=== PATIENT | female | born 1945 | race African-American/Black ===

== ENCOUNTER → 2016-10-14 | Outpatient (CLI) | payer MEDICARE, OTHER ==
[~2016-10-14] MED LIST: ALBU17IN2 INH; ALDA25TA2 PO; AMLO25TA PO; AMLO5TAB2 PO; ASPI1TAB PO; ASPI325T PO; ATIV1TAB7 PO; ATOR1TAB21 PO; BYST10TA2 PO; CARV12.5 PO; CO Q1CAP PO; COZA50TA PO; LOSA50TA20 PO; PREV15CA11 PO; PROP1TAB29 PO; SERT-141 PO; VITA100T20 PO; VITA1TAB23 PO; VITATAB11 PO; WELL100T PO
[2016-10-14 16:03] LABS: BLOOD UREA NITROGEN 12 MG/DL (7-18); CREATININE FOR GFR 0.82 MG/DL (0.55-1.02); GLOMERULAR FILTRATION RATE > 60.0 (>45)
== END ==
LOC: M LAB 15:09
PROVIDERS: ATTEND Internal Medicine Gastroenterology
DX: R10.31 Right lower quadrant pain (principal)

== ENCOUNTER → 2016-10-15 | Outpatient (CLI) | payer MEDICARE, OTHER ==
[~2016-10-15] MED LIST changes: +GASTROGRAFIN SOLUTION 30ML (Q9963) As Ordered ONE
--- NOTE | 2016-10-15 16:17 | REP ---
CT ABDOMEN AND PELVIS WITH ORAL CONTRAST ONLY, 10/15/2016: INDICATION: History of Non-Hodgkin lymphoma. Right lower quadrant pain. COMPARISON: CT abdomen and pelvis 01/21/2016. TECHNIQUE: Oral contrast only. After drinking two cups of oral contrast each containing 10 mL Gastrografin and 290 mL water, 3 mm spiral axial sections performed through abdomen and pelvis. FINDINGS: Small amount of dependent atelectasis and/or scarring present in lung bases bilaterally. The liver, spleen, pancreas within normal limits. There has been a prior cholecystectomy. Adrenal glands are normal. Kidneys are without hydronephrosis or obstructing ureteral calculi bilaterally. Stomach is moderately distended with oral contrast. Small bowel is without obstruction. The terminal ileum is normal. The appendix is not specifically seen, however, there are no findings to suggest appendiceal inflammation. Abdominal aorta is of normal course and caliber. There are no pathologically enlarged retroperitoneal nodes. The bladder is contracted. The uterus is absent. Soft tissue fullness is seen within the anal region posterior to the colon., and should be correlated clinically, but is not significantly changed in appearance. There is moderate sigmoid diverticulosis. Mild to moderate diverticulosis within descending colon. There is no free air or ascites. IMPRESSION: 1. No pathologically enlarged retroperitoneal lymph nodes. 2. Moderate diverticulosis in sigmoid colon, to a lesser extent descending colon. 3. Soft tissue fullness/thickening posterior to the rectum, unchanged. Clinical followup is recommended. MTDD
== END ==
LOC: M RAD 12:54
PROVIDERS: ATTEND Internal Medicine Gastroenterology
DX: K57.30 Diverticulosis of large intestine without perforation or abscess without bleeding (principal); Z85.72 Personal history of non-Hodgkin lymphomas
CPT/HCPCS: 74176; Q9963

== ENCOUNTER → 2016-12-23 | Outpatient (CLI) | payer MEDICARE, OTHER ==
[~2016-12-23] MED LIST changes: +ATIV1TAB10 PO; +FAMO20TA PO; -GASTROGRAFIN SOLUTION 30ML (Q9963) As Ordered ONE; -SERT-141 PO; +SERT50TA PO; +SPIR25TA2 PO; +SUCR1SS PO; +WELL100T2 PO
--- NOTE | 2016-12-23 16:39 | REP ---
Clinical: Upper GI bleed . Comparison: 01/17/2016 . Technique: PA and lateral. Findings: The mediastinum and cardiac silhouette are normal. The lung paz are clear and without acute consolidation, effusion, or pneumothorax. The skeletal structures are intact and normal. Impression: 1. No acute cardiopulmonary process. Signed by Jose Germain MD 12/23/2016 01:11 P
== END ==
LOC: M RAD 12:48
PROVIDERS: ATTEND Family Medicine
DX: K21.9 Gastro-esophageal reflux disease without esophagitis (principal)

== ENCOUNTER 2016-12-25 10:18 | Emergency (ER) | payer MEDICARE, OTHER ==
[~2016-12-25] VITALS: Ht 152.4 cm; Wt 73.5 kg
[~2016-12-25 10:18] MED LIST changes: -ATIV1TAB10 PO; -FAMO20TA PO; -SPIR25TA2 PO; -SUCR1SS PO; -WELL100T2 PO
[2016-12-25] MEDS ORDERED: WELL100T2 PO (10:40)
[2016-12-25] MEDS ORDERED: SPIR25TA2 PO (10:40)
[2016-12-25] MEDS ORDERED: CARV12.5 PO (10:40)
[2016-12-25] MEDS ORDERED: ATOR1TAB21 PO (10:40)
[2016-12-25] MEDS ORDERED: ATIV1TAB10 PO (10:40)
[2016-12-25] MEDS ORDERED: SUCRALFATE 1 GM TAB PO ONE (11:15)
[2016-12-25 11:31] LABS: BASO % 0.6 % (0.0-1.0); EOS # 0.6 K/mm3 (0.0-0.50); EOS % 8.1 % (0.0-3.0); LARGE UNSTAINED CELL # 0.2 K/mm3 (0.0-0.4); LYMPH # 2.1 K/mm3 (1.5-4.5); LYMPH % 30.9 % (24.0-44.0); MEAN CORPUSCULAR HGB CONC 31.5 g/dl (32.0-36.5); MEAN CORPUSCULAR VOLUME 92.2 fl (80.0-96.0); MONO # 0.4 K/mm3 (0.0-0.8); MONO % 5.2 % (0.0-5.0); NEUTROPHILS # 3.5 K/mm3 (1.8-7.7); NEUTROPHILS % 52.1 % (36.0-66.0); PLATELET COUNT, AUTOMATED 257 k/mm3 (150-450); RED CELL DISTRIBUTION WIDTH 12.8 % (11.5-14.5); WHITE BLOOD COUNT 6.7 K/mm3 (4.0-10.0)
[2016-12-25 11:36] LABS: ALBUMIN 3.5 GM/DL (3.2-5.2); ALBUMIN/GLOBULIN RATIO 1.09 (1.00-1.93); ALKALINE PHOSPHATASE 124 U/L (45-117); ALT/SGPT 19 U/L (12-78); ANION GAP 7 MEQ/L (8-16); AST/SGOT 17 U/L (15-37); BILIRUBIN,DIRECT < 0.1 MG/DL (0.0-0.2); BILIRUBIN,TOTAL 0.4 MG/DL (0.2-1.0); BLOOD UREA NITROGEN 13 MG/DL (7-18); CALCIUM LEVEL 8.8 MG/DL (8.8-10.2); CARBON DIOXIDE LEVEL 26 MEQ/L (21-32); CHLORIDE LEVEL 107 MEQ/L (98-107); GLOMERULAR FILTRATION RATE > 60.0 (>45); GLUCOSE, FASTING 92 MG/DL (80-110); POTASSIUM SERUM 4.2 MEQ/L (3.5-5.1); SODIUM LEVEL 140 MEQ/L (136-145); TOTAL PROTEIN 6.7 GM/DL (6.4-8.2)
--- NOTE | 2016-12-25 12:17 | REP ---
PORTABLE CHEST X-RAY: CLINICAL: Chest pain. COMPARISON: 12/23/2016. FINDINGS: Mediastinum and cardiac silhouette normal. Lung paz clear. No acute consolidation, effusion, or pneumothorax. Skeletal structures intact. IMPRESSION: Normal portable chest x-ray. No acute cardiopulmonary process or focal consolidation. Signed by Jose Germain MD 12/30/2016 11:03 A
[2016-12-25] MEDS ORDERED: GI COCKTAIL 50ML BTL(HYOSCYAMINE/MAALOX/LIDOCAINE VISCOUS)(1:3:1) PO ONE (12:45)
[2016-12-25] MEDS ORDERED: ISOVUE-370 76% 100ML VIAL (Q9967) As Ordered ONE (16:24)
[2016-12-25] MEDS ORDERED: diphenhydrAMINE INJ 50MG/ML VIAL (J1200) IV STA (16:31)
[2016-12-25] MEDS ORDERED: methylPREDNISolone INJ 125 MG/2 ML VIAL (J2930) IV ONE (16:45)
[2016-12-25 16:54] VITALS: BP 170/77
--- NOTE | 2016-12-25 18:08 | REP ---
Clinical: Acute chest pain. Technique: Axial contrast enhanced images from the thoracic inlet to the upper abdomen using 100 ml Isovue 370 intravenous contrast material with coronal and sagittal re-formations. Findings: Satisfactory enhancement of the pulmonary vasculature is achieved and no filling defects are identified to suggest pulmonary embolus. Thoracic aorta is normal caliber without aneurysm or dissection. Heart and pericardium are normal. Lung paz demonstrate mild atelectasis involving the lingula, right lower lobe and to a lesser extent the left lower lobe. No consolidation. No effusion. No pneumothorax. Tracheobronchial tree is patent. No obvious adenopathy. Musculoskeletal structures are intact. Impression: No evidence for pulmonary embolus. Mild atelectasis involving the right lower lobe, lingula, and left lower lobe. Signed by Jose Germain MD 12/25/2016 05:58 P
[2016-12-25] MEDS ORDERED: SUCR1SS PO (18:18)
[2016-12-25] MEDS ORDERED: FAMO20TA PO (18:19)
[2016-12-25] MEDS ORDERED: ASPIRIN 81 MG CHEW TABLET PO ONE (18:30)
--- NOTE | 2016-12-26 16:27 | ECGEPIP ---
Stationary ECG Study [facility] - ED Test Date: 2016-12-25 Pat Name: GER TYLER Department: Room: - Gender: F Citrix Engineer: brien : 1945 Requested By: Brit Velasco Order Number: [id number] Reading MD: Brit Velasco Measurements Intervals Rebuck Rate: 66 P: 29 DC: 150 QRS: -30 QRSD: 102 T: 0 QT: 206 QTc: 217 Interpretive Statements SINUS RHYTHM WITH SINUS ARRHYTHMIA BORDERLINE LEFT AXIS DEVIATION VOLTAGE CRITERIA FOR LVH NONSPECIFIC T-WAVE ABNORMALITY SIMILAR 01/17/16 Electronically Signed On 12-26-2016 16:27:23 EDT by Brit Velasco
--- NOTE | 2016-12-26 16:33 | ECGEPIP ---
Stationary ECG Study [facility] - ED Test Date: 2016-12-25 Pat Name: GER TYLER Department: Room: - Gender: F Rv Repair Technician: luisana : 1945 Requested By: Brit Velasco Order Number: [id number] Reading MD: Brit Velasco Measurements Intervals Cecil Rate: 63 P: 50 OH: 132 QRS: -34 QRSD: 101 T: -6 QT: 394 QTc: 406 Interpretive Statements SINUS RHYTHM MARKED LEFT AXIS DEVIATION VOLTAGE CRITERIA FOR LVH NONSPECIFIC T-WAVE ABNORMALITY SIMILAR 12/25/16 10:29 Electronically Signed On 12-26-2016 16:33:04 EDT by Brit Velasco
== END 2016-12-25 18:41 | disposition home or self-care (01) ==
LOC: M ED 11:07
DX: R07.9 Chest pain, unspecified (principal); R06.02 Shortness of breath; I10 Essential (primary) hypertension; J45.909 Unspecified asthma, uncomplicated; C85.90 Non-Hodgkin lymphoma, unspecified, unspecified site; E78.5 Hyperlipidemia, unspecified; I25.10 Atherosclerotic heart disease of native coronary artery without angina pectoris; Z86.73 Personal history of transient ischemic attack (TIA), and cerebral infarction without residual deficits; Z82.49 Family history of ischemic heart disease and other diseases of the circulatory system; Z79.899 Other long term (current) drug therapy; Z88.0 Allergy status to penicillin; Z88.2 Allergy status to sulfonamides; Z88.8 Allergy status to other drugs, medicaments and biological substances
CPT/HCPCS: 36415; 71010; 71275; 80048; 80076; 82550; 82553; 83690; 83880; 84484; 85025; 85379; 93005; 93041; 94760; 96374; 96375; 99285; J1200; J2930; Q9967

== ENCOUNTER → 2016-12-25 | Outpatient (CLI) | payer MEDICARE, OTHER | LOC: M RAD 10:11 | PROVIDERS: ATTEND Family Medicine | DX: R13.10 Dysphagia, unspecified (principal) ==

== ENCOUNTER → 2017-02-06 | Outpatient (CLI) | payer MEDICARE, OTHER ==
[~2017-02-06] MED LIST changes: +ATIV1TAB10 PO; +FAMO20TA PO; +SPIR25TA2 PO; +SUCR1SS PO; +WELL100T2 PO
[2017-02-06 14:49] LABS: BASO % 0.2 % (0.0-1.0); EOS # 0.1 K/mm3 (0.0-0.50); LARGE UNSTAINED CELL # 0.2 K/mm3 (0.0-0.4); LARGE UNSTAINED CELL % 1.5 % (0.0-4.0); LYMPH # 3.2 K/mm3 (1.5-4.5); LYMPH % 22.2 % (24.0-44.0); MEAN CORPUSCULAR HEMOGLOBIN 30.5 pg (27.0-33.0); MEAN CORPUSCULAR HGB CONC 32.6 g/dl (32.0-36.5); MEAN CORPUSCULAR VOLUME 93.6 fl (80.0-96.0); MONO # 0.8 K/mm3 (0.0-0.8); MONO % 5.7 % (0.0-5.0); NEUTROPHILS # 9.4 K/mm3 (1.8-7.7); NEUTROPHILS % 69.4 % (36.0-66.0); PLATELET COUNT, AUTOMATED 266 k/mm3 (150-450); RED CELL DISTRIBUTION WIDTH 13.2 % (11.5-14.5); WHITE BLOOD COUNT 13.5 K/mm3 (4.0-10.0)
[2017-02-06 15:34] LABS: ERYTHROCYTE SEDIMENTATION RATE 43 mm/hr (0-30)
== END ==
LOC: M LAB 14:18
PROVIDERS: ATTEND Physician Assistant Medical
DX: R51 Headache (principal)

== ENCOUNTER → 2017-02-25 | Outpatient (CLI) | payer MEDICARE, OTHER ==
[~2017-02-25] MED LIST changes: +E-Z-GAS II EFFERVESCENT PACKET (SODIUM BICARB./CITRIC ACID/SIMETHICONE) As Ordered ONE; +E-Z-HD 98% w/w 340GM SUSP BTL As Ordered ONE; +E-Z-PAQUE 96% w/w SUSP 176GM BTL As Ordered ONE
--- NOTE | 2017-02-25 17:43 | REP ---
UPPER GI, AIR CONTRAST: The procedure was performed under the direct supervision of Dr. Garcia. The images were reviewed with Dr. Garcia. The event host film shows no organomegaly or pathological masses. The intestinal gas pattern is nonspecific. There are surgical clips noted in the right upper quadrant. There is a surgical clip noted in the pelvis. Liquid barium and gas-producing granules were given in the erect position as well as liquid barium in the prone oblique position in order to perform a double-contrast upper GI examination. The oral and pharyngeal stage of deglutition are unremarkable. Esophageal transport demonstrates tertiary waves. There is no esophagitis, stricture, mucosal ring, or hiatal hernia. Gastroesophageal reflux is not demonstrated on this examination. The stomach rodriguez are normally outlined. The rugal folds are smooth and regular. There is no gastritis, neoplasm, or ulcer disease. The duodenal rodriguez are normally outlined. The mucosal folds are smooth and regular. There is no duodenitis, pancreatitis, peptic ulcer disease, or neoplasm. The visualized portion of the proximal small bowel appears normal in course and caliber. IMPRESSION: There are tertiary waves demonstrated, otherwise unremarkable double contrast upper GI examination. 1 minute and 44 seconds of fluoroscopic time was utilized for this procedure. Reviewed by LISA Jeong 02/26/2017 08:27 AEdited and Signed by Kemar Garcia MD 02/26/2017 07:21 P
== END ==
LOC: M RAD 09:15
PROVIDERS: ATTEND Family Medicine
DX: R13.10 Dysphagia, unspecified (principal)

== ENCOUNTER → 2017-04-27 | Outpatient (CLI) | payer MEDICARE, OTHER ==
[~2017-04-27] MED LIST changes: +CO Q100C PO; -CO Q1CAP PO; -E-Z-GAS II EFFERVESCENT PACKET (SODIUM BICARB./CITRIC ACID/SIMETHICONE) As Ordered ONE; -E-Z-HD 98% w/w 340GM SUSP BTL As Ordered ONE; -E-Z-PAQUE 96% w/w SUSP 176GM BTL As Ordered ONE; -PREV15CA11 PO; +PREV15CA18 PO
== END ==
LOC: M LAB 10:59
PROVIDERS: ATTEND Physician Assistant Medical
DX: M54.5 Low back pain (principal); M25.569 Pain in unspecified knee; I47.2 Ventricular tachycardia

== ENCOUNTER → 2017-04-27 | Outpatient (CLI) | payer MEDICARE, OTHER | LOC: M LAB 11:02 | PROVIDERS: ATTEND Nurse Practitioner Family | DX: I47.2 Ventricular tachycardia (principal) ==

== ENCOUNTER → 2017-04-28 | Outpatient (CLI) | payer MEDICARE, OTHER ==
--- NOTE | 2017-05-21 00:38 | ECWPNPC ---
PATIENT NAME: GER TYLER : 1945 GENDER: FEMALE VISIT DATE: 04/28/2017 DISCHARGE DATE: 04/28/17 1355 VISIT LOCKED DATE TIME: PHYSICIAN: LAYLA REDDY RESOURCE: LAYLA REDDY REASON FOR APPOINTMENT 1. LOW BACK PAIN HISTORY OF PRESENT ILLNESS FALL RISK SCREENING: SCREENING :ONE FALL WITH INJURY IN THE PAST YEAR PAIN SCREENING: PATIENT HAS A COMPLAINT OF ACUTE OR CHRONIC PAIN :YES TODAY'S VISIT: NOTES: REFERRED BY Tyler JONES PA-C /[facility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id number] ISLAM LANGUAGE LANGUAGES SPOKEN:TURKISH EDUCATION LEVEL OF EDUCATION:PROFESSIONAL SCHOOLS/MASTERS/PHD LEARNING BARRIERS / SPECIAL NEEDS VISION IMPAIRED?YES :CORRECTIVE LENSES READINESS TO LEARN?YES LEARNING PREFERENCES?YES :BOOKLETS, HANDOUTS SPECIAL DEVICES?YES :CANE HOSPITALIZATION/MAJOR DIAGNOSTIC PROCEDURE SURGERY RELATED REVIEW OF SYSTEMS FOLLOW-UP ROS: PSYCHOLOGY: POSITIVE FOR, ANXIETY, DEPRESSION SECONDARY TO CANCER. SAW COUNSELOR AND IS DOING MUCH BETTER . REVIEWED BY: PROVIDER: LAYLA JOLLY . CONSTITUTIONAL: ANY CHANGE IN YOUR MEDICAL CONDITION? NO . CHILLS NO . FEVER NO . INFECTION: DO YOU HAVE NEW INFECTIONS? NO . DO YOU HAVE HISTORY OF MRSA? NO . MUSCULOSKELETAL: ANY NEW PATTERNS OF PAIN OR NUMBNESS? NO . SYTEMIC LUPUS NO . PATIENT COMPLAINING OF LEFT JAW/NECK UPPER SHOULDER PAIN ? TMJ . GASTROENTEROLOGY: ANY NEW CHANGE IN BOWEL CONTROL? NO . BARRETTS ESOPHAGUS NO . CIRRHOSIS NO . HEPATITIS NO . LIVER FAILURE NO . ACID REFLUX NO . UNEXPLAINED WEIGHT LOSS NO . GENITOURINARY: ANY NEW CHANGE IN BLADDER CONTROL? NO . IS THERE A CHANCE YOU COULD BE ? NO . HEMATOLOGY/LYMPH: GENERAL NON-HODGKINS LYMPHOMA SURVIVOR. . DO YOU TAKE ANY BLOOD THINNERS? (FOR EXAMPLE- COUMADIN, PLAVIX, AGGRENOX, PLATEL, PRADAXA, OR XARELTO) NO . WHEN WAS YOUR LAST DOSE? DATE: TIME: . LOW PLATELET COUNT NO . SICKLE CELL DISEASE NO . VON WILLIEBRANDS NO . FACTOR V LEIDEN NO . THALLASEMIA NO . ANEMIA NO . EASY BRUISING NO . NEUROLOGY: HAVE YOU FALLEN IN THE PAST 6 MONTHS? YES . ANY NEW EXTREMITY NUMBNESS OR WEAKNESS? NO . HEAD INJURY NO . DEMENTIA NO . CEREBRAL PALSY NO . MULTIPLE SCLEROSIS NO . DIZZINESS NO . HEADACHE NO . STROKES NO . VERTIGO NO . CARDIOLOGY: DO YOU HAVE A PACEMAKER OR DEFIBRILLATOR? NO . ANGINA NO . HEART ATTACK NO . HEART SURGERY NO . CONGESTIVE HEART FAILURE/FLUID OVERLOAD NO . CHEST PAIN FOLLOWS WITH DR HOUSE - HAD LOOP RECORDER IN PLACE. CURRENTLY HAS LONG LASTING HOLTER MONITOR HAD A CATH AND EPS STUDIES . HIGH BLOOD PRESSURE ON MEDICATION(S) . IRREGULAR HEART BEAT NO . RESPIRATORY: HAVE YOU BEEN SICK IN THE PAST WEEK? NO . FEVER NO . FLU LIKE SYMPTOMS? NO . CPAP NO . BYPAP NO . ASTHMA NO . EMPHYSEMA NO . CHRONIC LUNG DISEASES NO . SHORTNESS OF BREATH ON EXERTION NO . COUGH NO . SNORING NO . INTEGUMENTARY: DO YOU HAVE ANY RASHES OR OPEN SORES? YES . ALLERGIC/IMMUNO: ARE YOU ALLERGIC TO SHELLFISH OR IV DYE? YES . ANY NEW ALLERGIES? NO . PSYCHIATRIC: DO YOU HAVE THOUGHTS OF HURTING YOURSELF OR SOMEONE ELSE? NO . ARE YOU ABUSED, NEGLECTED, OR IN AN UNSAFE ENVIRONMENT? NO . ENDOCRINOLOGY: ARE YOU DIABETIC? NO . THYROID DISORDER NO . OTHER: DO YOU NEED ANY PRESCRIPTIONS? NO . IF YES, PLEASE LIST: ____ . ANY NEW PROBLEMS WITH YOUR MEDICATIONS? NO . WHEN DID YOU LAST EAT? ____ . WHEN DID YOU LAST DRINK? ____ . WHAT DID YOU LAST DRINK? ____ . NAME OF PERSON DRIVING YOU HOME? ____ . DO YOU HAVE ANY OTHER QUESTIONS OR CONCERNS NO . ENT: SINUS PROBLEMS CHRONIC . PSYCHOLOGY: BECKS DEPRESSION INVENTORY STATES THAT SHE HAS NO SUICIDAL THOUGHTS BUT HAS THOUGHT ABOUT DUE TO HER ILLNESS AND PAIN . VITAL SIGNS WT 168.6 LBS, HT 60 IN, BMI 32.92 INDEX, BP 138/67 MM HG, HR 64 /MIN, RR 16 /MIN, TEMP 99.0 F, OXYGEN SAT % 96%, NA INITIALS SC 12:27, REVIEWED BY: ANJELICA. EXAMINATION GENERAL EXAMINATION: PSYCHALERT , ORIENTED X 3 , APPROPRIATE MOOD AND AFFECT . HEENT:NORMOCEPHALIC, NO LYMPHADENOPATHY, NO THYROMEGLY. LUNGS:CLEAR TO AUSCULTATION BILATERALLY, NO WHEEZES, RALES OR RHONCHI. HEART:HEART RATE REGULAR, NO CAROTID BRUITS, NORMAL S1S2, NO MURMURS, CLICK OR RUBS. MUSCULOSKELETAL:MUSCLE STRENGTH TESTING 5/5 BILATERAL UPPER AND LOWER EXTREMITIES. SLOW TO RISE TO STANDING POSITION AND HAS DIFFICULTY BEARING WEIGHT ON LEFT LEG. CCAN FLEX TO 30 DEGREES, EXTEND TO 10 DEGREES AND HAS INCREASED PAIN WITH ROTATION TO THE LEFT. POINT TENDERNESS OVER LUMBAR SPINOUS PROCESSES AND LEFT SIJ. TENDERNESS OVER LEFT PIRIFORMIS. POSITIVE CHANA SIGN. SLR POSITIVE ON LEFT AT 15 DEGREES, NEG ON RIGHT. HAS DIFFICULTY RISING TO HEEL AND TOE. . NEUROLOGIC EXAM:DTR'S 2+ IN BILATERAL UPPER AND LOWER EXTREMITIES. NO SENSORY DEFICEIT IDENTIFIED IN LOWER EXTREMITIES. PLANTAR RESPONSE IS FLEXOR. NO CLONUS. ASSESSMENTS LUMBAR DISC DISPLACEMENT WITHOUT MYELOPATHY - M51.26 (PRIMARY) LUMBAR RADICULOPATHY - M54.16 SACROILIITIS - M46.1 TREATMENT LUMBAR DISC DISPLACEMENT WITHOUT MYELOPATHY NOTES: INTRALAMINAR LUMBAR EPIDURAL, SPECIAL ATTENTION L$-5/L5-S1,WHAT IS LUMBAR EPIDURAL INJECTION? MATERIAL WAS PRINTED, REVIEWED AND GIVEN TO PT, OPTION FOR EPIDURAL INJECTIONS WERE DISCUSSED WITH THE PATIENT. FDA CONCERNS AND WARNING WERE REVIEWED INCLUDING THE RISK OF BLEEDING, RISK OF INFECTION, RISK OF INCREASED PAIN OR NEURALGIA, AND RISK OF PARALYSIS. PATIENT'S QUESTIONS WERE ANSWERED AND HE/SHE WISHES TO MOVE FORWARD WITH EPIDURAL INJECTION., FALLS CARE PLAN: 1. RECOMMEND REMOVING ALL THROW RUGS. 2. RECOMMEND NIGHT LIGHTS 3. RECOMMEND WEARING RUBBER SOLED SHOES AND TO NOT GO BAREFOOT. 4.. ADVISED TO CHANGE POSITION SLOWLY FROM SUPINE TO STANDING TO AVOID DIZZINESS. 5. ADVISED TO USE ASSISTIVE DEVICE SUCH CANE OR WALKER . BP ISSUES - FOLLOWS CLOSELY WITH CARDIOLOGY AND HER PCP. PROCEDURE CODES FA211 ESTABILISHED PATIENT [facility] FACILITY CHARGE G3891 BP SCR PRFRM RCMDD DEFIND SCR INTVL G8730 PAIN ASSESS POS TOOL F/U PLAN DOC 3016F PT SCRND UNHLTHY [place] USE 1123F ACP DISCUSS/DSCN MKR DOCD 1036F TOBACCO NON-USER 0518F FALL PLAN OF CARE DOCD G8427 DOC MEDS VERIFIED W/PT OR RE G8420 BMI<30 AND >=22 CALC & DOCU 3288F FALL RISK ASSESSMENT DOCD DISPOSITION & COMMUNICATION FOLLOW UP AFTER INJECTION (REASON: INTRALAMINAR LUMBAR EPIDURAL, SPECIAL ATTENTION L$-5/L5-S1) ELECTRONICALLY SIGNED BY INES LOO ON 05/20/2017 AT 08:47 AM EDT DISCLAIMER : THIS IS A VISIT SUMMARY EXTRACTED FROM THE [employer] CHART. IT IS NOT A COPY OF THE [employer] PROGRESS NOTE. MTDD
== END ==
LOC: M PAIN 11:20
PROVIDERS: ATTEND Nurse Practitioner Family
DX: G89.29 Other chronic pain (principal); M51.26 Other intervertebral disc displacement, lumbar region; M54.16 Radiculopathy, lumbar region; M46.1 Sacroiliitis, not elsewhere classified; I10 Essential (primary) hypertension; L30.9 Dermatitis, unspecified; G43.909 Migraine, unspecified, not intractable, without status migrainosus; F41.9 Anxiety disorder, unspecified; F32.9 Major depressive disorder, single episode, unspecified; Z88.2 Allergy status to sulfonamides; Z88.0 Allergy status to penicillin; Z88.5 Allergy status to narcotic agent; Z88.1 Allergy status to other antibiotic agents; Z91.041 Radiographic dye allergy status; Z79.1 Long term (current) use of non-steroidal anti-inflammatories (NSAID); Z79.899 Other long term (current) drug therapy

== ENCOUNTER → 2017-06-02 | Outpatient (CLI) | payer MEDICARE, OTHER ==
[~2017-06-02] MED LIST changes: +ISOVUE-M 300 61% 15ML VIAL (Q9967) As Ordered ONE; +LIDOCAINE 1% SDV INJ 30 ML VIAL As Ordered ONE; +diazePAM 5 MG TAB As Ordered ONE; +diphenhydrAMINE 25 MG CAP As Ordered ONE; +methylPREDNISolone SUSP 40 MG/ML (DEPO-medrol) VIAL (J1030) As Ordered ONE; +oxyCODONE 5MG TAB As Ordered ONE
--- NOTE | 2017-06-02 13:13 | REP ---
Partial lumbar spine series: Three views . History: Injection procedure for pain. 14 seconds of fluoroscopy time is reported. Findings: A sequence of three fluoroscopically obtained last image hold procedural spot radiographs of the lumbar spine document needle position and contrast injection associated with injection procedure. Signed by Kj Wright MD 06/02/2017 01:04 P
--- NOTE | 2017-06-03 01:23 | ECWPNPC ---
PATIENT NAME: GER TYLER : 1945 GENDER: FEMALE VISIT DATE: 06/02/2017 DISCHARGE DATE: 06/02/17 1215 VISIT LOCKED DATE TIME: PHYSICIAN: VIVIAN CHAVES RESOURCE: VIVIAN CHAVES REASON FOR APPOINTMENT 1. INTRALAMINAR LE HISTORY OF PRESENT ILLNESS HISTORY OF PRESENT ILLNESS: PAIN THE PATIENT DESCRIBES THE PAIN... FALL RISK SCREENING: SCREENING :NO FALLS IN THE PAST YEAR CURRENT MEDICATIONS TAKING LOSARTAN POTASSIUM 50 MG TABLET 1 TABLET ORALLY ONCE A DAY, NOTES: 06/02 730 TAKING ACETAMINOPHEN 325 MG CAPSULE 1 CAP ORALLY EVERY 6 HRS, NOTES: 06/02 730 TAKING BUPROPION HCL 100 MG TABLET 1 TABLET ORALLY ONCE A DAY, NOTES: 06/02 730 TAKING POTASSIUM CHLORIDE ER 8 MEQ TABLET EXTENDED RELEASE 2 TABLETS WITH FOOD ORALLY DAILY, NOTES: 06/02 730 TAKING SPIRONOLACTONE 25 MG TABLET 1/2 TABLET ORALLY DAILY, NOTES: 06/02 730 TAKING ATORVASTATIN CALCIUM 20 MG TABLET 1 TABLET ORALLY ONCE A DAY, NOTES: 06/01 2100 TAKING CARVEDILOL 12.5 MG TABLET ORALLY , NOTES: 06/02 730 TAKING LORAZEPAM 0.5 MG TABLET 1 TABLET NEEDED ORALLY EVERY 6 HRS, NOTES: 06/01 1300 TAKING VITAMIN D 2000 UNIT TABLET 1 TABLET ORALLY ONCE A DAY, NOTES: 06/02 730 TAKING VITAMIN C 500 MG TABLET 1 TABLET ORALLY ONCE A DAY, NOTES: 06/02 730 TAKING MAGNESIUM 400 MG CAPSULE ORALLY DAILY, NOTES: 06/02 730 TAKING VITAMIN B 12 100 MCG LOZENGE ORALLY DAILY, NOTES: 06/02 730 MEDICATION LIST REVIEWED AND RECONCILED WITH THE PATIENT PAST MEDICAL HISTORY MIGRAINE CERVICALGIA LOW BACK PAIN LEFT LEG PAIN / SCIATICA ALLERGIES SULFA (FOR ALLERGY USE ONLY) PENICILLIN (FOR ALLERGIES USE ONLY): FACIAL SWELLING: ALLERGY MORPHINE: AGITATION: SIDE EFFECTS BACTRIM: ANGIOEDEMA: ALLERGY IV DYE: AGGITATION, PANIC ATTACK, HIVES: ALLERGY REVIEW OF SYSTEMS REVIEWED BY: PROVIDER: . CONSTITUTIONAL: ANY CHANGE IN YOUR MEDICAL CONDITION? NO . CHILLS NO . FEVER NO . INFECTION: DO YOU HAVE NEW INFECTIONS? NO . DO YOU HAVE HISTORY OF MRSA? NO . MUSCULOSKELETAL: ANY NEW PATTERNS OF PAIN OR NUMBNESS? YES, PAIN LEFT LEG. STARTED 2 1/2 MONTHS AGO . GASTROENTEROLOGY: ANY NEW CHANGE IN BOWEL CONTROL? NO . GENITOURINARY: ANY NEW CHANGE IN BLADDER CONTROL? NO . IS THERE A CHANCE YOU COULD BE ? NO . HEMATOLOGY/LYMPH: DO YOU TAKE ANY BLOOD THINNERS? (FOR EXAMPLE- COUMADIN, PLAVIX, AGGRENOX, PLATEL, PRADAXA, OR XARELTO) NO . WHEN WAS YOUR LAST DOSE? DATE: TIME: . NEUROLOGY: HAVE YOU FALLEN IN THE PAST 6 MONTHS? YES, LAST TIME 2 MONTHS AGO. SHE MISSED STEP AND WENT DOWN FALLING DOWN 4 STEPS, HAD BRUISES. DID NOT GET SEEN . ANY NEW EXTREMITY NUMBNESS OR WEAKNESS? NO . CARDIOLOGY: DO YOU HAVE A PACEMAKER OR DEFIBRILLATOR? NO . RESPIRATORY: HAVE YOU BEEN SICK IN THE PAST WEEK? NO . FEVER NO . FLU LIKE SYMPTOMS? NO . COUGH NO . INTEGUMENTARY: DO YOU HAVE ANY RASHES OR OPEN SORES? YES, RASH RIGHT ARM . ALLERGIC/IMMUNO: ARE YOU ALLERGIC TO SHELLFISH OR IV DYE? NO . ANY NEW ALLERGIES? NO . PSYCHIATRIC: DO YOU HAVE THOUGHTS OF HURTING YOURSELF OR SOMEONE ELSE? NO . ARE YOU ABUSED, NEGLECTED, OR IN AN UNSAFE ENVIRONMENT? NO . ENDOCRINOLOGY: ARE YOU DIABETIC? NO . OTHER: DO YOU NEED ANY PRESCRIPTIONS? NO . IF YES, PLEASE LIST: ____ . ANY NEW PROBLEMS WITH YOUR MEDICATIONS? NO . WHEN DID YOU LAST EAT? 06/01/17 1700 . WHEN DID YOU LAST DRINK? 06/02/17 0730 . WHAT DID YOU LAST DRINK? WATER . NAME OF PERSON DRIVING YOU HOME? SON, [place] . DO YOU HAVE ANY OTHER QUESTIONS OR CONCERNS VERY NERVOUS, HAS ANXIETY ISSUES . VITAL SIGNS WT 168 LBS, HT 60 IN, BMI 32.81 INDEX, BP 134/61 MM HG, HR 71 /MIN, RR 16 /MIN, TEMP 98.9 F, OXYGEN SAT % 95%, NA INITIALS SC 10:08, REVIEWED BY: CM. ASSESSMENTS INTERVERTEBRAL DISC DISORDER WITH RADICULOPATHY OF LUMBAR REGION - M51.16 (PRIMARY) PROCEDURES PRE PROCEDURE DIAGNOSIS LUMBAR DISC DISORDER WITH RADICULOPATHY POST PROCEDURE DIAGNOSIS LUMBAR DISC DISORDER WITH RADICULOPATHY PROCEDURE LUMBAR EPIDURAL STEROID INJECTION UNDER FLUOROSCOPIC GUIDANCE SURGEON DR. VIVIAN CHAVES FIELD SOFTWARE ENGINEER NONE ANESTHESIA LOCAL PRE PROCEDURE NOTE THE PATIENT HAS A HISTORY OF CHRONIC LOW BACK PAIN. I EVALUATE THE PATIENT AND REVIEWED THE CHART. I WENT OVER THE RISKS, ALTERNATIVES, AND BENEFITS ASSOCIATED WITH THIS PROCEDURE. THE PATIENT WOULD LIKE TO PROCEED AND GIVE CONSENT TO PERFORMED THE PROCEDURE. THE PATIENT DENIES UNEXPLAINABLE WEIGHT LOSS, FEVER, CHILLS, OR NEW CHANGES IN URINARY OR BOWEL CONTROL. DESCRIPTION OF PROCEDURE THE PATIENT WAS BROUGHT TO THE PROCEDURE ROOM AND PLACED IN THE PRONE POSITION. THE LUMBOSACRAL AREA WAS CLEANED WITH BETADINE SOLUTION AND DRAPED ASEPTICALLY. THE PROCEDURE WAS DONE UNDER STERILE CONDITIONS. I CHECKED LATERALITY AND THE LEVEL WHERE THE PROCEDURE WAS GOING TO BE PERFORMED WITH THE PATIENT AND THE SUPPORTING STAFF AT THE MOMENT OF THE TIME OUT IN THE PROCEDURE ROOM. UNDER FLUOROSCOPIC GUIDANCE, THE TARGET POINT WAS SELECTED AT THE INTERLAMINAR LEVEL OF L4-L5. LIDOCAINE WAS USED TO NUMB THE SKIN AND THE SUBCUTANEOUS TISSUE BELOW IT. EPIDURAL TUOHY NEEDLE, 17-GAUGE, WAS ADVANCED UNDER FLUOROSCOPIC GUIDANCE AND FOLLOWING PATIENT FEEDBACK UNTIL THE EPIDURAL SPACE WAS REACHED, 7 CM DEEP INTO THE SKIN BY THE LOSS OF RESISTANCE TECHNIQUE. ISOVUE M DYE 30%, 0.25 ML, WAS INJECTED SHOWING ADEQUATE SPREAD OF THE DYE. THEN, A SOLUTION OF 3 ML OF NORMAL SALINE WITH DEPO-MEDROL 60 MG WAS INJECTED SLOWLY FOLLOWING PATIENT FEEDBACK. THERE WAS NO EVIDENCE OF BLOOD, PARESTHESIA OR CEREBROSPINAL FLUID DURING THE PROCEDURE. THE PATIENT WAS SENT TO THE RECOVERY ROOM. THE PATIENT WAS MOVING THE EXTREMITIES AND DOING WELL. THERE WAS NO COMPLICATION DURING THE PROCEDURE. FLUOROSCOPY TIME WAS 14 SECONDS. POST PROCEDURE NOTE THE PATIENT WILL BE SEEN IN A FOLLOW UP IN THE NEXT FEW WEEKS. INSTRUCTIONS WERE GIVEN, QUESTIONS WERE ANSWERED, AND THE PATIENT EXPRESSED UNDERSTANDING AND AGREES WITH THE PLAN. I, BROOKLYNN MAC, DOCUMENTED THE ABOVE INFORMATION ACTING A SCRIBE FOR DR. CHAVES. I, DR. CHAVES, HAVE REVIEWED THE ABOVE DOCUMENT, SCRIBED BY BROOKLYNN MAC, AND I VERIFY THAT IT IS ACCURATE DIAGNOSTIC IMAGING [facility] FLUORO GUIDE SPINE INJECTION (PAIN)[id number] PROCEDURE CODES 58111 LUMBAR/SACRAL W/ IMAGING 6045F RADXPS IN END [id number] PXD DISPOSITION & COMMUNICATION FOLLOW UP 3 WEEKS ELECTRONICALLY SIGNED BY VIVIAN CHAVES MD ON 06/02/2017 AT 03:37 PM EDT DISCLAIMER : THIS IS A VISIT SUMMARY EXTRACTED FROM THE [employer] CHART. IT IS NOT A COPY OF THE [employer] PROGRESS NOTE. MTDD
== END ==
LOC: M PAIN 10:15
PROVIDERS: ATTEND Anesthesiology
DX: G89.29 Other chronic pain (principal); M51.16 Intervertebral disc disorders with radiculopathy, lumbar region; G43.909 Migraine, unspecified, not intractable, without status migrainosus; R21 Rash and other nonspecific skin eruption; Z88.2 Allergy status to sulfonamides; Z88.0 Allergy status to penicillin; Z88.5 Allergy status to narcotic agent; Z88.1 Allergy status to other antibiotic agents; Z91.041 Radiographic dye allergy status; Z79.1 Long term (current) use of non-steroidal anti-inflammatories (NSAID); Z79.899 Other long term (current) drug therapy
CPT/HCPCS: 62323; J1030; Q9967

== ENCOUNTER → 2017-06-11 | Outpatient (CLI) | payer MEDICARE, OTHER ==
[~2017-06-11] MED LIST changes: -ISOVUE-M 300 61% 15ML VIAL (Q9967) As Ordered ONE; -LIDOCAINE 1% SDV INJ 30 ML VIAL As Ordered ONE; -diazePAM 5 MG TAB As Ordered ONE; -diphenhydrAMINE 25 MG CAP As Ordered ONE; -methylPREDNISolone SUSP 40 MG/ML (DEPO-medrol) VIAL (J1030) As Ordered ONE; -oxyCODONE 5MG TAB As Ordered ONE
--- NOTE | 2017-06-11 09:31 | REP ---
Clinical: Pain. Technique: AP, lateral, bilateral oblique and sunrise views of the right knee. Comparison: 11/14/2010. Findings: Moderate tricompartmental osteoarthritic degenerative changes include cortical irregularity to the femoral condyles as well as medial joint space narrowing, medial femoral and tibial osteophytes, cortical irregularity with subtle spurring and joint space narrowing involving the patella and patellofemoral space respectively. No acute fracture dislocation. No definite effusion. Impression: Moderate tricompartmental osteoarthritic degenerative changes Signed by Jose Germain MD 06/11/2017 09:22 A
== END ==
LOC: M RAD 08:54
PROVIDERS: ATTEND Physician Assistant Medical
DX: M17.11 Unilateral primary osteoarthritis, right knee (principal)

== ENCOUNTER → 2017-08-24 | Outpatient (CLI) | payer MEDICARE, OTHER ==
[~2017-08-24] MED LIST changes: +COLA100C5 PO; +DICY20TA11; +FLEE5TAB PO; +MIRA3350 PO; +SUCR1TAB56
--- NOTE | 2017-09-12 00:33 | ECWPNPC ---
PATIENT NAME: GER TYLER : 1945 GENDER: FEMALE VISIT DATE: 08/24/2017 DISCHARGE DATE: 08/24/17 1601 VISIT LOCKED DATE TIME: PHYSICIAN: LAYLA REDDY RESOURCE: LAYLA REDDY REASON FOR APPOINTMENT 1. POST LE HISTORY OF PRESENT ILLNESS HISTORY OF PRESENT ILLNESS: PAIN THE PATIENT DESCRIBES THE PAIN... FALL RISK SCREENING: SCREENING :NO FALLS IN THE PAST YEAR TODAY'S VISIT: NOTES: S/P LESI COMPLETED 06/02/17. PAIN LEVEL PRIOR 05/07 AND POST 12/05 . STILL HAS SOME PAIN LOW BACK LEFT SIDE WITH RADIATION TO MID THIGH ESPECIALLY WITH WALKING. HAS BEEN EXPERIECING EPIGASTRIC PAIN FOR OVER A MONTH. FEELS LIKE FOOD GETS STUCK IN THE ESOPHAGUS. ABD PAIN RADIATES TO BACK. . CURRENT MEDICATIONS TAKING LOSARTAN POTASSIUM 50 MG TABLET 1 TABLET ORALLY ONCE A DAY TAKING ACETAMINOPHEN 325 MG CAPSULE 1 CAP ORALLY EVERY 6 HRS TAKING BUPROPION HCL 100 MG TABLET 1 TABLET ORALLY ONCE A DAY TAKING POTASSIUM CHLORIDE ER 8 MEQ TABLET EXTENDED RELEASE 2 TABLETS WITH FOOD ORALLY DAILY TAKING SPIRONOLACTONE 25 MG TABLET 1/2 TABLET ORALLY DAILY TAKING ATORVASTATIN CALCIUM 20 MG TABLET 1 TABLET ORALLY ONCE A DAY TAKING CARVEDILOL 12.5 MG TABLET ORALLY TAKING LORAZEPAM 0.5 MG TABLET 1 TABLET NEEDED ORALLY EVERY 6 HRS TAKING VITAMIN D 2000 UNIT TABLET 1 TABLET ORALLY ONCE A DAY TAKING VITAMIN C 500 MG TABLET 1 TABLET ORALLY ONCE A DAY TAKING MAGNESIUM 400 MG CAPSULE ORALLY DAILY TAKING VITAMIN B 12 100 MCG LOZENGE ORALLY DAILY MEDICATION LIST REVIEWED AND RECONCILED WITH THE PATIENT PAST MEDICAL HISTORY MIGRAINE CERVICALGIA LOW BACK PAIN LEFT LEG PAIN / SCIATICA ALLERGIES SULFA (FOR ALLERGY USE ONLY) PENICILLIN (FOR ALLERGIES USE ONLY): FACIAL SWELLING: ALLERGY MORPHINE: AGITATION: SIDE EFFECTS BACTRIM: ANGIOEDEMA: ALLERGY IV DYE: AGGITATION, PANIC ATTACK, HIVES: ALLERGY SURGICAL HISTORY TOTAL HYSTERECTOMY 1979 CHOLECYSTECTOMY 1983 RHINOPLASTY 1991 LEFT EAR SURGERY 1995 LEFT KNEE SURGERY 2006 LOOP RECORDER 2016 SOCIAL HISTORY GENERAL: TOBACCO USE ARE YOU A:NONSMOKER LUNG CANCER SCREENING SMOKING STATUS:NON SMOKER ALCOHOL SCREENING DID YOU HAVE A DRINK CONTAINING ALCOHOL IN THE PAST YEAR?NO POINTS0 INTERPRETATIONNEGATIVE ANABAPTISM [id number] GNOSTICISM LANGUAGE LANGUAGES SPOKEN:HAITIAN EDUCATION LEVEL OF EDUCATION:PROFESSIONAL SCHOOLS/MASTERS/PHD LEARNING BARRIERS / SPECIAL NEEDS VISION IMPAIRED?YES :CORRECTIVE LENSES READINESS TO LEARN?YES LEARNING PREFERENCES?YES :BOOKLETS, HANDOUTS SPECIAL DEVICES?YES :CANE HOSPITALIZATION/MAJOR DIAGNOSTIC PROCEDURE SURGERY RELATED REVIEW OF SYSTEMS REVIEWED BY: PROVIDER: . CONSTITUTIONAL: ANY CHANGE IN YOUR MEDICAL CONDITION? YES, HAVING PROBLEMS WITH INDIGESTION, SEVERE CONSTIPATION AND HAS LOST 12 POUNDS IN 1 MONTH. PREVIOUS IBS SYMPTOMS WERE PIMARILY DIARRHEA. . CHILLS NO . FEVER NO . INFECTION: DO YOU HAVE NEW INFECTIONS? NO . DO YOU HAVE HISTORY OF MRSA? NO . MUSCULOSKELETAL: ANY NEW PATTERNS OF PAIN OR NUMBNESS? YES, STARTS IN LOW BACK AND ACROSS TO LEFT HIP AND DOWN LEFT LEG . GASTROENTEROLOGY: ANY NEW CHANGE IN BOWEL CONTROL? NO . GENITOURINARY: ANY NEW CHANGE IN BLADDER CONTROL? NO . IS THERE A CHANCE YOU COULD BE ? NO . HEMATOLOGY/LYMPH: DO YOU TAKE ANY BLOOD THINNERS? (FOR EXAMPLE- COUMADIN, PLAVIX, AGGRENOX, PLATEL, PRADAXA, OR XARELTO) NO . WHEN WAS YOUR LAST DOSE? DATE: TIME: . NEUROLOGY: HAVE YOU FALLEN IN THE PAST 6 MONTHS? NO . ANY NEW EXTREMITY NUMBNESS OR WEAKNESS? NO . CARDIOLOGY: DO YOU HAVE A PACEMAKER OR DEFIBRILLATOR? NO . RESPIRATORY: HAVE YOU BEEN SICK IN THE PAST WEEK? NO . FEVER NO . FLU LIKE SYMPTOMS? NO . COUGH NO . INTEGUMENTARY: DO YOU HAVE ANY RASHES OR OPEN SORES? NO . ALLERGIC/IMMUNO: ARE YOU ALLERGIC TO SHELLFISH OR IV DYE? YES . ANY NEW ALLERGIES? NO . PSYCHIATRIC: DO YOU HAVE THOUGHTS OF HURTING YOURSELF OR SOMEONE ELSE? NO . ARE YOU ABUSED, NEGLECTED, OR IN AN UNSAFE ENVIRONMENT? NO . ENDOCRINOLOGY: ARE YOU DIABETIC? NO . OTHER: DO YOU NEED ANY PRESCRIPTIONS? NO . IF YES, PLEASE LIST: ____ . ANY NEW PROBLEMS WITH YOUR MEDICATIONS? NO . WHEN DID YOU LAST EAT? ____ . WHEN DID YOU LAST DRINK? ____ . WHAT DID YOU LAST DRINK? ____ . NAME OF PERSON DRIVING YOU HOME? ____ . DO YOU HAVE ANY OTHER QUESTIONS OR CONCERNS NO . VITAL SIGNS WT 157.2 LBS, HT 60 IN, BMI 30.70 INDEX, BP 130/63 MM HG, HR 63 /MIN, RR 16 /MIN, TEMP 98.1 F, OXYGEN SAT % 97%, NA INITIALS SC 15:01. EXAMINATION GENERAL EXAMINATION: PSYCHALERT , ORIENTED X 3 , APPROPRIATE MOOD AND AFFECT . LUNGS:CLEAR TO AUSCULTATION BILATERALLY, NO WHEEZES, RALES OR RHONCHI. HEART:HEART RATE REGULAR, NORMAL S1S2, NO MURMURS, CLICK OR RUBS. MUSCULOSKELETAL:MUSCLE STRENGTH TESTING 5/5 BILATERAL UPPER AND LOWER EXTREMITIES. SLOW TO RISE TO STANDING POSITION AND HAS DIFFICULTY BEARING WEIGHT ON LEFT LEG. POINT TENDERNESS OVER LUMBAR SPINOUS PROCESSES AND LEFT SIJ. TENDERNESS OVER LEFT PIRIFORMIS. POSITIVE CHANA SIGN. . NEUROLOGIC EXAM:DTR'S 2+ IN BILATERAL UPPER AND LOWER EXTREMITIES. NO SENSORY DEFICEIT IDENTIFIED IN LOWER EXTREMITIES. . ASSESSMENTS LUMBAR DISC DISPLACEMENT WITHOUT MYELOPATHY - M51.26 (PRIMARY) LUMBAR RADICULOPATHY - M54.16 SACROILIITIS - M46.1 TREATMENT LUMBAR DISC DISPLACEMENT WITHOUT MYELOPATHY NOTES: CALL DR MURPHY TO EVALUATE FOR CONSTIPATION AND ABDOMENAL PAINLOTS OF FLUIDS. LIMIT BREAD INTAKE. PROCEDURE CODES FA211 ESTABILISHED PATIENT [facility] CHARGE G8730 PAIN ASSESS POS TOOL F/U PLAN DOC G8427 DOC MEDS VERIFIED W/PT OR RE DISPOSITION & COMMUNICATION FOLLOW UP SEPTEMBER (REASON: BACK PAIN) ELECTRONICALLY SIGNED BY INES LOO ON 09/11/2017 AT 07:59 PM EST DISCLAIMER : THIS IS A VISIT SUMMARY EXTRACTED FROM THE [employer] CHART. IT IS NOT A COPY OF THE [employer] PROGRESS NOTE. JIGNESH
== END ==
LOC: M PAIN 14:45
PROVIDERS: ATTEND Nurse Practitioner Family
DX: G89.29 Other chronic pain (principal); M51.26 Other intervertebral disc displacement, lumbar region; M54.16 Radiculopathy, lumbar region; M46.1 Sacroiliitis, not elsewhere classified; K59.00 Constipation, unspecified; Z88.0 Allergy status to penicillin; Z88.2 Allergy status to sulfonamides; Z88.5 Allergy status to narcotic agent; Z91.041 Radiographic dye allergy status; Z88.1 Allergy status to other antibiotic agents; Z79.899 Other long term (current) drug therapy

== ENCOUNTER 2017-08-28 10:30 | Emergency (ER) | payer MEDICARE, OTHER ==
[~2017-08-28] VITALS: Ht 152.4 cm; Wt 75.9 kg
[~2017-08-28 10:30] MED LIST changes: -COLA100C5 PO; -DICY20TA11; -FLEE5TAB PO; -MIRA3350 PO; -SUCR1TAB56
[2017-08-28] MEDS ORDERED: DICY20TA11 (10:48)
[2017-08-28] MEDS ORDERED: SUCR1TAB56 (10:48)
[2017-08-28] MEDS ORDERED: FLEE5TAB PO (10:48)
[2017-08-28] MEDS ORDERED: NS 500 ML IV ONE (11:00)
[2017-08-28] MEDS ORDERED: ONDANSETRON 4MG/2ML VIAL (J2405) IV ONE (11:00)
--- NOTE | 2017-08-28 11:22 | REP ---
Clinical: Abdominal distension and constipation. Technique: Single supine view of the abdomen and pelvis. Findings: Mild fecal stasis cannot be excluded. No evidence for bowel obstruction or perforation. No organomegaly. No abnormal calcifications. Evidence of prior cholecystectomy. Skeletal structures demonstrate age-related degenerative changes. Impression: Mild fecal stasis. No evidence for bowel obstruction or perforation. Signed by Jose Germain MD 08/28/2017 11:13 A
[2017-08-28 11:27] LABS: BASO % 0.5 % (0.0-1.0); EOS # 0.1 10^3/uL (0.0-0.50); IMMATURE GRANULOCYTE % 0.2 % (0-0); LYMPH # 1.8 10^3/uL (1.5-4.5); LYMPH % 27.8 % (24.0-44.0); MEAN CORPUSCULAR HEMOGLOBIN 30.2 pg (27.0-33.0); MEAN CORPUSCULAR HGB CONC 32.7 g/dl (32.0-36.5); MEAN CORPUSCULAR VOLUME 92.3 fl (80.0-96.0); MONO # 0.6 10^3/uL (0.0-0.8); MONO % 9.6 % (0.0-5.0); NEUTROPHILS % 59.9 % (36.0-66.0); PLATELET COUNT, AUTOMATED 285 10^3/uL (150-450); RED CELL DISTRIBUTION WIDTH 13.7 % (11.5-14.5); WHITE BLOOD COUNT 6.6 10^3/uL (4.0-10.0)
[2017-08-28 11:49] LABS: ANION GAP 6 MEQ/L (8-16); BLOOD UREA NITROGEN 9 MG/DL (7-18); CALCIUM LEVEL 9.4 MG/DL (8.8-10.2); CARBON DIOXIDE LEVEL 30 MEQ/L (21-32); CHLORIDE LEVEL 106 MEQ/L (98-107); CREATININE FOR GFR 0.81 MG/DL (0.55-1.02); GLOMERULAR FILTRATION RATE > 60.0 (>45); GLUCOSE, FASTING 83 MG/DL (80-110); POTASSIUM SERUM 3.7 MEQ/L (3.5-5.1); SODIUM LEVEL 142 MEQ/L (136-145)
[2017-08-28] MEDS ORDERED: FLEET ENEMA PR STA (11:49)
[2017-08-28] MEDS ORDERED: COLA100C5 PO (13:30)
[2017-08-28] MEDS ORDERED: MIRA3350 PO (13:30)
[2017-08-28 13:38] VITALS: BP 165/69
== END 2017-08-28 13:55 | disposition home or self-care (01) ==
LOC: M ED 10:30
DX: K59.00 Constipation, unspecified (principal); Z86.73 Personal history of transient ischemic attack (TIA), and cerebral infarction without residual deficits; Z87.01 Personal history of pneumonia (recurrent); J45.909 Unspecified asthma, uncomplicated; F41.9 Anxiety disorder, unspecified; F32.9 Major depressive disorder, single episode, unspecified; Z79.899 Other long term (current) drug therapy; Z88.0 Allergy status to penicillin; Z88.2 Allergy status to sulfonamides
CPT/HCPCS: 74000; 80048; 85025; 96374; 99284; J2405

== ENCOUNTER → 2017-09-10 | Outpatient (CLI) | payer MEDICARE, OTHER | LOC: M PAIN 14:30 | DX: M51.16 Intervertebral disc disorders with radiculopathy, lumbar region (principal); G89.29 Other chronic pain; Z79.899 Other long term (current) drug therapy; Z88.2 Allergy status to sulfonamides; Z88.0 Allergy status to penicillin; Z88.5 Allergy status to narcotic agent; Z88.1 Allergy status to other antibiotic agents; Z91.041 Radiographic dye allergy status | CPT/HCPCS: G0463 ==

== ENCOUNTER → 2017-09-25 | Outpatient (CLI) | payer MEDICARE, OTHER | LOC: M RAD 12:42 | DX: Z12.31 Encounter for screening mammogram for malignant neoplasm of breast (principal); Z78.0 Asymptomatic menopausal state | CPT/HCPCS: G0202 ==

== ENCOUNTER → 2017-10-01 | Outpatient (CLI) | payer MEDICARE, OTHER | LOC: M RAD 11:43 | DX: J18.9 Pneumonia, unspecified organism (principal); J44.9 Chronic obstructive pulmonary disease, unspecified | CPT/HCPCS: 71046 ==

== ENCOUNTER → 2017-10-13 | Outpatient (CLI) | payer MEDICARE, OTHER | LOC: M PAIN 08:45 | DX: Z53.29 Procedure and treatment not carried out because of patient's decision for other reasons (principal) ==

== ENCOUNTER → 2017-10-15 | Outpatient (CLI) | payer MEDICARE, OTHER ==
[2017-10-15 12:32] LABS: HEMATOCRIT 40.9 % (36.0-47.0); HEMOGLOBIN 12.9 g/dl (12.0-16.0); MEAN CORPUSCULAR HEMOGLOBIN 29.5 pg (27.0-33.0); MEAN CORPUSCULAR HGB CONC 31.5 g/dl (32.0-36.5); MEAN CORPUSCULAR VOLUME 93.4 fl (80.0-96.0); PLATELET COUNT, AUTOMATED 273 10^3/uL (150-450); RED BLOOD COUNT 4.38 10^6/uL (4.00-5.40); RED CELL DISTRIBUTION WIDTH 13.7 % (11.5-14.5); WHITE BLOOD COUNT 7.1 10^3/uL (4.0-10.0)
[2017-10-15 12:56] LABS: ERYTHROCYTE SEDIMENTATION RATE 44 mm/hr (0-30)
[2017-10-15 13:05] LABS: FOLATE 12.8 NG/ML (>5.4); TOTAL T3 124.4 NG/DL (60.0-181.0); VITAMIN B12 LEVEL > 2000 PG/ML (247-911)
[2017-10-15 13:06] LABS: ALBUMIN 3.6 GM/DL (3.2-5.2); ALBUMIN/GLOBULIN RATIO 0.92 (1.00-1.93); ALKALINE PHOSPHATASE 118 U/L (45-117); ALT/SGPT 15 U/L (12-78); ANION GAP 6 MEQ/L (8-16); AST/SGOT 14 U/L (7-37); BILIRUBIN,TOTAL 0.5 MG/DL (0.2-1.0); BLOOD UREA NITROGEN 12 MG/DL (7-18); CALCIUM LEVEL 9.1 MG/DL (8.8-10.2); CARBON DIOXIDE LEVEL 31 MEQ/L (21-32); CHLORIDE LEVEL 105 MEQ/L (98-107); CHOLESTEROL LEVEL 235 MG/DL (<200); CHOLESTEROL RISK RATIO 2.901 (<5); CREATININE FOR GFR 0.68 MG/DL (0.55-1.02); GLOMERULAR FILTRATION RATE > 60.0 (>39); GLUCOSE, FASTING 82 MG/DL (83-110); HDL CHOLESTEROL 81 MG/DL (>40); IRON (FE) 85 UG/DL (50-170); LDL CHOLESTEROL 142.6 MG/DL (<100); NON-HDL-C 154 MG/DL; PERCENT SATURATION 30.2 % (13.2-45.0); POTASSIUM SERUM 3.9 MEQ/L (3.5-5.1); SODIUM LEVEL 142 MEQ/L (136-145); THYROXINE (T4) 11.8 UG/DL (4.5-12.0); TOTAL IRON BINDING CAPACITY 281 UG/DL (250-450); TOTAL PROTEIN 7.5 GM/DL (6.4-8.2); TRIGLYCERIDES LEVEL 57 MG/DL (<150)
[2017-10-15 13:12] LABS: ESTIMATED AVERAGE GLUCOSE 120 MG/DL (60-110); HEMOGLOBIN A1c 5.8 %
[2017-10-15 13:41] LABS: APPEARANCE, URINE HAZY (CLEAR); BACTERIA, URINE AUTO NEGATIVE (NEGATIVE); BILIRUBIN, URINE AUTO NEGATIVE (NEGATIVE); BLOOD, URINE BLOOD NEGATIVE (NEGATIVE); COLOR, URINE YELLOW (YELLOW); GLUCOSE, URINE (UA) AUTO NEGATIVE (NEGATIVE); KETONE, URINE AUTO NEGATIVE (NEGATIVE); LEUKOCYTE ESTERASE, URINE AUTO 1+ (NEGATIVE); MUCUS, URINE SMALL (NEGATIVE); NITRITE, URINE AUTO NEGATIVE (NEGATIVE); PROTEIN, URINE AUTO NEGATIVE (NEGATIVE); RBC, URINE AUTO 2 /HPF (0-3); SQUAMOUS EPITHELIAL CELL UR AU 6 /HPF (0-6); TRANSITIONAL EPITHELIAL AUTO 1 /HPF; UROBILINOGEN, URINE AUTO 0.2 mg/dL (0.0-2.0); WBC, URINE AUTO 4 /HPF (0-3)
== END ==
LOC: M LAB 11:34
DX: D64.9 Anemia, unspecified (principal); Z79.899 Other long term (current) drug therapy; E03.9 Hypothyroidism, unspecified
CPT/HCPCS: 82746

== ENCOUNTER → 2017-10-22 | Outpatient (CLI) | payer MEDICARE, OTHER | LOC: M PAIN 14:45 | DX: M51.26 Other intervertebral disc displacement, lumbar region (principal); M54.16 Radiculopathy, lumbar region; M46.1 Sacroiliitis, not elsewhere classified; Z79.899 Other long term (current) drug therapy; Z88.2 Allergy status to sulfonamides; Z88.0 Allergy status to penicillin; Z88.5 Allergy status to narcotic agent; Z88.1 Allergy status to other antibiotic agents; Z91.041 Radiographic dye allergy status | CPT/HCPCS: G0463 ==

== ENCOUNTER → 2017-11-23 | Outpatient (CLI) | payer MEDICARE, OTHER | LOC: M PAIN 14:00 | DX: G89.29 Other chronic pain (principal); M51.26 Other intervertebral disc displacement, lumbar region; M54.16 Radiculopathy, lumbar region; M46.1 Sacroiliitis, not elsewhere classified; G43.909 Migraine, unspecified, not intractable, without status migrainosus; M54.2 Cervicalgia; Z79.899 Other long term (current) drug therapy; Z88.2 Allergy status to sulfonamides; Z88.0 Allergy status to penicillin; Z88.5 Allergy status to narcotic agent; Z91.041 Radiographic dye allergy status; Z88.1 Allergy status to other antibiotic agents | CPT/HCPCS: G0463 ==

== ENCOUNTER → 2017-12-15 | Outpatient (CLI) | payer MEDICARE, OTHER ==
[~2017-12-15] MED LIST changes: -ALBU17IN2 INH; -ALDA25TA2 PO; -AMLO25TA PO; -AMLO5TAB2 PO; -ASPI1TAB PO; -ASPI325T PO; -ATIV1TAB10 PO; -ATIV1TAB7 PO; -ATOR1TAB21 PO; -BYST10TA2 PO; -CARV12.5 PO; -CO Q100C PO; -COZA50TA PO; -FAMO20TA PO; +ISOVUE-M 300 61% 15ML VIAL (Q9967) As Ordered; +LIDOCAINE 1% SDV INJ 30 ML VIAL As Ordered; -LOSA50TA20 PO; -PREV15CA18 PO; -PROP1TAB29 PO; -SERT50TA PO; -SPIR25TA2 PO; -SUCR1SS PO; -VITA100T20 PO; -VITA1TAB23 PO; -VITATAB11 PO; -WELL100T PO; -WELL100T2 PO; +diazePAM 5 MG TAB As Ordered; +diphenhydrAMINE 25 MG CAP As Ordered; +methylPREDNISolone SUSP 40 MG/ML (DEPO-medrol) VIAL (J1030) As Ordered; +oxyCODONE 5MG TAB As Ordered
== END ==
LOC: M PAIN 10:15
DX: G89.29 Other chronic pain (principal); M51.16 Intervertebral disc disorders with radiculopathy, lumbar region; Z79.82 Long term (current) use of aspirin; Z79.899 Other long term (current) drug therapy; Z88.2 Allergy status to sulfonamides; Z88.0 Allergy status to penicillin; Z88.1 Allergy status to other antibiotic agents; Z88.5 Allergy status to narcotic agent; Z91.041 Radiographic dye allergy status; Z85.72 Personal history of non-Hodgkin lymphomas
CPT/HCPCS: J1030

== ENCOUNTER → 2017-12-31 | Outpatient (CLI) | payer MEDICARE, OTHER | LOC: M PAIN 13:00 | DX: M51.26 Other intervertebral disc displacement, lumbar region (principal); M54.16 Radiculopathy, lumbar region; M46.1 Sacroiliitis, not elsewhere classified; G43.909 Migraine, unspecified, not intractable, without status migrainosus; Z79.82 Long term (current) use of aspirin; Z79.899 Other long term (current) drug therapy; Z88.0 Allergy status to penicillin; Z88.2 Allergy status to sulfonamides; Z88.1 Allergy status to other antibiotic agents; Z88.5 Allergy status to narcotic agent; Z91.041 Radiographic dye allergy status; Z85.72 Personal history of non-Hodgkin lymphomas | CPT/HCPCS: G0463 ==

== ENCOUNTER → 2018-01-20 | Outpatient (CLI) | payer MEDICARE, OTHER | LOC: M PAIN 10:00 | DX: G89.29 Other chronic pain (principal); M51.16 Intervertebral disc disorders with radiculopathy, lumbar region; M48.061 Spinal stenosis, lumbar region without neurogenic claudication; G43.909 Migraine, unspecified, not intractable, without status migrainosus; M54.2 Cervicalgia; Z79.82 Long term (current) use of aspirin; Z79.899 Other long term (current) drug therapy; Z88.0 Allergy status to penicillin; Z88.2 Allergy status to sulfonamides; Z88.5 Allergy status to narcotic agent; Z88.1 Allergy status to other antibiotic agents; Z91.041 Radiographic dye allergy status | CPT/HCPCS: J1030 ==

== ENCOUNTER → 2018-02-03 | Outpatient (CLI) | payer MEDICARE, OTHER | LOC: M PAIN 13:15 | DX: M51.16 Intervertebral disc disorders with radiculopathy, lumbar region (principal); M79.1 Myalgia; G43.909 Migraine, unspecified, not intractable, without status migrainosus; Z79.82 Long term (current) use of aspirin; Z79.899 Other long term (current) drug therapy; Z88.0 Allergy status to penicillin; Z88.1 Allergy status to other antibiotic agents; Z88.2 Allergy status to sulfonamides; Z88.5 Allergy status to narcotic agent; Z91.041 Radiographic dye allergy status; Z85.72 Personal history of non-Hodgkin lymphomas | CPT/HCPCS: G0463 ==

== ENCOUNTER → 2018-02-23 | Outpatient (CLI) | payer MEDICARE, OTHER ==
[~2018-02-23] MED LIST changes: +BUPIVACAINE HCL 0.25% 30 ML VIAL As Ordered; +MIDAZOLAM INJ 2 MG/2 ML VIAL (J2250) As Ordered; +TRIAMCINOLONE ACETONIDE SUSP 40 MG/ML VIAL (J3301) As Ordered; -diazePAM 5 MG TAB As Ordered; +fentaNYL 100 MCG/2 ML INJECTION (J3010) As Ordered; -methylPREDNISolone SUSP 40 MG/ML (DEPO-medrol) VIAL (J1030) As Ordered; -oxyCODONE 5MG TAB As Ordered
== END ==
LOC: M PAIN 10:15
DX: G89.29 Other chronic pain (principal); M79.1 Myalgia; G57.02 Lesion of sciatic nerve, left lower limb; G43.909 Migraine, unspecified, not intractable, without status migrainosus; Z79.82 Long term (current) use of aspirin; Z79.899 Other long term (current) drug therapy; Z88.0 Allergy status to penicillin; Z88.1 Allergy status to other antibiotic agents; Z88.2 Allergy status to sulfonamides; Z88.5 Allergy status to narcotic agent; Z91.041 Radiographic dye allergy status
CPT/HCPCS: J3301

== ENCOUNTER → 2018-03-05 | Outpatient (CLI) | payer MEDICARE, OTHER ==
[2018-03-05 18:22] LABS: ERYTHROCYTE SEDIMENTATION RATE 30 mm/hr (0-30)
== END ==
LOC: M LAB 15:57
DX: R51 Headache (principal)

== ENCOUNTER → 2018-03-05 | Outpatient (CLI) | payer MEDICARE, OTHER ==
[2018-03-05 17:08] LABS: BLOOD UREA NITROGEN 21 MG/DL (7-18)
[2018-03-05 17:08] LABS: CREATININE FOR GFR 0.84 MG/DL (0.55-1.30); GLOMERULAR FILTRATION RATE > 60.0 (>39)
== END ==
LOC: M LAB 16:01
DX: H05.242 Constant exophthalmos, left eye (principal); R51 Headache
CPT/HCPCS: 82565

== ENCOUNTER → 2018-03-10 | Outpatient (CLI) | payer MEDICARE, OTHER ==
[2018-03-10 09:20] LABS: MEAN CORPUSCULAR HEMOGLOBIN 30.4 pg (27.0-33.0); MEAN CORPUSCULAR HGB CONC 32.5 g/dl (32.0-36.5); MEAN CORPUSCULAR VOLUME 93.5 fl (80.0-96.0); PLATELET COUNT, AUTOMATED 282 10^3/uL (150-450); RED BLOOD COUNT 4.28 10^6/uL (4.00-5.40); RED CELL DISTRIBUTION WIDTH 13.7 % (11.5-14.5); WHITE BLOOD COUNT 8.7 10^3/uL (4.0-10.0)
[2018-03-10 09:40] LABS: INR 1.11; PROTHROMBIN TIME 14.5 SECONDS (12.4-14.5)
[2018-03-10 09:50] LABS: ESTIMATED AVERAGE GLUCOSE 117 MG/DL (60-110); HEMOGLOBIN A1c 5.7 %
[2018-03-10 10:07] LABS: TOTAL 25(OH) VITAMIN D 27.9 NG/ML (30.0-100.0)
[2018-03-10 10:08] LABS: ALBUMIN 3.2 GM/DL (3.2-5.2); ALBUMIN/GLOBULIN RATIO 0.82 (1.00-1.93); ALKALINE PHOSPHATASE 101 U/L (45-117); ALT/SGPT 15 U/L (12-78); ANION GAP 9 MEQ/L (8-16); AST/SGOT 11 U/L (7-37); BILIRUBIN,TOTAL 0.7 MG/DL (0.2-1.0); BLOOD UREA NITROGEN 12 MG/DL (7-18); CARBON DIOXIDE LEVEL 30 MEQ/L (21-32); CHLORIDE LEVEL 105 MEQ/L (98-107); CHOLESTEROL LEVEL 198 MG/DL (<200); CHOLESTEROL RISK RATIO 2.911 (<5); CREATININE FOR GFR 0.72 MG/DL (0.55-1.30); GLOMERULAR FILTRATION RATE > 60.0 (>39); GLUCOSE, FASTING 84 MG/DL (70-100); HDL CHOLESTEROL 68 MG/DL (>40); NON-HDL-C 130 MG/DL; POTASSIUM SERUM 3.9 MEQ/L (3.5-5.1); SODIUM LEVEL 144 MEQ/L (136-145); TOTAL PROTEIN 7.1 GM/DL (6.4-8.2); TRIGLYCERIDES LEVEL 55 MG/DL (<150)
== END ==
LOC: M LAB 08:54
DX: Z01.818 Encounter for other preprocedural examination (principal); I10 Essential (primary) hypertension; E03.9 Hypothyroidism, unspecified; Z79.01 Long term (current) use of anticoagulants
CPT/HCPCS: 71046

== ENCOUNTER → 2018-03-11 | Outpatient (CLI) | payer MEDICARE, OTHER ==
[~2018-03-11] MED LIST changes: -BUPIVACAINE HCL 0.25% 30 ML VIAL As Ordered; -ISOVUE-M 300 61% 15ML VIAL (Q9967) As Ordered; -LIDOCAINE 1% SDV INJ 30 ML VIAL As Ordered; -MIDAZOLAM INJ 2 MG/2 ML VIAL (J2250) As Ordered; +PROHANCE 279.3MG/ML 15ML VIAL (A9576) As Ordered; -TRIAMCINOLONE ACETONIDE SUSP 40 MG/ML VIAL (J3301) As Ordered; -diphenhydrAMINE 25 MG CAP As Ordered; -fentaNYL 100 MCG/2 ML INJECTION (J3010) As Ordered
== END ==
LOC: M RAD 17:18
DX: H05.26 Pulsating exophthalmos (principal)
CPT/HCPCS: A9576

== ENCOUNTER 2018-04-01 09:31 | Day surgery (SDC) | payer MEDICARE, OTHER ==
[2018-04-01] MEDS: OFLOXACIN 0.3 % (OCUFLOX) OPTH SOL 5ML As Ordered (06:54)
[2018-04-01] MEDS: BUPIVACAINE HCL 0.25% 10 ML VIAL As Ordered (06:54)
[~2018-04-01 09:31] MED LIST changes: +OFLOXACIN 0.3 % (OCUFLOX) OPTH SOL 5ML OD; +PHENYLEPHRINE 2.5% OPHTH SOL 2ML OD; +PILOCARPINE 1% OPHTH SOLN 15 ML OD; -PROHANCE 279.3MG/ML 15ML VIAL (A9576) As Ordered; +PROPARACAINE 0.5% OPHTH SOL 15ML OD; +TROPICAMIDE 1% OPHTH SOLN 2ML OD
[2018-04-01] MEDS ORDERED: LIDOCAINE 1% MDV 20ML VIAL SQ (10:00)
[2018-04-01] MEDS: PROPARACAINE 0.5% OPHTH SOL 15ML OD (10:40)
[2018-04-01] MEDS: OFLOXACIN 0.3 % (OCUFLOX) OPTH SOL 5ML OD (10:45)
[2018-04-01] MEDS: CARVedilol 6.25 MG TAB PO (10:55)
[2018-04-01] MEDS: MIDAZOLAM INJ 2 MG/2 ML VIAL (J2250) IV (10:58)
[2018-04-01] MEDS ORDERED: MIDAZOLAM INJ 2 MG/2 ML VIAL (J2250) As Ordered ×2 (11:06→12:09)
[2018-04-01] MEDS ORDERED: fentaNYL 100 MCG/2 ML INJECTION (J3010) As Ordered (11:24)
[2018-04-01] MEDS: POVIDONE-IODINE 5% OPHTH PREP SOL 30ML As Ordered (11:25)
[2018-04-01] MEDS ORDERED: KETAMINE HCL 200 MG/20 ML VIAL As Ordered (11:44)
[2018-04-01] MEDS: TRYPAN BLUE 0.06 % 2.25 ML OPHTH SYR (VISIONBLUE) As Ordered (12:20)
[2018-04-01] MEDS: HEALON DUET (HEALON 10MG/ML 0.55ML & HEALON ENDOCOAT 30MG/ML 0.85ML) As Ordered (12:30)
[2018-04-01] MEDS: ACETYLCHOLINE OPHTH SOLN 1% 2ML (MIOCHOL-E) As Ordered (12:30)
[2018-04-01] MEDS: TROPICAMIDE 1% OPHTH SOLN 2ML As Ordered (12:35)
[2018-04-01] MEDS: PHENYLEPHRINE 2.5% OPHTH SOL 2ML As Ordered (12:36)
[2018-04-01] MEDS: TOBRADEX OPHTH OINT 3.5 GM As Ordered (12:40)
[2018-04-01] MEDS ORDERED: PERCOCET 5MG/325MG TAB As Ordered ×2 (14:06→15:05)
[2018-04-01] MEDS: PERCOCET 5MG/325MG TAB PO ×2 (14:10→15:05)
[2018-04-01] MEDS ORDERED: KETOROLAC 30 MG/ML VIAL (J1885) As Ordered (15:38)
[2018-04-01] MEDS: KETOROLAC 30 MG/ML VIAL (J1885) IV (15:45)
== END 2018-04-01 16:24 | disposition home or self-care (01) ==
LOC: M SDC 09:31
DX: H18.20 Unspecified corneal edema (principal); H18.51 Endothelial corneal dystrophy; Z96.1 Presence of intraocular lens; I10 Essential (primary) hypertension; E78.00 Pure hypercholesterolemia, unspecified; R00.2 Palpitations; K57.32 Diverticulitis of large intestine without perforation or abscess without bleeding; M12.9 Arthropathy, unspecified; F41.9 Anxiety disorder, unspecified; R51 Headache; J45.909 Unspecified asthma, uncomplicated; J44.9 Chronic obstructive pulmonary disease, unspecified; R06.83 Snoring; G47.30 Sleep apnea, unspecified; Z88.0 Allergy status to penicillin; Z88.1 Allergy status to other antibiotic agents; Z88.2 Allergy status to sulfonamides; Z88.5 Allergy status to narcotic agent; Z88.8 Allergy status to other drugs, medicaments and biological substances; Z79.899 Other long term (current) drug therapy; Z79.82 Long term (current) use of aspirin; Z86.79 Personal history of other diseases of the circulatory system; Z92.21 Personal history of antineoplastic chemotherapy; Z86.73 Personal history of transient ischemic attack (TIA), and cerebral infarction without residual deficits
CPT/HCPCS: 65756

== ENCOUNTER → 2018-04-07 | Outpatient (CLI) | payer MEDICARE, OTHER | LOC: M PAIN 14:30 | DX: M79.1 Myalgia (principal); G57.02 Lesion of sciatic nerve, left lower limb; G43.909 Migraine, unspecified, not intractable, without status migrainosus; Z79.82 Long term (current) use of aspirin; Z79.899 Other long term (current) drug therapy; Z88.0 Allergy status to penicillin; Z88.1 Allergy status to other antibiotic agents; Z88.2 Allergy status to sulfonamides; Z88.5 Allergy status to narcotic agent; Z91.041 Radiographic dye allergy status; Z85.72 Personal history of non-Hodgkin lymphomas | CPT/HCPCS: G0463 ==

== ENCOUNTER → 2018-05-11 | Outpatient (CLI) | payer MEDICARE, OTHER ==
[2018-05-11 10:07] LABS: HEMATOCRIT 40.3 % (36.0-47.0); MEAN CORPUSCULAR HEMOGLOBIN 30.1 pg (27.0-33.0); MEAN CORPUSCULAR HGB CONC 32.3 g/dl (32.0-36.5); MEAN CORPUSCULAR VOLUME 93.3 fl (80.0-96.0); PLATELET COUNT, AUTOMATED 282 10^3/uL (150-450); RED BLOOD COUNT 4.32 10^6/uL (4.00-5.40); RED CELL DISTRIBUTION WIDTH 13.3 % (11.5-14.5); WHITE BLOOD COUNT 6.9 10^3/uL (4.0-10.0)
[2018-05-11 10:17] LABS: INR 1.15; PROTHROMBIN TIME 14.8 SECONDS (12.1-14.4)
[2018-05-11 10:46] LABS: ALBUMIN 3.5 GM/DL (3.2-5.2); ALBUMIN/GLOBULIN RATIO 0.92 (1.00-1.93); ALKALINE PHOSPHATASE 97 U/L (45-117); ALT/SGPT 18 U/L (12-78); ANION GAP 8 MEQ/L (8-16); AST/SGOT 17 U/L (7-37); BILIRUBIN,TOTAL 0.5 MG/DL (0.2-1.0); BLOOD UREA NITROGEN 9 MG/DL (7-18); CALCIUM LEVEL 9.3 MG/DL (8.8-10.2); CARBON DIOXIDE LEVEL 29 MEQ/L (21-32); CHLORIDE LEVEL 107 MEQ/L (98-107); CREATININE FOR GFR 0.74 MG/DL (0.55-1.30); GLOMERULAR FILTRATION RATE > 60.0 (>39); GLUCOSE, FASTING 85 MG/DL (70-100); SODIUM LEVEL 144 MEQ/L (136-145); TOTAL PROTEIN 7.3 GM/DL (6.4-8.2)
[2018-05-11 11:07] LABS: ESTIMATED AVERAGE GLUCOSE 120 MG/DL (60-110); HEMOGLOBIN A1c 5.8 %
== END ==
LOC: M LAB 09:05
DX: I10 Essential (primary) hypertension (principal); Z79.01 Long term (current) use of anticoagulants; J44.9 Chronic obstructive pulmonary disease, unspecified
CPT/HCPCS: 71046

== ENCOUNTER 2018-05-27 09:37 | Day surgery (SDC) | payer MEDICARE, OTHER ==
[2018-05-27] MEDS: LIDOCAINE 2% MDV 20 ML VIAL As Ordered ×2 (06:56→11:13)
[~2018-05-27 09:37] MED LIST changes: +ACETAMINOPHEN 325 MG TAB PO; -OFLOXACIN 0.3 % (OCUFLOX) OPTH SOL 5ML OD; -PHENYLEPHRINE 2.5% OPHTH SOL 2ML OD; -PILOCARPINE 1% OPHTH SOLN 15 ML OD; -PROPARACAINE 0.5% OPHTH SOL 15ML OD; -TROPICAMIDE 1% OPHTH SOLN 2ML OD
[2018-05-27] MEDS: PROPARACAINE 0.5% OPHTH SOL 15ML OD (10:37)
[2018-05-27] MEDS: PILOCARPINE 1% OPHTH SOLN 15 ML OD (10:38)
[2018-05-27] MEDS: OFLOXACIN 0.3 % (OCUFLOX) OPTH SOL 5ML OD (10:38)
[2018-05-27] MEDS ORDERED: PROPOFOL 200 MG/20 ML VIAL As Ordered ×4 (10:52→12:36)
[2018-05-27] MEDS ORDERED: LIDOCAINE 2% INJ 100 MG/5 ML SDV (FOR ANES.) As Ordered (10:52)
[2018-05-27] MEDS ORDERED: ONDANSETRON 4MG/2ML VIAL (J2405) As Ordered ×2 (10:52→12:11)
[2018-05-27] MEDS ORDERED: fentaNYL 100 MCG/2 ML INJECTION (J3010) As Ordered (10:53)
[2018-05-27] MEDS ORDERED: MIDAZOLAM INJ 2 MG/2 ML VIAL (J2250) As Ordered (10:53)
[2018-05-27] MEDS ORDERED: SCOPOLAMINE 1MG TRANSDERMAL PATCH As Ordered (11:12)
[2018-05-27] MEDS ORDERED: SCOPOLAMINE 1MG TRANSDERMAL PATCH TOP (11:30)
[2018-05-27] MEDS ORDERED: dexameTHASONE 4 MG/ML 1ML VIAL (J1100) As Ordered ×2 (11:59→12:06)
[2018-05-27] MEDS: BALANCED SALT IRRIGATION SOLUTION 500ML BAG (FOR OR EYE MACHINE) As Ordered (12:40)
[2018-05-27] MEDS: DUOVISC (0.50ML VISCOAT/0.55ML PROVISC) OPHTH KIT As Ordered (12:40)
[2018-05-27] MEDS: BUPIVACAINE 0.75% 10 ML VIAL As Ordered (12:40)
[2018-05-27] MEDS: POVIDONE-IODINE 5% OPHTH PREP SOL 30ML As Ordered (12:40)
[2018-05-27] MEDS: ACETYLCHOLINE OPHTH SOLN 1% 2ML (MIOCHOL-E) As Ordered (12:40)
[2018-05-27] MEDS: LIDOCAINE PRES-FREE 2% 10ML AMP As Ordered (12:40)
[2018-05-27] MEDS: MAXITROL OPHTH OINT 3.5 GM As Ordered (12:40)
[2018-05-27] MEDS ORDERED: KETOROLAC 60 MG/2 ML VIAL (J1885) As Ordered (13:28)
[2018-05-27] MEDS ORDERED: TRIMETHOBENZAMIDE 300 MG CAP PO (13:30)
[2018-05-27] MEDS ORDERED: HYDROMORPHONE HCL 0.5 MG/ 0.5 ML SYRINGE (J1170 PER 1) IV (13:30)
[2018-05-27] MEDS ORDERED: ONDANSETRON 4MG/2ML VIAL (J2405) IV (13:30)
[2018-05-27] MEDS: PERCOCET 5MG/325MG TAB PO (14:10)
== END 2018-05-27 15:56 | disposition home or self-care (01) ==
LOC: M SDC 09:37
DX: T86.841 Corneal transplant failure (principal); H18.51 Endothelial corneal dystrophy; I10 Essential (primary) hypertension; E78.00 Pure hypercholesterolemia, unspecified; J45.909 Unspecified asthma, uncomplicated; M12.9 Arthropathy, unspecified; K57.32 Diverticulitis of large intestine without perforation or abscess without bleeding; F41.9 Anxiety disorder, unspecified; R51 Headache; G47.33 Obstructive sleep apnea (adult) (pediatric); Z88.0 Allergy status to penicillin; Z88.1 Allergy status to other antibiotic agents; Z88.5 Allergy status to narcotic agent; Z88.8 Allergy status to other drugs, medicaments and biological substances; Z79.899 Other long term (current) drug therapy; Z79.82 Long term (current) use of aspirin; Z92.21 Personal history of antineoplastic chemotherapy; Z86.73 Personal history of transient ischemic attack (TIA), and cerebral infarction without residual deficits; Z78.0 Asymptomatic menopausal state; Z85.72 Personal history of non-Hodgkin lymphomas; Z96.1 Presence of intraocular lens; Z90.710 Acquired absence of both cervix and uterus
CPT/HCPCS: 65756

== ENCOUNTER → 2018-06-02 | Outpatient (CLI) | payer MEDICARE, OTHER ==
[~2018-06-02] MED LIST changes: -ACETAMINOPHEN 325 MG TAB PO; +CYCLOPENTOLATE 2% OPHTH SOLN 2ML BTL OS; +TETRACAINE 0.5% OPHTH SOLN 4ML OS
== END ==
LOC: M ED 20:46
DX: H18.232 Secondary corneal edema, left eye (principal); Q15.9 Congenital malformation of eye, unspecified; Z94.7 Corneal transplant status

== ENCOUNTER → 2018-07-19 | Outpatient (CLI) | payer MEDICARE, OTHER | LOC: M PAIN 11:00 | DX: M79.18 Myalgia, other site (principal); G57.02 Lesion of sciatic nerve, left lower limb; G43.909 Migraine, unspecified, not intractable, without status migrainosus; Z79.82 Long term (current) use of aspirin; Z79.899 Other long term (current) drug therapy; Z88.0 Allergy status to penicillin; Z88.1 Allergy status to other antibiotic agents; Z88.2 Allergy status to sulfonamides; Z88.5 Allergy status to narcotic agent; Z91.041 Radiographic dye allergy status | CPT/HCPCS: G0463 ==

== ENCOUNTER → 2018-09-24 | Outpatient (REF) | payer MEDICARE, OTHER ==
[~2018-09-24] MED LIST changes: +ALBU17IN2 INH; +ALDA25TA2 PO; +AMLO25TA PO; +AMLO5TAB6 PO; +ASPI1TAB PO; +ASPI325T PO; +ASPI325T25 PO; +ATIV1TAB10 PO; +ATIV1TAB7 PO; +ATOR1TAB21 PO; +BYST10TA2 PO; +CARV12.5 PO; +CO Q100C PO; +COLA100C5 PO; +COZA50TA PO; -CYCLOPENTOLATE 2% OPHTH SOLN 2ML BTL OS; +DICY20TA11; +FAMO20TA PO; +FLEE5TAB PO; +GABA-843 PO; +LOSA50TA88 PO; +MAGN400C2 PO; +MAGN500C PO; +MIRA3350 PO; +POTA8CAP4 PO; +POTA99TA PO; +PREV15CA18 PO; +PROP20TA72 PO; +SERT50TA PO; +SPIR-10 PO; +SUCR1SS PO; +SUCR1TAB56; -TETRACAINE 0.5% OPHTH SOLN 4ML OS; +VITA-5 PO; +VITA100067 PO; +VITA100T20 PO; +VITA1TAB23 PO; +VITA500046 PO; +VITATAB11 PO; +WELL100T PO; +WELL100T2 PO
[2018-09-25 14:08] LABS: ANTINUCLEAR ANTIBODIES DIRECT Negative (Negative)
== END ==
LOC: M LABNEURO 08:42
PROVIDERS: ATTEND Physician Assistant Medical
DX: R51 Headache (principal)

== ENCOUNTER 2018-10-18 10:51 | Emergency (ER) | payer MEDICARE, OTHER ==
[~2018-10-18] VITALS: Ht 152.4 cm; Wt 76.4 kg
--- NOTE | 2018-10-18 11:37 | REP ---
CT HEAD WITHOUT CONTRAST: HISTORY: Infarction. COMPARISON: 08/03/2015 Areas of decreased attentuation are present in the periventricular white matter. This represents small vessel ischemic disease. There is no intraparenchymal hemorrhage, mass or midline shift. The ventricular system and cortical sulci are dilated consistent with mild volume loss. There is no extracerebral collection. The visualized sinuses are clear. IMPRESSION: 1. Small vessel ischemic disease. 2. Mild volume loss. Electronically Signed by Ti Carlton MD 10/18/2018 11:46 A
[2018-10-18 11:47] LABS: BASO % 0.3 % (0.0-1.0); EOS % 0.1 % (0.0-3.0); HEMATOCRIT 38.2 % (36.0-47.0); HEMOGLOBIN 12.6 g/dl (12.0-15.5); LYMPH # 1.7 10^3/uL (1.5-4.5); MONO # 0.7 10^3/uL (0.0-0.8); MONO % 6.1 % (0.0-5.0); NEUTROPHILS # 8.4 10^3/uL (1.8-7.7); NEUTROPHILS % 77.1 % (36.0-66.0); PLATELET COUNT, AUTOMATED 289 10^3/uL (150-450); WHITE BLOOD COUNT 10.9 10^3/uL (4.0-10.0)
[2018-10-18] MEDS ORDERED: PROAAER10 (11:47)
[2018-10-18] MEDS ORDERED: LEVO500T3 (11:47)
[2018-10-18] MEDS ORDERED: PRED20TA (11:47)
[2018-10-18] MEDS ORDERED: CARB1TAB20 (11:47)
[2018-10-18] MEDS ORDERED: BACL10TA8 (11:47)
[2018-10-18 11:56] LABS: INR 1.16
[2018-10-18 11:57] LABS: PARTIAL THROMBOPLASTIN TIME 27.7 SECONDS (25.4-37.6)
[2018-10-18 12:18] LABS: ALT/SGPT 19 U/L (12-78); BILIRUBIN,DIRECT < 0.1 MG/DL (0.0-0.2); BILIRUBIN,TOTAL 0.2 MG/DL (0.2-1.0); BLOOD UREA NITROGEN 17 MG/DL (7-18); CALCIUM LEVEL 8.8 MG/DL (8.8-10.2); CARBON DIOXIDE LEVEL 28 MEQ/L (21-32); CHLORIDE LEVEL 105 MEQ/L (98-107); CPK CREATINE PHOSPHOKINASE 170 U/L (26-192); CREATININE FOR GFR 0.66 MG/DL (0.55-1.30); GLOMERULAR FILTRATION RATE > 60.0 (>39); GLUCOSE, FASTING 84 MG/DL (70-100); POTASSIUM SERUM 3.6 MEQ/L (3.5-5.1); SODIUM LEVEL 140 MEQ/L (136-145); TOTAL PROTEIN 7.2 GM/DL (6.4-8.2)
[2018-10-18 12:19] LABS: ALBUMIN 3.2 GM/DL (3.2-5.2); CARBAMAZEPINE (TEGRETOL) LEVEL 10.8 UG/ML (4.0-10.0); LIPASE 56 U/L (73-393); MAGNESIUM LEVEL 2.1 MG/DL (1.8-2.4); TROPONIN I 0.02 NG/ML (< 0.10)
--- NOTE | 2018-10-18 12:20 | REP ---
PORTABLE CHEST: AP portable view of the chest are performed and compared to prior study of 05/11/2018. There is again mild elevation of the right hemidiaphragm. No infiltrate is seen on either side. The heart does not appear to be significantly enlarged. The mediastinal silhouette is unchanged. IMPRESSION: No acute infiltrate. Electronically Signed by Kemar Garcia MD 10/18/2018 12:59 P
[2018-10-18 12:54] VITALS: BP 187/91
[2018-10-18] MEDS ORDERED: CARD180C4 PO (14:48)
[2018-10-18 15:18] VITALS: BP 167/61
--- NOTE | 2018-10-18 18:11 | ECGEPIP ---
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
== END 2018-10-18 15:20 | disposition home or self-care (01) ==
LOC: M ED 10:51
DX: I10 Essential (primary) hypertension (principal); K21.9 Gastro-esophageal reflux disease without esophagitis; Z79.899 Other long term (current) drug therapy; Z79.82 Long term (current) use of aspirin; Z79.01 Long term (current) use of anticoagulants; Z88.0 Allergy status to penicillin; Z88.2 Allergy status to sulfonamides; Z88.5 Allergy status to narcotic agent

== ENCOUNTER 2018-10-30 20:27 | Emergency (ER) | payer MEDICARE, OTHER ==
[~2018-10-30] VITALS: Ht 152.4 cm; Wt 76.8 kg
[~2018-10-30 20:27] MED LIST changes: +BACL10TA8; +CARB1TAB20; +CARD180C4 PO; +LEVO500T3; +PRED20TA; +PROAAER10
[2018-10-30] MEDS ORDERED: LORazepam 2 MG/ML VIAL (J2060) IV STA (20:52)
[2018-10-30 21:16] LABS: BASO # 0.1 10^3/uL (0.0-0.2); BASO % 0.5 % (0.0-1.0); EOS # 0.3 10^3/uL (0.0-0.50); EOS % 2.4 % (0.0-3.0); HEMATOCRIT 42.5 % (36.0-47.0); HEMOGLOBIN 14.1 g/dl (12.0-15.5); LYMPH # 1.7 10^3/uL (1.5-4.5); LYMPH % 16.7 % (24.0-44.0); MEAN CORPUSCULAR HEMOGLOBIN 30.5 pg (27.0-33.0); MEAN CORPUSCULAR HGB CONC 33.2 g/dl (32.0-36.5); MONO # 1.3 10^3/uL (0.0-0.8); NEUTROPHILS # 6.9 10^3/uL (1.8-7.7); NEUTROPHILS % 67.1 % (36.0-66.0); PLATELET COUNT, AUTOMATED 264 10^3/uL (150-450); RED BLOOD COUNT 4.62 10^6/uL (4.00-5.40); VENOUS BASE EXCESS 1.7 (-2.0-2.0); VENOUS HCO3 27.3 MEQ/L (23.0-27.0); VENOUS O2 SATURATION 84.5 % (60.0-80.0); VENOUS PARTIAL PRESSURE CO2 46.1 mmHg (38.0-50.0); VENOUS PARTIAL PRESSURE O2 48.8 mmHg (30.0-50.0); VENOUS STANDARD HCO3 25.7 MEQ/L; VENOUS TOTAL CO2 28.7 MEQ/L (24.0-28.0); WHITE BLOOD COUNT 10.3 10^3/uL (4.0-10.0)
[2018-10-30 21:53] LABS: ACETAMINOPHEN LEVEL < 2.0 UG/ML (10.0-30.0); ALBUMIN 3.5 GM/DL (3.2-5.2); ALT/SGPT 24 U/L (12-78); BILIRUBIN,DIRECT < 0.1 MG/DL (0.0-0.2); BILIRUBIN,TOTAL 0.3 MG/DL (0.2-1.0); BLOOD UREA NITROGEN 7 MG/DL (7-18); CALCIUM LEVEL 8.6 MG/DL (8.8-10.2); CARBON DIOXIDE LEVEL 28 MEQ/L (21-32); CHLORIDE LEVEL 104 MEQ/L (98-107); CK-MB VALUE MASS < 1.0 NG/ML (<3.6); CPK CREATINE PHOSPHOKINASE 37 U/L (26-192); CREATININE FOR GFR 0.67 MG/DL (0.55-1.30); ETHYL ALCOHOL (ETHANOL) < 0.003 % (0.000-0.010); GLOMERULAR FILTRATION RATE > 60.0 (>39); GLUCOSE, FASTING 103 MG/DL (70-100); SALICYLATE LEVEL 1.7 MG/DL (5.0-30.0); SODIUM LEVEL 139 MEQ/L (136-145); TROPONIN I < 0.02 NG/ML (< 0.10)
--- NOTE | 2018-10-30 22:26 | REPVR ---
EXAM: CT Head Without Contrast EXAM DATE/TIME: 10/30/2018 9:35 PM CLINICAL HISTORY: 73 years old, female; Signs and symptoms; Altered mental status/memory loss; Confusion or disorientation TECHNIQUE: Axial computed tomography images of the head/brain without contrast. All CT scans at this facility use at least one of these dose optimization techniques: automated exposure control; mA and/or kV adjustment per patient size (includes targeted exams where dose is matched to clinical indication); or iterative reconstruction. COMPARISON: CT Head without contrast 10/18/2018 11:14 AM FINDINGS: Brain: There is mild white matter lucency indicating chronic microvascular disease. There is no acute infarct. There is no hemorrhage or extra-axial collection. There is no mass. Ventricles: Normal. No ventriculomegaly. Bones/joints: Unremarkable. No acute fracture. Sinuses: Visualized sinuses are unremarkable. No acute sinusitis. Mastoid air cells: Visualized mastoid air cells are unremarkable. No mastoid effusion. Soft tissues: Unremarkable. IMPRESSION: There is chronic microvascular disease. There is no acute lesion or injury and there is no change from prior scan. Electronically signed by: Asael Fuentes On 10/30/2018 22:26:03 PM
[2018-10-31 00:55] LABS: AMPHETAMINES LEVEL URINE NEGATIVE (NEGATIVE); BARBITURATES URINE NEGATIVE (NEGATIVE); BENZODIAZEPINES URINE NEGATIVE (NEGATIVE); CANNABINOIDS URINE NEGATIVE (NEGATIVE); COCAINE METABOLITE URINE NEGATIVE (NEGATIVE); METHADONE URINE NEGATIVE (NEGATIVE); OPIATES URINE NEGATIVE (NEGATIVE); PHENCYCLIDINE URINE NEGATIVE (NEGATIVE)
[2018-10-31] MEDS ORDERED: LABE10TAB PO (01:28)
[2018-10-31] MEDS ORDERED: LABETALOL 100 MG TAB PO ONE (01:30)
[2018-10-31 01:31] VITALS: BP 184/83
--- NOTE | 2018-10-31 07:26 | ECGEPIP ---
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
--- NOTE | 2018-10-31 07:44 | REP ---
Clinical: altered mental status. Comparison: 10/18/2018. Technique: PA and lateral. Findings: The mediastinum and cardiac silhouette are normal. The lung paz are clear and without acute consolidation, effusion, or pneumothorax. The skeletal structures are intact and normal. Impression: 1. No acute cardiopulmonary process. Electronically Signed by Jose Germain MD 10/31/2018 07:37 A
== END 2018-10-31 01:40 | disposition home or self-care (01) ==
LOC: M ED 20:27
DX: G47.00 Insomnia, unspecified (principal); I10 Essential (primary) hypertension; Z79.899 Other long term (current) drug therapy; Z79.82 Long term (current) use of aspirin; Z88.0 Allergy status to penicillin; Z88.2 Allergy status to sulfonamides; Z88.5 Allergy status to narcotic agent
CPT/HCPCS: 36415; 70450; 71046; 80048; 80076; 80307; 81001; 82140; 82550; 82553; 82803; 83605; 84443; 84484; 85025; 93005; 93041; 96374; 99285; G0480; J2060

== ENCOUNTER → 2018-11-05 | Outpatient (CLI) | payer MEDICARE, OTHER ==
[~2018-11-05] MED LIST changes: +LABE10TAB PO
--- NOTE | 2018-11-15 00:02 | ECWPNPC ---
PATIENT NAME: GER TYLER : 1945 GENDER: FEMALE VISIT DATE: 11/05/2018 DISCHARGE DATE: 11/05/18 1031 VISIT LOCKED DATE TIME: PHYSICIAN: VIVIAN CHAVES MD RESOURCE: VIVIAN CHAVES MD REASON FOR APPOINTMENT 1. BACK PAIN-PATIENT AWARE SHE MAY HAVE A LITTLE WAIT TIME.DR NOT IN YET HISTORY OF PRESENT ILLNESS HISTORY OF PRESENT ILLNESS: PAIN THE PATIENT DESCRIBES THE PAIN... 73 YEAR OLD FEMALE PATIENT WITH A HISTORY OF CHRONIC LOW BACK AND LEG PAIN. THE PATIENT DESCRIBES THE PAIN ACHING, TENDER, STABBING, AND SHOOTING WITH A PAIN SCORE OF 3-10/10 DEPENDING ON PHYSICAL ACTIVITY. THE PATIENT SAYS SHE DEVELOPED PAIN OVER HER FACE FOLLOWING A CORNEA REPLACEMENT SURGERY. THE PATIENT SAYS THAT SHE ALSO HAS PAIN IN THE BACK OF HER HEAD THAT RADIATES UP. THE PATIENT SAYS THAT SHE IS CURRENTLY BEING FOLLOWED AT NEUROLOGY AND THEY ARE IN THE PROCESS OF CHANGING HER MEDICATIONS. THE PATIENT IS CURRENTLY USING CARBAMAZEPINE AND BACLOFEN TO AID IN PAIN RELIEF. PATIENT DENIES UNEXPLAINABLE WEIGHT LOSS, FEVER, CHILLS, NEW CHANGES ON HER URINARY OR BOWEL CONTROL. FALL RISK SCREENING: SCREENING :NO FALLS IN THE PAST YEAR CURRENT MEDICATIONS TAKING LOSARTAN POTASSIUM 50 MG TABLET 1 TABLET ORALLY ONCE A DAY TAKING ACETAMINOPHEN 325 MG CAPSULE 1 CAP ORALLY EVERY MORNING TAKING BUPROPION HCL 100 MG TABLET 1 TABLET ORALLY ONCE A DAY TAKING POTASSIUM CHLORIDE ER 8 MEQ TABLET EXTENDED RELEASE 1 CAPSULE WITH FOOD ORALLY DAILY TAKING SPIRONOLACTONE 25 MG TABLET 1/2 TABLET ORALLY DAILY TAKING CARVEDILOL 12.5 MG TABLET 1 TAB ORALLY DAILY TAKING LORAZEPAM 0.5 MG TABLET 1 TABLET NEEDED ORALLY EVERY 6 HRS TAKING VITAMIN D 2000 UNIT TABLET 1 TABLET ORALLY ONCE A DAY TAKING VITAMIN C 500 MG TABLET 1 TABLET ORALLY ONCE A DAY TAKING VITAMIN B 12 100 MCG LOZENGE ORALLY DAILY TAKING COLACE 100 MG CAPSULE 1 CAPSULE NEEDED ORALLY ONCE A DAY TAKING ASPIRIN 325 MG TABLET 1 TABLET ORALLY ONCE A DAY TAKING YUSUF 128 2 % SOLUTION 1 DROP INTO AFFECTED EYE OPHTHALMIC DAILY TAKING LOTEMAX 0.5 % SUSPENSION 1 DROP INTO AFFECTED EYE OPHTHALMIC BID TAKING CYCLOPENTOLATE HCL 1 DROP OPHTHALMIC PRN TAKING REFRESH 1 DROP INTO AFFECTED EYE NEEDED OPHTHALMIC DAILY TAKING SALINE 1 DROP OPTHAMALGIC DAILY TAKING BACLOFEN 10 MG TABLET 1 CAP ORALLY BID TAKING CARBAMAZEPINE 200 MG TABLET 1 CAP ORALLY BID TAKING LABETALOL HCL 100 MG TABLET 1 CAP ORALLY BID TAKING MAGNESIUM 400 MG CAPSULE ORALLY DAILY, NOTES: NOT LATELY NOT-TAKING GABAPENTIN 300 MG CAPSULE 1 CAPSULE ORALLY FOR PAIN BEFORE BEDTIME PRN NOT-TAKING ASPIR-81 81 MG TABLET DELAYED RELEASE 1 TABLET ORALLY PRN, NOTES: PRN FOR CHEST PAIN DISCONTINUED PRED FORTE 1 % SUSPENSION 1 DROP INTO AFFECTED EYE OPHTHALMIC THREE TIMES DAILY DISCONTINUED CYCLOPENTOLATE HCL 1 % SOLUTION OPHTHALMIC THREE TIMES DAILY MEDICATION LIST REVIEWED AND RECONCILED WITH THE PATIENT PAST MEDICAL HISTORY MIGRAINE CERVICALGIA LOW BACK PAIN LEFT LEG PAIN / SCIATICA HX OF LYMPHOMA TRIGEMINAL NEURALGIA ALLERGIES SULFA (FOR ALLERGY USE ONLY) PENICILLIN (FOR ALLERGIES USE ONLY): FACIAL SWELLING: ALLERGY MORPHINE: AGITATION: SIDE EFFECTS BACTRIM: ANGIOEDEMA: ALLERGY IV DYE: AGGITATION, PANIC ATTACK, HIVES: ALLERGY SURGICAL HISTORY TOTAL HYSTERECTOMY 1979 CHOLECYSTECTOMY 1983 RHINOPLASTY 1991 LEFT EAR SURGERY 1995 LEFT KNEE SURGERY 2005 LOOP RECORDER 2015 CORNEA REPLACEMENT (DONE IN FEBRUARY AND [facility] IN MARCH) FAMILY HISTORY FATHER: 52 YRS MOTHER: 69 YRS, DIAGNOSED WITH CANCER SOCIAL HISTORY GENERAL: TOBACCO USE ARE YOU A:NONSMOKER LUNG CANCER SCREENING SMOKING STATUS:NON SMOKER ALCOHOL SCREENING DID YOU HAVE A DRINK CONTAINING ALCOHOL IN THE PAST YEAR?NO POINTS0 INTERPRETATIONNEGATIVE RECREATIONAL DRUG USE DRUG USE?NO CAFFEINE CAFFEINE USE?YES HOW OFTEN AND HOW MUCH? DAILY USE ALEVISM [id number] GNOSTICISM LANGUAGE LANGUAGES SPOKEN:ARABIC EDUCATION LEVEL OF EDUCATION:PROFESSIONAL SCHOOLS/MASTERS/PHD LEARNING BARRIERS / SPECIAL NEEDS HEARING IMPAIRED?YES LEFT VISION IMPAIRED?YES COGNITIVELY IMPAIRED?NO :HEARING AIDES :CORRECTIVE LENSES READINESS TO LEARN?YES LEARNING PREFERENCES?YES :BOOKLETS, HANDOUTS LEARNING CAPABILITIES PRESENT?YES EMOTIONAL BARRIERS?NO SPECIAL DEVICES?YES :CANE DUMPER MOLD CLEANER NEEDED?NO DOMESTIC VIOLENCE DO YOU FEEL SAFE IN YOUR ENVIRONMENT?YES PAIN CLINIC PFS, CLERGY, PUBLIC HEALTH REFERRALS PFS REFERRAL NEEDED?NO CLERGY REFERRAL NEEDED?NO PUBLIC HEALTH REFERRAL NEEDED?NO HAS THE PATIENT BEEN EDUCATED REGARDING HIS/HER PLAN OF CARE?YES HAS THE PATIENT BEEN EDUCATED REGARDING PAIN, THE RISK FOR PAIN, THE IMPORTANCE OF EFFECTIVE PAIN MANAGEMENT, AND THE PAIN ASSESSMENT PROCESS?YES ADVANCE DIRECTIVE ADVANCE DIRECTIVE DISCUSSED WITH PATIENT:YES DECLINED HOSPITALIZATION/MAJOR DIAGNOSTIC PROCEDURE SURGERY RELATED REVIEW OF SYSTEMS REVIEWED BY: PROVIDER: VIVIAN CHAVES MD . CONSTITUTIONAL: ANY CHANGE IN YOUR MEDICAL CONDITION? YES, TRIGEMINAL NEURALGIA DX'D 5 MONTHS AGO . CHILLS NO . FEVER NO . INFECTION: DO YOU HAVE NEW INFECTIONS? NO . DO YOU HAVE HISTORY OF MRSA? NO . MUSCULOSKELETAL: ANY NEW PATTERNS OF PAIN OR NUMBNESS? NO . GASTROENTEROLOGY: ANY NEW CHANGE IN BOWEL CONTROL? YES, PT RECENTLY HAD PROBLEMS WITH HTN, WAS PLACED ON AMLODIPINE DILTIAZEM AND B/P DROPPED, PT UNABLE TO FUNCTION AND LOST CONTROL OF BOWEL AND BLADDER. PT TAKEN OFF MEDS AND PT FEELS BETTER . GENITOURINARY: ANY NEW CHANGE IN BLADDER CONTROL? NO . IS THERE A CHANCE YOU COULD BE ? NO . HEMATOLOGY/LYMPH: DO YOU TAKE ANY BLOOD THINNERS? (FOR EXAMPLE- COUMADIN, PLAVIX, AGGRENOX, PLATEL, PRADAXA, OR XARELTO) NO . WHEN WAS YOUR LAST DOSE? DATE: TIME: . NEUROLOGY: HAVE YOU FALLEN IN THE PAST 12 MONTHS? NO . ANY NEW EXTREMITY NUMBNESS OR WEAKNESS? YES, RIGHT ARM AND HAND WEAKNESS X 2 MONTHS . CARDIOLOGY: DO YOU HAVE A PACEMAKER OR DEFIBRILLATOR? NO . RESPIRATORY: HAVE YOU BEEN SICK IN THE PAST WEEK? NO . FEVER NO . FLU LIKE SYMPTOMS? NO . COUGH NO . INTEGUMENTARY: DO YOU HAVE ANY RASHES OR OPEN SORES? NO . ALLERGIC/IMMUNO: ARE YOU ALLERGIC TO IV DYE? YES . ANY NEW ALLERGIES? NO . PSYCHIATRIC: DO YOU HAVE THOUGHTS OF HURTING YOURSELF OR SOMEONE ELSE? NO . ARE YOU ABUSED, NEGLECTED, OR IN AN UNSAFE ENVIRONMENT? NO . ENDOCRINOLOGY: ARE YOU DIABETIC? NO . OTHER: DO YOU NEED ANY PRESCRIPTIONS? NO . IF YES, PLEASE LIST: ____ . ANY NEW PROBLEMS WITH YOUR MEDICATIONS? YES, AMLODIPINE AND DILTIAZEM, TAKEN OFF AND BETTER . WHEN DID YOU LAST EAT? ____ . WHEN DID YOU LAST DRINK? ____ . WHAT DID YOU LAST DRINK? ____ . NAME OF PERSON DRIVING YOU HOME? ____ . DO YOU HAVE ANY OTHER QUESTIONS OR CONCERNS NO . VITAL SIGNS WT 170.8 LBS, HT 60 IN, BMI 33.35 INDEX, BP 145/66 MM HG, HR 74 /MIN, RR 16 /MIN, TEMP 97.7 F, OXYGEN SAT % 94%, NA INITIALS SC 09:05, REVIEWED BY: EM. EXAMINATION GENERAL EXAMINATION: PATIENT IS ALERT O X 3 AND COOPERATIVE. TENDERNESS OVER THE MAXILLARY AREA. TENDERNESS OVER THE OCCIPITAL AREA. 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 TREATMENT BILATERAL OCCIPITAL NEURALGIA CLINICAL NOTES: WE DISCUSSED SEVERAL ISSUES WITH MRS. TYLER'S PAIN MANAGEMENT CASE. DUE TO THE MAXILLARY NEURALGIA AND OCCIPITAL NEURALGIA, I WOULD LIKE TO MOVE FORWARD WITH A MAXILLARY NERVE BLOCK V/S OCCIPITAL NERVE BLOCK. WE DISCUSSED THE BENEFITS, RISKS, AND ALTERNATIVES OF THE INJECTIONS AND THE PATIENT WOULD LIKE TO PROCEED. I DISCUSSED THE CASE WITH AYAN JONES PA-C AND SHE AGREES WITH THIS COURSE OF TREATMENT AND SAYS NERVE BLOCKS HAVE HELPED THE PATIENT IN THE PAST. I WILL ALSO REFER THE PATIENT TO [facility] FOR FURTHER EVALUATION. THE PATIENT WILL FOLLOW UP IN 1 MONTH. INSTRUCTIONS WERE GIVEN, QUESTIONS WERE ANSWERED, PATIENT REPORTS UNDERSTANDING AND AGREES WITH THE PLAN. I, ABRAHAM AUSTIN, DOCUMENTED THE ABOVE INFORMATION ACTING A SCRIBE FOR DR. CHAVES. I HAVE REVIEWED THE ABOVE DOCUMENT, WRITTEN BY ABRAHAM SHEAIBSridevi AND I VERIFY THAT IT IS ACCURATE. PROCEDURE CODES FA211 ESTABILISHED PATIENT [facility] CHARGE G8427 CURRENT MEDS W/DOSAGES DOCUMENTED G8730 PAIN ASSESS POS TOOL F/U PLAN DOC DISPOSITION & COMMUNICATION FOLLOW UP 4 WEEKS ELECTRONICALLY SIGNED BY VIVIAN CHAVES MD, MD ON 11/14/2018 AT 09:46 AM EST DISCLAIMER : THIS IS A VISIT SUMMARY EXTRACTED FROM THE [employer] CHART. IT IS NOT A COPY OF THE [employer] PROGRESS NOTE. MTDD
== END ==
LOC: M PAIN 08:45
PROVIDERS: ATTEND Anesthesiology
DX: M54.81 Occipital neuralgia (principal); G89.29 Other chronic pain; G51.8 Other disorders of facial nerve; G43.909 Migraine, unspecified, not intractable, without status migrainosus; Z88.0 Allergy status to penicillin; Z88.1 Allergy status to other antibiotic agents; Z88.2 Allergy status to sulfonamides; Z88.5 Allergy status to narcotic agent; Z91.041 Radiographic dye allergy status; Z79.82 Long term (current) use of aspirin; Z79.899 Other long term (current) drug therapy
CPT/HCPCS: 36415; 80048; G0463

== ENCOUNTER → 2018-11-05 | Outpatient (CLI) | payer MEDICARE, OTHER ==
[2018-11-05 12:29] LABS: BLOOD UREA NITROGEN 6 MG/DL (7-18); CALCIUM LEVEL 8.8 MG/DL (8.8-10.2); CARBON DIOXIDE LEVEL 29 MEQ/L (21-32); CHLORIDE LEVEL 104 MEQ/L (98-107); CREATININE FOR GFR 0.67 MG/DL (0.55-1.30); GLOMERULAR FILTRATION RATE > 60.0 (>39); GLUCOSE, FASTING 99 MG/DL (70-100); POTASSIUM SERUM 4.3 MEQ/L (3.5-5.1); SODIUM LEVEL 139 MEQ/L (136-145)
== END ==
LOC: M LAB 10:48
PROVIDERS: ATTEND Anesthesiology
DX: Z79.899 Other long term (current) drug therapy (principal)

== ENCOUNTER → 2018-11-09 | Outpatient (REF) | payer MEDICARE, OTHER | LOC: M LABNEURO 17:14 | PROVIDERS: ATTEND Physician Assistant Medical | DX: G50.0 Trigeminal neuralgia (principal) ==

== ENCOUNTER → 2018-11-10 | Outpatient (CLI) | payer MEDICARE, OTHER ==
[~2018-11-10] MED LIST changes: +BUPIVACAINE HCL 0.25% 10 ML VIAL As Ordered ONE; +BUPIVACAINE HCL 0.25% 30 ML VIAL As Ordered ONE; +TRIAMCINOLONE ACETONIDE SUSP 40 MG/ML VIAL (J3301) As Ordered ONE; +diazePAM 5 MG TAB As Ordered ONE; +oxyCODONE 5MG TAB As Ordered ONE
--- NOTE | 2018-11-29 00:11 | ECWPNPC ---
PATIENT NAME: GER TYLER : 1945 GENDER: FEMALE VISIT DATE: 11/10/2018 DISCHARGE DATE: 11/10/18 1355 VISIT LOCKED DATE TIME: PHYSICIAN: VIVIAN CHAVES MD RESOURCE: VIVIAN CHAVES MD REASON FOR APPOINTMENT 1. MAXILLARY NERVE BLOCK V/S OCCIPITAL HISTORY OF PRESENT ILLNESS HISTORY OF PRESENT ILLNESS: PAIN THE PATIENT DESCRIBES THE PAIN... FALL RISK SCREENING: SCREENING : NO FALLS IN THE PAST YEAR. CURRENT MEDICATIONS TAKING LOSARTAN POTASSIUM 50 MG TABLET 1 TABLET ORALLY ONCE A DAY, NOTES: 11-10-18 830 TAKING ACETAMINOPHEN 325 MG CAPSULE 1 CAP ORALLY EVERY MORNING, NOTES: NOT LATELY TAKING BUPROPION HCL 100 MG TABLET 1 TABLET ORALLY ONCE A DAY, NOTES: 11-10-18 08 TAKING POTASSIUM CHLORIDE ER 8 MEQ TABLET EXTENDED RELEASE 1 CAPSULE WITH FOOD ORALLY DAILY, NOTES: 11-10-18799 TAKING SPIRONOLACTONE 25 MG TABLET 1/2 TABLET ORALLY DAILY, NOTES: 11-10-1830 TAKING CARVEDILOL 12.5 MG TABLET 1 TAB ORALLY DAILY, NOTES: 11-10-18799 TAKING LORAZEPAM 0.5 MG TABLET 1 TABLET NEEDED ORALLY EVERY 6 HRS, NOTES: 11-10-18 1000 TAKING VITAMIN D 2000 UNIT TABLET 1 TABLET ORALLY ONCE A DAY, NOTES: 11-10-18799 TAKING VITAMIN C 500 MG TABLET 1 TABLET ORALLY ONCE A DAY, NOTES: 11-10-18799 TAKING VITAMIN B 12 100 MCG LOZENGE ORALLY DAILY, NOTES: 799 TAKING COLACE 100 MG CAPSULE 1 CAPSULE NEEDED ORALLY ONCE A DAY, NOTES: 11-10-18799 TAKING ASPIRIN 325 MG TABLET 1 TABLET ORALLY ONCE A DAY, NOTES: 11-09-18 2100 TAKING YUSUF 128 2 % SOLUTION 1 DROP INTO AFFECTED EYE OPHTHALMIC DAILY, NOTES: 11-10-18799 TAKING LOTEMAX 0.5 % SUSPENSION 1 DROP INTO AFFECTED EYE OPHTHALMIC BID, NOTES: 11-09-18899 TAKING CYCLOPENTOLATE HCL 1 DROP OPHTHALMIC PRN, NOTES: 11-07-18 2100 TAKING REFRESH 1 DROP INTO AFFECTED EYE NEEDED OPHTHALMIC DAILY, NOTES: 899 TAKING SALINE 1 DROP OPTHAMALGIC DAILY, NOTES: 11-10-18899 TAKING BACLOFEN 10 MG TABLET 1 CAP ORALLY BID, NOTES: 11-10-18899 TAKING CARBAMAZEPINE 200 MG TABLET 1 CAP ORALLY BID, NOTES: 09 TAKING LABETALOL HCL 100 MG TABLET 1 CAP ORALLY BID, NOTES: 11-10-18 07 TAKING MAGNESIUM 400 MG CAPSULE ORALLY DAILY, NOTES: NOT LATELY UNKNOWN GABAPENTIN 300 MG CAPSULE 1 CAPSULE ORALLY FOR PAIN BEFORE BEDTIME PRN UNKNOWN ASPIR-81 81 MG TABLET DELAYED RELEASE 1 TABLET ORALLY PRN, NOTES: PRN FOR CHEST PAIN MEDICATION LIST REVIEWED AND RECONCILED WITH THE PATIENT PAST MEDICAL HISTORY MIGRAINE CERVICALGIA LOW BACK PAIN LEFT LEG PAIN / SCIATICA HX OF LYMPHOMA TRIGEMINAL NEURALGIA BREAST FEEDING: YES ALLERGIES SULFA (FOR ALLERGY USE ONLY) PENICILLIN (FOR ALLERGIES USE ONLY): FACIAL SWELLING: ALLERGY MORPHINE: AGITATION: SIDE EFFECTS BACTRIM: ANGIOEDEMA: ALLERGY IV DYE: AGGITATION, PANIC ATTACK, HIVES: ALLERGY SURGICAL HISTORY TOTAL HYSTERECTOMY 1979 CHOLECYSTECTOMY 1983 RHINOPLASTY 1991 LEFT EAR SURGERY 1995 LEFT KNEE SURGERY 2005 LOOP RECORDER 2015 CORNEA REPLACEMENT (DONE IN FEBRUARY AND REDONE IN MARCH) FAMILY HISTORY FATHER: 52 YRS MOTHER: 69 YRS, DIAGNOSED WITH CANCER SOCIAL HISTORY GENERAL: TOBACCO USE ARE YOU A:NONSMOKER LUNG CANCER SCREENING SMOKING STATUS:NON SMOKER ALCOHOL SCREENING DID YOU HAVE A DRINK CONTAINING ALCOHOL IN THE PAST YEAR?NO POINTS0 INTERPRETATIONNEGATIVE RECREATIONAL DRUG USE DRUG USE?NO CAFFEINE CAFFEINE USE?YES HOW OFTEN AND HOW MUCH? 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 CONSTITUTIONAL: ANY CHANGE IN YOUR MEDICAL CONDITION? DECREASE PAIN AROUND THE EYE . CHILLS NO . FEVER NO . INFECTION: DO YOU HAVE NEW INFECTIONS? NO . DO YOU HAVE HISTORY OF MRSA? NO . MUSCULOSKELETAL: ANY NEW PATTERNS OF PAIN OR NUMBNESS? NO . GASTROENTEROLOGY: ANY NEW CHANGE IN BOWEL CONTROL? NO . GENITOURINARY: ANY NEW CHANGE IN BLADDER CONTROL? NO . IS THERE A CHANCE YOU COULD BE ? NO . HEMATOLOGY/LYMPH: DO YOU TAKE ANY BLOOD THINNERS? (FOR EXAMPLE- COUMADIN, PLAVIX, AGGRENOX, PLATEL, PRADAXA, OR XARELTO) NO . WHEN WAS YOUR LAST DOSE? DATE: TIME: . NEUROLOGY: HAVE YOU FALLEN IN THE PAST 12 MONTHS? NO . ANY NEW EXTREMITY NUMBNESS OR WEAKNESS? NO . CARDIOLOGY: DO YOU HAVE A PACEMAKER OR DEFIBRILLATOR? NO . RESPIRATORY: HAVE YOU BEEN SICK IN THE PAST WEEK? NO . FEVER NO . FLU LIKE SYMPTOMS? NO . COUGH NO . INTEGUMENTARY: DO YOU HAVE ANY RASHES OR OPEN SORES? NO . ALLERGIC/IMMUNO: ARE YOU ALLERGIC TO IV DYE? NO . ANY NEW ALLERGIES? NO . PSYCHIATRIC: DO YOU HAVE THOUGHTS OF HURTING YOURSELF OR SOMEONE ELSE? NO . ARE YOU ABUSED, NEGLECTED, OR IN AN UNSAFE ENVIRONMENT? NO . ENDOCRINOLOGY: ARE YOU DIABETIC? NO . OTHER: DO YOU NEED ANY PRESCRIPTIONS? NO . IF YES, PLEASE LIST: ____ . ANY NEW PROBLEMS WITH YOUR MEDICATIONS? NO . WHEN DID YOU LAST EAT? ____0900 NECTARINE . WHEN DID YOU LAST DRINK? ____1000 . WHAT DID YOU LAST DRINK? ____WATER . NAME OF PERSON DRIVING YOU HOME? ____BRANDON . DO YOU HAVE ANY OTHER QUESTIONS OR CONCERNS NO . VITAL SIGNS WT 171.6 LBS, HT 60 IN, BMI 33.51 INDEX, BP 130/60 MM HG, HR 70 /MIN, RR 16 /MIN, TEMP 97.8 F, OXYGEN SAT % 96%, SAFE IN ENV? (Y/N) YES, NA INITIALS AW 1134, REVIEWED BY: KG. 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 POST PROCEDURE DIAGNOSIS OCCIPITAL NEURALGIA. PROCEDURE BILATERAL GREATER OCCIPITAL NERVE BLOCK SURGEON DR. VIVIAN CHAVES MARITIME PILOT NONE ANESTHESIA LOCAL PRE PROCEDURE NOTE 73 YEAR-OLD PATIENT WITH HISTORY OF CHRONIC OCCIPITAL PAIN. THE PAIN IS LOCATED OVER THE OCCIPITAL AREA WITH RADIATION TOWARDS THE PARIETAL AREA OF THE CRANIUM. I EVALUATED THE PATIENT AND REVIEWED THE CHART. I WENT OVER THE RISKS, ALTERNATIVES, AND BENEFITS ASSOCIATED WITH THIS PROCEDURE. THE PATIENT WOULD LIKE TO PROCEED AND GAVE CONSENT TO PERFORM THE PROCEDURE. THE PATIENT DENIES UNEXPLAINABLE WEIGHT LOSS, FEVER, CHILLS, OR NEW CHANGES IN URINARY OR BOWEL CONTROL. DESCRIPTION OF PROCEDURE THE PATIENT WAS BROUGHT TO THE PROCEDURE ROOM AND PLACED IN THE SITTING POSITION. THE RIGHT AND LEFT OCCIPITAL AREA WAS CLEANED WITH ALCOHOL. THE PROCEDURE WAS DONE USING STERILE TECHNIQUES. I CHECKED LATERALITY AND THE LEVEL WHERE THE PROCEDURE WAS GOING TO BE PERFORMED WITH THE PATIENT AND THE SUPPORTING STAFF AT THE MOMENT OF THE TIME OUT IN THE PROCEDURE ROOM. USING A 25-GAUGE NEEDLE, THE RIGHT AND LEFT OCCIPITAL NERVE WERE INJECTED AT THE NUCHAL LINE, 1-INCH LATERAL OF MIDLINE. I USED A TOTAL OF 15 ML OF BUPIVACAINE 0.25% WITH KENALOG 20 MG AT EACH NERVE. THERE WAS NO EVIDENCE OF BLOOD, PARESTHESIA OR CEREBROSPINAL FLUID DURING THE PROCEDURE. THE PATIENT WAS SENT TO THE RECOVERY ROOM. THE PATIENT WAS MOVING THE EXTREMITIES AND DOING WELL. THERE WAS NO COMPLICATION DURING THE PROCEDURE. POST PROCEDURE NOTE THE PATIENT WILL BE SEEN IN A FOLLOW UP IN THE NEXT FEW WEEKS. INSTRUCTIONS WERE GIVEN, QUESTIONS WERE ANSWERED, AND THE PATIENT EXPRESSED UNDERSTANDING AND AGREED WITH THE PLAN. I, ABRAHAM AUSTIN, DOCUMENTED THE ABOVE INFORMATION ACTING A SCRIBE FOR DR. CHAVES. I HAVE REVIEWED THE ABOVE DOCUMENT, WRITTEN BY ABRAHAM AUSTIN SCRIBSridevi AND I VERIFY THAT IT IS ACCURATE. PROCEDURE CODES 25208 N BLOCK INJ OCCIPITAL, MODIFIERS: 50 DISPOSITION & COMMUNICATION FOLLOW UP 3 WEEKS ELECTRONICALLY SIGNED BY VIVIAN CHAVES MD, MD ON 11/28/2018 AT 12:52 PM EST DISCLAIMER : THIS IS A VISIT SUMMARY EXTRACTED FROM THE [employer] CHART. IT IS NOT A COPY OF THE [employer] PROGRESS NOTE. MTDD
== END ==
LOC: M PAIN 11:15
PROVIDERS: ATTEND Anesthesiology
DX: G89.29 Other chronic pain (principal); M54.81 Occipital neuralgia; G43.909 Migraine, unspecified, not intractable, without status migrainosus; Z79.82 Long term (current) use of aspirin; Z79.899 Other long term (current) drug therapy; Z88.0 Allergy status to penicillin; Z88.1 Allergy status to other antibiotic agents; Z88.2 Allergy status to sulfonamides; Z88.5 Allergy status to narcotic agent; Z91.041 Radiographic dye allergy status
CPT/HCPCS: 64405; J3301

== ENCOUNTER → 2018-12-21 | Outpatient (CLI) | payer MEDICARE, OTHER ==
[~2018-12-21] MED LIST changes: -BUPIVACAINE HCL 0.25% 10 ML VIAL As Ordered ONE; -BUPIVACAINE HCL 0.25% 30 ML VIAL As Ordered ONE; -TRIAMCINOLONE ACETONIDE SUSP 40 MG/ML VIAL (J3301) As Ordered ONE; -diazePAM 5 MG TAB As Ordered ONE; -oxyCODONE 5MG TAB As Ordered ONE
[2018-12-21 15:47] LABS: ALBUMIN 3.6 GM/DL (3.2-5.2); BLOOD UREA NITROGEN 7 MG/DL (7-18); CALCIUM LEVEL 9.4 MG/DL (8.8-10.2); CARBON DIOXIDE LEVEL 33 MEQ/L (21-32); CHLORIDE LEVEL 106 MEQ/L (98-107); CREATININE FOR GFR 0.71 MG/DL (0.55-1.30); GLOMERULAR FILTRATION RATE > 60.0 (>39); GLUCOSE, FASTING 128 MG/DL (70-100); PHOSPHORUS LEVEL 2.3 MG/DL (2.5-4.9); POTASSIUM SERUM 3.8 MEQ/L (3.5-5.1); SODIUM LEVEL 144 MEQ/L (136-145)
== END ==
LOC: M LAB 14:57
PROVIDERS: ATTEND Physician Assistant
DX: I11.9 Hypertensive heart disease without heart failure (principal)

== ENCOUNTER → 2019-01-05 | Outpatient (CLI) | payer MEDICARE, OTHER ==
[~2019-01-05] MED LIST changes: +ASPI-1 PO; +ASPI-255 PO; -ASPI1TAB PO; -ASPI325T PO; -ASPI325T25 PO; +ASPI81TA26 PO; +SERT-141 PO; -SERT50TA PO; -VITA100T20 PO; +VITA100T51 PO
--- NOTE | 2019-01-07 02:10 | ECWPNPC ---
PATIENT NAME: GER TYLER : 1945 GENDER: FEMALE VISIT DATE: 01/05/2019 DISCHARGE DATE: 01/05/19 1459 VISIT LOCKED DATE TIME: PHYSICIAN: ADAMARIS CASIANO RESOURCE: ADAMARIS CASIANO REASON FOR APPOINTMENT 1. SW POST PROC HISTORY OF PRESENT ILLNESS GENERAL: 73 YR OLD FEMALE HERE FOR F/U.SHE HAS A HX OF LOW BACK PAIN WITH RADICULOPATHY AND TRIGEMMIAL NERALGIA. TODAY, SHE HAS LOWER BACK PAIN WITH RADIATING PAIN DOWN LEFT LEG THAT STRATED 1 MONTH AGO.SHE SAYS SHE WAS EVALUATED BY RHEUAMOLOGIST FOR R.A AND HAS HAD BLOOD WORK AND BEING WORKED UP.SHE DENIES TAKING BLOOD THINNERS OR MEDICATION FOR RA. HISTORY OF PRESENT ILLNESS: PAIN THE PATIENT DESCRIBES THE PAIN... SEVERITY - PAIN SCORE OF9/10 FALL RISK SCREENING: SCREENING :NO FALLS REPORTED IN THE LAST YEAR CURRENT MEDICATIONS TAKING LOSARTAN POTASSIUM 50 MG TABLET 1 TABLET ORALLY ONCE A DAY TAKING ACETAMINOPHEN 325 MG CAPSULE 1 CAP ORALLY EVERY MORNING TAKING BUPROPION HCL 100 MG TABLET 1 TABLET ORALLY ONCE A DAY TAKING POTASSIUM CHLORIDE ER 8 MEQ TABLET EXTENDED RELEASE 1 CAPSULE WITH FOOD ORALLY DAILY TAKING SPIRONOLACTONE 25 MG TABLET 1/2 TABLET ORALLY DAILY TAKING CARVEDILOL 12.5 MG TABLET 1 TAB ORALLY DAILY TAKING LORAZEPAM 0.5 MG TABLET 1 TABLET NEEDED ORALLY EVERY 6 HRS TAKING VITAMIN D 2000 UNIT TABLET 1 TABLET ORALLY ONCE A DAY TAKING VITAMIN C 500 MG TABLET 1 TABLET ORALLY ONCE A DAY TAKING VITAMIN B 12 100 MCG LOZENGE ORALLY DAILY TAKING COLACE 100 MG CAPSULE 1 CAPSULE NEEDED ORALLY ONCE A DAY TAKING ASPIRIN 325 MG TABLET 1 TABLET ORALLY ONCE A DAY TAKING YUSUF 128 2 % SOLUTION 1 DROP INTO AFFECTED EYE OPHTHALMIC DAILY TAKING LOTEMAX 0.5 % SUSPENSION 1 DROP INTO AFFECTED EYE OPHTHALMIC BID TAKING CYCLOPENTOLATE HCL 1 DROP OPHTHALMIC PRN TAKING REFRESH 1 DROP INTO AFFECTED EYE NEEDED OPHTHALMIC DAILY TAKING SALINE 1 DROP OPTHAMALGIC DAILY TAKING BACLOFEN 10 MG TABLET 1 CAP ORALLY BID TAKING CARBAMAZEPINE 200 MG TABLET 1 CAP ORALLY BID TAKING LABETALOL HCL 100 MG TABLET 1 CAP ORALLY BID TAKING MAGNESIUM 400 MG CAPSULE ORALLY DAILY TAKING REXULTI 0.5 MG TABLET 1 TABLET ORALLY ONCE A DAY MEDICATION LIST REVIEWED AND RECONCILED WITH THE PATIENT PAST MEDICAL HISTORY MIGRAINE CERVICALGIA LOW BACK PAIN LEFT LEG PAIN / SCIATICA HX OF LYMPHOMA TRIGEMINAL NEURALGIA ANXIETY DEPRESSION ALLERGIES SULFA (FOR ALLERGY USE ONLY) PENICILLIN (FOR ALLERGIES USE ONLY): FACIAL SWELLING - ALLERGY MORPHINE: AGITATION - SIDE EFFECTS BACTRIM: ANGIOEDEMA - ALLERGY IV DYE: AGGITATION, PANIC ATTACK, HIVES - ALLERGY SURGICAL HISTORY TOTAL HYSTERECTOMY 1979 CHOLECYSTECTOMY 1983 RHINOPLASTY 1991 LEFT EAR SURGERY 1995 LEFT KNEE SURGERY 2005 LOOP RECORDER 2015 CORNEA REPLACEMENT (DONE IN FEBRUARY AND REDONE IN MARCH) FAMILY HISTORY FATHER: 52 YRS MOTHER: 69 YRS, BREAST CANCER, RHEUMATOID ARTHRITIS, DIAGNOSED WITH CANCER SON(S): ALIVE 45 YRS, DISCOID LUPUS 1 SON(S) . SOCIAL HISTORY GENERAL: TOBACCO USE ARE YOU A:NONSMOKER LATEX QUESTIONNAIRE LATEX ALLERGY : HAVE YOU EVER DEVELOPED ANY TYPE OF REACTION AFTER HANDLING LATEX PRODUCTS SUCH RUBBER GLOVES, CONDOMS, DIAPHRAGMS, BALLOONS, SOCKS, OR UNDERWEAR?NO LATEX ALLERGY : HAVE YOU EVER DEVELOPED ANY TYPE OF REACTION DURING OR AFTER DENTAL APPOINTMENT, VAGINAL/RECTAL EXAMINATION, SURGICAL PROCEDURE, OR ANY OTHER EXPOSURE?NO LATEX RISK : HAVE YOU EVER HAD ANY DIFFICULTY BREATHING OR HIVES AFTER EATING OR HANDLING ANY FRUITS, OR VEGETABLES; SUCH KIWI, BANANAS, STONE FRUITS, OR CHESTNUTSNO LATEX RISK : DO YOU HAVE A PREVIOUS PERSONAL HISTORY OF MORE THAN NINE SURGERIES, SPINA BIFIDA, OR REPEATED CATHERTIZATIONS? NO LATEX RISK : ARE YOU FREQUENTLY EXPOSED TO LATEX PRODUCTS IN YOUR OCCUPATION?NO DATE ASKED : 01/05/2019 LUNG CANCER SCREENING SMOKING STATUS:NON SMOKER ALCOHOL SCREENING DID YOU HAVE A DRINK CONTAINING ALCOHOL IN THE PAST YEAR?NO POINTS0 INTERPRETATIONNEGATIVE RECREATIONAL DRUG USE DRUG USE?NO CAFFEINE CAFFEINE USE?YES HOW OFTEN AND HOW MUCH? DAILY USE [employer] [id number] MANDAEN LANGUAGE LANGUAGES SPOKEN:ROMANIAN EDUCATION LEVEL OF EDUCATION:PROFESSIONAL SCHOOLS/MASTERS/PHD LEARNING BARRIERS / SPECIAL NEEDS HEARING IMPAIRED?YES LEFT :HEARING AIDES VISION IMPAIRED?YES :CORRECTIVE LENSES COGNITIVELY IMPAIRED?NO READINESS TO LEARN?YES LEARNING PREFERENCES?YES :BOOKLETS, HANDOUTS LEARNING CAPABILITIES PRESENT?YES EMOTIONAL BARRIERS?NO SPECIAL DEVICES?YES :CANE MUD MIXER NEEDED?NO DOMESTIC VIOLENCE DO YOU FEEL SAFE IN YOUR ENVIRONMENT?YES PAIN CLINIC PFS, CLERGY, PUBLIC HEALTH REFERRALS PFS REFERRAL NEEDED?NO CLERGY REFERRAL NEEDED?NO PUBLIC HEALTH REFERRAL NEEDED?NO WAS THE PROVIDER NOTIFIED OF ANY PERTINENT INFO?YES HAS THE PATIENT BEEN EDUCATED REGARDING HIS/HER PLAN OF CARE?YES HAS THE PATIENT BEEN EDUCATED REGARDING PAIN, THE RISK FOR PAIN, THE IMPORTANCE OF EFFECTIVE PAIN MANAGEMENT, AND THE PAIN ASSESSMENT PROCESS?YES ADVANCE DIRECTIVE ADVANCE DIRECTIVE DISCUSSED WITH PATIENT:YES DECLINED INFORMATION AND REFUSED ASSISTANCE WITH FILLING OUT PAPERWORK HOSPITALIZATION/MAJOR DIAGNOSTIC PROCEDURE SURGERY RELATED REVIEW OF SYSTEMS REVIEWED BY: PROVIDER: ALENA . CONSTITUTIONAL: ANY CHANGE IN YOUR MEDICAL CONDITION? NO . CHILLS NO . FEVER NO . INFECTION: DO YOU HAVE NEW INFECTIONS? NO . DO YOU HAVE HISTORY OF MRSA? NO . MUSCULOSKELETAL: ANY NEW PATTERNS OF PAIN OR NUMBNESS? YES, PT STATES THAT HER PAIN IS COMING BACK . GASTROENTEROLOGY: ANY NEW CHANGE IN BOWEL CONTROL? YES, PT STATE THAT SHE IS HAVING PROBLEM WITH CONSTIPATION . GENITOURINARY: ANY NEW CHANGE IN BLADDER CONTROL? NO . IS THERE A CHANCE YOU COULD BE ? NO . HEMATOLOGY/LYMPH: DO YOU TAKE ANY BLOOD THINNERS? (FOR EXAMPLE- COUMADIN, PLAVIX, AGGRENOX, PLATEL, PRADAXA, OR XARELTO) NO . WHEN WAS YOUR LAST DOSE? DATE: TIME: . NEUROLOGY: HAVE YOU FALLEN IN THE PAST 12 MONTHS? YES, NEAR FALL. CAUGHT SELF ON RAILING . ANY NEW EXTREMITY NUMBNESS OR WEAKNESS? NO . CARDIOLOGY: DO YOU HAVE A PACEMAKER OR DEFIBRILLATOR? NO . RESPIRATORY: HAVE YOU BEEN SICK IN THE PAST WEEK? NO . FEVER NO . FLU LIKE SYMPTOMS? NO . COUGH NO . INTEGUMENTARY: DO YOU HAVE ANY RASHES OR OPEN SORES? NO . ALLERGIC/IMMUNO: ARE YOU ALLERGIC TO IV DYE? YES, AT TIMES PT FEELS THOUGH SHE HAS HAD A REACTION . ANY NEW ALLERGIES? NO . PSYCHIATRIC: DO YOU HAVE THOUGHTS OF HURTING YOURSELF OR SOMEONE ELSE? NO . ARE YOU ABUSED, NEGLECTED, OR IN AN UNSAFE ENVIRONMENT? NO . ENDOCRINOLOGY: ARE YOU DIABETIC? NO . OTHER: DO YOU NEED ANY PRESCRIPTIONS? YES, PT STATES THAT SHE HAD A REACTION AND WENT TO ED IN PAST . IF YES, PLEASE LIST: ____ . ANY NEW PROBLEMS WITH YOUR MEDICATIONS? NO . WHEN DID YOU LAST EAT? ____ . WHEN DID YOU LAST DRINK? ____ . WHAT DID YOU LAST DRINK? ____ . NAME OF PERSON DRIVING YOU HOME? ____ . DO YOU HAVE ANY OTHER QUESTIONS OR CONCERNS NO . VITAL SIGNS WT 163 LBS, HT 60 IN, BMI 31.83 INDEX, BP 145/62 MM HG, HR 72 /MIN, RR 18 /MIN, TEMP 98.3 F, OXYGEN SAT % 92%, SAFE IN ENV? (Y/N) Y, NA INITIALS AW 1355, REVIEWED BY: VENTURA. EXAMINATION GENERAL EXAMINATION: GENERAL APPEARANCE:NO ACUTE DISTRESS, WELL NOURISHED AND HYDRATED. PSYCHAPPROPRIATE MOOD AND AFFECT . HEART:NO MURMURS, REGULAR RATE AND RHYTHM. BACK: FROM TENDER ALONG PARASPINAL LUMBAR MUSCLES SLR POSITIVE LEFT SIDE UNSTEADY GAIT. ASSESSMENTS FACIAL NEURALGIA - G51.8 (PRIMARY) BILATERAL OCCIPITAL NEURALGIA - M54.81 LEFT-SIDED LOW BACK PAIN WITH LEFT-SIDED SCIATICA, UNSPECIFIED CHRONICITY - M54.42 TREATMENT LEFT-SIDED LOW BACK PAIN WITH LEFT-SIDED SCIATICA, UNSPECIFIED CHRONICITY CLINICAL NOTES: LESI L4-L5, L5-S1, ISTOP REGISTRY REVIEWED AND DEMONSTRATES COMPLLIANCE. (REF #[id number] ) BRINGS IN MEDICATIONS WHICH IS APPROPRIATE FOR WHAT WAS DISPENSED. RECENT URINE TOXICOLOGY REVIEWED. NO UNAUTHORIZED MEDICATIONS. NO ILLICIT SUBSTANCES AND PRESCRIBED MEDICATIONS WERE PRESENT. PROCEDURE CODES FA211 ESTABILISHED PATIENT [facility] CHARGE DISPOSITION & COMMUNICATION FOLLOW UP POST PROCEDURE (REASON: LESI L4-5, L5-S1) ELECTRONICALLY SIGNED BY RIK FOWLER ON 01/06/2019 AT 04:20 PM EDT DISCLAIMER : THIS IS A VISIT SUMMARY EXTRACTED FROM THE [employer] CHART. IT IS NOT A COPY OF THE [employer] PROGRESS NOTE. JIGNESH
== END ==
LOC: M PAIN 13:30
PROVIDERS: ATTEND Nurse Practitioner Family
DX: G51.8 Other disorders of facial nerve (principal); M54.81 Occipital neuralgia; M54.42 Lumbago with sciatica, left side; G43.909 Migraine, unspecified, not intractable, without status migrainosus; M54.2 Cervicalgia; F41.9 Anxiety disorder, unspecified; G50.0 Trigeminal neuralgia; K59.00 Constipation, unspecified; F32.9 Major depressive disorder, single episode, unspecified; Z79.82 Long term (current) use of aspirin; Z79.899 Other long term (current) drug therapy; Z85.79 Personal history of other malignant neoplasms of lymphoid, hematopoietic and related tissues; Z88.0 Allergy status to penicillin; Z88.2 Allergy status to sulfonamides; Z88.5 Allergy status to narcotic agent; Z91.041 Radiographic dye allergy status; R76.8 Other specified abnormal immunological findings in serum; M79.641 Pain in right hand
CPT/HCPCS: G0463 ×2

== ENCOUNTER → 2019-01-10 | Outpatient (CLI) | payer MEDICARE, OTHER ==
--- NOTE | 2019-01-10 15:54 | REP ---
LEFT HIP: Two views. HISTORY: Pain. FINDINGS: AP and frog-leg views of the left hip show a surgical clip in the left pelvis. Femoral head is smooth and rounded. Hip joint space is preserved. There are soft tissue calcifications at tendon insertion sites along the iliac crest, greater trochanter, and ischium, which may reflect an enthesopathy. Periarticular soft tissues are otherwise unremarkable. The left hemipelvis appears intact. There is minimal acetabular spurring. Diffuse osteopenia is noted. IMPRESSION: Tendon insertion site spurring or calcification consistent with enthesopathy. Minimal acetabular spurring. Some diffuse osteopenia. Electronically Signed by Kj Wright MD 01/10/2019 04:51 P
--- NOTE | 2019-01-10 15:57 | REP ---
SI JOINT SERIES: Four views. HISTORY: Pain. FINDINGS: Four views of the sacroiliac joints and pelvis demonstrate no evidence of ankylosis or erosive change in either sacroiliac joint. There is some muscular tendinous insertion site calcification and spurring at the greater trochanters and at the iliac crests bilaterally consistent with enthesopathy. No acute bony abnormality. Electronically Signed by Kj Wright MD 01/10/2019 04:53 P
--- NOTE | 2019-01-10 16:01 | REP ---
Bilateral hand series: Eight views. History: Pain. Findings: There is mild diffuse osteopenia. Juxta-articular osteoporosis is also noted about the MCP and IP joints. This is symmetric. There is mild osteoarthritic spurring at the first carpometacarpal joint bilaterally. The PIP and DIP joints are symmetrically somewhat narrowed. No erosive changes are seen. There is no evidence of ulnar deviation. No significant soft tissue abnormality. Impression: Mild diffuse osteopenia and juxta-articular osteopenia with diffuse joint space narrowing may reflect inflammatory arthropathy. There are some mild osteoarthritic changes at the first carpometacarpal articulations bilaterally. Electronically Signed by Kj Wright MD 01/10/2019 04:54 P
--- NOTE | 2019-01-10 16:08 | REP ---
Partial lumbar spine series: Three views: History: Low back pain. Left-sided sciatica. Findings: Lumbar vertebral body heights are preserved. There is no evidence of spondylolysis. There is a degenerative grade 1, 4 mm, L4-5 spondylolisthesis. Degenerative disc narrowing is seen at this level. Facet joint osteoarthritis is noted bilaterally at L4-5 and L5-S1. Pedicles and posterior elements are intact. Vertebral alignment is otherwise normal. Discogenic spurring is seen at each level, most pronounced at L1-2. Psoas margins are symmetric. Visualized bowel gas pattern is normal. There are surgical clips in the right upper quadrant. Impression: Degenerative spondylosis changes. Grade 1 L4-5 4 mm spondylolisthesis on a degenerative basis. Electronically Signed by Kj Wright MD 01/10/2019 05:00 P
[2019-01-13 00:06] LABS: ANGIOTENSIN 1 CONVERTING ENZYM 20 U/L (14-82); CYCLIC CITRULLINATED PEPTIDE 4 units (0-19)
== END ==
LOC: M WUC 14:32
PROVIDERS: ATTEND Internal Medicine Rheumatology
DX: R76.8 Other specified abnormal immunological findings in serum (principal)

== ENCOUNTER → 2019-01-19 | Outpatient (CLI) | payer MEDICARE, OTHER ==
[~2019-01-19] MED LIST changes: +ISOVUE-M 300 61% 15ML VIAL (Q9967) As Ordered ONE; +LIDOCAINE 1% SDV INJ 30 ML VIAL As Ordered ONE; +diazePAM 5 MG TAB As Ordered ONE; +diphenhydrAMINE 25 MG CAP As Ordered ONE; +methylPREDNISolone SUSP 40 MG/ML (DEPO-medrol) VIAL (J1030) As Ordered ONE; +oxyCODONE 5MG TAB As Ordered ONE
--- NOTE | 2019-01-19 15:55 | REP ---
Partial lumbar spine series: Four views . History: Injection procedure for pain. 11 seconds of fluoroscopy time is reported. Findings: A sequence of four fluoroscopically obtained last image hold procedural spot radiographs of the lumbar spine document needle position and contrast injection associated with injection procedure. Electronically Signed by Kj Wright MD 01/19/2019 03:46 P
--- NOTE | 2019-02-07 00:23 | ECWPNPC ---
PATIENT NAME: GER TYLER : 1945 GENDER: FEMALE VISIT DATE: 01/19/2019 DISCHARGE DATE: 01/19/19 1554 VISIT LOCKED DATE TIME: PHYSICIAN: VIVIAN CHAVES MD RESOURCE: VIVIAN CHAVES MD REASON FOR APPOINTMENT 1. LESI HISTORY OF PRESENT ILLNESS HISTORY OF PRESENT ILLNESS: PAIN THE PATIENT DESCRIBES THE PAIN... FALL RISK SCREENING: SCREENING :NO FALLS REPORTED IN THE LAST YEAR CURRENT MEDICATIONS TAKING LOSARTAN POTASSIUM 50 MG TABLET 1 TABLET ORALLY ONCE A DAY, NOTES: 01/18/19 AM TAKING ACETAMINOPHEN 325 MG CAPSULE 1 CAP ORALLY EVERY MORNING, NOTES: WEEKS AGO TAKING BUPROPION HCL 100 MG TABLET 1 TABLET ORALLY ONCE A DAY, NOTES: 01/18/19 TAKING POTASSIUM CHLORIDE ER 8 MEQ TABLET EXTENDED RELEASE 1 CAPSULE WITH FOOD ORALLY DAILY, NOTES: 01/18/19 TAKING SPIRONOLACTONE 25 MG TABLET 1/2 TABLET ORALLY DAILY, NOTES: 01/18/19 TAKING CARVEDILOL 12.5 MG TABLET 1 TAB ORALLY DAILY, NOTES: 01/18/191999 TAKING LORAZEPAM 0.5 MG TABLET 1 TABLET NEEDED ORALLY EVERY 6 HRS, NOTES: 01/18/190 TAKING VITAMIN D 2000 UNIT TABLET 1 TABLET ORALLY ONCE A DAY, NOTES: 01/18/19 TAKING VITAMIN C 500 MG TABLET 1 TABLET ORALLY ONCE A DAY, NOTES: 01/18/19 TAKING VITAMIN B 12 100 MCG LOZENGE ORALLY DAILY, NOTES: 01/18/19 TAKING COLACE 100 MG CAPSULE 1 CAPSULE NEEDED ORALLY ONCE A DAY, NOTES: WEEKS AGO TAKING ASPIRIN 325 MG TABLET 1 TABLET ORALLY ONCE A DAY, NOTES: 01/18/19 TAKING YUSUF 128 2 % SOLUTION 1 DROP INTO AFFECTED EYE OPHTHALMIC DAILY, NOTES: 01/18/191999 TAKING LOTEMAX 0.5 % SUSPENSION 1 DROP INTO AFFECTED EYE OPHTHALMIC BID, NOTES: 01/18/191999 TAKING REFRESH 1 DROP INTO AFFECTED EYE NEEDED OPHTHALMIC DAILY, NOTES: 01/18/191999 TAKING BACLOFEN 10 MG TABLET 1 CAP ORALLY BID, NOTES: 01/18/191999 TAKING CARBAMAZEPINE 200 MG TABLET 1 CAP ORALLY BID, NOTES: 01/18/191999 TAKING LABETALOL HCL 100 MG TABLET 1 CAP ORALLY BID, NOTES: 01/18/19 TAKING MAGNESIUM 400 MG CAPSULE ORALLY DAILY, NOTES: 01/18/19 AM TAKING REXULTI 0.5 MG TABLET 1 TABLET ORALLY ONCE A DAY, NOTES: 01/18/19 AM TAKING PENETRAN - LOTION DIRECTED EXTERNALLY , NOTES: FEW DAYS AGO NOT-TAKING CYCLOPENTOLATE HCL 1 DROP OPHTHALMIC PRN NOT-TAKING SALINE 1 DROP OPTHAMALGIC DAILY MEDICATION LIST REVIEWED AND RECONCILED WITH THE PATIENT PAST MEDICAL HISTORY MIGRAINE CERVICALGIA LOW BACK PAIN LEFT LEG PAIN / SCIATICA HX OF LYMPHOMA TRIGEMINAL NEURALGIA ANXIETY DEPRESSION OSTEOARTHRITIS ALLERGIES SULFA (FOR ALLERGY USE ONLY) PENICILLIN (FOR ALLERGIES USE ONLY): FACIAL SWELLING - ALLERGY MORPHINE: AGITATION - SIDE EFFECTS BACTRIM: ANGIOEDEMA - ALLERGY IV DYE: AGGITATION, PANIC ATTACK, HIVES - ALLERGY SURGICAL HISTORY TOTAL HYSTERECTOMY 1979 CHOLECYSTECTOMY 1983 RHINOPLASTY 1991 LEFT EAR SURGERY 1995 LEFT KNEE SURGERY 2005 LOOP RECORDER 2015 CORNEA REPLACEMENT (DONE IN FEBRUARY AND REDONE IN MARCH) FAMILY HISTORY FATHER: 52 YRS MOTHER: 69 YRS, BREAST CANCER, RHEUMATOID ARTHRITIS, DIAGNOSED WITH CANCER SON(S): ALIVE 45 YRS, DISCOID LUPUS 1 SON(S) . 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 LANGUAGE LANGUAGES SPOKEN:TURKISH DOMESTIC VIOLENCE DO YOU FEEL SAFE IN YOUR ENVIRONMENT?YES RECREATIONAL DRUG USE DRUG USE?NO LEARNING BARRIERS / SPECIAL NEEDS HEARING IMPAIRED?YES LEFT :HEARING AIDES VISION IMPAIRED?YES :CORRECTIVE LENSES COGNITIVELY IMPAIRED?NO READINESS TO LEARN?YES LEARNING PREFERENCES?YES :BOOKLETS, HANDOUTS LEARNING CAPABILITIES PRESENT?YES EMOTIONAL BARRIERS?NO SPECIAL DEVICES?YES :CANE SCISSORS SHARPENER NEEDED?NO LUNG CANCER SCREENING SMOKING STATUS:NON SMOKER PAIN CLINIC PFS, CLERGY, PUBLIC HEALTH REFERRALS PFS REFERRAL NEEDED?NO CLERGY REFERRAL NEEDED?NO PUBLIC HEALTH REFERRAL NEEDED?NO WAS THE PROVIDER NOTIFIED OF ANY PERTINENT INFO?YES HAS THE PATIENT BEEN EDUCATED REGARDING HIS/HER PLAN OF CARE?YES HAS THE PATIENT BEEN EDUCATED REGARDING PAIN, THE RISK FOR PAIN, THE IMPORTANCE OF EFFECTIVE PAIN MANAGEMENT, AND THE PAIN ASSESSMENT PROCESS?YES LATEX QUESTIONNAIRE LATEX ALLERGY : HAVE YOU EVER DEVELOPED ANY TYPE OF REACTION AFTER HANDLING LATEX PRODUCTS SUCH RUBBER GLOVES, CONDOMS, DIAPHRAGMS, BALLOONS, SOCKS, OR UNDERWEAR?NO LATEX ALLERGY : HAVE YOU EVER DEVELOPED ANY TYPE OF REACTION DURING OR AFTER DENTAL APPOINTMENT, VAGINAL/RECTAL EXAMINATION, SURGICAL PROCEDURE, OR ANY OTHER EXPOSURE?NO LATEX RISK : HAVE YOU EVER HAD ANY DIFFICULTY BREATHING OR HIVES AFTER EATING OR HANDLING ANY FRUITS, OR VEGETABLES; SUCH KIWI, BANANAS, STONE FRUITS, OR CHESTNUTSNO LATEX RISK : DO YOU HAVE A PREVIOUS PERSONAL HISTORY OF MORE THAN NINE SURGERIES, SPINA BIFIDA, OR REPEATED CATHERTIZATIONS? NO LATEX RISK : ARE YOU FREQUENTLY EXPOSED TO LATEX PRODUCTS IN YOUR OCCUPATION?NO DATE ASKED : 01/13/2019 CAFFEINE CAFFEINE USE?YES HOW OFTEN AND HOW MUCH? DAILY USE ADVANCE DIRECTIVE ADVANCE DIRECTIVE DISCUSSED WITH PATIENT:YES HCP - [place] ([facility] SPIRITISM [id number] RELIGION ALCOHOL SCREENING DID YOU HAVE A DRINK CONTAINING ALCOHOL IN THE PAST YEAR?NO POINTS0 INTERPRETATIONNEGATIVE REVIEWED WITH PATIENT 01/19/19 1407 JS. HOSPITALIZATION/MAJOR DIAGNOSTIC PROCEDURE SURGERY RELATED REVIEW OF SYSTEMS REVIEWED BY: PROVIDER: . CONSTITUTIONAL: ANY CHANGE IN YOUR MEDICAL CONDITION? YES, OSTEOARTHRITIS . CHILLS NO . FEVER NO . INFECTION: DO YOU HAVE NEW INFECTIONS? NO . DO YOU HAVE HISTORY OF MRSA? NO . MUSCULOSKELETAL: ANY NEW PATTERNS OF PAIN OR NUMBNESS? YES, STATES INCREASED AT NIGHT . GASTROENTEROLOGY: ANY NEW CHANGE IN BOWEL CONTROL? YES, STATES INCREASING CONSTIPATION . GENITOURINARY: ANY NEW CHANGE IN BLADDER CONTROL? NO . IS THERE A CHANCE YOU COULD BE ? NO . HEMATOLOGY/LYMPH: DO YOU TAKE ANY BLOOD THINNERS? (FOR EXAMPLE- COUMADIN, PLAVIX, AGGRENOX, PLATEL, PRADAXA, OR XARELTO) NO . WHEN WAS YOUR LAST DOSE? DATE: TIME: . NEUROLOGY: HAVE YOU FALLEN IN THE PAST 12 MONTHS? NO . ANY NEW EXTREMITY NUMBNESS OR WEAKNESS? YES, STATES WEAKNESS TO BILATERAL HANDS . CARDIOLOGY: DO YOU HAVE A PACEMAKER OR DEFIBRILLATOR? NO . RESPIRATORY: HAVE YOU BEEN SICK IN THE PAST WEEK? NO . FEVER NO . FLU LIKE SYMPTOMS? NO . COUGH NO . INTEGUMENTARY: DO YOU HAVE ANY RASHES OR OPEN SORES? NO . ALLERGIC/IMMUNO: ARE YOU ALLERGIC TO IV DYE? NO . ANY NEW ALLERGIES? NO . PSYCHIATRIC: DO YOU HAVE THOUGHTS OF HURTING YOURSELF OR SOMEONE ELSE? NO . ARE YOU ABUSED, NEGLECTED, OR IN AN UNSAFE ENVIRONMENT? NO . ENDOCRINOLOGY: ARE YOU DIABETIC? NO . OTHER: DO YOU NEED ANY PRESCRIPTIONS? NO . IF YES, PLEASE LIST: ____ . ANY NEW PROBLEMS WITH YOUR MEDICATIONS? NO . WHEN DID YOU LAST EAT? ____01/18/19 1530 . WHEN DID YOU LAST DRINK? ____01/18/19 2100 . WHAT DID YOU LAST DRINK? ____WATER . NAME OF PERSON DRIVING YOU HOME? ____[place] ([place]) . DO YOU HAVE ANY OTHER QUESTIONS OR CONCERNS YES, STATES SHE IS NERVOUS, PRE-SEDATE ORDERED . VITAL SIGNS WT 166.2 LBS, HT 60 IN, BMI 32.46 INDEX, BP 157/70 MM HG, HR 67 /MIN, RR 18 /MIN, TEMP 98.0 F, OXYGEN SAT % 98%, SAFE IN ENV? (Y/N) YES, NA INITIALS AW 1244, REVIEWED BY: JS. ASSESSMENTS INTERVERTEBRAL DISC DISORDER WITH RADICULOPATHY OF LUMBAR REGION - M51.16 (PRIMARY) SPINAL STENOSIS OF LUMBAR REGION, UNSPECIFIED WHETHER NEUROGENIC CLAUDICATION PRESENT - M48.061 PROCEDURES PRE PROCEDURE DIAGNOSIS LUMBAR SPINAL STENOSIS , LUMBAR DISC DISORDER WITH RADICULOPATHY POST PROCEDURE DIAGNOSIS LUMBAR SPINAL STENOSIS , LUMBAR DISC DISORDER WITH RADICULOPATHY PROCEDURE LUMBAR EPIDURAL STEROID INJECTION UNDER FLUOROSCOPIC GUIDANCE SURGEON DR. VIVIAN CHAVES AQUATIC SCIENTIST NONE ANESTHESIA LOCAL PRE PROCEDURE NOTE THE PATIENT HAS A HISTORY OF CHRONIC LOW BACK PAIN. I EVALUATED THE PATIENT AND REVIEWED THE CHART. I WENT OVER THE RISKS, ALTERNATIVES, AND BENEFITS ASSOCIATED WITH THIS PROCEDURE. THE PATIENT WOULD LIKE TO PROCEED AND GIVE CONSENT TO PERFORMED THE PROCEDURE. THE PATIENT DENIES UNEXPLAINABLE WEIGHT LOSS, FEVER, CHILLS, OR NEW CHANGES IN URINARY OR BOWEL CONTROL. DESCRIPTION OF PROCEDURE THE PATIENT WAS BROUGHT TO THE PROCEDURE ROOM AND PLACED IN THE PRONE POSITION. THE LUMBOSACRAL AREA WAS CLEANED WITH BETADINE SOLUTION AND DRAPED ASEPTICALLY. THE PROCEDURE WAS DONE UNDER STERILE CONDITIONS. I CHECKED LATERALITY AND THE LEVEL WHERE THE PROCEDURE WAS GOING TO BE PERFORMED WITH THE PATIENT AND THE SUPPORTING STAFF AT THE MOMENT OF THE TIME OUT IN THE PROCEDURE ROOM. UNDER FLUOROSCOPIC GUIDANCE, THE TARGET POINT WAS SELECTED AT THE INTERLAMINAR LEVEL OF L4-L5. LIDOCAINE WAS USED TO NUMB THE SKIN AND THE SUBCUTANEOUS TISSUE BELOW IT. EPIDURAL TUOHY NEEDLE, 17-GAUGE, WAS ADVANCED UNDER FLUOROSCOPIC GUIDANCE AND FOLLOWING PATIENT FEEDBACK UNTIL THE EPIDURAL SPACE WAS REACHED, 7 CM DEEP INTO THE SKIN BY THE LOSS OF RESISTANCE TECHNIQUE. ISOVUE M DYE 30%, 0.25 ML, WAS INJECTED SHOWING ADEQUATE SPREAD OF THE DYE. THEN, A SOLUTION OF 3 ML OF NORMAL SALINE WITH DEPO-MEDROL 60 MG WAS INJECTED SLOWLY FOLLOWING PATIENT FEEDBACK. THERE WAS NO EVIDENCE OF BLOOD, PARESTHESIA OR CEREBROSPINAL FLUID DURING THE PROCEDURE. THE PATIENT WAS SENT TO THE RECOVERY ROOM. THE PATIENT WAS MOVING THE EXTREMITIES AND DOING WELL. THERE WAS NO COMPLICATION DURING THE PROCEDURE. FLUOROSCOPY TIME WAS 11 SECONDS. POST PROCEDURE NOTE THE PATIENT WILL BE SEEN IN A FOLLOW UP IN THE NEXT FEW WEEKS. INSTRUCTIONS WERE GIVEN, QUESTIONS WERE ANSWERED, AND THE PATIENT EXPRESSED UNDERSTANDING AND AGREES WITH THE PLAN. I, SADAF EDWARD, DOCUMENTED THE ABOVE INFORMATION ACTING A SCRIBE FOR DR. CHAVES. I HAVE REVIEWED THE ABOVE DOCUMENT, WRITTEN BY SADAF EDWARD SCRIBE AND I VERIFY THAT IT IS ACCURATE. DIAGNOSTIC IMAGING [facility] FLUORO GUIDE SPINE INJECTION (PAIN)[id number] PROCEDURE CODES 88901 LUMBAR/SACRAL W/ IMAGING 6045F RADXPS IN END [id number] PXD DISPOSITION & COMMUNICATION FOLLOW UP 2 WEEKS ELECTRONICALLY SIGNED BY VIVIAN CHAVES MD, MD ON 02/06/2019 AT 03:43 PM EDT DISCLAIMER : THIS IS A VISIT SUMMARY EXTRACTED FROM THE [employer] CHART. IT IS NOT A COPY OF THE [employer] PROGRESS NOTE. JIGNESH
== END ==
LOC: M PAIN 12:30
PROVIDERS: ATTEND Anesthesiology
DX: G89.29 Other chronic pain (principal); M51.16 Intervertebral disc disorders with radiculopathy, lumbar region; M48.061 Spinal stenosis, lumbar region without neurogenic claudication; G43.909 Migraine, unspecified, not intractable, without status migrainosus; F41.9 Anxiety disorder, unspecified; F32.9 Major depressive disorder, single episode, unspecified; M19.90 Unspecified osteoarthritis, unspecified site; Z79.82 Long term (current) use of aspirin; Z79.899 Other long term (current) drug therapy; Z88.0 Allergy status to penicillin; Z88.1 Allergy status to other antibiotic agents; Z88.2 Allergy status to sulfonamides; Z88.5 Allergy status to narcotic agent; Z91.041 Radiographic dye allergy status
CPT/HCPCS: 62323; J1030; Q9967

== ENCOUNTER → 2019-02-03 | Outpatient (CLI) | payer MEDICARE, OTHER ==
[~2019-02-03] MED LIST changes: -ISOVUE-M 300 61% 15ML VIAL (Q9967) As Ordered ONE; -LIDOCAINE 1% SDV INJ 30 ML VIAL As Ordered ONE; -diazePAM 5 MG TAB As Ordered ONE; -diphenhydrAMINE 25 MG CAP As Ordered ONE; -methylPREDNISolone SUSP 40 MG/ML (DEPO-medrol) VIAL (J1030) As Ordered ONE; -oxyCODONE 5MG TAB As Ordered ONE
--- NOTE | 2019-02-26 01:05 | ECWPNPC ---
PATIENT NAME: GER TYLER : 1945 GENDER: FEMALE VISIT DATE: 02/03/2019 DISCHARGE DATE: 02/03/19 1124 VISIT LOCKED DATE TIME: PHYSICIAN: LJ AMADOR RESOURCE: LJ AMADOR REASON FOR APPOINTMENT 1. POST PROCEDURE HISTORY OF PRESENT ILLNESS HISTORY OF PRESENT ILLNESS: HERE FOR POST PROCEDURE F/U.HAD LESI ON 01/19/19.HAD 5 DAYS OF RESOLUTION OF LEFT LEG PAIN AND DECREASE IN LOW BACK PAIN.PAIN RETURNED ABRUPTLY AND IS WORSE.PAIN IS WORSE IN LEFT LOW BACK. PAIN THE PATIENT DESCRIBES THE PAIN... FALL RISK SCREENING: SCREENING :NO FALLS REPORTED IN THE LAST YEAR CURRENT MEDICATIONS TAKING LOSARTAN POTASSIUM 50 MG TABLET 1 TABLET ORALLY ONCE A DAY TAKING ACETAMINOPHEN 325 MG CAPSULE 1 CAP ORALLY EVERY MORNING TAKING BUPROPION HCL 100 MG TABLET 1 TABLET ORALLY ONCE A DAY TAKING POTASSIUM CHLORIDE ER 8 MEQ TABLET EXTENDED RELEASE 1 CAPSULE WITH FOOD ORALLY DAILY TAKING SPIRONOLACTONE 25 MG TABLET 1/2 TABLET ORALLY DAILY TAKING CARVEDILOL 12.5 MG TABLET 1 TAB ORALLY DAILY TAKING LORAZEPAM 0.5 MG TABLET 1 TABLET NEEDED ORALLY EVERY 6 HRS TAKING VITAMIN D 2000 UNIT TABLET 1 TABLET ORALLY ONCE A DAY TAKING VITAMIN C 500 MG TABLET 1 TABLET ORALLY ONCE A DAY TAKING VITAMIN B 12 100 MCG LOZENGE ORALLY DAILY TAKING COLACE 100 MG CAPSULE 1 CAPSULE NEEDED ORALLY ONCE A DAY TAKING ASPIRIN 325 MG TABLET 1 TABLET ORALLY ONCE A DAY TAKING YUSUF 128 2 % SOLUTION 1 DROP INTO AFFECTED EYE OPHTHALMIC DAILY TAKING LOTEMAX 0.5 % SUSPENSION 1 DROP INTO AFFECTED EYE OPHTHALMIC BID TAKING REFRESH 1 DROP INTO AFFECTED EYE NEEDED OPHTHALMIC DAILY TAKING BACLOFEN 10 MG TABLET 1 CAP ORALLY BID TAKING CARBAMAZEPINE 200 MG TABLET 1 CAP ORALLY BID TAKING LABETALOL HCL 100 MG TABLET 1 CAP ORALLY BID TAKING MAGNESIUM 400 MG CAPSULE ORALLY DAILY TAKING REXULTI 0.5 MG TABLET 1 TABLET ORALLY ONCE A DAY TAKING PENETRAN - LOTION DIRECTED EXTERNALLY TAKING SUCRALFATE 1 GM TABLET 1 TABLET ON AN EMPTY STOMACH ORALLY TWICE A DAY NOT-TAKING CYCLOPENTOLATE HCL 1 DROP OPHTHALMIC PRN NOT-TAKING SALINE 1 DROP OPTHAMALGIC DAILY MEDICATION LIST REVIEWED AND RECONCILED WITH THE PATIENT PAST MEDICAL HISTORY MIGRAINE CERVICALGIA LOW BACK PAIN LEFT LEG PAIN / SCIATICA HX OF LYMPHOMA TRIGEMINAL NEURALGIA ANXIETY DEPRESSION OSTEOARTHRITIS ALLERGIES SULFA (FOR ALLERGY USE ONLY) PENICILLIN (FOR ALLERGIES USE ONLY): FACIAL SWELLING - ALLERGY MORPHINE: AGITATION - SIDE EFFECTS BACTRIM: ANGIOEDEMA - ALLERGY IV DYE: AGGITATION, PANIC ATTACK, HIVES - ALLERGY SURGICAL HISTORY TOTAL HYSTERECTOMY 1979 CHOLECYSTECTOMY 1983 RHINOPLASTY 1991 LEFT EAR SURGERY 1995 LEFT KNEE SURGERY 2005 LOOP RECORDER 2015 CORNEA REPLACEMENT (DONE IN FEBRUARY AND REDONE IN MARCH) FAMILY HISTORY FATHER: 52 YRS MOTHER: 69 YRS, BREAST CANCER, RHEUMATOID ARTHRITIS, DIAGNOSED WITH CANCER SON(S): ALIVE 45 YRS, DISCOID LUPUS 1 SON(S) . 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 LANGUAGE LANGUAGES SPOKEN:[place]THER[place]ISH DOMESTIC VIOLENCE DO YOU FEEL SAFE IN YOUR ENVIRONMENT?YES RECREATIONAL DRUG USE DRUG USE?NO LEARNING BARRIERS / SPECIAL NEEDS HEARING IMPAIRED?YES LEFT :HEARING AIDES VISION IMPAIRED?YES :CORRECTIVE LENSES COGNITIVELY IMPAIRED?NO READINESS TO LEARN?YES LEARNING PREFERENCES?YES :BOOKLETS, HANDOUTS LEARNING CAPABILITIES PRESENT?YES EMOTIONAL BARRIERS?NO SPECIAL DEVICES?YES :CANE CHILD WELFARE DIRECTOR NEEDED?NO LUNG CANCER SCREENING SMOKING STATUS:NON SMOKER PAIN CLINIC PFS, CLERGY, PUBLIC HEALTH REFERRALS PFS REFERRAL NEEDED?NO CLERGY REFERRAL NEEDED?NO PUBLIC HEALTH REFERRAL NEEDED?NO WAS THE PROVIDER NOTIFIED OF ANY PERTINENT INFO?YES HAS THE PATIENT BEEN EDUCATED REGARDING HIS/HER PLAN OF CARE?YES HAS THE PATIENT BEEN EDUCATED REGARDING PAIN, THE RISK FOR PAIN, THE IMPORTANCE OF EFFECTIVE PAIN MANAGEMENT, AND THE PAIN ASSESSMENT PROCESS?YES LATEX QUESTIONNAIRE LATEX ALLERGY : HAVE YOU EVER DEVELOPED ANY TYPE OF REACTION AFTER HANDLING LATEX PRODUCTS SUCH RUBBER GLOVES, CONDOMS, DIAPHRAGMS, BALLOONS, SOCKS, OR UNDERWEAR?NO LATEX ALLERGY : HAVE YOU EVER DEVELOPED ANY TYPE OF REACTION DURING OR AFTER DENTAL APPOINTMENT, VAGINAL/RECTAL EXAMINATION, SURGICAL PROCEDURE, OR ANY OTHER EXPOSURE?NO LATEX RISK : HAVE YOU EVER HAD ANY DIFFICULTY BREATHING OR HIVES AFTER EATING OR HANDLING ANY FRUITS, OR VEGETABLES; SUCH KIWI, BANANAS, STONE FRUITS, OR CHESTNUTSNO LATEX RISK : DO YOU HAVE A PREVIOUS PERSONAL HISTORY OF MORE THAN NINE SURGERIES, SPINA BIFIDA, OR REPEATED CATHERTIZATIONS? NO LATEX RISK : ARE YOU FREQUENTLY EXPOSED TO LATEX PRODUCTS IN YOUR OCCUPATION?NO DATE ASKED : 01/13/2019 CAFFEINE CAFFEINE USE?YES HOW OFTEN AND HOW MUCH? DAILY USE ADVANCE DIRECTIVE ADVANCE DIRECTIVE DISCUSSED WITH PATIENT:YES HCP - [place] ([facility]) EVANGELICAL [id number] ANABAPTIST ALCOHOL SCREENING DID YOU HAVE A DRINK CONTAINING ALCOHOL IN THE PAST YEAR?NO POINTS0 INTERPRETATIONNEGATIVE REVIEWED WITH PATIENT 01/19/19 1407 JS. HOSPITALIZATION/MAJOR DIAGNOSTIC PROCEDURE SURGERY RELATED REVIEW OF SYSTEMS REVIEWED BY: PROVIDER: LJ JOLLY . CONSTITUTIONAL: ANY CHANGE IN YOUR MEDICAL CONDITION? YES, GERD . CHILLS NO . FEVER NO . INFECTION: DO YOU HAVE NEW INFECTIONS? NO . DO YOU HAVE HISTORY OF MRSA? NO . MUSCULOSKELETAL: ANY NEW PATTERNS OF PAIN OR NUMBNESS? YES, INCREASED PAIN . GASTROENTEROLOGY: ANY NEW CHANGE IN BOWEL CONTROL? YES, CONSTIPATION, COLACE NOT V EFFECTIVE . GENITOURINARY: ANY NEW CHANGE IN BLADDER CONTROL? NO . IS THERE A CHANCE YOU COULD BE ? NO . HEMATOLOGY/LYMPH: DO YOU TAKE ANY BLOOD THINNERS? (FOR EXAMPLE- COUMADIN, PLAVIX, AGGRENOX, PLATEL, PRADAXA, OR XARELTO) NO . WHEN WAS YOUR LAST DOSE? DATE: TIME: . NEUROLOGY: HAVE YOU FALLEN IN THE PAST 12 MONTHS? NO . ANY NEW EXTREMITY NUMBNESS OR WEAKNESS? NO . CARDIOLOGY: DO YOU HAVE A PACEMAKER OR DEFIBRILLATOR? NO . RESPIRATORY: HAVE YOU BEEN SICK IN THE PAST WEEK? NO . FEVER NO . FLU LIKE SYMPTOMS? NO . COUGH NO . INTEGUMENTARY: DO YOU HAVE ANY RASHES OR OPEN SORES? NO . ALLERGIC/IMMUNO: ARE YOU ALLERGIC TO IV DYE? NO . ANY NEW ALLERGIES? NO . PSYCHIATRIC: DO YOU HAVE THOUGHTS OF HURTING YOURSELF OR SOMEONE ELSE? NO . ARE YOU ABUSED, NEGLECTED, OR IN AN UNSAFE ENVIRONMENT? NO . ENDOCRINOLOGY: ARE YOU DIABETIC? NO . OTHER: DO YOU NEED ANY PRESCRIPTIONS? NO . IF YES, PLEASE LIST: ____ . ANY NEW PROBLEMS WITH YOUR MEDICATIONS? NO . WHEN DID YOU LAST EAT? ____ . WHEN DID YOU LAST DRINK? ____ . WHAT DID YOU LAST DRINK? ____ . NAME OF PERSON DRIVING YOU HOME? ____ . DO YOU HAVE ANY OTHER QUESTIONS OR CONCERNS NO . VITAL SIGNS WT 165 LBS, HT 60 IN, BMI 32.22 INDEX, BP 135/66 MM HG, HR 65 /MIN, RR 16 /MIN, TEMP 98.2 F, OXYGEN SAT % 97, REVIEWED BY: EM. EXAMINATION GENERAL EXAMINATION: GENERAL APPEARANCE: ALERT,NO DISTRESS . PSYCH AFFECT NORMAL . LUNGS: LUNG SOUNDS ARE CLEAR . HEART: HEART RATE REGULAR . MUSCULOSKELETAL: MST 5/5 BILAT. LOWER EXTREMITIES . LUMBAR SACRAL SPINE TENDERNESS LEFT SIJ ,POSITIVE PATRICKS TEST LEFT LEG. DIAGNOSTIC TESTS REVIEWEDMRI L/S SPINE-2017. ASSESSMENTS SACROILIITIS - M46.1 (PRIMARY) TREATMENT SACROILIITIS NOTES: LEFT SIJ. PROCEDURE CODES FA211 ESTABILISHED PATIENT [facility] CHARGE DISPOSITION & COMMUNICATION FOLLOW UP POST (REASON: LEFT SIJ) ELECTRONICALLY SIGNED BY RIK SERRATO ON 02/23/2019 AT 03:56 PM EDT DISCLAIMER : THIS IS A VISIT SUMMARY EXTRACTED FROM THE [email or web address] CHART. IT IS NOT A COPY OF THE [email or web address] PROGRESS NOTE. JIGNESH
== END ==
LOC: M PAIN 10:15
PROVIDERS: ATTEND Nurse Practitioner Family
DX: M46.1 Sacroiliitis, not elsewhere classified (principal); G43.909 Migraine, unspecified, not intractable, without status migrainosus; Z86.59 Personal history of other mental and behavioral disorders; M19.90 Unspecified osteoarthritis, unspecified site; Z88.0 Allergy status to penicillin; Z88.1 Allergy status to other antibiotic agents; Z88.2 Allergy status to sulfonamides; Z88.5 Allergy status to narcotic agent; Z91.041 Radiographic dye allergy status; Z79.82 Long term (current) use of aspirin; Z79.899 Other long term (current) drug therapy

== ENCOUNTER → 2019-02-24 | Outpatient (CLI) | payer MEDICARE, OTHER ==
--- NOTE | 2019-03-01 09:46 | DEXA ---
AP SPINE L1 - L4 0.899 -2.4 -1.4 LT FEMUR TOTAL 0.768 -1.9 -1.3 LT NECK 0.733 -2.2 -1.4 RT FEMUR TOTAL 0.783 -1.8 -1.2 RT NECK 0.695 -2.5 -1.6 TOTAL BODY TOTAL OTHER COMMENTS: There is low bone density of the spine and hips. FOLLOW-UP: Recommendation for the next bone density exam: 2 years. JIGNESH
== END ==
LOC: M WHC 12:47
PROVIDERS: ATTEND Family Medicine
DX: M85.851 Other specified disorders of bone density and structure, right thigh (principal); M85.852 Other specified disorders of bone density and structure, left thigh; M85.88 Other specified disorders of bone density and structure, other site

== ENCOUNTER → 2019-03-10 | Outpatient (CLI) | payer MEDICARE, OTHER ==
[~2019-03-10] MED LIST changes: +BUPIVACAINE HCL 0.25% 30 ML VIAL As Ordered ONE; +ISOVUE-M 300 61% 15ML VIAL (Q9967) As Ordered ONE; +LIDOCAINE 1% SDV INJ 30 ML VIAL As Ordered ONE; +TRIAMCINOLONE ACETONIDE SUSP 40 MG/ML VIAL (J3301) As Ordered ONE; +diazePAM 5 MG TAB As Ordered ONE; +diphenhydrAMINE 25 MG CAP As Ordered ONE; +oxyCODONE 5MG TAB As Ordered ONE
--- NOTE | 2019-03-10 16:36 | REP ---
Left SI joint series: Five views. History: Left SI joint injection for pain. 12 seconds of fluoroscopy time is reported. Findings: A sequence of five last image hold fluoroscopically obtained spot radiographs of the left SI joint document various needle positions and contrast injections associated with left SI joint injection procedure. Electronically Signed by Kj Wright MD 03/11/2019 02:58 P
--- NOTE | 2019-03-19 23:16 | ECWPNPC ---
PATIENT NAME: GER TYLER : 1945 GENDER: FEMALE VISIT DATE: 03/10/2019 DISCHARGE DATE: 03/10/19 1331 VISIT LOCKED DATE TIME: PHYSICIAN: VIVIAN CHAVES MD RESOURCE: VIVIAN CHAVES MD REASON FOR APPOINTMENT 1. LEFT SIJ HISTORY OF PRESENT ILLNESS HISTORY OF PRESENT ILLNESS: PAIN THE PATIENT DESCRIBES THE PAIN... FALL RISK SCREENING: SCREENING :NO FALLS REPORTED IN THE LAST YEAR CURRENT MEDICATIONS TAKING ACETAMINOPHEN 325 MG CAPSULE 1 CAP ORALLY EVERY MORNING, NOTES: FEW DAYS AGO TAKING POTASSIUM CHLORIDE ER 8 MEQ TABLET EXTENDED RELEASE 1 CAPSULE WITH FOOD ORALLY DAILY, NOTES: 03/09/19 AM TAKING LOSARTAN POTASSIUM 50 MG TABLET 1 TABLET ORALLY ONCE A DAY, NOTES: 03/09/19 AM TAKING BUPROPION HCL 100 MG TABLET 1 TABLET ORALLY ONCE A DAY, NOTES: 03/09/19 AM TAKING CARVEDILOL 12.5 MG TABLET 1 TAB ORALLY DAILY, NOTES: 03/09/19 AM TAKING SPIRONOLACTONE 25 MG TABLET 1/2 TABLET ORALLY DAILY, NOTES: 03/09/19 AM TAKING LORAZEPAM 0.5 MG TABLET 1 TABLET NEEDED ORALLY EVERY 6 HRS, NOTES: NONE RECENT TAKING VITAMIN D 2000 UNIT TABLET 1 TABLET ORALLY ONCE A DAY, NOTES: 03/09/19 AM TAKING VITAMIN C 500 MG TABLET 1 TABLET ORALLY ONCE A DAY, NOTES: 03/09/19 AM TAKING VITAMIN B 12 100 MCG LOZENGE ORALLY DAILY, NOTES: 03/09/19 AM TAKING COLACE 100 MG CAPSULE 1 CAPSULE NEEDED ORALLY ONCE A DAY, NOTES: AM TAKING YUSUF 128 2 % SOLUTION 1 DROP INTO AFFECTED EYE OPHTHALMIC DAILY, NOTES: 03/10/19 AM TAKING BACLOFEN 10 MG TABLET 1 CAP ORALLY BID, NOTES: 03/09/19 PM TAKING ASPIRIN 325 MG TABLET 1 TABLET ORALLY ONCE A DAY, NOTES: 03/09/19 AM TAKING REFRESH 1 DROP INTO AFFECTED EYE NEEDED OPHTHALMIC DAILY, NOTES: 03/10/19 AM TAKING LOTEMAX 0.5 % SUSPENSION 1 DROP INTO AFFECTED EYE OPHTHALMIC BID, NOTES: 03/10/19 AM TAKING CARBAMAZEPINE 200 MG TABLET 1 CAP ORALLY BID, NOTES: 03/09/19 PM TAKING LABETALOL HCL 100 MG TABLET 1 CAP ORALLY BID, NOTES: 02/26 11/16 PM TAKING MAGNESIUM 400 MG CAPSULE ORALLY DAILY, NOTES: 03/09/19 AM TAKING REXULTI 0.5 MG TABLET 1 TABLET ORALLY ONCE A DAY, NOTES: 03/09/19 AM TAKING SUCRALFATE 1 GM TABLET 1 TABLET ON AN EMPTY STOMACH ORALLY TWICE A DAY, NOTES: 03/10/19 AM TAKING PENETRAN - LOTION DIRECTED EXTERNALLY , NOTES: 03/09/19 AM NOT-TAKING CYCLOPENTOLATE HCL 1 DROP OPHTHALMIC PRN NOT-TAKING SALINE 1 DROP OPTHAMALGIC DAILY MEDICATION LIST REVIEWED AND RECONCILED WITH THE PATIENT PAST MEDICAL HISTORY MIGRAINE CERVICALGIA LOW BACK PAIN LEFT LEG PAIN / SCIATICA HX OF LYMPHOMA TRIGEMINAL NEURALGIA ANXIETY DEPRESSION OSTEOARTHRITIS ALLERGIES SULFA (FOR ALLERGY USE ONLY) PENICILLIN (FOR ALLERGIES USE ONLY): FACIAL SWELLING - ALLERGY MORPHINE: AGITATION - SIDE EFFECTS BACTRIM: ANGIOEDEMA - ALLERGY IV DYE: AGGITATION, PANIC ATTACK, HIVES - ALLERGY SURGICAL HISTORY TOTAL HYSTERECTOMY 1979 CHOLECYSTECTOMY 1983 RHINOPLASTY 1991 LEFT EAR SURGERY 1995 LEFT KNEE SURGERY 2005 LOOP RECORDER 2015 CORNEA REPLACEMENT (DONE IN FEBRUARY AND REDONE IN MARCH) FAMILY HISTORY FATHER: 52 YRS MOTHER: 69 YRS, BREAST CANCER, RHEUMATOID ARTHRITIS, DIAGNOSED WITH CANCER SON(S): ALIVE 45 YRS, DISCOID LUPUS 1 SON(S) . 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 NEEDED?NO LUNG CANCER SCREENING SMOKING STATUS:NON SMOKER PAIN CLINIC PFS, CLERGY, PUBLIC HEALTH REFERRALS PFS REFERRAL NEEDED?NO CLERGY REFERRAL NEEDED?NO PUBLIC HEALTH REFERRAL NEEDED?NO WAS THE PROVIDER NOTIFIED OF ANY PERTINENT INFO?YES HAS THE PATIENT BEEN EDUCATED REGARDING HIS/HER PLAN OF CARE?YES HAS THE PATIENT BEEN EDUCATED REGARDING PAIN, THE RISK FOR PAIN, THE IMPORTANCE OF EFFECTIVE PAIN MANAGEMENT, AND THE PAIN ASSESSMENT PROCESS?YES LATEX QUESTIONNAIRE LATEX ALLERGY : HAVE YOU EVER DEVELOPED ANY TYPE OF REACTION AFTER HANDLING LATEX PRODUCTS SUCH RUBBER GLOVES, CONDOMS, DIAPHRAGMS, BALLOONS, SOCKS, OR UNDERWEAR?NO LATEX ALLERGY : HAVE YOU EVER DEVELOPED ANY TYPE OF REACTION DURING OR AFTER DENTAL APPOINTMENT, VAGINAL/RECTAL EXAMINATION, SURGICAL PROCEDURE, OR ANY OTHER EXPOSURE?NO LATEX RISK : HAVE YOU EVER HAD ANY DIFFICULTY BREATHING OR HIVES AFTER EATING OR HANDLING ANY FRUITS, OR VEGETABLES; SUCH KIWI, BANANAS, STONE FRUITS, OR CHESTNUTSNO LATEX RISK : DO YOU HAVE A PREVIOUS PERSONAL HISTORY OF MORE THAN NINE SURGERIES, SPINA BIFIDA, OR REPEATED CATHERTIZATIONS? NO LATEX RISK : ARE YOU FREQUENTLY EXPOSED TO LATEX PRODUCTS IN YOUR OCCUPATION?NO DATE ASKED : 01/13/2019 CAFFEINE CAFFEINE USE?YES HOW OFTEN AND HOW MUCH? DAILY USE ADVANCE DIRECTIVE ADVANCE DIRECTIVE DISCUSSED WITH PATIENT:YES HCP - [place] (SON) LATTER DAY [id number] HOLINESS ALCOHOL SCREENING DID YOU HAVE A DRINK CONTAINING ALCOHOL IN THE PAST YEAR?NO POINTS0 INTERPRETATIONNEGATIVE REVIEWED WITH PATIENT 01/19/19 1407 JS REVIEWED WITH PT 03/10/19 1158 BV. HOSPITALIZATION/MAJOR DIAGNOSTIC PROCEDURE SURGERY RELATED REVIEW OF SYSTEMS REVIEWED BY: PROVIDER: . CONSTITUTIONAL: ANY CHANGE IN YOUR MEDICAL CONDITION? NO . CHILLS NO . FEVER NO . INFECTION: DO YOU HAVE NEW INFECTIONS? NO . DO YOU HAVE HISTORY OF MRSA? NO . MUSCULOSKELETAL: ANY NEW PATTERNS OF PAIN OR NUMBNESS? YES, INCREASING INTENSITY OF PAIN . GASTROENTEROLOGY: ANY NEW CHANGE IN BOWEL CONTROL? NO . GENITOURINARY: ANY NEW CHANGE IN BLADDER CONTROL? NO . IS THERE A CHANCE YOU COULD BE ? NO . HEMATOLOGY/LYMPH: DO YOU TAKE ANY BLOOD THINNERS? (FOR EXAMPLE- COUMADIN, PLAVIX, AGGRENOX, PLATEL, PRADAXA, OR XARELTO) NO . WHEN WAS YOUR LAST DOSE? DATE: TIME: . NEUROLOGY: HAVE YOU FALLEN IN THE PAST 12 MONTHS? NO . ANY NEW EXTREMITY NUMBNESS OR WEAKNESS? INCREASING WEAKNESS IN RIGHT ARM . CARDIOLOGY: DO YOU HAVE A PACEMAKER OR DEFIBRILLATOR? NO . RESPIRATORY: HAVE YOU BEEN SICK IN THE PAST WEEK? NO . FEVER NO . FLU LIKE SYMPTOMS? NO . COUGH NO . INTEGUMENTARY: DO YOU HAVE ANY RASHES OR OPEN SORES? NO . ALLERGIC/IMMUNO: ARE YOU ALLERGIC TO IV DYE? YES, . ANY NEW ALLERGIES? NO . PSYCHIATRIC: DO YOU HAVE THOUGHTS OF HURTING YOURSELF OR SOMEONE ELSE? NO . ARE YOU ABUSED, NEGLECTED, OR IN AN UNSAFE ENVIRONMENT? NO . ENDOCRINOLOGY: ARE YOU DIABETIC? NO . OTHER: DO YOU NEED ANY PRESCRIPTIONS? NO . IF YES, PLEASE LIST: ____ . ANY NEW PROBLEMS WITH YOUR MEDICATIONS? NO . WHEN DID YOU LAST EAT? 03/09/19 1730 . WHEN DID YOU LAST DRINK? 03/09/19 2200 . WHAT DID YOU LAST DRINK? WATER . NAME OF PERSON DRIVING YOU HOME? [place] . DO YOU HAVE ANY OTHER QUESTIONS OR CONCERNS NO . VITAL SIGNS WT 166.2 LBS, HT 60 IN, BMI 32.46 INDEX, BP 133/62 MM HG, HR 67 /MIN, RR 16 /MIN, TEMP 98.6 F, OXYGEN SAT % 96%, NA INITIALS SC 11:12, REVIEWED BY: BV. ASSESSMENTS SACROILIITIS - M46.1 (PRIMARY) TREATMENT SACROILIITIS [facility] FLUORO GUIDANCE (PAIN)[id number] PROCEDURES PN SI PRE PROCEDURE DIAGNOSIS SACROILIITIS, SACROILIAC JOINT DYSFUNCTION POST PROCEDURE DIAGNOSIS SACROILIITIS, SACROILIAC JOINT DYSFUNCTION PROCEDURE LEFT SACROILIAC JOINT BLOCK SURGEON DR. VIVIAN CHAVES JEWEL BEARING FACER NONE ANESTHESIA LOCAL PRE PROCEDURE NOTE PATIENT WITH HISTORY OF CHRONIC LOW BACK PAIN. I EVALUATED THE PATIENT AND REVIEWED THE CHART. I WENT OVER THE RISKS, ALTERNATIVES, AND BENEFITS ASSOCIATED WITH THIS PROCEDURE. THE PATIENT WOULD LIKE TO PROCEED AND GAVE CONSENT TO PERFORM THE PROCEDURE. THE PATIENT DENIES UNEXPLAINABLE WEIGHT LOSS, FEVER, CHILLS, OR NEW CHANGES IN URINARY OR BOWEL CONTROL DESCRIPTION OF PROCEDURE THE PATIENT WAS BROUGHT TO THE PROCEDURE ROOM AND PLACED IN THE PRONE POSITION. THE LUMBOSACRAL AREA WAS CLEANED WITH CHLORAPREP SOLUTION AND DRAPED ASEPTICALLY. THE PROCEDURE WAS DONE UNDER STERILE CONDITIONS. I CHECKED LATERALITY AND THE LEVEL WHERE THE PROCEDURE WAS GOING TO BE PERFORMED WITH THE PATIENT AND THE SUPPORTING STAFF AT THE MOMENT OF THE TIME OUT IN THE PROCEDURE ROOM. UNDER FLUOROSCOPIC GUIDANCE, TARGET POINT WAS SELECTED AT THE LOWER BORDER OF THE LEFT SACROILIAC JOINT. TARGET POINT WAS SELECTED AFTER MEDIAL ROTATION AND TILT OF THE MAGNIFIER OF THE C-ARM. LIDOCAINE WAS USED TO NUMB THE SKIN AND SUBCUTANEOUS TISSUE BELOW IT. A SPINAL NEEDLE, 22-GAUGE, WAS ADVANCED UNDER FLUOROSCOPIC GUIDANCE AND FOLLOWING PATIENT FEEDBACK UNTIL THE TARGET AREA WAS TOUCHED. THE POSITION OF THE NEEDLE WAS VERIFIED WITH AP AND LATERAL VIEWS. AFTER PROPER POSITION OF THE NEEDLE WAS ACHIEVED, ISOVUE M DYE 30%, 0.25 ML, WAS INJECTED SHOWING SPREAD OF THE DYE. THEN, A SOLUTION OF 20 MG OF KENALOG WAS INJECTED IN LEFT JOINT WITH 3 ML OF BUPIVACAINE 0.125%. THERE WAS NO EVIDENCE OF BLOOD, PARESTHESIA OR CEREBROSPINAL FLUID DURING THE PROCEDURE. THE PATIENT WAS SENT TO THE RECOVERY ROOM. THE PATIENT WAS MOVING THE EXTREMITIES AND DOING WELL. THERE WAS NO COMPLICATION DURING THE PROCEDURE. FLUOROSCOPY TIME WAS 40 SECONDS POST PROCEDURE NOTE THE PATIENT WILL BE SEEN IN A FOLLOW UP IN THE NEXT FEW WEEKS. INSTRUCTIONS WERE GIVEN, QUESTIONS WERE ANSWERED, AND THE PATIENT EXPRESSED UNDERSTANDING AND AGREED WITH THE PLAN. I, ABRAHAM AUSTIN, DOCUMENTED THE ABOVE INFORMATION ACTING A SCRIBE FOR DR. CHAVES. I HAVE REVIEWED THE ABOVE DOCUMENT, WRITTEN BY ABRAHAM SHEAIBSridevi AND I VERIFY THAT IT IS ACCURATE. PROCEDURE CODES 6045F RADXPS IN END [id number] INJECT SACROILIAC JOINT, MODIFIERS: LT DISPOSITION & COMMUNICATION FOLLOW UP 3 WEEKS ELECTRONICALLY SIGNED BY VIVIAN CHAVES MD, MD ON 03/19/2019 AT 06:21 PM EDT DISCLAIMER : THIS IS A VISIT SUMMARY EXTRACTED FROM THE [employer] CHART. IT IS NOT A COPY OF THE [email or web address] PROGRESS NOTE. MTDD
== END ==
LOC: M PAIN 11:15
PROVIDERS: ATTEND Anesthesiology
DX: M46.1 Sacroiliitis, not elsewhere classified (principal); G43.909 Migraine, unspecified, not intractable, without status migrainosus; M54.2 Cervicalgia; M54.42 Lumbago with sciatica, left side; F41.9 Anxiety disorder, unspecified; F32.9 Major depressive disorder, single episode, unspecified; M19.90 Unspecified osteoarthritis, unspecified site; Z79.82 Long term (current) use of aspirin; Z79.899 Other long term (current) drug therapy; Z88.0 Allergy status to penicillin; Z88.2 Allergy status to sulfonamides; Z88.5 Allergy status to narcotic agent; Z91.041 Radiographic dye allergy status
CPT/HCPCS: G0260; J3301; Q9967

== ENCOUNTER → 2019-04-05 | Outpatient (CLI) | payer MEDICARE, OTHER ==
[~2019-04-05] MED LIST changes: -BUPIVACAINE HCL 0.25% 30 ML VIAL As Ordered ONE; -ISOVUE-M 300 61% 15ML VIAL (Q9967) As Ordered ONE; -LIDOCAINE 1% SDV INJ 30 ML VIAL As Ordered ONE; +POTA8CAP10 PO; -POTA8CAP4 PO; -TRIAMCINOLONE ACETONIDE SUSP 40 MG/ML VIAL (J3301) As Ordered ONE; -diazePAM 5 MG TAB As Ordered ONE; -diphenhydrAMINE 25 MG CAP As Ordered ONE; -oxyCODONE 5MG TAB As Ordered ONE
[2019-04-05 09:55] LABS: HEMATOCRIT 37.5 % (36.0-47.0); HEMOGLOBIN 12.8 g/dl (12.0-15.5); MEAN CORPUSCULAR HEMOGLOBIN 31.7 pg (27.0-33.0); MEAN CORPUSCULAR HGB CONC 34.1 g/dl (32.0-36.5); MEAN CORPUSCULAR VOLUME 92.8 fl (80.0-96.0); PLATELET COUNT, AUTOMATED 230 10^3/uL (150-450); RED BLOOD COUNT 4.04 10^6/uL (4.00-5.40); WHITE BLOOD COUNT 6.5 10^3/uL (4.0-10.0)
[2019-04-05 09:56] LABS: APPEARANCE, URINE CLEAR (CLEAR); BACTERIA, URINE AUTO NEGATIVE (NEGATIVE); BILIRUBIN, URINE AUTO NEGATIVE (NEGATIVE); BLOOD, URINE BLOOD NEGATIVE (NEGATIVE); COLOR, URINE YELLOW (YELLOW); GLUCOSE, URINE (UA) AUTO NEGATIVE (NEGATIVE); KETONE, URINE AUTO NEGATIVE (NEGATIVE); LEUKOCYTE ESTERASE, URINE AUTO TRACE (NEGATIVE); MUCUS, URINE SMALL (NEGATIVE); NITRITE, URINE AUTO NEGATIVE (NEGATIVE); PROTEIN, URINE AUTO NEGATIVE (NEGATIVE); RBC, URINE AUTO 2 /HPF (0-3); SPECIFIC GRAVITY URINE AUTO 1.011 (1.002-1.035); SQUAMOUS EPITHELIAL CELL UR AU 0 /HPF (0-6); WBC, URINE AUTO 1 /HPF (0-3)
[2019-04-05 10:05] LABS: INR 1.15; PROTHROMBIN TIME 14.4 SECONDS (11.8-14.0)
--- NOTE | 2019-04-05 10:15 | ECGEPIP ---
[facility] Test Date: 2019-04-05 Pat Name: GER TYLER Department: Room: - Gender: Female Director [facility] [employer]: LEONARD : 1945 Requested By: Bonita Arriola Order Number: [id number] Reading MD: Qian Hernandez Measurements Intervals [place] Rate: 57 P: 51 OR: 156 QRS: QRSD: 119 T: QT: 408 QTc: 400 Interpretive Statements SINUS BRADYCARDIA MODERATE INTRAVENTRICULAR CONDUCTION DELAY VOLTAGE CRITERIA FOR LVH NONSPECIFIC T-WAVE ABNORMALITY NEW C/W 10/30/18 RATE SLOWER LAD Electronically Signed on 04-05-2019 10:14:35 EDT by Qian Hernandez
[2019-04-05 10:20] LABS: HEMOGLOBIN A1c 5.7 %
[2019-04-05 10:29] LABS: ALBUMIN 3.2 GM/DL (3.2-5.2); ALT/SGPT 95 U/L (12-78); BILIRUBIN,TOTAL 0.5 MG/DL (0.2-1.0); BLOOD UREA NITROGEN 9 MG/DL (7-18); CALCIUM LEVEL 9.5 MG/DL (8.8-10.2); CARBON DIOXIDE LEVEL 35 MEQ/L (21-32); CHLORIDE LEVEL 100 MEQ/L (98-107); CHOLESTEROL LEVEL 211 MG/DL (<200); CHOLESTEROL RISK RATIO 2.268 (<5); CREATININE FOR GFR 0.67 MG/DL (0.55-1.30); GLOMERULAR FILTRATION RATE > 60.0 (>39); GLUCOSE, FASTING 84 MG/DL (70-100); HDL CHOLESTEROL 93 MG/DL (>40); LDL CHOLESTEROL 110 MG/DL (<100); NON-HDL-C 118 MG/DL; POTASSIUM SERUM 3.3 MEQ/L (3.5-5.1); SODIUM LEVEL 128 MEQ/L (136-145); TOTAL PROTEIN 7.2 GM/DL (6.4-8.2); TRIGLYCERIDES LEVEL 41 MG/DL (<150)
--- NOTE | 2019-04-05 17:30 | REP ---
Chest x-ray: Two views. History: Hypertension. Comparison chest x-ray: October 30, 2018. Findings: The lungs are symmetrically aerated and free of infiltrate. Pleural angles are sharp. Heart size normal. The thoracic aorta slightly tortuous. Right hemidiaphragm is somewhat elevated unchanged. There are clips in right upper quadrant consistent with previous cholecystectomy. Mild degenerative changes are seen in the thoracolumbar spine. Impression: No acute cardiopulmonary disease. Electronically Signed by Kj Wright MD 04/05/2019 05:22 P
== END ==
LOC: M LAB 09:09
PROVIDERS: ATTEND Family Medicine
DX: Z01.818 Encounter for other preprocedural examination (principal); I10 Essential (primary) hypertension; R53.83 Other fatigue; E03.9 Hypothyroidism, unspecified; Z79.899 Other long term (current) drug therapy; Z79.82 Long term (current) use of aspirin

== ENCOUNTER 2019-04-12 09:53 | Emergency (ER) | payer MEDICARE, OTHER ==
[~2019-04-12] VITALS: Ht 152.4 cm; Wt 75.9 kg
[2019-04-12] MEDS ORDERED: NS 500 ML IV ONE (10:45)
--- NOTE | 2019-04-12 11:05 | REP ---
CT brain without contrast: History: Altered mental status. Comparison CT study October 30, 2018. CT findings: Digital preliminary convenience store clerk radiograph is unremarkable. On bone window settings there is no bony calvarial lesion. No skull fracture is seen. Moderate vascular calcification is seen in the distal vertebral and distal carotid artery distribution bilaterally. No intraorbital abnormality is seen. The visualized paranasal sinuses are clear. There is diffuse cerebral atrophy. Mild in degree and unchanged. There is no evidence of infarct, hemorrhage, mass, extra-axial fluid collection , or midline shift. Impression: Diffuse atrophy and vascular calcification. No acute intracranial abnormality. Electronically Signed by Kj Wright MD 04/12/2019 10:57 A
[2019-04-12 11:15] LABS: BASO % 0.6 % (0.0-1.0); EOS % 0.8 % (0.0-3.0); HEMATOCRIT 37.1 % (36.0-47.0); HEMOGLOBIN 12.8 g/dl (12.0-15.5); LYMPH # 1.4 10^3/uL (1.5-4.5); LYMPH % 25.5 % (24.0-44.0); MEAN CORPUSCULAR HEMOGLOBIN 31.4 pg (27.0-33.0); MEAN CORPUSCULAR HGB CONC 34.5 g/dl (32.0-36.5); MEAN CORPUSCULAR VOLUME 91.2 fl (80.0-96.0); MONO # 0.9 10^3/uL (0.0-0.8); MONO % 16.9 % (0.0-5.0); NEUTROPHILS % 55.8 % (36.0-66.0); PLATELET COUNT, AUTOMATED 235 10^3/uL (150-450); RED BLOOD COUNT 4.07 10^6/uL (4.00-5.40); WHITE BLOOD COUNT 5.3 10^3/uL (4.0-10.0)
[2019-04-12] MEDS ORDERED: LORazepam 0.5 MG TAB PO STA (11:34)
[2019-04-12 11:59] LABS: OSMOLALITY SERUM 264 MOSM/KG (280-301)
[2019-04-12 12:01] LABS: AMPHETAMINES LEVEL URINE NEGATIVE (NEGATIVE); BARBITURATES URINE NEGATIVE (NEGATIVE); BENZODIAZEPINES URINE NEGATIVE (NEGATIVE); CANNABINOIDS URINE NEGATIVE (NEGATIVE); COCAINE METABOLITE URINE NEGATIVE (NEGATIVE); METHADONE URINE NEGATIVE (NEGATIVE); OPIATES URINE POSITIVE (NEGATIVE); PHENCYCLIDINE URINE NEGATIVE (NEGATIVE)
[2019-04-12 13:18] LABS: ALBUMIN 3.1 GM/DL (3.2-5.2); ALT/SGPT 96 U/L (12-78); BILIRUBIN,DIRECT 0.2 MG/DL (0.0-0.2); BILIRUBIN,TOTAL 0.3 MG/DL (0.2-1.0); BLOOD UREA NITROGEN 8 MG/DL (7-18); CALCIUM LEVEL 8.7 MG/DL (8.8-10.2); CARBON DIOXIDE LEVEL 35 MEQ/L (21-32); CHLORIDE LEVEL 86 MEQ/L (98-107); CK-MB VALUE MASS < 1.0 NG/ML (<3.6); CPK CREATINE PHOSPHOKINASE 63 U/L (26-192); GLOMERULAR FILTRATION RATE > 60.0 (>39); GLUCOSE, FASTING 98 MG/DL (70-100); MB/CK RELATIVE INDEX 1.59 (< OR =4); POTASSIUM SERUM 2.9 MEQ/L (3.5-5.1); SODIUM LEVEL 128 MEQ/L (136-145); TOTAL PROTEIN 6.9 GM/DL (6.4-8.2); TROPONIN I 0.02 NG/ML (< 0.10)
[2019-04-12] MEDS ORDERED: KCL 10MEQ/100ML SWI (KRUN) 10 MEQ in APPROPRIATE DILUENT 1 EA IV ONE (14:15)
[2019-04-12] MEDS ORDERED: POTASSIUM CHLORIDE 10 MEQ SR TABLET PO ONE (14:15)
[2019-04-12 15:15] LABS: MAGNESIUM LEVEL 1.9 MG/DL (1.8-2.4)
[2019-04-12 16:08] VITALS: BP 182/68
--- NOTE | 2019-04-13 08:56 | ECGEPIP ---
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
== END 2019-04-12 17:01 | disposition home or self-care (01) ==
LOC: M ED 09:53
DX: E87.6 Hypokalemia (principal); E87.1 Hypo-osmolality and hyponatremia; M46.1 Sacroiliitis, not elsewhere classified; G50.0 Trigeminal neuralgia; F41.9 Anxiety disorder, unspecified; F32.9 Major depressive disorder, single episode, unspecified; G89.29 Other chronic pain; M54.5 Low back pain; G43.909 Migraine, unspecified, not intractable, without status migrainosus; M54.2 Cervicalgia; Z85.79 Personal history of other malignant neoplasms of lymphoid, hematopoietic and related tissues; Z88.0 Allergy status to penicillin; Z88.2 Allergy status to sulfonamides; Z88.5 Allergy status to narcotic agent; Z79.899 Other long term (current) drug therapy; Z79.82 Long term (current) use of aspirin
CPT/HCPCS: 70450; 80048; 80076; 80307; 82140; 82550; 82553; 83605; 83735; 83930; 84443; 84484; 85025; 93005; 93041; 94760; 96365; 99285; G0463

== ENCOUNTER → 2019-04-12 | Outpatient (CLI) | payer MEDICARE, OTHER ==
--- NOTE | 2019-04-13 00:21 | ECWPNPC ---
PATIENT NAME: GER TYLER : 1945 GENDER: FEMALE VISIT DATE: 04/12/2019 DISCHARGE DATE: 04/12/19 0950 VISIT LOCKED DATE TIME: PHYSICIAN: JW PEREZ RESOURCE: JW PEREZ REASON FOR APPOINTMENT 1. POST PROCEDURE HISTORY OF PRESENT ILLNESS HISTORY OF PRESENT ILLNESS: PAIN THE PATIENT DESCRIBES THE PAIN... FALL RISK SCREENING: SCREENING :NO FALLS REPORTED IN THE LAST YEAR CURRENT MEDICATIONS UNKNOWN ACETAMINOPHEN 325 MG CAPSULE 1 CAP ORALLY EVERY MORNING, NOTES: FEW DAYS AGO UNKNOWN POTASSIUM CHLORIDE ER 8 MEQ TABLET EXTENDED RELEASE 1 CAPSULE WITH FOOD ORALLY DAILY, NOTES: 03/09/19 AM UNKNOWN LOSARTAN POTASSIUM 50 MG TABLET 1 TABLET ORALLY ONCE A DAY, NOTES: 03/09/19 AM UNKNOWN BUPROPION HCL 100 MG TABLET 1 TABLET ORALLY ONCE A DAY, NOTES: 03/09/19 AM UNKNOWN CARVEDILOL 12.5 MG TABLET 1 TAB ORALLY DAILY, NOTES: 03/09/19 AM UNKNOWN SPIRONOLACTONE 25 MG TABLET 1/2 TABLET ORALLY DAILY, NOTES: 03/09/19 AM UNKNOWN LORAZEPAM 0.5 MG TABLET 1 TABLET NEEDED ORALLY EVERY 6 HRS, NOTES: NONE RECENT UNKNOWN VITAMIN D 2000 UNIT TABLET 1 TABLET ORALLY ONCE A DAY, NOTES: 03/09/19 AM UNKNOWN VITAMIN C 500 MG TABLET 1 TABLET ORALLY ONCE A DAY, NOTES: 03/09/19 AM UNKNOWN VITAMIN B 12 100 MCG LOZENGE ORALLY DAILY, NOTES: 03/09/19 AM UNKNOWN COLACE 100 MG CAPSULE 1 CAPSULE NEEDED ORALLY ONCE A DAY, NOTES: AM UNKNOWN YUSUF 128 2 % SOLUTION 1 DROP INTO AFFECTED EYE OPHTHALMIC DAILY, NOTES: 03/10/19 AM UNKNOWN BACLOFEN 10 MG TABLET 1 CAP ORALLY BID, NOTES: 03/09/19 PM UNKNOWN ASPIRIN 325 MG TABLET 1 TABLET ORALLY ONCE A DAY, NOTES: 03/09/19 AM UNKNOWN REFRESH 1 DROP INTO AFFECTED EYE NEEDED OPHTHALMIC DAILY, NOTES: 03/10/19 AM UNKNOWN LOTEMAX 0.5 % SUSPENSION 1 DROP INTO AFFECTED EYE OPHTHALMIC BID, NOTES: 03/10/19 AM UNKNOWN CARBAMAZEPINE 200 MG TABLET 1 CAP ORALLY BID, NOTES: 03/09/19 PM UNKNOWN LABETALOL HCL 100 MG TABLET 1 CAP ORALLY BID, NOTES: 02/26 11/16 PM UNKNOWN MAGNESIUM 400 MG CAPSULE ORALLY DAILY, NOTES: 03/09/19 AM UNKNOWN REXULTI 0.5 MG TABLET 1 TABLET ORALLY ONCE A DAY, NOTES: 03/09/19 AM UNKNOWN SUCRALFATE 1 GM TABLET 1 TABLET ON AN EMPTY STOMACH ORALLY TWICE A DAY, NOTES: 03/10/19 AM UNKNOWN PENETRAN - LOTION DIRECTED EXTERNALLY , NOTES: 03/09/19 AM UNKNOWN CYCLOPENTOLATE HCL 1 DROP OPHTHALMIC PRN UNKNOWN SALINE 1 DROP OPTHAMALGIC DAILY PAST MEDICAL HISTORY MIGRAINE CERVICALGIA LOW BACK PAIN LEFT LEG PAIN / SCIATICA HX OF LYMPHOMA TRIGEMINAL NEURALGIA ANXIETY DEPRESSION OSTEOARTHRITIS ALLERGIES SULFA (FOR ALLERGY USE ONLY) PENICILLIN (FOR ALLERGIES USE ONLY): FACIAL SWELLING - ALLERGY MORPHINE: AGITATION - SIDE EFFECTS BACTRIM: ANGIOEDEMA - ALLERGY IV DYE: AGGITATION, PANIC ATTACK, HIVES - ALLERGY SURGICAL HISTORY TOTAL HYSTERECTOMY 1979 CHOLECYSTECTOMY 1983 RHINOPLASTY 1991 LEFT EAR SURGERY 1995 LEFT KNEE SURGERY 2005 LOOP RECORDER 2015 CORNEA REPLACEMENT (DONE IN FEBRUARY AND REDONE IN MARCH) FAMILY HISTORY FATHER: 52 YRS MOTHER: 69 YRS, BREAST CANCER, RHEUMATOID ARTHRITIS, DIAGNOSED WITH CANCER SON(S): ALIVE 45 YRS, DISCOID LUPUS 1 SON(S) . 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 NEEDED?NO LUNG CANCER SCREENING SMOKING STATUS:NON SMOKER PAIN CLINIC PFS, CLERGY, PUBLIC HEALTH REFERRALS PFS REFERRAL NEEDED?NO CLERGY REFERRAL NEEDED?NO PUBLIC HEALTH REFERRAL NEEDED?NO WAS THE PROVIDER NOTIFIED OF ANY PERTINENT INFO?YES HAS THE PATIENT BEEN EDUCATED REGARDING HIS/HER PLAN OF CARE?YES HAS THE PATIENT BEEN EDUCATED REGARDING PAIN, THE RISK FOR PAIN, THE IMPORTANCE OF EFFECTIVE PAIN MANAGEMENT, AND THE PAIN ASSESSMENT PROCESS?YES LATEX QUESTIONNAIRE LATEX ALLERGY : HAVE YOU EVER DEVELOPED ANY TYPE OF REACTION AFTER HANDLING LATEX PRODUCTS SUCH RUBBER GLOVES, CONDOMS, DIAPHRAGMS, BALLOONS, SOCKS, OR UNDERWEAR?NO LATEX ALLERGY : HAVE YOU EVER DEVELOPED ANY TYPE OF REACTION DURING OR AFTER DENTAL APPOINTMENT, VAGINAL/RECTAL EXAMINATION, SURGICAL PROCEDURE, OR ANY OTHER EXPOSURE?NO LATEX RISK : HAVE YOU EVER HAD ANY DIFFICULTY BREATHING OR HIVES AFTER EATING OR HANDLING ANY FRUITS, OR VEGETABLES; SUCH KIWI, BANANAS, STONE FRUITS, OR CHESTNUTSNO LATEX RISK : DO YOU HAVE A PREVIOUS PERSONAL HISTORY OF MORE THAN NINE SURGERIES, SPINA BIFIDA, OR REPEATED CATHERTIZATIONS? NO LATEX RISK : ARE YOU FREQUENTLY EXPOSED TO LATEX PRODUCTS IN YOUR OCCUPATION?NO DATE ASKED : 01/13/2019 CAFFEINE CAFFEINE USE?YES HOW OFTEN AND HOW MUCH? DAILY USE ADVANCE DIRECTIVE ADVANCE DIRECTIVE DISCUSSED WITH PATIENT:YES HCP - [place] ([place]) SABIANIST [id number] RESTORATIONIST ALCOHOL SCREENING DID YOU HAVE A DRINK CONTAINING ALCOHOL IN THE PAST YEAR?NO POINTS0 INTERPRETATIONNEGATIVE REVIEWED WITH PATIENT 01/19/19 1407 JS REVIEWED WITH PT 03/10/19 1158 BV. HOSPITALIZATION/MAJOR DIAGNOSTIC PROCEDURE SURGERY RELATED REVIEW OF SYSTEMS REVIEWED BY: PROVIDER: . CONSTITUTIONAL: ANY CHANGE IN YOUR MEDICAL CONDITION? PT ARRIVED AND C/O WEAKNESS, DIZZINESS AND ALMOST FELL. PT ASSISTED TO WHEELCHAIR. PT STATED SHE SAW HER PCP DR WALKER WHO TOLD HER SHE HAS LOW POTASSIUM. JW PEREZ MENTAL HEALTH NURSE PRACTITIONER SAW PT AND TOLD HER SHE NEEDS TO GO TO ER CONSIDERING HER S/S AND LOW POTASSIUM. SPOKE WITH JUSTIN HALE GAVE REPORT, PT BROUGHT TO ER VIA STRETCHER AND ON MONITOR, NSR NOTED AND VS WNL. PT BROUGHT TO 6 IN ER AND ASSISTED TO STRETCHER AND PLACED ON THEIR MONITOR, REPORT GIVEN TO BEDSIDE NURSE. EM . CHILLS NO . FEVER NO . INFECTION: DO YOU HAVE NEW INFECTIONS? NO . DO YOU HAVE HISTORY OF MRSA? NO . MUSCULOSKELETAL: ANY NEW PATTERNS OF PAIN OR NUMBNESS? NO . GASTROENTEROLOGY: ANY NEW CHANGE IN BOWEL CONTROL? NO . GENITOURINARY: ANY NEW CHANGE IN BLADDER CONTROL? NO . IS THERE A CHANCE YOU COULD BE ? NO . HEMATOLOGY/LYMPH: DO YOU TAKE ANY BLOOD THINNERS? (FOR EXAMPLE- COUMADIN, PLAVIX, AGGRENOX, PLATEL, PRADAXA, OR XARELTO) NO . WHEN WAS YOUR LAST DOSE? DATE: TIME: . NEUROLOGY: HAVE YOU FALLEN IN THE PAST 12 MONTHS? NO . ANY NEW EXTREMITY NUMBNESS OR WEAKNESS? NO . CARDIOLOGY: DO YOU HAVE A PACEMAKER OR DEFIBRILLATOR? NO . RESPIRATORY: HAVE YOU BEEN SICK IN THE PAST WEEK? NO . FEVER NO . FLU LIKE SYMPTOMS? NO . COUGH NO . INTEGUMENTARY: DO YOU HAVE ANY RASHES OR OPEN SORES? NO . ALLERGIC/IMMUNO: ARE YOU ALLERGIC TO IV DYE? NO . ANY NEW ALLERGIES? NO . PSYCHIATRIC: DO YOU HAVE THOUGHTS OF HURTING YOURSELF OR SOMEONE ELSE? NO . ARE YOU ABUSED, NEGLECTED, OR IN AN UNSAFE ENVIRONMENT? NO . ENDOCRINOLOGY: ARE YOU DIABETIC? NO . OTHER: DO YOU NEED ANY PRESCRIPTIONS? NO . IF YES, PLEASE LIST: ____ . ANY NEW PROBLEMS WITH YOUR MEDICATIONS? NO . WHEN DID YOU LAST EAT? ____ . WHEN DID YOU LAST DRINK? ____ . WHAT DID YOU LAST DRINK? ____ . NAME OF PERSON DRIVING YOU HOME? ____ . DO YOU HAVE ANY OTHER QUESTIONS OR CONCERNS NO . VITAL SIGNS WT 167 LBS, HT 60 IN, BMI 32.61 INDEX, BP 146/65 MM HG, HR 56 /MIN, RR 16 /MIN, TEMP 97.6 F, OXYGEN SAT % 97%, NA INITIALS AW 0936, REVIEWED BY: ANJELICA. PROCEDURE CODES FA211 ESTABILISHED PATIENT [facility] CHARGE DISPOSITION & COMMUNICATION ELECTRONICALLY SIGNED BY RIK MOREL ON 04/12/2019 AT 03:53 PM EDT DISCLAIMER : THIS IS A VISIT SUMMARY EXTRACTED FROM THE [employer] CHART. IT IS NOT A COPY OF THE [employer] PROGRESS NOTE. JIGNESH
== END ==
LOC: M PAIN 09:30
PROVIDERS: ATTEND Family Medicine
DX: M46.1 Sacroiliitis, not elsewhere classified (principal)

== ENCOUNTER → 2019-04-15 | Outpatient (CLI) | payer MEDICARE, OTHER | LOC: M LAB 10:37 | PROVIDERS: ATTEND Family Medicine | DX: I10 Essential (primary) hypertension (principal); E87.6 Hypokalemia ==

== ENCOUNTER → 2019-05-17 | Outpatient (CLI) | payer MEDICARE, OTHER ==
[~2019-05-17] MED LIST changes: +DULO1CAP4; +GABA-843; +REME15TA2; +REST0.05; +ROLLMIS8 XX
--- NOTE | 2019-06-02 00:36 | ECWPNPC ---
PATIENT NAME: GER TYLER : 1945 GENDER: FEMALE VISIT DATE: 05/17/2019 DISCHARGE DATE: 05/17/197 VISIT LOCKED DATE TIME: PHYSICIAN: LJ AMADOR RESOURCE: LJ AMADOR REASON FOR APPOINTMENT 1. POST PROC HISTORY OF PRESENT ILLNESS HISTORY OF PRESENT ILLNESS: HERE FOR F/U OF CHRONIC LOW BACK PAIN AND ABDOMINAL PAIN.SHE IS IN EXCRUCIATING PAIN DURING VISIT.ACCOMPANIED IN EXAM ROOM WITH HER SON.SHE IS LAYING ON ABDOMEN ON STRETCHER UPON ARRIVAL TO ROOM.SHE IS ALERT AND ORIENTED. PAIN THE PATIENT DESCRIBES THE PAIN... FALL RISK SCREENING: SCREENING :NO FALLS REPORTED IN THE LAST YEAR CURRENT MEDICATIONS TAKING ACETAMINOPHEN 325 MG CAPSULE 1 CAP ORALLY EVERY MORNING NEEDED, NOTES: FEW DAYS AGO TAKING POTASSIUM CHLORIDE ER 8 MEQ TABLET EXTENDED RELEASE 1 CAPSULE WITH FOOD ORALLY DAILY, NOTES: 03/09/19 AM TAKING LOSARTAN POTASSIUM 50 MG TABLET 1 TABLET ORALLY ONCE A DAY, NOTES: 03/09/19 AM TAKING BUPROPION HCL 100 MG TABLET 1 TABLET ORALLY ONCE A DAY, NOTES: 03/09/19 AM TAKING CARVEDILOL 12.5 MG TABLET 1 TAB ORALLY DAILY, NOTES: 03/09/19 AM TAKING SPIRONOLACTONE 25 MG TABLET 1/2 TABLET ORALLY DAILY, NOTES: 03/09/19 AM TAKING LORAZEPAM 0.5 MG TABLET 1 TABLET NEEDED ORALLY EVERY 6 HRS, NOTES: NONE RECENT TAKING VITAMIN D 2000 UNIT TABLET 1 TABLET ORALLY ONCE A DAY, NOTES: 03/09/19 AM TAKING VITAMIN C 500 MG TABLET 1 TABLET ORALLY ONCE A DAY, NOTES: 03/09/19 AM TAKING VITAMIN B 12 100 MCG LOZENGE ORALLY DAILY, NOTES: 03/09/19 AM TAKING COLACE 100 MG CAPSULE 1 CAPSULE NEEDED ORALLY ONCE A DAY, NOTES: AM TAKING BACLOFEN 10 MG TABLET 1 CAP ORALLY BID, NOTES: 03/09/19 PM TAKING ASPIRIN 325 MG TABLET 1 TABLET ORALLY ONCE A DAY, NOTES: 03/09/19 AM TAKING REFRESH 1 DROP INTO AFFECTED EYE NEEDED OPHTHALMIC DAILY, NOTES: 03/10/19 AM TAKING CARBAMAZEPINE 200 MG TABLET 1 CAP ORALLY BID, NOTES: 03/09/19 PM TAKING LABETALOL HCL 100 MG TABLET 1 CAP ORALLY BID, NOTES: 02/26 11/16 PM TAKING MAGNESIUM 400 MG CAPSULE ORALLY DAILY, NOTES: 03/09/19 AM TAKING REXULTI 0.5 MG TABLET 1 TABLET ORALLY ONCE A DAY, NOTES: 03/09/19 AM TAKING SUCRALFATE 1 GM TABLET 1 TABLET ON AN EMPTY STOMACH ORALLY TWICE A DAY, NOTES: 03/10/19 AM TAKING PENETRAN - LOTION DIRECTED EXTERNALLY , NOTES: 03/09/19 AM TAKING CYCLOPENTOLATE HCL 1 DROP OPHTHALMIC PRN TAKING SALINE 1 DROP OPTHAMALGIC DAILY NOT-TAKING YUSUF 128 2 % SOLUTION 1 DROP INTO AFFECTED EYE OPHTHALMIC DAILY, NOTES: 03/10/19 AM NOT-TAKING LOTEMAX 0.5 % SUSPENSION 1 DROP INTO AFFECTED EYE OPHTHALMIC BID, NOTES: 03/10/19 AM MEDICATION LIST REVIEWED AND RECONCILED WITH THE PATIENT PAST MEDICAL HISTORY MIGRAINE CERVICALGIA LOW BACK PAIN LEFT LEG PAIN / SCIATICA HX OF LYMPHOMA TRIGEMINAL NEURALGIA ANXIETY DEPRESSION OSTEOARTHRITIS RIGHT CORNEAL DISEASE ALLERGIES SULFA (FOR ALLERGY USE ONLY) PENICILLIN (FOR ALLERGIES USE ONLY): FACIAL SWELLING - ALLERGY MORPHINE: AGITATION - SIDE EFFECTS BACTRIM: ANGIOEDEMA - ALLERGY IV DYE: AGGITATION, PANIC ATTACK, HIVES - ALLERGY SURGICAL HISTORY TOTAL HYSTERECTOMY 1979 CHOLECYSTECTOMY 1983 RHINOPLASTY 1991 LEFT EAR SURGERY 1995 LEFT KNEE SURGERY 2005 LOOP RECORDER 2015 CORNEA REPLACEMENT (DONE IN FEBRUARY AND REDONE IN MARCH) RIGHT CORNEAL REPLACEMENT FAMILY HISTORY FATHER: 52 YRS MOTHER: 69 YRS, BREAST CANCER, RHEUMATOID ARTHRITIS, DIAGNOSED WITH CANCER SON(S): ALIVE 45 YRS, DISCOID LUPUS 1 SON(S) . 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 LANGUAGE LANGUAGES SPOKEN:SLOVENIAN DOMESTIC VIOLENCE DO YOU FEEL SAFE IN YOUR ENVIRONMENT?YES RECREATIONAL DRUG USE DRUG USE?NO LEARNING BARRIERS / SPECIAL NEEDS HEARING IMPAIRED?YES LEFT :HEARING AIDES VISION IMPAIRED?YES :CORRECTIVE LENSES COGNITIVELY IMPAIRED?NO READINESS TO LEARN?YES LEARNING PREFERENCES?YES :BOOKLETS, HANDOUTS LEARNING CAPABILITIES PRESENT?YES EMOTIONAL BARRIERS?NO SPECIAL DEVICES?YES :CANE SPECIALIST WOUND CARE NEEDED?NO LUNG CANCER SCREENING SMOKING STATUS:NON SMOKER PAIN CLINIC PFS, CLERGY, PUBLIC HEALTH REFERRALS PFS REFERRAL NEEDED?NO CLERGY REFERRAL NEEDED?NO PUBLIC HEALTH REFERRAL NEEDED?NO WAS THE PROVIDER NOTIFIED OF ANY PERTINENT INFO?YES HAS THE PATIENT BEEN EDUCATED REGARDING HIS/HER PLAN OF CARE?YES HAS THE PATIENT BEEN EDUCATED REGARDING PAIN, THE RISK FOR PAIN, THE IMPORTANCE OF EFFECTIVE PAIN MANAGEMENT, AND THE PAIN ASSESSMENT PROCESS?YES LATEX QUESTIONNAIRE LATEX ALLERGY : HAVE YOU EVER DEVELOPED ANY TYPE OF REACTION AFTER HANDLING LATEX PRODUCTS SUCH RUBBER GLOVES, CONDOMS, DIAPHRAGMS, BALLOONS, SOCKS, OR UNDERWEAR?NO LATEX ALLERGY : HAVE YOU EVER DEVELOPED ANY TYPE OF REACTION DURING OR AFTER DENTAL APPOINTMENT, VAGINAL/RECTAL EXAMINATION, SURGICAL PROCEDURE, OR ANY OTHER EXPOSURE?NO LATEX RISK : HAVE YOU EVER HAD ANY DIFFICULTY BREATHING OR HIVES AFTER EATING OR HANDLING ANY FRUITS, OR VEGETABLES; SUCH KIWI, BANANAS, STONE FRUITS, OR CHESTNUTSNO LATEX RISK : DO YOU HAVE A PREVIOUS PERSONAL HISTORY OF MORE THAN NINE SURGERIES, SPINA BIFIDA, OR REPEATED CATHERIZATIONS? NO LATEX RISK : ARE YOU FREQUENTLY EXPOSED TO LATEX PRODUCTS IN YOUR OCCUPATION?NO DATE ASKED : 01/13/2019 CAFFEINE CAFFEINE USE?YES HOW OFTEN AND HOW MUCH? DAILY USE ADVANCE DIRECTIVE ADVANCE DIRECTIVE DISCUSSED WITH PATIENT:YES HCP - [place] ([place]) FAITH [id number] ZOROASTRIANISM ALCOHOL SCREENING DID YOU HAVE A DRINK CONTAINING ALCOHOL IN THE PAST YEAR?NO POINTS0 INTERPRETATIONNEGATIVE REVIEWED WITH PATIENT 01/19/19 1407 JS REVIEWED WITH PT 03/10/19 1158 BV. HOSPITALIZATION/MAJOR DIAGNOSTIC PROCEDURE SURGERY RELATED REVIEW OF SYSTEMS REVIEWED BY: PROVIDER: LJ JOLLY . CONSTITUTIONAL: ANY CHANGE IN YOUR MEDICAL CONDITION? YES - RIGHT CORNEAL TRANSPLANT 04-27-19 . CHILLS NO . FEVER NO . INFECTION: DO YOU HAVE NEW INFECTIONS? NO . DO YOU HAVE HISTORY OF MRSA? NO . MUSCULOSKELETAL: ANY NEW PATTERNS OF PAIN OR NUMBNESS? YES - WORSE . GASTROENTEROLOGY: ANY NEW CHANGE IN BOWEL CONTROL? YES - CONSTIPATION, USING COLACE . GENITOURINARY: ANY NEW CHANGE IN BLADDER CONTROL? YES - FREQUENCY FOR 2-3 DAYS . IS THERE A CHANCE YOU COULD BE ? NO . HEMATOLOGY/LYMPH: DO YOU TAKE ANY BLOOD THINNERS? (FOR EXAMPLE- COUMADIN, PLAVIX, AGGRENOX, PLATEL, PRADAXA, OR XARELTO) NO . WHEN WAS YOUR LAST DOSE? DATE: TIME: . NEUROLOGY: HAVE YOU FALLEN IN THE PAST 12 MONTHS? NO . ANY NEW EXTREMITY NUMBNESS OR WEAKNESS? YES - NUMBNESS BOTH LEGS FOR ABOUT 3 WEEKS . CARDIOLOGY: DO YOU HAVE A PACEMAKER OR DEFIBRILLATOR? NO . RESPIRATORY: HAVE YOU BEEN SICK IN THE PAST WEEK? NO . FEVER NO . FLU LIKE SYMPTOMS? NO . COUGH NO . INTEGUMENTARY: DO YOU HAVE ANY RASHES OR OPEN SORES? NO . ALLERGIC/IMMUNO: ARE YOU ALLERGIC TO IV DYE? NO . ANY NEW ALLERGIES? NO . PSYCHIATRIC: DO YOU HAVE THOUGHTS OF HURTING YOURSELF OR SOMEONE ELSE? NO; ANXIETY AND DEPRESSION WORSE . ARE YOU ABUSED, NEGLECTED, OR IN AN UNSAFE ENVIRONMENT? NO . ENDOCRINOLOGY: ARE YOU DIABETIC? NO . OTHER: DO YOU NEED ANY PRESCRIPTIONS? NO . IF YES, PLEASE LIST: ____ . ANY NEW PROBLEMS WITH YOUR MEDICATIONS? NO . WHEN DID YOU LAST EAT? ____ . WHEN DID YOU LAST DRINK? ____ . WHAT DID YOU LAST DRINK? ____ . NAME OF PERSON DRIVING YOU HOME? ____ . DO YOU HAVE ANY OTHER QUESTIONS OR CONCERNS NO . VITAL SIGNS WT 166 LBS, HT 60 IN, BMI 32.42 INDEX, BP 139/65 MM HG, HR 67 /MIN, RR 16 /MIN, TEMP 97.2 F, OXYGEN SAT % 99%, NA INITIALS AW 1447. EXAMINATION GENERAL EXAMINATION: GENERAL ALERT,NO DISTRESS . PSYCH AFFECT NORMAL . LUNGS: LUNG SOUNDS ARE CLEAR . HEART: HEART RATE REGULAR . MUSCULOSKELETAL: MST 5/5 BILAT. LOWER EXTREMITIES . LUMBAR SACRAL SPINE TENDERNESS LEFT SIJ ,POSITIVE PATRICKS TEST LEFT LEG. DIAGNOSTIC TESTS REVIEWEDMRI L/S SPINE-2017. ASSESSMENTS LUMBAR DISC DISPLACEMENT WITHOUT MYELOPATHY - M51.26 (PRIMARY) TREATMENT LUMBAR DISC DISPLACEMENT WITHOUT MYELOPATHY START GABAPENTIN CAPSULE, 100 MG, 1 CAPSULE, ORALLY, Q8H TID, 30 DAY(S), 90, REFILLS 2 NOTES: L4/5 LESI. PREVENTIVE MEDICINE PAIN CLINIC TEACHING: PROCEDURE TEACHING LUMBAR EPIDURAL STERIOD INJECTION INFORMATION PRINTED AND REVIEWED WITH PATIENT AND SON 05/17/19 1543 NLJ. PROCEDURE CODES FA211 ESTABILISHED PATIENT [facility] FACILITY CHARGE DISPOSITION & COMMUNICATION FOLLOW UP POST (REASON: L4/5 LESI) ELECTRONICALLY SIGNED BY RIK SERRATO ON 06/01/2019 AT 04:23 PM EDT DISCLAIMER : THIS IS A VISIT SUMMARY EXTRACTED FROM THE [employer] CHART. IT IS NOT A COPY OF THE [employer] PROGRESS NOTE. JIGNESH
== END ==
LOC: M PAIN 14:30
PROVIDERS: ATTEND Nurse Practitioner Family
DX: M51.26 Other intervertebral disc displacement, lumbar region (principal); G89.29 Other chronic pain; G43.909 Migraine, unspecified, not intractable, without status migrainosus; Z86.59 Personal history of other mental and behavioral disorders; M19.90 Unspecified osteoarthritis, unspecified site; Z88.0 Allergy status to penicillin; Z88.1 Allergy status to other antibiotic agents; Z88.2 Allergy status to sulfonamides; Z88.5 Allergy status to narcotic agent; Z91.041 Radiographic dye allergy status; Z79.82 Long term (current) use of aspirin; Z79.899 Other long term (current) drug therapy

== ENCOUNTER 2019-06-01 12:17 | Emergency (ER) | payer MEDICARE, OTHER ==
[~2019-06-01 12:17] MED LIST changes: -BACL10TA8; +BACL10TA8 PO; -CARB1TAB20; +CARB1TAB20 PO; -DULO1CAP4; -GABA-843; -REME15TA2; -REST0.05; -ROLLMIS8 XX
[2019-06-01] MEDS ORDERED: KETOROLAC 30 MG/ML VIAL (J1885) IV ONE (12:30)
[2019-06-01] MEDS ORDERED: GABA-843 PO (12:32)
[2019-06-01] MEDS ORDERED: REME15TA2 PO (12:32)
[2019-06-01] MEDS ORDERED: DULO1CAP4 PO (12:32)
[2019-06-01] MEDS ORDERED: REST0.05 OU (12:34)
[2019-06-01 13:24] LABS: BASO % 0.5 % (0.0-1.0); EOS # 0.2 10^3/uL (0.0-0.5); EOS % 3.2 % (0.0-3.0); HEMATOCRIT 38.1 % (36.0-47.0); HEMOGLOBIN 12.9 g/dl (12.0-15.5); LYMPH # 1.4 10^3/uL (1.5-5.0); LYMPH % 25.2 % (24.0-44.0); MEAN CORPUSCULAR HEMOGLOBIN 31.3 pg (27.0-33.0); MEAN CORPUSCULAR HGB CONC 33.9 g/dl (32.0-36.5); MEAN CORPUSCULAR VOLUME 92.5 fl (80.0-96.0); MONO # 0.9 10^3/uL (0.0-0.8); NEUTROPHILS % 54.7 % (36.0-66.0); PLATELET COUNT, AUTOMATED 227 10^3/uL (150-450); RED BLOOD COUNT 4.12 10^6/uL (4.00-5.40); WHITE BLOOD COUNT 5.6 10^3/uL (4.0-10.0)
--- NOTE | 2019-06-01 13:29 | REP ---
Clinical: Syncope/near syncope . Comparison: 04/05/2019. Findings: The mediastinum and cardiac silhouette are stable and within normal limits for portable technique. The lung paz are clear without acute consolidation, effusion, or pneumothorax. Skeletal structures are intact. Impression: No acute cardiopulmonary process appreciated. Electronically Signed by Jose Germain MD 06/01/2019 01:21 P
[2019-06-01 13:56] LABS: BLOOD UREA NITROGEN 9 MG/DL (7-18); CARBON DIOXIDE LEVEL 34 MEQ/L (21-32); CHLORIDE LEVEL 93 MEQ/L (98-107); CK-MB VALUE MASS < 1.0 NG/ML (<3.6); CPK CREATINE PHOSPHOKINASE 38 U/L (26-192); CREATININE FOR GFR 0.63 MG/DL (0.55-1.30); GLOMERULAR FILTRATION RATE > 60.0 (>39); GLUCOSE, FASTING 87 MG/DL (70-100); MB/CK RELATIVE INDEX 2.63 (< OR =4); POTASSIUM SERUM 3.3 MEQ/L (3.5-5.1); SODIUM LEVEL 135 MEQ/L (136-145); TROPONIN I 0.02 NG/ML (< 0.10)
[2019-06-01 14:00] VITALS: BP 144/62
[2019-06-01] MEDS ORDERED: ROLLMIS8 XX ×2 (14:21→14:36)
--- NOTE | 2019-06-01 20:24 | ECGEPIP ---
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
[2019-06-06] MEDS ORDERED: ROLLMIS8 XX (15:27)
[2019-09-07] MEDS ORDERED: PREDOPD OD (08:54)
[2019-09-07] MEDS ORDERED: GABA600T4 PO (08:54)
[2019-09-07] MEDS ORDERED: VITA100066 PO (08:54)
[2019-09-07] MEDS ORDERED: SUCR1TA PO (08:54)
[2019-09-07] MEDS ORDERED: REFR0.5D8 OU (08:54)
[2019-09-07] MEDS ORDERED: PANT40TA3 PO (08:54)
[2019-09-07] MEDS ORDERED: CHLO125TA PO (08:54)
[2019-09-07] MEDS ORDERED: B-12100010 PO (08:54)
[2019-09-07] MEDS ORDERED: TYLETAB14 PO (08:55)
== END 2019-06-01 14:43 | disposition home or self-care (01) ==
LOC: M ED 12:17
DX: R53.1 Weakness (principal); G89.29 Other chronic pain; M79.604 Pain in right leg; I10 Essential (primary) hypertension; Z79.899 Other long term (current) drug therapy; Z79.82 Long term (current) use of aspirin; Z88.0 Allergy status to penicillin; Z88.1 Allergy status to other antibiotic agents; Z88.2 Allergy status to sulfonamides; Z88.5 Allergy status to narcotic agent
CPT/HCPCS: 36415; 71045; 80048; 82550; 82553; 84443; 84484; 85025; 93005; 93041; 94760; 96374; 99285; J1885

== ENCOUNTER → 2019-07-04 | Outpatient (CLI) | payer MEDICARE, OTHER ==
[~2019-07-04] MED LIST changes: +BACL10TA8; -BACL10TA8 PO; +CARB1TAB20; -CARB1TAB20 PO; +DULO1CAP4; +GABA-843; +REME15TA2; +REST0.05; +ROLLMIS8 XX
--- NOTE | 2019-07-04 12:41 | REP ---
MRI LUMBAR SPINE WITHOUT CONTRAST: HISTORY: Spondylosis. Comparison lumbar spine radiographs are from January 10, 2019. No other comparison imaging. TECHNIQUE: Sagittal and axial T1- and T2-weighted scans are acquired in the usual fashion with and without fat saturation. Sequences include spin echo, turbo spin-echo, and STIR imaging sequences. MRI FINDINGS: There is mild straightening. Lumbar vertebral body heights are preserved. There is a fairly large Schmorl's node at the superior endplate of the T12 vertebral body. There are small Schmorl's nodes visible at the L3 and L1. There are some reactive marrow changes associated with degenerative disc disease at L1-2, L2-3, L4-5, and L5-S1. The conus medullaris is normal in position and appearance at T12-L1. No extra vertebral abnormality is observed. Axial and sagittal images at the L5-S1 level demonstrate osteoarthritic facet disease with facet joint fluid. There is a small extra spinal arthritis associated cyst adjacent to the left L5-S1 facet. This does not affect the spinal canal. There is a left foraminal disc protrusion at L5-S1 producing left neural foraminal encroachment. At L4-5, there is no evidence of spondylolysis. There is however a 2 mm degenerative spondylolisthesis at L4-5 due to degenerative disc and facet changes. Diffuse disc bulging is seen. There are facet joint effusions. There is mild central canal stenosis. Midline AP dimension of the thecal sac is 9 mm at L4-5. There is diffuse foraminal segment disc bulging producing bilateral neural foraminal narrowing at L4-5. At L3-4, there is mild ligamentum flavum and facet hypertrophy. There is mild diffuse disc bulging. The right neural foramen appears slightly narrowed due to disc bulging. L2-3, there is diffuse disc bulging. No canal stenosis or neural foraminal encroachment. At L1-2, and T12-L1, there is no finding. IMPRESSION: Degenerative spondylosis changes. Fairly advanced osteoarthritic facet disease bilaterally at L5-S1 and L4-5. Electronically Signed by Kj Wright MD 07/04/2019 03:05 P
== END ==
LOC: M RAD 07:40
PROVIDERS: ATTEND Orthopaedic Surgery
DX: M47.816 Spondylosis without myelopathy or radiculopathy, lumbar region (principal)

== ENCOUNTER → 2019-07-07 | Outpatient (CLI) | payer MEDICARE, OTHER ==
[~2019-07-07] MED LIST changes: +ISOVUE-M 300 61% 15ML VIAL (Q9967) As Ordered ONE; +LIDOCAINE 1% SDV INJ 30 ML VIAL As Ordered ONE; +diazePAM 5 MG TAB As Ordered ONE; +diphenhydrAMINE 25 MG CAP As Ordered ONE; +methylPREDNISolone SUSP 40 MG/ML (DEPO-medrol) VIAL (J1030) As Ordered ONE; +oxyCODONE 5MG TAB As Ordered ONE
--- NOTE | 2019-07-07 12:18 | REP ---
Partial lumbar spine series: Three views . History: Injection procedure for pain. 18 seconds of fluoroscopy time is reported. Findings: A sequence of three fluoroscopically obtained last image hold procedural spot radiographs of the lumbar spine document needle position and contrast injection associated with injection procedure. Electronically Signed by Kj Wright MD 07/07/2019 12:10 P
--- NOTE | 2019-07-21 01:19 | ECWPNPC ---
PATIENT NAME: GER TYLER : 1945 GENDER: FEMALE VISIT DATE: 07/07/2019 DISCHARGE DATE: 07/07/19 1216 VISIT LOCKED DATE TIME: PHYSICIAN: VIVIAN CHAVES MD RESOURCE: VIVIAN CHAVES MD REASON FOR APPOINTMENT 1. L4/5 LESI HISTORY OF PRESENT ILLNESS HISTORY OF PRESENT ILLNESS: PAIN THE PATIENT DESCRIBES THE PAIN... FALL RISK SCREENING: SCREENING :NO FALLS REPORTED IN THE LAST YEAR CURRENT MEDICATIONS TAKING ACETAMINOPHEN 325 MG CAPSULE 1 CAP ORALLY EVERY MORNING NEEDED, NOTES: FEW DAYS AGO TAKING POTASSIUM CHLORIDE ER 8 MEQ TABLET EXTENDED RELEASE 1 CAPSULE WITH FOOD ORALLY DAILY, NOTES: 07/05/19 TAKING LOSARTAN POTASSIUM 50 MG TABLET 1 TABLET ORALLY ONCE A DAY, NOTES: 07/05/19 TAKING CARVEDILOL 12.5 MG TABLET 1 TAB ORALLY DAILY, NOTES: 07/06/19 TAKING SPIRONOLACTONE 25 MG TABLET 1/2 TABLET ORALLY DAILY, NOTES: 07/06/19 TAKING LORAZEPAM 0.5 MG TABLET 1 TABLET NEEDED ORALLY EVERY 6 HRS, NOTES: 1 WEEK AGO TAKING VITAMIN D 2000 UNIT TABLET 1 TABLET ORALLY ONCE A DAY, NOTES: 07/06/19 TAKING VITAMIN C 500 MG TABLET 1 TABLET ORALLY ONCE A DAY, NOTES: 07/06/19 TAKING VITAMIN B 12 100 MCG LOZENGE ORALLY DAILY, NOTES: 07/06/19 TAKING COLACE 100 MG CAPSULE 1 CAPSULE NEEDED ORALLY ONCE A DAY, NOTES: 1 WEEK AGO TAKING BACLOFEN 10 MG TABLET 1 CAP ORALLY BID, NOTES: 07/06/19 TAKING ASPIRIN 325 MG TABLET 1 TABLET ORALLY ONCE A DAY, NOTES: 07/06/190800 TAKING REFRESH 1 DROP INTO AFFECTED EYE NEEDED OPHTHALMIC DAILY, NOTES: 07/06/190 TAKING CARBAMAZEPINE 200 MG TABLET 1 CAP ORALLY BID, NOTES: 07/06/19 TAKING LABETALOL HCL 100 MG TABLET 1 CAP ORALLY BID, NOTES: 07/06/19 TAKING MAGNESIUM 400 MG CAPSULE ORALLY DAILY, NOTES: 07/06/19 TAKING SUCRALFATE 1 GM TABLET 1 TABLET ON AN EMPTY STOMACH ORALLY TWICE A DAY, NOTES: 07/06/19 TAKING GABAPENTIN 600 MG TABLET 1 CAPSULE ORALLY Q8H TID TAKING TYLENOL WITH CODEINE #3 300-30 MG TABLET 1 TABLET NEEDED ORALLY EVERY 6 HRS, NOTES: 1.5 WEEKS AGO DISCONTINUED BUPROPION HCL 100 MG TABLET 1 TABLET ORALLY ONCE A DAY DISCONTINUED REXULTI 0.5 MG TABLET 1 TABLET ORALLY ONCE A DAY, NOTES: 03/09/19 AM DISCONTINUED PENETRAN - LOTION DIRECTED EXTERNALLY , NOTES: 03/09/19 AM DISCONTINUED CYCLOPENTOLATE HCL 1 DROP OPHTHALMIC PRN DISCONTINUED SALINE 1 DROP OPTHAMALGIC DAILY DISCONTINUED YUSUF 128 2 % SOLUTION 1 DROP INTO AFFECTED EYE OPHTHALMIC DAILY, NOTES: 03/10/19 AM DISCONTINUED LOTEMAX 0.5 % SUSPENSION 1 DROP INTO AFFECTED EYE OPHTHALMIC BID, NOTES: 03/10/19 AM MEDICATION LIST REVIEWED AND RECONCILED WITH THE PATIENT PAST MEDICAL HISTORY MIGRAINE CERVICALGIA LOW BACK PAIN LEFT LEG PAIN / SCIATICA HX OF LYMPHOMA TRIGEMINAL NEURALGIA ANXIETY DEPRESSION OSTEOARTHRITIS RIGHT CORNEAL DISEASE SHINGLES URINARY INCONTINENCE ALLERGIES SULFA (FOR ALLERGY USE ONLY) PENICILLIN (FOR ALLERGIES USE ONLY): FACIAL SWELLING - ALLERGY MORPHINE: AGITATION - SIDE EFFECTS BACTRIM: ANGIOEDEMA - ALLERGY IV DYE: AGGITATION, PANIC ATTACK, HIVES - ALLERGY SURGICAL HISTORY TOTAL HYSTERECTOMY 1979 CHOLECYSTECTOMY 1983 RHINOPLASTY 1991 LEFT EAR SURGERY 1995 LEFT KNEE SURGERY 2005 LOOP RECORDER 2015 CORNEA REPLACEMENT (DONE IN FEBRUARY AND REDONE IN MARCH) RIGHT CORNEAL REPLACEMENT FAMILY HISTORY FATHER: 52 YRS MOTHER: 69 YRS, BREAST CANCER, RHEUMATOID ARTHRITIS, DIAGNOSED WITH OTHER MALIGNANT NEOPLASM OF UNSPECIFIED SITE SON(S): ALIVE 45 YRS, DISCOID LUPUS 1 SON(S) - HEALTHY. SOCIAL HISTORY GENERAL: TOBACCO USE ARE YOU A:NONSMOKER OTHERS AT HOME: CHILD. 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 LANGUAGE LANGUAGES SPOKEN:TURKISH DOMESTIC VIOLENCE DO YOU FEEL SAFE IN YOUR ENVIRONMENT?YES RECREATIONAL DRUG USE DRUG USE?NO EXERCISE: NONE. LEARNING BARRIERS / SPECIAL NEEDS HEARING IMPAIRED?YES LEFT VISION IMPAIRED?YES COGNITIVELY IMPAIRED?NO :HEARING AIDES :CORRECTIVE LENSES READINESS TO LEARN?YES LEARNING PREFERENCES?YES :BOOKLETS, HANDOUTS LEARNING CAPABILITIES PRESENT?YES EMOTIONAL BARRIERS?NO SPECIAL DEVICES?YES :CANE SATELLITE MANAGER NEEDED?NO LUNG CANCER SCREENING SMOKING STATUS:NON SMOKER PAIN CLINIC PFS, CLERGY, PUBLIC HEALTH REFERRALS PFS REFERRAL NEEDED?NO CLERGY REFERRAL NEEDED?NO PUBLIC HEALTH REFERRAL NEEDED?NO WAS THE PROVIDER NOTIFIED OF ANY PERTINENT INFO?YES HAS THE PATIENT BEEN EDUCATED REGARDING HIS/HER PLAN OF CARE?YES HAS THE PATIENT BEEN EDUCATED REGARDING PAIN, THE RISK FOR PAIN, THE IMPORTANCE OF EFFECTIVE PAIN MANAGEMENT, AND THE PAIN ASSESSMENT PROCESS?YES LATEX QUESTIONNAIRE LATEX ALLERGY : HAVE YOU EVER DEVELOPED ANY TYPE OF REACTION AFTER HANDLING LATEX PRODUCTS SUCH RUBBER GLOVES, CONDOMS, DIAPHRAGMS, BALLOONS, SOCKS, OR UNDERWEAR?NO LATEX ALLERGY : HAVE YOU EVER DEVELOPED ANY TYPE OF REACTION DURING OR AFTER DENTAL APPOINTMENT, VAGINAL/RECTAL EXAMINATION, SURGICAL PROCEDURE, OR ANY OTHER EXPOSURE?NO LATEX RISK : HAVE YOU EVER HAD ANY DIFFICULTY BREATHING OR HIVES AFTER EATING OR HANDLING ANY FRUITS, OR VEGETABLES; SUCH KIWI, BANANAS, STONE FRUITS, OR CHESTNUTSNO LATEX RISK : DO YOU HAVE A PREVIOUS PERSONAL HISTORY OF MORE THAN NINE SURGERIES, SPINA BIFIDA, OR REPEATED CATHERIZATIONS? NO LATEX RISK : ARE YOU FREQUENTLY EXPOSED TO LATEX PRODUCTS IN YOUR OCCUPATION?NO DATE ASKED : 07/07/2019 CAFFEINE CAFFEINE USE?YES HOW OFTEN AND HOW MUCH? DAILY USE ADVANCE DIRECTIVE ADVANCE DIRECTIVE DISCUSSED WITH PATIENT:YES [place]CP - [place] ([place] HOAHAOISM [id number] TENRIISM MARITAL STATUS: .. ALCOHOL SCREENING DID YOU HAVE A DRINK CONTAINING ALCOHOL IN THE PAST YEAR?NO POINTS0 INTERPRETATIONNEGATIVE OCCUPATION: RETIRED. REVIEWED WITH PATIENT 01/19/19 1407 JS REVIEWED WITH PT 03/10/19 1158 BV. HOSPITALIZATION/MAJOR DIAGNOSTIC PROCEDURE SURGERY RELATED REVIEW OF SYSTEMS REVIEWED BY: PROVIDER: . CONSTITUTIONAL: ANY CHANGE IN YOUR MEDICAL CONDITION? NO . CHILLS NO . FEVER NO . INFECTION: DO YOU HAVE NEW INFECTIONS? NO . DO YOU HAVE HISTORY OF MRSA? NO . MUSCULOSKELETAL: ANY NEW PATTERNS OF PAIN OR NUMBNESS? YES . GASTROENTEROLOGY: ANY NEW CHANGE IN BOWEL CONTROL? NO . GENITOURINARY: ANY NEW CHANGE IN BLADDER CONTROL? YES . IS THERE A CHANCE YOU COULD BE ? NO . HEMATOLOGY/LYMPH: DO YOU TAKE ANY BLOOD THINNERS? (FOR EXAMPLE- COUMADIN, PLAVIX, AGGRENOX, PLATEL, PRADAXA, OR XARELTO) NO . WHEN WAS YOUR LAST DOSE? DATE: TIME: . NEUROLOGY: HAVE YOU FALLEN IN THE PAST 12 MONTHS? YES . ANY NEW EXTREMITY NUMBNESS OR WEAKNESS? YES . CARDIOLOGY: DO YOU HAVE A PACEMAKER OR DEFIBRILLATOR? NO . RESPIRATORY: HAVE YOU BEEN SICK IN THE PAST WEEK? NO . FEVER NO . FLU LIKE SYMPTOMS? NO . COUGH NO . INTEGUMENTARY: DO YOU HAVE ANY RASHES OR OPEN SORES? NO . ALLERGIC/IMMUNO: ARE YOU ALLERGIC TO IV DYE? NO . ANY NEW ALLERGIES? NO . PSYCHIATRIC: DO YOU HAVE THOUGHTS OF HURTING YOURSELF OR SOMEONE ELSE? NO . ARE YOU ABUSED, NEGLECTED, OR IN AN UNSAFE ENVIRONMENT? NO . ENDOCRINOLOGY: ARE YOU DIABETIC? NO . OTHER: DO YOU NEED ANY PRESCRIPTIONS? NO . IF YES, PLEASE LIST: ____ . ANY NEW PROBLEMS WITH YOUR MEDICATIONS? NO . WHEN DID YOU LAST EAT? ____07/06/19 . WHEN DID YOU LAST DRINK? ____ . WHAT DID YOU LAST DRINK? ____ . NAME OF PERSON DRIVING YOU HOME? ____NJ NORRIS . DO YOU HAVE ANY OTHER QUESTIONS OR CONCERNS NO . VITAL SIGNS WT 178 LBS, HT 60 IN, BMI 34.76 INDEX, BP 141/65 MM HG, HR 65 /MIN, RR 16 /MIN, TEMP 98.5 F, OXYGEN SAT % 97%, SAFE IN ENV? (Y/N) YES, NA INITIALS MI 09:51, REVIEWED BY: VD. ASSESSMENTS INTERVERTEBRAL DISC DISORDERS WITH RADICULOPATHY, LUMBAR REGION - M51.16 (PRIMARY) PROCEDURES PRE PROCEDURE DIAGNOSIS LUMBAR SPINAL STENOSIS, LUMBAR DISC DISORDER WITH RADICULOPATHY POST PROCEDURE DIAGNOSIS LUMBAR SPINAL STENOSIS, LUMBAR DISC DISORDER WITH RADICULOPATHY PROCEDURE LUMBAR EPIDURAL STEROID INJECTION UNDER FLUOROSCOPIC GUIDANCE SURGEON DR. VIVIAN CHAVES CERTIFIED MEDICAL TECHNICIAN NONE ANESTHESIA LOCAL PRE PROCEDURE NOTE THE PATIENT HAS A HISTORY OF CHRONIC LOW BACK PAIN. I EVALUATED THE PATIENT AND REVIEWED THE CHART. I WENT OVER THE RISKS, ALTERNATIVES, AND BENEFITS ASSOCIATED WITH THIS PROCEDURE. THE PATIENT WOULD LIKE TO PROCEED AND GIVES CONSENT TO PERFORM THE PROCEDURE. THE PATIENT DENIES UNEXPLAINABLE WEIGHT LOSS, FEVER, CHILLS, OR NEW CHANGES IN URINARY OR BOWEL CONTROL. DESCRIPTION OF PROCEDURE THE PATIENT WAS BROUGHT TO THE PROCEDURE ROOM AND PLACED IN THE PRONE POSITION. THE LUMBOSACRAL AREA WAS CLEANED WITH BETADINE SOLUTION AND DRAPED ASEPTICALLY. THE PROCEDURE WAS DONE UNDER STERILE CONDITIONS. I CHECKED LATERALITY AND THE LEVEL WHERE THE PROCEDURE WAS GOING TO BE PERFORMED WITH THE PATIENT AND THE SUPPORTING STAFF AT THE MOMENT OF THE TIME OUT IN THE PROCEDURE ROOM. UNDER FLUOROSCOPIC GUIDANCE, THE TARGET POINT WAS SELECTED AT THE INTERLAMINAR LEVEL OF L4-L5. LIDOCAINE WAS USED TO NUMB THE SKIN AND THE SUBCUTANEOUS TISSUE BELOW IT. EPIDURAL TUOHY NEEDLE, 17-GAUGE, WAS ADVANCED UNDER FLUOROSCOPIC GUIDANCE AND FOLLOWING PATIENT FEEDBACK UNTIL THE EPIDURAL SPACE WAS REACHED, 7 CM DEEP INTO THE SKIN BY THE LOSS OF RESISTANCE TECHNIQUE. ISOVUE M DYE 30%, 0.25 ML, WAS INJECTED SHOWING ADEQUATE SPREAD OF THE DYE. THEN, A SOLUTION OF 3 ML OF NORMAL SALINE WITH DEPO-MEDROL 60 MG WAS INJECTED SLOWLY FOLLOWING PATIENT FEEDBACK. THERE WAS NO EVIDENCE OF BLOOD, PARESTHESIA OR CEREBROSPINAL FLUID DURING THE PROCEDURE. THE PATIENT WAS SENT TO THE RECOVERY ROOM. THE PATIENT WAS MOVING THE EXTREMITIES AND DOING WELL. THERE WAS NO COMPLICATION DURING THE PROCEDURE. FLUOROSCOPY TIME WAS 18 SECONDS. POST PROCEDURE NOTE THE PATIENT WILL BE SEEN IN A FOLLOW UP IN THE NEXT FEW WEEKS. INSTRUCTIONS WERE GIVEN, QUESTIONS WERE ANSWERED, AND THE PATIENT EXPRESSED UNDERSTANDING AND AGREES WITH THE PLAN. I, SADAF EDWARD, DOCUMENTED THE ABOVE INFORMATION ACTING A SCRIBE FOR DR. CHAVES. I HAVE REVIEWED THE ABOVE DOCUMENT, WRITTEN BY SADAF ZIMMER AND I VERIFY THAT IT IS ACCURATE. DIAGNOSTIC IMAGING [facility] FLUORO GUIDE SPINE INJECTION (PAIN)[id number] PROCEDURE CODES 61287 LUMBAR/SACRAL W/ IMAGING 6045F RADXPS IN END [id number] PXD DISPOSITION & COMMUNICATION FOLLOW UP 2 WEEKS ELECTRONICALLY SIGNED BY VIVIAN CHAVES MD, MD ON 07/20/2019 AT 10:22 AM EDT DISCLAIMER : THIS IS A VISIT SUMMARY EXTRACTED FROM THE [employer] CHART. IT IS NOT A COPY OF THE [employer] PROGRESS NOTE. MTDD
== END ==
LOC: M PAIN 09:30
PROVIDERS: ATTEND Anesthesiology
DX: M51.16 Intervertebral disc disorders with radiculopathy, lumbar region (principal); G43.909 Migraine, unspecified, not intractable, without status migrainosus; M54.2 Cervicalgia; G50.0 Trigeminal neuralgia; F41.9 Anxiety disorder, unspecified; F32.9 Major depressive disorder, single episode, unspecified; M19.90 Unspecified osteoarthritis, unspecified site; R32 Unspecified urinary incontinence; Z90.49 Acquired absence of other specified parts of digestive tract; Z79.82 Long term (current) use of aspirin; Z79.899 Other long term (current) drug therapy; Z88.0 Allergy status to penicillin; Z88.2 Allergy status to sulfonamides; Z88.5 Allergy status to narcotic agent; Z91.041 Radiographic dye allergy status
CPT/HCPCS: 62323; J1030; Q9967

== ENCOUNTER → 2019-07-26 | Outpatient (CLI) | payer MEDICARE, OTHER ==
[~2019-07-26] MED LIST changes: -ISOVUE-M 300 61% 15ML VIAL (Q9967) As Ordered ONE; -LIDOCAINE 1% SDV INJ 30 ML VIAL As Ordered ONE; -diazePAM 5 MG TAB As Ordered ONE; -diphenhydrAMINE 25 MG CAP As Ordered ONE; -methylPREDNISolone SUSP 40 MG/ML (DEPO-medrol) VIAL (J1030) As Ordered ONE; -oxyCODONE 5MG TAB As Ordered ONE
--- NOTE | 2019-08-09 04:37 | ECWPNPC ---
PATIENT NAME: GER TYLER : 1945 GENDER: FEMALE VISIT DATE: 07/26/2019 DISCHARGE DATE: 07/26/19 1224 VISIT LOCKED DATE TIME: PHYSICIAN: LJ AMADOR RESOURCE: LJ AMADOR REASON FOR APPOINTMENT 1. POST LESI HISTORY OF PRESENT ILLNESS HISTORY OF PRESENT ILLNESS: HERE FOR POST PROCEDURE F/U.HAD LESI ON 07/07/19.DOING BETTER POST PROCEDURE.RATING PAIN VAS 6/10.PAIN IS INTERMITTENT AND MOSTLY AT NIGHT. PAIN THE PATIENT DESCRIBES THE PAIN... FALL RISK SCREENING: SCREENING :NO FALLS REPORTED IN THE LAST YEAR CURRENT MEDICATIONS TAKING ACETAMINOPHEN 325 MG CAPSULE 1 CAP ORALLY EVERY MORNING NEEDED, NOTES: FEW DAYS AGO TAKING POTASSIUM CHLORIDE ER 8 MEQ TABLET EXTENDED RELEASE 1 CAPSULE WITH FOOD ORALLY DAILY, NOTES: 07/05/19 TAKING LOSARTAN POTASSIUM 50 MG TABLET 1 TABLET ORALLY ONCE A DAY, NOTES: 07/05/19 TAKING CARVEDILOL 12.5 MG TABLET 1 TAB ORALLY TWICE A DAY, NOTES: 07/06/19@0800 TAKING SPIRONOLACTONE 25 MG TABLET 1/2 TABLET ORALLY DAILY, NOTES: 07/06/19@00 TAKING LORAZEPAM 0.5 MG TABLET 1 TABLET NEEDED ORALLY EVERY 6 HRS, NOTES: 1 WEEK AGO TAKING VITAMIN D 2000 UNIT TABLET 1 TABLET ORALLY ONCE A DAY, NOTES: 07/06/19@1399 TAKING VITAMIN C 500 MG TABLET 1 TABLET ORALLY ONCE A DAY, NOTES: 07/06/19 TAKING VITAMIN B 12 100 MCG LOZENGE ORALLY DAILY, NOTES: 07/06/19 TAKING COLACE 100 MG CAPSULE 1 CAPSULE NEEDED ORALLY ONCE A DAY, NOTES: 1 WEEK AGO TAKING BACLOFEN 10 MG TABLET 1 CAP ORALLY BID, NOTES: 07/06/19 TAKING ASPIRIN 325 MG TABLET 1 TABLET ORALLY ONCE A DAY, NOTES: 07/06/19@0800 TAKING REFRESH 1 DROP INTO AFFECTED EYE NEEDED OPHTHALMIC DAILY, NOTES: 07/06/19@2200 TAKING CARBAMAZEPINE 200 MG TABLET 1 CAP ORALLY BID, NOTES: 07/06/19 TAKING MAGNESIUM 400 MG CAPSULE ORALLY DAILY, NOTES: 07/06/19@1399 TAKING SUCRALFATE 1 GM TABLET 1 TABLET ON AN EMPTY STOMACH ORALLY TWICE A DAY, NOTES: 07/06/19 TAKING GABAPENTIN 600 MG TABLET 1 CAPSULE ORALLY Q8H TID TAKING TYLENOL WITH CODEINE #3 300-30 MG TABLET 1 TABLET NEEDED ORALLY EVERY 6 HRS, NOTES: 1.5 WEEKS AGO NOT-TAKING LABETALOL HCL 100 MG TABLET 1 CAP ORALLY BID, NOTES: 07/06/19@1999 MEDICATION LIST REVIEWED AND RECONCILED WITH THE PATIENT PAST MEDICAL HISTORY MIGRAINE CERVICALGIA LOW BACK PAIN LEFT LEG PAIN / SCIATICA HX OF LYMPHOMA TRIGEMINAL NEURALGIA ANXIETY DEPRESSION OSTEOARTHRITIS RIGHT CORNEAL DISEASE SHINGLES URINARY INCONTINENCE ALLERGIES SULFA (FOR ALLERGY USE ONLY) PENICILLIN (FOR ALLERGIES USE ONLY): FACIAL SWELLING - ALLERGY MORPHINE: AGITATION - SIDE EFFECTS BACTRIM: ANGIOEDEMA - ALLERGY IV DYE: AGGITATION, PANIC ATTACK, HIVES - ALLERGY SURGICAL HISTORY TOTAL HYSTERECTOMY 1979 CHOLECYSTECTOMY 1983 RHINOPLASTY 1991 LEFT EAR SURGERY 1995 LEFT KNEE SURGERY 2005 LOOP RECORDER 2015 CORNEA REPLACEMENT (DONE IN FEBRUARY AND REDONE IN MARCH) RIGHT CORNEAL REPLACEMENT FAMILY HISTORY FATHER: 52 YRS MOTHER: 69 YRS, BREAST CANCER, RHEUMATOID ARTHRITIS, DIAGNOSED WITH OTHER MALIGNANT NEOPLASM OF UNSPECIFIED SITE SON(S): ALIVE 45 YRS, DISCOID LUPUS 1 SON(S) - HEALTHY. SOCIAL HISTORY GENERAL: TOBACCO USE ARE YOU A:NONSMOKER OTHERS AT HOME: CHILD. 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 LANGUAGE LANGUAGES SPOKEN:SLOVAK DOMESTIC VIOLENCE DO YOU FEEL SAFE IN YOUR ENVIRONMENT?YES RECREATIONAL DRUG USE DRUG USE?NO EXERCISE: NONE. LEARNING BARRIERS / SPECIAL NEEDS HEARING IMPAIRED?YES LEFT VISION IMPAIRED?YES COGNITIVELY IMPAIRED?NO :HEARING AIDES :CORRECTIVE LENSES READINESS TO LEARN?YES LEARNING PREFERENCES?YES :BOOKLETS, HANDOUTS LEARNING CAPABILITIES PRESENT?YES EMOTIONAL BARRIERS?NO SPECIAL DEVICES?YES :CANE SPEECH LANGUAGE ASSISTANT NEEDED?NO LUNG CANCER SCREENING SMOKING STATUS:NON SMOKER PAIN CLINIC PFS, CLERGY, PUBLIC HEALTH REFERRALS PFS REFERRAL NEEDED?NO CLERGY REFERRAL NEEDED?NO PUBLIC HEALTH REFERRAL NEEDED?NO WAS THE PROVIDER NOTIFIED OF ANY PERTINENT INFO?YES HAS THE PATIENT BEEN EDUCATED REGARDING HIS/HER PLAN OF CARE?YES HAS THE PATIENT BEEN EDUCATED REGARDING PAIN, THE RISK FOR PAIN, THE IMPORTANCE OF EFFECTIVE PAIN MANAGEMENT, AND THE PAIN ASSESSMENT PROCESS?YES LATEX QUESTIONNAIRE LATEX ALLERGY : HAVE YOU EVER DEVELOPED ANY TYPE OF REACTION AFTER HANDLING LATEX PRODUCTS SUCH RUBBER GLOVES, CONDOMS, DIAPHRAGMS, BALLOONS, SOCKS, OR UNDERWEAR?NO LATEX ALLERGY : HAVE YOU EVER DEVELOPED ANY TYPE OF REACTION DURING OR AFTER DENTAL APPOINTMENT, VAGINAL/RECTAL EXAMINATION, SURGICAL PROCEDURE, OR ANY OTHER EXPOSURE?NO LATEX RISK : HAVE YOU EVER HAD ANY DIFFICULTY BREATHING OR HIVES AFTER EATING OR HANDLING ANY FRUITS, OR VEGETABLES; SUCH KIWI, BANANAS, STONE FRUITS, OR CHESTNUTSNO LATEX RISK : DO YOU HAVE A PREVIOUS PERSONAL HISTORY OF MORE THAN NINE SURGERIES, SPINA BIFIDA, OR REPEATED CATHERIZATIONS? NO LATEX RISK : ARE YOU FREQUENTLY EXPOSED TO LATEX PRODUCTS IN YOUR OCCUPATION?NO DATE ASKED : 07/26/2019 CAFFEINE CAFFEINE USE?NO ADVANCE DIRECTIVE ADVANCE DIRECTIVE DISCUSSED WITH PATIENT:YES HCP - [place] (SON) BAHAI [id number] FAITH MARITAL STATUS: .. ALCOHOL SCREENING DID YOU HAVE A DRINK CONTAINING ALCOHOL IN THE PAST YEAR?NO POINTS0 INTERPRETATIONNEGATIVE OCCUPATION: RETIRED. REVIEWED WITH PATIENT 01/19/19 1407 JS REVIEWED WITH PT 03/10/19 1158 BV. HOSPITALIZATION/MAJOR DIAGNOSTIC PROCEDURE SURGERY RELATED REVIEW OF SYSTEMS REVIEWED BY: PROVIDER: LJ JOLLY . CONSTITUTIONAL: ANY CHANGE IN YOUR MEDICAL CONDITION? NO . CHILLS NO . FEVER NO . INFECTION: DO YOU HAVE NEW INFECTIONS? NO . DO YOU HAVE HISTORY OF MRSA? NO . MUSCULOSKELETAL: ANY NEW PATTERNS OF PAIN OR NUMBNESS? NO . GASTROENTEROLOGY: ANY NEW CHANGE IN BOWEL CONTROL? YES . GENITOURINARY: ANY NEW CHANGE IN BLADDER CONTROL? YES . IS THERE A CHANCE YOU COULD BE ? NO . HEMATOLOGY/LYMPH: DO YOU TAKE ANY BLOOD THINNERS? (FOR EXAMPLE- COUMADIN, PLAVIX, AGGRENOX, PLATEL, PRADAXA, OR XARELTO) NO . WHEN WAS YOUR LAST DOSE? DATE: TIME: . NEUROLOGY: HAVE YOU FALLEN IN THE PAST 12 MONTHS? YES . ANY NEW EXTREMITY NUMBNESS OR WEAKNESS? NO . CARDIOLOGY: DO YOU HAVE A PACEMAKER OR DEFIBRILLATOR? NO . RESPIRATORY: HAVE YOU BEEN SICK IN THE PAST WEEK? NO . FEVER NO . FLU LIKE SYMPTOMS? NO . COUGH NO . INTEGUMENTARY: DO YOU HAVE ANY RASHES OR OPEN SORES? YES - RASH DUE TO SHINGLES . ALLERGIC/IMMUNO: ARE YOU ALLERGIC TO IV DYE? NO . ANY NEW ALLERGIES? NO . PSYCHIATRIC: DO YOU HAVE THOUGHTS OF HURTING YOURSELF OR SOMEONE ELSE? NO . ARE YOU ABUSED, NEGLECTED, OR IN AN UNSAFE ENVIRONMENT? NO . ENDOCRINOLOGY: ARE YOU DIABETIC? NO . OTHER: DO YOU NEED ANY PRESCRIPTIONS? NO . IF YES, PLEASE LIST: ____ . ANY NEW PROBLEMS WITH YOUR MEDICATIONS? NO . WHEN DID YOU LAST EAT? ____ . WHEN DID YOU LAST DRINK? ____ . WHAT DID YOU LAST DRINK? ____ . NAME OF PERSON DRIVING YOU HOME? ____ . DO YOU HAVE ANY OTHER QUESTIONS OR CONCERNS NO . VITAL SIGNS WT 178 LBS, HT 60 IN, BMI 34.76 INDEX, BP 128/61 MM HG, HR 69 /MIN, RR 16 /MIN, TEMP 97.0 F, OXYGEN SAT % 98%, NA INITIALS AW 1118, REVIEWED BY: LS. EXAMINATION GENERAL EXAMINATION: GENERAL AWAKE,ALERT ,PLEASANT .ACCOMPANIED IN EXAM ROOM WITH SON. PSYCH AFFECT NORMAL . LUNGS: LUNG MILLER ARE CLEAR TO AUSCULTATION BILATERALLY. GOOD MOVEMENT OF AIR . HEART: S1, S2 IN A REGULAR RATE AND RHYTHM. NO SIGNIFICANT MURMURS, RUBS OR GALLOPS NOTED . ASSESSMENTS INTERVERTEBRAL DISC DISORDERS WITH RADICULOPATHY, LUMBAR REGION - M51.16 (PRIMARY) TREATMENT INTERVERTEBRAL DISC DISORDERS WITH RADICULOPATHY, LUMBAR REGION REFILL TYLENOL WITH CODEINE #3 TABLET, 300-30 MG, 1 TABLET NEEDED, ORALLY, EVERY 6 HRS PRN MDD4, 30 DAYS, 30, REFILLS 0, NOTES: 1.5 WEEKS AGO NOTES: MAY USE TYLENOL W CODEINE NEEDED FOR SEVERE KNEE PAIN, ISTOP REGISTRY REVIEWED AND DEMONSTRATES COMPLLIANCE. , [facility] NARCOTIC AGREEMENT WAS REVIEWED AND SIGNED TODAY BY THE PATIENT. SEE ATTACHED DOCUMENT FOR FULL DETAILS; SPECIFIC ISSUES WERE REVIEWED: 1) KEEP PAIN MEDS IN THEIR ORIGINAL BOTTLES AND ANY WEEKLY PLANNERS ARE TO BE BROUGHT TO THE PAIN CENTER AT EVERY VISIT. 2) THE PATIENT IS NOT TO INCREASE DOSING OR TIMING OF THEIR PAIN MEDICATION WITHOUT SPECIFIC DIRECTION OF THEIR PAIN CENTERPROVIDER (NOT ER OR OTHER PROVIDERS). 3) ALL PAIN MEDS ARE TO BE KEPT SECURED, IN A LOCKED BOX. 4) NO PAIN MEDS ARE TO BE SHARED WITH ANY OTHER PERSON FOR ANY REASON. 5) NO PAIN MEDS MAY BE TAKEN FROM ANY FRIENDS OR RELATIVES FOR ANY REASON 6) NO MEDS OR SUBSTANCES WHICH ARE NOT LEGAL ARE TO BE USED- NO MARIJUANA, NO COCAINE, AMPHETAMINES, HEROIN, OR OTHERS ARE EVER TO BE USED. 7)URINE TESTING IS DONE TO ACCOUNT FOR MEDS AND SUBSTANCES BEING TAKEN AND WILL BE DONE RANDOMLY. PREVENTIVE MEDICINE PAIN CLINIC TEACHING: MEDICATIONS NEW MEDICATION TYLENOL #3 DISCUSSED WITH PT. PT STATES HAS TAKEN PREVIOUSLY AND IS FAMILIAR WITH ITS USE AND SIDE EFFECTS.. PROCEDURE CODES FA211 ESTABILISHED PATIENT [facility] FACILITY CHARGE DISPOSITION & COMMUNICATION FOLLOW UP October LJ ELECTRONICALLY SIGNED BY RIK SERRATO ON 08/08/2019 AT 03:21 PM EST DISCLAIMER : THIS IS A VISIT SUMMARY EXTRACTED FROM THE [employer] CHART. IT IS NOT A COPY OF THE [employer] PROGRESS NOTE. KEYD
== END ==
LOC: M PAIN 11:00
PROVIDERS: ATTEND Nurse Practitioner Family
DX: M51.16 Intervertebral disc disorders with radiculopathy, lumbar region (principal); G43.909 Migraine, unspecified, not intractable, without status migrainosus; Z86.59 Personal history of other mental and behavioral disorders; Z88.0 Allergy status to penicillin; Z88.1 Allergy status to other antibiotic agents; Z88.2 Allergy status to sulfonamides; Z88.5 Allergy status to narcotic agent; Z91.041 Radiographic dye allergy status; Z79.82 Long term (current) use of aspirin; Z79.899 Other long term (current) drug therapy

== ENCOUNTER → 2019-09-06 | Outpatient (CLI) | payer MEDICARE, OTHER ==
[~2019-09-06] MED LIST changes: +B-12100010 PO; -BACL10TA8; +BACL10TA8 PO; -CARB1TAB20; +CARB1TAB20 PO; +CHLO125TA PO; -DULO1CAP4; +DULO1CAP4 PO; -GABA-843; +GABA600T4 PO; +PANT40TA3 PO; +PREDOPD OD; +REFR0.5D8 OU; -REME15TA2; +REME15TA2 PO; -REST0.05; +REST0.05 OU; +SUCR1TA PO; +TYLETAB14 PO; +VITA100066 PO
[2019-09-06 10:48] LABS: HEMATOCRIT 39.7 % (36.0-47.0); HEMOGLOBIN 13.1 g/dl (12.0-15.5); MEAN CORPUSCULAR HEMOGLOBIN 31.4 pg (27.0-33.0); MEAN CORPUSCULAR VOLUME 95.2 fl (80.0-96.0); PLATELET COUNT, AUTOMATED 292 10^3/uL (150-450); RED BLOOD COUNT 4.17 10^6/uL (4.00-5.40); WHITE BLOOD COUNT 7.5 10^3/uL (4.0-10.0)
[2019-09-06 11:00] LABS: INR 1.2; PROTHROMBIN TIME 14.9 SECONDS (11.8-14.0)
[2019-09-06 11:29] LABS: ALBUMIN 3.2 GM/DL (3.2-5.2); ALT/SGPT 23 U/L (12-78); BILIRUBIN,TOTAL 0.4 MG/DL (0.2-1.0); BLOOD UREA NITROGEN 14 MG/DL (7-18); CALCIUM LEVEL 9.2 MG/DL (8.8-10.2); CARBON DIOXIDE LEVEL 35 MEQ/L (21-32); CHLORIDE LEVEL 103 MEQ/L (98-107); CHOLESTEROL LEVEL 217 MG/DL (<200); CHOLESTEROL RISK RATIO 2.712 (<5); CREATININE FOR GFR 0.65 MG/DL (0.55-1.30); GLOMERULAR FILTRATION RATE > 60.0 (>39); GLUCOSE, FASTING 96 MG/DL (70-100); HDL CHOLESTEROL 80 MG/DL (>40); LDL CHOLESTEROL 126 MG/DL (<100); NON-HDL-C 137 MG/DL; POTASSIUM SERUM 3.5 MEQ/L (3.5-5.1); SODIUM LEVEL 141 MEQ/L (136-145); TRIGLYCERIDES LEVEL 57 MG/DL (<150)
--- NOTE | 2019-09-06 15:25 | REP ---
Two-view chest: 09/06/2019. Indication: Preoperative assessment. Comparison: 04/05/2019. Findings: There is no focal airspace consolidation, pleural effusion or pneumothorax. The cardiac silhouette is not enlarged. Elevation of the right hemidiaphragm is present. The patient is status post cholecystectomy. Impression: No acute cardiopulmonary process. Electronically Signed by German James DO 09/06/2019 10:14 A
--- NOTE | 2019-09-06 16:51 | ECGEPIP ---
[facility] Test Date: 2019-09-06 Pat Name: GER TYLER Department: Room: - Gender: Female Temperature Regulator Pyrometer: LEONARD : 1945 Requested By: Bonita Arriola Order Number: [id number] Reading MD: Naresh Santos Measurements Intervals [place] Rate: 70 P: [place]: 0 QRS: -31 QRSD: 121 T: 60 QT: 401 QTc: 434 Interpretive Statements Normal sinus rhythm MARKED LEFT AXIS DEVIATION MODERATE INTRAVENTRICULAR CONDUCTION DELAY VOLTAGE CRITERIA FOR [facility] ST DEVIATION AND MODERATE T-WAVE ABNORMALITY, CONSIDER LATERAL ISCHEMIA Baseline Noise Electronically Signed on 09-06-2019 16:51:39 EST by Naresh Santos
== END ==
LOC: M LAB 09:15
PROVIDERS: ATTEND Family Medicine
DX: Z01.818 Encounter for other preprocedural examination (principal); I10 Essential (primary) hypertension; Z79.82 Long term (current) use of aspirin; R51 Headache

== ENCOUNTER → 2019-09-06 | Outpatient (CLI) | payer MEDICARE, OTHER | LOC: M LAB 09:12 | PROVIDERS: ATTEND Physician Assistant Medical | DX: R51 Headache (principal) ==

== ENCOUNTER → 2019-09-16 | Outpatient (REF) | payer MEDICARE, OTHER | LOC: M LABDRAW1 15:21 | DX: M17.11 Unilateral primary osteoarthritis, right knee (principal) ==

== ENCOUNTER → 2019-09-22 | Outpatient (CLI) | payer MEDICARE, OTHER ==
[~2019-09-22] MED LIST changes: +PERC5TAB12 PO; +XARE10TA PO
== END ==
LOC: M PT 14:36
PROVIDERS: ATTEND Orthopaedic Surgery
DX: M17.11 Unilateral primary osteoarthritis, right knee (principal)

== ENCOUNTER 2019-09-23 05:59 | Inpatient (IN) | payer MEDICARE, OTHER ==
--- NOTE | 2019-09-17 06:47 | HPE ---
DATE OF ADMISSION: 09/23/2019 ATTENDING PHYSICIAN: Dr. Beltran CHIEF COMPLAINT: Right knee pain and stiffness. HISTORY OF PRESENT ILLNESS: This is a pleasant, 73-year-old female patient with progressively worsening right knee pain and stiffness. She has failed to improve with conservative management to include injections, rest, activity modifications and oral medications. She has pain with weight bearing activities, walking, climbing stairs and kneeling. It affects her activities of daily living. She has elected for surgery for her continued symptoms. She has consented for a right total knee arthroplasty by Dr. Beltran. X-rays of her right knee are notable for [id number] in the medial compartment and advanced tricompartmental degenerative changes of the knee. ALLERGIES: - PENICILLIN - increased anxiety while taking MORPHINE CURRENT MEDICATIONS - presurgical - aspirin 325 mg once daily - chlorthalidone 25 mg once daily - Proventil 108 mcg when needed - potassium chloride 2 mEq/mL one by mouth four times daily - losartan potassium 100 mg one by mouth every day - amlodipine 2.5 mg one by mouth every day - propranolol 10 mg one by mouth three times a day - vitamin D3 25 mcg a day - vitamin C 500 mg one by mouth every day - magnesium 250 mg one by mouth every day - vitamin B12 500 mcg one by mouth every day - potassium 99 mg one by mouth every day - mirtazapine 15 mg one by mouth every day - duloxetine 20 mg one by mouth every day - gabapentin 100 mg three times a day - carbamazepine 200 mg one daily - baclofen 10 mg three times a day - pantoprazole sodium 40 mg one by mouth daily - sucralfate 1 gram as needed - Spironolactone 25 mg one half tablet by mouth every day - carvedilol one tablet by mouth twice daily PAST MEDICAL HISTORY: 1. Anxiety and depression. 2. Herniated disk. 3. Trigeminal neuralgia. 4. History of stroke three years ago. PAST SURGICAL HISTORY: 1. Hysterectomy in 1975. 2. Gallbladder removal in 1973. 3. Right eye lens replacements times three in 2019. SOCIAL HISTORY: Does not smoke or use alcohol. REVIEW OF SYSTEMS: Denies fever, chills, chest pain, shortness of breath, or cough. Denies difficulty breathing. Denies abdominal pain. Denies nausea or vomiting. Has persistent pain with her right knee with weight bearing activities. Denies upper respiratory infection (URI) or urinary tract infection (UTI) symptoms. PHYSICAL EXAMINATION: Height 60 inches. Weight 173 pounds. Temperature 99.7. Blood pressure 132/91. Pulse 82. Respiratory rate 13. Today, reveals a well nourished, well developed, alert female patient who walks with a slight limping gait and now requires a wheelchair for assistance and ambulation. Exam of the right knee shows the skin to be intact. There is no erythema, edema or ecchymosis. There is tenderness over the anterior medial aspect of the knee. Range of motion is 0 to 105 degrees on exam. Stable to varus and valgus stress. Well perfused left lower extremity. Neck is supple without adenopathy or jugular venous distention (JVD). Lungs are clear to auscultation without rales or wheeze. Heart: Regular rate and rhythm. Abdomen: Bowel sounds are present. ELECTROCARDIOGRAM (EKG): Noticed for sinus rhythm. CHEST X-RAY: No acute cardiopulmonary process noted. LABORATORY DATA: White count 7.5, red count 4.17, hemoglobin 13.1, hematocrit 39.7, glucose 96, BUN 14, creatinine 0.65, sodium 121, potassium 3.5, prothrombin time 14.9, INR 1.2, erythrocyte sedimentation rate is pending. PREOPERATIVE MEDICAL OPTIMIZATION: Dr. Blanca, but is not present for review today. IMPRESSION: Symptomatic osteoarthritis of the right knee. PLAN: Consented for right total knee arthroplasty by Dr. Beltran. JIGNESH
[~2019-09-23] VITALS: Ht 152.4 cm; Wt 81.6 kg
[2019-09-23] VITALS (9 sets, daily range): BP systolic 109–131; BP diastolic 45–66; O2SAT 97
[~2019-09-23 05:59] MED LIST changes: -PERC5TAB12 PO; -XARE10TA PO
[2019-09-23] MEDS ORDERED: LR 1,000 ML IV ONE (06:00)
[2019-09-23] MEDS ORDERED: ACETAMINOPHEN 500 MG TAB PO ONE (06:00)
[2019-09-23] MEDS ORDERED: LIDOCAINE 1% MDV 20ML VIAL SQ PRN (06:00)
[2019-09-23] MEDS ORDERED: fentaNYL 100 MCG/2 ML INJECTION (J3010) IV SCH (06:00)
[2019-09-23] MEDS ORDERED: ceFAZolin SOD 2 GM in IV 1 EA IV SCH (06:00)
[2019-09-23] MEDS ORDERED: MIDAZOLAM INJ 2 MG/2 ML VIAL (J2250) As Ordered ONE (07:02)
[2019-09-23] MEDS ORDERED: fentaNYL 100 MCG/2 ML INJECTION (J3010) As Ordered ONE ×2 (07:02→07:17)
[2019-09-23] MEDS ORDERED: TRANEXAMIC ACID 100 MG/ML 10ML VIAL As Ordered ONE (07:10)
[2019-09-23] MEDS ORDERED: BUPIVACAINE HCL 0.25% 10 ML VIAL As Ordered ONE (07:10)
[2019-09-23] MEDS ORDERED: EPINEPHrine INJ 1 MG/ML 1ML VIAL As Ordered ONE (07:11)
[2019-09-23] MEDS ORDERED: CLINDAMYCIN INJ 900MG/6ML VIAL As Ordered ONE (07:11)
[2019-09-23] MEDS ORDERED: BUPIVACAINE LIPOSOME/PF 1.3% 20ML VIAL (13.3MG/ML)(EXPAREL)(C9290 PER1MG) As Ordered ONE (07:11)
[2019-09-23] MEDS ORDERED: dexameTHASONE 4 MG/ML 1ML VIAL (J1100) As Ordered ONE (07:17)
[2019-09-23] MEDS ORDERED: PROPOFOL 500 MG/50 ML VIAL As Ordered ONE (07:17)
[2019-09-23] MEDS ORDERED: ONDANSETRON 4MG/2ML VIAL (J2405) As Ordered ONE (07:17)
[2019-09-23] MEDS ORDERED: LIDOCAINE 2% INJ 100 MG/5 ML SDV (FOR ANES.) As Ordered ONE (07:17)
[2019-09-23] MEDS: MIDAZOLAM INJ 2 MG/2 ML VIAL (J2250) IV SCH ×2 (07:26→07:30)
[2019-09-23] MEDS ORDERED: ePHEDrine SULFATE 25 MG/5 ML(5MG/ML) SYRINGE As Ordered ONE (08:09)
[2019-09-23] MEDS ORDERED: METOCLOPRAMIDE INJ 10MG/2ML VIAL (J2765) As Ordered ONE (09:05)
[2019-09-23] MEDS ORDERED: PHENYLephrine HCL 500 MCG/5 ML (100MCG/ML) SYRINGE (J2370) As Ordered ONE (09:05)
[2019-09-23] MEDS ORDERED: MORPHINE 4 MG/ML 1ML VIAL/SYRINGE (J2270) IV PRN (09:45)
[2019-09-23] MEDS ORDERED: METOCLOPRAMIDE INJ 10MG/2ML VIAL (J2765) IV PRN ×2 (09:45→11:00)
[2019-09-23] MEDS ORDERED: fentaNYL 100 MCG/2 ML INJECTION (J3010) IV PRN ×2 (09:45→11:00)
[2019-09-23] MEDS ORDERED: ACETAMINOPHEN TAB 650MG DOSE (2X325MG) PO PRN (09:45)
[2019-09-23] MEDS ORDERED: PERCOCET 5MG/325MG TAB PO PRN ×4 (09:45→20:45)
[2019-09-23] MEDS ORDERED: LR 1,000 ML IV SCH ×2 (09:45→11:00)
[2019-09-23] MEDS ORDERED: ONDANSETRON 4MG/2ML VIAL (J2405) IV PRN ×3 (09:45→12:30)
[2019-09-23] MEDS ORDERED: MEPERIDINE INJ 25 MG/ML VIAL (J2175) IV PRN ×2 (09:45→11:00)
[2019-09-23] MEDS ORDERED: FLEET ENEMA PR PRN (09:45)
[2019-09-23] MEDS ORDERED: MORPHINE 2 MG/ML 1ML VIAL (J2270) IV PRN (09:45)
--- NOTE | 2019-09-23 10:11 | REP ---
Clinical: Status post knee replacement. Technique AP and cross-table lateral views. Findings: The patient is status post right knee replacement with normal positioning and appearance to the femoral and tibial components. Overlying postsurgical changes appreciated. Impression: Status post right knee replacement. Electronically Signed by Jose Germain MD 09/23/2019 10:02 A
[2019-09-23] MEDS ORDERED: HYDROMORPHONE HCL 0.5 MG/ 0.5 ML SYRINGE (J1170 PER 1) IV PRN ×2 (11:00)
[2019-09-23] MEDS: LR 1,000 ML IV SCH ×2 (11:22→21:10)
--- NOTE | 2019-09-23 14:52 | CR.PDOC ---
General Date of Consultation: Sep 23, 2019 Referring Provider: AN RAMESH Consultation REASON FOR CONSULTATION/CHIEF COMPLAINT: Postoperative medical management. HISTORY OF PRESENT ILLNESS: This is a 73-year-old female with degenerative joint disease. She has had significant pain and disability to her right knee especially. She has tried multiple modalities for relief inclusive of therapies and medication. She has become increasingly distressed over her decreased mobility and decreased ability to perform her activities of daily living. She h as opted to undergo right total knee arthroplasty to try to improve her quality of life.. ALLERGIES: Please see below. HOME MEDICATIONS: Please see below. 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 GENERAL APPEARANCE: Awake, alert, conversant. HEENT: Neck is supple with no adenopathy or thyromegaly, she does not have any scleral injection, oral mucosa is moist. RESPIRATORY: Clear to auscultation with good air movement. CARDIOVASCULAR: Regular rate and rhythm, no murmur. ABDOMEN: Soft, mild lower abdominal tenderness but no guarding or rebound, bowel tones are present. EXTREMITIES: No edema, right lower extremity is wrapped in a compression dress ing. Distally, pedal pulses palpable. NEUROLOGICAL: No current focal neuromotor or sensory deficit. PSYCHIATRIC: Cognition, judgment and insight are intact. LABORATORY DATA: Please see below. ASSESSMENT/PLAN: 1. Degenerative joint disease. The patient is now status post right total knee arthroplasty. She does not have significant pain currently, but is concerned for pain when she is up out of bed. She has been hesitant to use opioids; her primary pain control has been with Neurontin. We will restore this for her once her medication list is complete in the computer. Mobility will be per orthopedic service. We are anticipating that she will be able to transition to home, although she has asked about rehabilitation. This will depend on how well she progresses. DVT prophylaxis is with Xarelto. We have made available some additional bowel care medication regimen. 2. Trigeminal neuralgia. We will continue her medication regimen for this as well. 3. Resolved right eye blindness. The patient had had disruption to her choroid tissue. She has undergone surgical repair. It will be important to maintain her eyedrops. Vital Signs/I&O Vital Signs Date Time Temp Pulse Resp B/P (MAP) Pulse Ox O2 Delivery O2 Flow Rate FiO2 09/23/19 11:37 97.8 60 12 129/64 (85) 98 Nasal Cannula 2.0 Allergies Coded Allergies: Sulfa (Sulfonamide Antibiotics) (Verified Allergy, Severe, THROAT CLOSED, 09/07/19) Penicillins (Verified Allergy, Intermediate, SWELLING, 09/07/19) morphine (Verified Adverse Reaction, Intermediate, PANIC ATTACK, 09/22/19) Home Medications Scheduled Ascorbic Acid (Vitamin C) 250 Mg Tab, 500 MG PO DAILY, (Reported) Aspirin (Aspirin EC) 325 Mg Tabec, 325 MG PO DAILY, (Reported) Baclofen (Baclofen) 10 Mg Tab, 10 MG PO BID, (Reported) Carboxymethylcellulose Sodium (Refresh Tears) 15 Ml Drops, 0.5 % OU BID, (Reported) Carvedilol (Carvedilol) 12.5 Mg Tab, 12.5 MG PO BID, (Reported) Chlorthalidone (Chlorthalidone) 25 Mg Tablet, 12.5 MG PO DAILY, (Reported) Cholecalciferol (Vitamin D3) (Vitamin D3) 1,000 Unit Tablet, 1,000 UNIT PO DAILY, (Reported) Cyanocobalamin (Vitamin B-12) (Vitamin B-12) 1,000 Mcg Capsule, 1,000 MCG PO DAILY, (Reported) Cyclosporine (Restasis) 0.05% Droperette, 1 DROP OU BID, (Reported) Duloxetine Hcl (Duloxetine HCl) 20 Mg Capsule.dr, 20 MG PO BID, (Reported) Gabapentin (Gabapentin) 300 Mg Capsule, 300 MG PO TID, (Reported) Magnesium Oxide (Magnesium) 400 Mg Cap, 400 MG PO DAILY, (Reported) Mirtazapine (Remeron) 15 Mg Tab.rapdis, 15 MG PO QHS, (Reported) Pantoprazole Sodium (Pantoprazole Sodium) 40 Mg Tablet.dr, 40 MG PO DAILY, (Reported) Potassium Chloride (Potassium Chloride) 8 Meq Cap, 1 TAB PO DAILY, (Reported) Prednisolone Acetate (Prednisolone Acetate 1% Opth Susp) 5 Ml Drops.susp, 1 DROP OD BID, (Reported) Spironolactone (Spironolactone) 25 Mg Tab, 12.5 MG PO DAILY, (Reported) Sucralfate (Sucralfate) 1 Gm Tablet, 1 GM PO BID, (Reported) Scheduled PRN Acetaminophen with Codeine (Tylenol with Codeine #3 Tablet) 1 Each Tablet, 1 TAB PO QIDP PRN for PAIN, (Reported) Lorazepam (Ativan) 0.5 Mg Tab, 0.5 MG PO QID PRN for ANXIETY/AGITATION, (Reported) ROSE CROCKER MD Sep 23, 2019 14:52
[2019-09-23] MEDS ORDERED: ROPIvacaine 0.5% 30 ML INJECTION (J2795 PER 1MG) ONE (14:54)
[2019-09-23] MEDS ORDERED: dexameTHASONE 10 MG/1 ML VIAL PRES.FREE (J1100) ONE (14:54)
[2019-09-23] MEDS ORDERED: EPINEPHrine INJ 1 MG/ML 1ML VIAL ONE (14:54)
[2019-09-23] MEDS: ceFAZolin SOD 2 GM in IV 1 EA IV SCH ×2 (16:00→21:08)
[2019-09-23] MEDS: DULoxetine 20 MG CAP (CYMBALTA) PO SCH (21:07)
[2019-09-23] MEDS: SENOKOT S TAB PO SCH (21:08)
[2019-09-23] MEDS: BACLOFEN 10 MG TAB PO SCH (21:08)
[2019-09-23] MEDS: MIRTAZAPINE 15 MG TAB PO SCH (21:08)
[2019-09-23] MEDS: CARVedilol 12.5 MG TAB PO SCH (21:09)
[2019-09-23] MEDS: LORazepam 0.5 MG TAB PO PRN (21:22)
[2019-09-23] MEDS: PERCOCET 5MG/325MG TAB PO PRN (22:45)
[2019-09-24 02:00] VITALS: BP 125/62
[2019-09-24] MEDS: ceFAZolin SOD 2 GM in IV 1 EA IV SCH (04:22)
[2019-09-24] MEDS: PERCOCET 5MG/325MG TAB PO PRN ×5 (04:23→23:15)
[2019-09-24 06:00] VITALS: BP 124/65
[2019-09-24] MEDS ORDERED: PERC5TAB12 PO (06:07)
[2019-09-24] MEDS ORDERED: XARE10TA PO (06:07)
[2019-09-24 06:46] LABS: HEMATOCRIT 37.2 % (36.0-47.0); HEMOGLOBIN 11.8 g/dl (12.0-15.5); MEAN CORPUSCULAR HEMOGLOBIN 30.1 pg (27.0-33.0); MEAN CORPUSCULAR HGB CONC 31.7 g/dl (32.0-36.5); MEAN CORPUSCULAR VOLUME 94.9 fl (80.0-96.0); PLATELET COUNT, AUTOMATED 223 10^3/uL (150-450); RED BLOOD COUNT 3.92 10^6/uL (4.00-5.40)
[2019-09-24 06:58] LABS: INR 1.27; PROTHROMBIN TIME 15.6 SECONDS (11.8-14.0)
[2019-09-24 07:07] LABS: BLOOD UREA NITROGEN 16 MG/DL (7-18); CALCIUM LEVEL 8.9 MG/DL (8.8-10.2); CARBON DIOXIDE LEVEL 28 MEQ/L (21-32); CHLORIDE LEVEL 101 MEQ/L (98-107); CREATININE FOR GFR 0.83 MG/DL (0.55-1.30); GLOMERULAR FILTRATION RATE > 60.0 (>39); GLUCOSE, FASTING 109 MG/DL (70-100); POTASSIUM SERUM 3.2 MEQ/L (3.5-5.1); SODIUM LEVEL 138 MEQ/L (136-145)
[2019-09-24] MEDS ORDERED: POTASSIUM CHLORIDE 10 MEQ SR TABLET PO ONE (09:00)
[2019-09-24] MEDS ORDERED: ASCORBIC ACID 250 MG TAB PO SCH (09:00)
[2019-09-24] MEDS: MIRALAX *UNIT DOSE* 17GM PACKET PO SCH (09:11)
[2019-09-24] MEDS: MOM 30ML SUSPENSION UDC PO SCH (09:11)
[2019-09-24] MEDS: POTASSIUM CHLORIDE 10 MEQ SR TABLET PO SCH (09:11)
[2019-09-24] MEDS: SPIRONOLACTONE 12.5MG PER 1/2 TABLET PO SCH (09:11)
[2019-09-24] MEDS: GABAPENTIN 300 MG CAP PO SCH ×3 (09:12→20:09)
[2019-09-24] MEDS: CARVedilol 12.5 MG TAB PO SCH ×2 (09:12→20:09)
[2019-09-24] MEDS: SENOKOT S TAB PO SCH ×2 (09:12→20:09)
[2019-09-24] MEDS: BACLOFEN 10 MG TAB PO SCH ×2 (09:12→20:09)
[2019-09-24] MEDS: MAGNESIUM OXIDE 400 MG TAB (MAG-OX) PO SCH (09:13)
[2019-09-24] MEDS: DULoxetine 20 MG CAP (CYMBALTA) PO SCH ×2 (09:13→20:09)
[2019-09-24] MEDS: LORazepam 0.5 MG TAB PO PRN (11:29)
[2019-09-24] MEDS: MORPHINE 4 MG/ML 1ML VIAL/SYRINGE (J2270) IV ONE ×2 (12:29→13:19)
[2019-09-24 13:27] VITALS: BP 150/66
--- NOTE | 2019-09-24 14:00 | RO ---
DATE OF PROCEDURE: 09/23/2019 PREPROCEDURE DIAGNOSIS: Right knee degenerative arthritis. POSTPROCEDURE DIAGNOSIS: Right knee degenerative arthritis. PROCEDURE: Right total knee arthroplasty using a size 4 cruciate-retaining Attune femoral component with a size 3 tibial tray and a 6 mm rotating platform polyethylene insert, and a 32 mm polyethylene button. The prosthesis was made Frankie and Frankie/DeP[employer]. It was an Attune knee. SURGEON: Dr. Gee Beltran HARDENING MACHINE OPERATOR: Mr. Leonides George ANESTHESIA: Spinal with right femoral nerve block. COMPLICATIONS: None. ESTIMATED BLOOD LOSS: 20 mL. SPECIMENS: Joint surface. DESCRIPTION OF PROCEDURE: Antibiotics were given intravenously preoperatively and then a successful right femoral nerve block and then a spinal anesthetic was induced. Tourniquet placed on right upper thigh and not inflated. Right lower extremity was carefully prepped and draped in the usual sterile fashion, leg was elevated, and after appropriate time-out, tourniquet was inflated. Then, a longitudinal incision was made for a medial parapatellar approach to the knee. Bovie cautery was used to coagulate crossing vessels. Proximal subperiosteal dissection around the tibia medially and laterally was performed. The patella was everted, the knee flexed, drill placed down the center of the femoral canal. Intramedullary liliana with a distal femoral cutting jig set at 5 degree valgus cut for a right knee at 9 mm resection level was pinned into position. Then, the distal femoral cut performed, AP sizing jig measured for a size 4 femoral component. 3 degrees of external rotation dialed in, pins placed, 4-in-1 block applied. Anterior, posterior chamfer cuts performed. Then, the jig for the notchplasty was applied to the femur and the notchplasty performed. We exposed the proximal tibia, used the extramedullary alignment jig to estimate being parallel to the mechanical axis of the tibia, referencing off the medial tibial condyle at 4 mm resection level. Block was pinned into position. Secondary check with the extramedullary liliana confirmed that we appeared to be parallel to the mechanical axis of the tibia. Proximal tibial osteotomy thus performed. Lamina senior report developer placed medially and then we performed a completion lateral meniscectomy and debridement of the posterolateral osteophytes, then placed the lamina senior report developer laterally and then performed a completion medial meniscectomy and debridement of the posteromedial osteophytes. Spacer block 6 mm fit nicely with good symmetry to varus/valgus stress testing both in flexion and in extension. We exposed the proximal tibia, sized for a #3 tibial tray, which was then pinned into position, followed by the reamer and broach, the trial polyethylene placed, the trial femoral component was placed. Brought the knee into extension, everted the patella, performed a patellar osteotomy, sized for a 32 button, lug holes drilled, trial placed and patellofemoral tracking was anatomic. We drilled the lug holes for the femur, then removed all the trial components and then placed Exparel in the subperiosteal tissues around the distal femur and the proximal tibia. Then, Mr. Leonides George mixed the cement on the back table as I prepared the bony surfaces for cementing with a copious amount of pulsatile lavage irrigant solution. Mr. George was also critical to the success of this difficult procedure by helping to manipulate the knee, helped to provide appropriate soft tissue retraction, helped to mix the cement, helped to close the wound, prepare the patient amongst many other tasks to allow me to perform the operation smoothly, efficiently, and safely. Once the bony surfaces were thoroughly dry, we cemented the tibial tray, removed excess cement, placed the polyethylene, cemented the femoral component and removed the excess cement. Then, brought the knee into extension, everted the patella, and then cemented the patellar component, removed excess cement and then held the knee in extension with a patellar clamp in place until the cement hardened. As we were awaiting this, we copiously irrigated out the knee joint once again and then instilled tranexamic acid. Then, closed the apex of the arthrotomy with two #1 PDS sutures, the medial parapatellar area was closed with a #1 PDS suture, then a double-armed running #1 Stratafix used to close the capsule. The tourniquet was then released. We copiously irrigated between layers. We closed the deep subdermal tissues with interrupted #2-0 PDS sutures, skin was closed with darlene, followed by a Optifoam and a dry sterile bulky dressing. Then, she was transferred to the recovery room in stable condition. There were no intraoperative complications.
[2019-09-24] MEDS: RIVAROXABAN 10 MG TAB (XARELTO) PO SCH (17:18)
--- NOTE | 2019-09-24 19:46 | IPNPDOC ---
Text Note Date of Service The patient was seen on 09/24/19. NOTE SUBJECTIVE: Ms. Buchanan is POD#1 from R. TKA. She is having difficulty with post-operative pain and cannot tolerate standing or ambulation. OBJECTIVE: Physical exam: HENT: neck is supple, no adenopathy or thyromegaly CV: RRR, no murmur CHEST: CTA ABD: soft, nontender, nondistended, moderate central obesity EXT: R. knee site intact, no distal edema ASSESSMENT/PLAN: Degenerative joint disease. The patient is now status post right total knee arthroplasty. She is having diff iculty with post-op pain. She has been hesitant to use opioids. We are hoping that she will be able to transition to home once her pain is controlled. She has asked about rehabilitation. This will depend on how well she progresses. DVT prophylaxis is with Xarelto. We have made available some additional bowel care medication regimen. VS,Fishbone, I+O VS, Fishbone, I+O Laboratory Tests 09/24/19 05:36 Vital Signs Date Time Temp Pulse Resp B/P (MAP) Pulse Ox O2 Delivery O2 Flow Rate FiO2 09/24/19 19:00 17 Room Air 09/24/19 13:27 98.4 66 150/66 (94) 99 2.0 I&O- Last 24 Hours up to 6 AM 09/24/19 08:00 Intake Total 2935 ml Output Total 170 ml Balance 2765 ml ROSE CROCKER MD Sep 24, 2019 19:46
[2019-09-24] MEDS: MIRTAZAPINE 15 MG TAB PO SCH (20:09)
[2019-09-24 21:00] VITALS: O2SAT 92
[2019-09-24 22:00] VITALS: BP 149/65
[2019-09-25] MEDS: PERCOCET 5MG/325MG TAB PO PRN ×3 (05:11→20:03)
[2019-09-25 06:00] VITALS: BP 150/82
[2019-09-25 06:40] LABS: HEMATOCRIT 36.5 % (36.0-47.0); HEMOGLOBIN 11.8 g/dl (12.0-15.5); MEAN CORPUSCULAR HEMOGLOBIN 30.8 pg (27.0-33.0); MEAN CORPUSCULAR HGB CONC 32.3 g/dl (32.0-36.5); MEAN CORPUSCULAR VOLUME 95.3 fl (80.0-96.0); PLATELET COUNT, AUTOMATED 225 10^3/uL (150-450); RED BLOOD COUNT 3.83 10^6/uL (4.00-5.40); WHITE BLOOD COUNT 13.5 10^3/uL (4.0-10.0)
[2019-09-25 07:02] LABS: BLOOD UREA NITROGEN 21 MG/DL (7-18); CALCIUM LEVEL 9.4 MG/DL (8.8-10.2); CARBON DIOXIDE LEVEL 34 MEQ/L (21-32); CHLORIDE LEVEL 101 MEQ/L (98-107); CREATININE FOR GFR 0.89 MG/DL (0.55-1.30); GLOMERULAR FILTRATION RATE > 60.0 (>39); GLUCOSE, FASTING 119 MG/DL (70-100); POTASSIUM SERUM 3.6 MEQ/L (3.5-5.1); SODIUM LEVEL 139 MEQ/L (136-145)
--- NOTE | 2019-09-25 08:15 | IPN ---
DATE: 09/25/2019 CHIEF COMPLAINT: Postoperative day #2 from a right total knee arthroplasty. HISTORY OF THE PRESENT ILLNESS: This is a 74-year-old female, history of right knee osteoarthritis. She had a total knee arthroplasty performed by Dr. Beltran. She is doing well. She is slow to mobilize. Other than that, no concerns or complaints from her or the nursing staff. She is an only child and only has one son, so she states that she is quite afraid to go home. PHYSICAL EXAMINATION: Well-appearing 74-year-old female. Vital signs: Stable. Dressings dry. Thigh compartment soft. Calf compartments are soft. She is able to wiggle her toes, dorsiflex, and plantarflex her feet. Normal sensation throughout the feet. Feet are warm and well perfused. Good pedal pulses. Laboratory examination reveals a hemoglobin of 11.8, stable. ASSESSMENT/PLAN: This is a 74-year-old female. We will mobilize, weightbearing as tolerated. Cindy, our nurse practitioner, will aid in her discharge planning. She may end up going to a snf facility or a rehab facility based on how things go with the licensed master social worker. We will help plan this on Thursday, tomorrow. She is on Xarelto 10 mg by mouth once daily for venous thromboembolism (VTE) prophylaxis.
[2019-09-25] MEDS ORDERED: FLUBLOK(EGG FREE)(QUAD)INFLUENZA VACC 0.5ML SYRINGE (90682)18YRS&OLDER IM ONE (09:00)
[2019-09-25] MEDS ORDERED: PREVNAR 13 VACCINE SYRINGE (CPT CODE:90670) IM ONE (09:00)
[2019-09-25] MEDS: MAGNESIUM OXIDE 400 MG TAB (MAG-OX) PO SCH (09:44)
[2019-09-25] MEDS: POTASSIUM CHLORIDE 10 MEQ SR TABLET PO SCH (09:44)
[2019-09-25] MEDS: SPIRONOLACTONE 12.5MG PER 1/2 TABLET PO SCH (09:44)
[2019-09-25] MEDS: DULoxetine 20 MG CAP (CYMBALTA) PO SCH ×2 (09:44→21:53)
[2019-09-25] MEDS: MIRALAX *UNIT DOSE* 17GM PACKET PO SCH (09:44)
[2019-09-25] MEDS: MOM 30ML SUSPENSION UDC PO SCH (09:44)
[2019-09-25] MEDS: CARVedilol 12.5 MG TAB PO SCH ×2 (09:45→21:53)
[2019-09-25] MEDS: BACLOFEN 10 MG TAB PO SCH ×2 (09:45→21:50)
[2019-09-25] MEDS: ASCORBIC ACID 500 MG TAB PO SCH (09:45)
[2019-09-25] MEDS: SENOKOT S TAB PO SCH ×2 (09:45→21:50)
[2019-09-25] MEDS: GABAPENTIN 300 MG CAP PO SCH ×3 (09:45→21:50)
[2019-09-25 14:00] VITALS: BP 154/74
[2019-09-25] MEDS: RIVAROXABAN 10 MG TAB (XARELTO) PO SCH (17:07)
[2019-09-25] MEDS: MIRTAZAPINE 15 MG TAB PO SCH (21:50)
[2019-09-25 22:00] VITALS: BP 130/57
[2019-09-26] MEDS: PERCOCET 5MG/325MG TAB PO PRN ×3 (05:42→13:47)
[2019-09-26 06:00] VITALS: BP 143/67
--- NOTE | 2019-09-26 07:24 | IPN ---
DATE OF SERVICE: 09/25/2019 She is postoperative day two for a right total knee replacement. She feels that the pain is slightly better. She does desire to perhaps have rehabilitation. She is being encouraged to stand and ambulate. She did take her pain medicine. White count today is 13.5, improved from 17. Hemoglobin 11.8, hematocrit 36.5 and platelets 225. Electrolytes normal. CO2 up slightly at 34. BUN 21 and creatinine 0.89. Fasting glucose 119. OBJECTIVE: Blood pressure 130/57. Pulse 63. Respirations 20. Temperature 99.1. Oxygen saturation 97% on room air. The patient is alert and oriented. Pupils equal and react to light. Pharynx, tongue and gums pink and moist. Tongue is midline. Neck supple. Without lymphadenopathy. No thyromegaly. No goiter. Chest clear to auscultation. Without wheeze or retraction. Heart is regular. Abdomen benign. Bowel sounds positive. /Rectal: Not done. Extremities: No cyanosis, clubbing or edema. Dressing is dry on the right. Negative Crystal sign. IMPRESSION AND PLAN: 1. Orthopedics plan to mobilize with weight bearing as tolerated. Continue Xarelto for deep vein thrombosis (DVT) prophylaxis.
--- NOTE | 2019-09-26 08:16 | IPN ---
DATE: 09/26/2019 Umu is seen on [address]. She has no medical issues. Currently doing her discharge. Plans are for her to go to ARU. She has a medical history significant for trigeminal neuralgia, history of depression and anxiety, history of stroke, history of lymphoma. No chest pain, shortness of breath, fever, or chills. PHYSICAL EXAMINATION: Vital signs are stable. LUNGS: Clear. ABDOMEN: Soft and nontender. LABS: No labs drawn for today. IMPRESSION: Medically stable. PLAN: ARU. Call if there are any medical issues requiring evaluation prior to her transfer. We will plan to see her while rounding for the hospitalists unless a medical issue develops.
[2019-09-26] MEDS: MOM 30ML SUSPENSION UDC PO SCH (10:01)
[2019-09-26] MEDS: SPIRONOLACTONE 12.5MG PER 1/2 TABLET PO SCH (10:01)
[2019-09-26] MEDS: MIRALAX *UNIT DOSE* 17GM PACKET PO SCH (10:01)
[2019-09-26] MEDS: GABAPENTIN 300 MG CAP PO SCH (10:02)
[2019-09-26] MEDS: POTASSIUM CHLORIDE 10 MEQ SR TABLET PO SCH (10:02)
[2019-09-26] MEDS: ASCORBIC ACID 500 MG TAB PO SCH (10:02)
[2019-09-26] MEDS: MAGNESIUM OXIDE 400 MG TAB (MAG-OX) PO SCH (10:02)
[2019-09-26] MEDS: SENOKOT S TAB PO SCH (10:02)
[2019-09-26] MEDS: BACLOFEN 10 MG TAB PO SCH (10:02)
[2019-09-26 10:04] VITALS: BP 131/58
[2019-09-26] MEDS: CARVedilol 12.5 MG TAB PO SCH (10:04)
[2019-09-26] MEDS: DULoxetine 20 MG CAP (CYMBALTA) PO SCH (10:05)
== END 2019-09-26 13:50 | DRG 470 ==
LOC: M OR 05:59 → M MS5PR 10:36
PROVIDERS: ADMIT Orthopaedic Surgery; ATTEND Orthopaedic Surgery
PROC: 0SRC0J9 Replacement of Right Knee Joint with Synthetic Substitute, Cemented, Open Approach (ICD-10-PCS; principal; 2019-09-23 07:30)
DX: M17.11 Unilateral primary osteoarthritis, right knee (principal); Z88.0 Allergy status to penicillin; Z88.5 Allergy status to narcotic agent; Z79.82 Long term (current) use of aspirin; Z79.899 Other long term (current) drug therapy; F41.9 Anxiety disorder, unspecified; F32.9 Major depressive disorder, single episode, unspecified; Z86.73 Personal history of transient ischemic attack (TIA), and cerebral infarction without residual deficits; G50.0 Trigeminal neuralgia; E66.9 Obesity, unspecified

== ENCOUNTER → 2019-10-03 | Outpatient (REF) ==
[~2019-10-03] MED LIST changes: +PERC5TAB12 PO; +XARE10TA PO
[2019-10-03 11:09] LABS: HEMATOCRIT 34.6 % (36.0-47.0); HEMOGLOBIN 11.4 g/dl (12.0-15.5); MEAN CORPUSCULAR HEMOGLOBIN 31.1 pg (27.0-33.0); MEAN CORPUSCULAR HGB CONC 32.9 g/dl (32.0-36.5); MEAN CORPUSCULAR VOLUME 94.3 fl (80.0-96.0); PLATELET COUNT, AUTOMATED 266 10^3/uL (150-450); RED BLOOD COUNT 3.67 10^6/uL (4.00-5.40); WHITE BLOOD COUNT 8.8 10^3/uL (4.0-10.0)
[2019-10-03 11:45] LABS: BLOOD UREA NITROGEN 8 MG/DL (7-18); CALCIUM LEVEL 9.2 MG/DL (8.8-10.2); CARBON DIOXIDE LEVEL 28 MEQ/L (21-32); CHLORIDE LEVEL 103 MEQ/L (98-107); CREATININE FOR GFR 0.73 MG/DL (0.55-1.30); GLOMERULAR FILTRATION RATE > 60.0 (>39); GLUCOSE, FASTING 100 MG/DL (70-100); POTASSIUM SERUM 3.6 MEQ/L (3.5-5.1); SODIUM LEVEL 139 MEQ/L (136-145)
== END ==
LOC: SKLAB2 10:00
PROVIDERS: ATTEND Internal Medicine
DX: I10 Essential (primary) hypertension (principal)

== ENCOUNTER → 2019-11-20 | Outpatient (CLI) | payer MEDICARE, OTHER ==
--- NOTE | 2019-11-20 11:34 | REP ---
PA and lateral chest: Comparisons are 10/30/2018 and 09/06/2019. The. The lung paz are clear. The cardiac size is normal. The rj, mediastinum, and skeletal structures are unremarkable. There is chronic elevation of the right hemidiaphragm, unchanged. There are surgical clips in the abdominal right upper quadrant, unchanged. Impression: Negative PA and lateral chest. There are no interval changes. Electronically Signed by Kemar Cohn MD 11/20/2019 11:25 A
== END ==
LOC: M LRY 10:49
PROVIDERS: ATTEND Nurse Practitioner Family
DX: R09.89 Other specified symptoms and signs involving the circulatory and respiratory systems (principal)
CPT/HCPCS: 71046; 87804; 87880; 93005; G0463

== ENCOUNTER → 2019-11-20 | Outpatient (REF) | payer MEDICARE, OTHER | LOC: M SFHCLERA 13:37 | PROVIDERS: ATTEND Nurse Practitioner Family | DX: R53.81 Other malaise (principal) ==

== ENCOUNTER → 2020-01-11 | Outpatient (CLI) | payer MEDICARE, OTHER ==
--- NOTE | 2020-01-12 00:49 | ECWPNPC ---
PATIENT NAME: GER TYLER : 1945 GENDER: FEMALE VISIT DATE: 01/11/2020 DISCHARGE DATE: 01/11/20 1104 VISIT LOCKED DATE TIME: PHYSICIAN: LJ AMADOR RESOURCE: LJ AMADOR REASON FOR APPOINTMENT 1. BACK/LEG-PATIENT WANTED AN OFFICE VISIT HISTORY OF PRESENT ILLNESS HISTORY OF PRESENT ILLNESS: HERE ON AN URGENT BASIS TODAY. SHE IS A 74-YEAR-OLD FEMALE THAT WE FOLLOW FOR CHRONIC LOW BACK PAIN WITH LEFT LEG RADICULAR SYMPTOMS. HAD RIGHT KNEE REPLACEMENT IN SEPTEMBER 2019. HAS BEEN EXPERIENCING SEVERE RIGHT LOW BACK PAIN SINCE SURGERY. PAIN RADIATES INTO RIGHT THIGH. SHE HAD 4 WEEKS OF INPATIENT REHABILITATION POST KNEE REPLACEMENT LAST MONTH. RATING PAIN LEVEL 8/10 VAS. PAIN IS AGGRAVATED BY WALKING. HAS TO USE A WALKER. SHE FEELS HER RIGHT KNEE SINCE SURGERY HAS BEEN FINE IT'S JUST BEEN NEW ONSET OF RIGHT LOW BACK PAIN THATS BEEN DEBILITATING. PAIN THE PATIENT DESCRIBES THE PAIN... FALL RISK SCREENING: SCREENING :NO FALLS REPORTED IN THE LAST YEAR CURRENT MEDICATIONS TAKING ACETAMINOPHEN 325 MG CAPSULE 1 CAP ORALLY EVERY MORNING NEEDED TAKING POTASSIUM CHLORIDE ER 8 MEQ TABLET EXTENDED RELEASE 1 CAPSULE WITH FOOD ORALLY DAILY TAKING LOSARTAN POTASSIUM 50 MG TABLET 1 TABLET ORALLY ONCE A DAY TAKING CARVEDILOL 12.5 MG TABLET 1 TAB ORALLY TWICE A DAY TAKING SPIRONOLACTONE 25 MG TABLET 1/2 TABLET ORALLY DAILY TAKING LORAZEPAM 0.5 MG TABLET 1 TABLET NEEDED ORALLY EVERY 6 HRS TAKING VITAMIN D 2000 UNIT TABLET 1 TABLET ORALLY ONCE A DAY TAKING VITAMIN C 500 MG TABLET 1 TABLET ORALLY ONCE A DAY TAKING VITAMIN B 12 100 MCG LOZENGE ORALLY DAILY TAKING COLACE 100 MG CAPSULE 1 CAPSULE NEEDED ORALLY ONCE A DAY TAKING BACLOFEN 10 MG TABLET 1 CAP ORALLY BID TAKING ASPIRIN 325 MG TABLET 1 TABLET ORALLY ONCE A DAY TAKING REFRESH 1 DROP INTO AFFECTED EYE NEEDED OPHTHALMIC DAILY TAKING CARBAMAZEPINE 200 MG TABLET 1 CAP ORALLY BID TAKING MAGNESIUM 400 MG CAPSULE ORALLY DAILY TAKING SUCRALFATE 1 GM TABLET 1 TABLET ON AN EMPTY STOMACH ORALLY TWICE A DAY TAKING GABAPENTIN 600 MG TABLET 1 CAPSULE ORALLY Q8H TID TAKING TYLENOL WITH CODEINE #3 300-30 MG TABLET 1 TABLET NEEDED ORALLY EVERY 6 HRS PRN MDD4 TAKING DELSYM 30 MG/5ML SUSPENSION EXTENDED RELEASE 10 ML NEEDED ORALLY EVERY 12 HRS TAKING CETIRIZINE HCL 10 MG TABLET 1 TABLET NEEDED ORALLY ONCE A DAY TAKING FLONASE 50 MCG/ACT SUSPENSION 1 SPRAY IN EACH NOSTRIL NASALLY TWICE A DAY NOT-TAKING LABETALOL HCL 100 MG TABLET 1 CAP ORALLY BID MEDICATION LIST REVIEWED AND RECONCILED WITH THE PATIENT PAST MEDICAL HISTORY MIGRAINE CERVICALGIA LOW BACK PAIN LEFT LEG PAIN / SCIATICA HX OF LYMPHOMA TRIGEMINAL NEURALGIA ANXIETY DEPRESSION OSTEOARTHRITIS RIGHT CORNEAL DISEASE SHINGLES URINARY INCONTINENCE ALLERGIES SULFA (FOR ALLERGY USE ONLY) PENICILLIN (FOR ALLERGIES USE ONLY): FACIAL SWELLING - ALLERGY MORPHINE: AGITATION - SIDE EFFECTS BACTRIM: ANGIOEDEMA - ALLERGY IV DYE: AGGITATION, PANIC ATTACK, HIVES - ALLERGY SURGICAL HISTORY TOTAL HYSTERECTOMY 1979 CHOLECYSTECTOMY 1983 RHINOPLASTY 1991 LEFT EAR SURGERY 1995 LEFT KNEE SURGERY 2005 LOOP RECORDER 2015 CORNEA REPLACEMENT (DONE IN FEBRUARY AND REDONE IN MARCH) RIGHT CORNEAL REPLACEMENT RIGHT KNEE REPLACEMENT 09/23/2019 FAMILY HISTORY FATHER: 52 YRS MOTHER: 69 YRS, BREAST CANCER, RHEUMATOID ARTHRITIS, DIAGNOSED WITH OTHER MALIGNANT NEOPLASM OF UNSPECIFIED SITE SON(S): ALIVE 45 YRS, DISCOID LUPUS 1 SON(S) - HEALTHY. SOCIAL HISTORY GENERAL: TOBACCO USE ARE YOU A:NONSMOKER OTHERS AT HOME: CHILD. 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 LANGUAGE LANGUAGES SPOKEN:MEXICAN DOMESTIC VIOLENCE DO YOU FEEL SAFE IN YOUR ENVIRONMENT?YES NEW PATIENT PAIN DIARY TODAY'S VISITNOTES 01/11/2020 PATIENT DESCRIBES PAIN :IT COMES AND GOES, THROBBING, SHOOTING PAIN WORSE WHEN WALKING - MAKING IT VERY DIFFICULT TO WALK. FROM 0-10, WHAT LEVEL IS YOUR PAIN TODAY?8 RECREATIONAL DRUG USE DRUG USE?NO EXERCISE: NONE. LEARNING BARRIERS / SPECIAL NEEDS HEARING IMPAIRED?YES LEFT VISION IMPAIRED?YES COGNITIVELY IMPAIRED?NO :HEARING AIDES :CORRECTIVE LENSES READINESS TO LEARN?YES LEARNING PREFERENCES?YES :BOOKLETS, HANDOUTS LEARNING CAPABILITIES PRESENT?YES EMOTIONAL BARRIERS?NO SPECIAL DEVICES?YES :CANE WORKERS COMPENSATION DEFENSE ATTORNEY NEEDED?NO LUNG CANCER SCREENING SMOKING STATUS:NON SMOKER PAIN CLINIC PFS, CLERGY, PUBLIC HEALTH REFERRALS PFS REFERRAL NEEDED?NO CLERGY REFERRAL NEEDED?NO PUBLIC HEALTH REFERRAL NEEDED?NO WAS THE PROVIDER NOTIFIED OF ANY PERTINENT INFO?YES HAS THE PATIENT BEEN EDUCATED REGARDING HIS/HER PLAN OF CARE?YES HAS THE PATIENT BEEN EDUCATED REGARDING PAIN, THE RISK FOR PAIN, THE IMPORTANCE OF EFFECTIVE PAIN MANAGEMENT, AND THE PAIN ASSESSMENT PROCESS?YES LATEX QUESTIONNAIRE LATEX ALLERGY : HAVE YOU EVER DEVELOPED ANY TYPE OF REACTION AFTER HANDLING LATEX PRODUCTS SUCH RUBBER GLOVES, CONDOMS, DIAPHRAGMS, BALLOONS, SOCKS, OR UNDERWEAR?NO LATEX ALLERGY : HAVE YOU EVER DEVELOPED ANY TYPE OF REACTION DURING OR AFTER DENTAL APPOINTMENT, VAGINAL/RECTAL EXAMINATION, SURGICAL PROCEDURE, OR ANY OTHER EXPOSURE?NO LATEX RISK : HAVE YOU EVER HAD ANY DIFFICULTY BREATHING OR HIVES AFTER EATING OR HANDLING ANY FRUITS, OR VEGETABLES; SUCH KIWI, BANANAS, STONE FRUITS, OR CHESTNUTSNO LATEX RISK : DO YOU HAVE A PREVIOUS PERSONAL HISTORY OF MORE THAN NINE SURGERIES, SPINA BIFIDA, OR REPEATED CATHERIZATIONS? NO LATEX RISK : ARE YOU FREQUENTLY EXPOSED TO LATEX PRODUCTS IN YOUR OCCUPATION?NO DATE ASKED : 01/11/2020 CAFFEINE CAFFEINE USE?NO ADVANCE DIRECTIVE ADVANCE DIRECTIVE DISCUSSED WITH PATIENT:YES HCP - [place] (SON) GNOSTICIST [id number] HOLINESS MARITAL STATUS: .. ALCOHOL SCREENING DID YOU HAVE A DRINK CONTAINING ALCOHOL IN THE PAST YEAR?NO POINTS0 INTERPRETATIONNEGATIVE OCCUPATION: RETIRED. HOSPITALIZATION/MAJOR DIAGNOSTIC PROCEDURE SURGERY RELATED REVIEW OF SYSTEMS REVIEWED BY: PROVIDER: LJ JOLLY . CONSTITUTIONAL: ANY CHANGE IN YOUR MEDICAL CONDITION? YES, HAD RIGHT KNEE REPLACEMENT AT THE END OF AUGUST . CHILLS NO . FEVER NO . INFECTION: DO YOU HAVE NEW INFECTIONS? NO . DO YOU HAVE HISTORY OF MRSA? NO . MUSCULOSKELETAL: ANY NEW PATTERNS OF PAIN OR NUMBNESS? NO . GASTROENTEROLOGY: ANY NEW CHANGE IN BOWEL CONTROL? NO . GENITOURINARY: ANY NEW CHANGE IN BLADDER CONTROL? NO . IS THERE A CHANCE YOU COULD BE ? NO . HEMATOLOGY/LYMPH: DO YOU TAKE ANY BLOOD THINNERS? (FOR EXAMPLE- COUMADIN, PLAVIX, AGGRENOX, PLATEL, PRADAXA, OR XARELTO) NO . WHEN WAS YOUR LAST DOSE? DATE: TIME: . NEUROLOGY: HAVE YOU FALLEN IN THE PAST 12 MONTHS? NO . ANY NEW EXTREMITY NUMBNESS OR WEAKNESS? NO . CARDIOLOGY: DO YOU HAVE A PACEMAKER OR DEFIBRILLATOR? NO . RESPIRATORY: HAVE YOU BEEN SICK IN THE PAST WEEK? NO . FEVER NO . FLU LIKE SYMPTOMS? NO . COUGH NO . INTEGUMENTARY: DO YOU HAVE ANY RASHES OR OPEN SORES? YES, RASH/DRY SKIN TO ABDOMEN . ALLERGIC/IMMUNO: ARE YOU ALLERGIC TO IV DYE? YES . ANY NEW ALLERGIES? NO . PSYCHIATRIC: DO YOU HAVE THOUGHTS OF HURTING YOURSELF OR SOMEONE ELSE? NO . ARE YOU ABUSED, NEGLECTED, OR IN AN UNSAFE ENVIRONMENT? NO . ENDOCRINOLOGY: ARE YOU DIABETIC? NO . OTHER: DO YOU NEED ANY PRESCRIPTIONS? NO . IF YES, PLEASE LIST: ____ . ANY NEW PROBLEMS WITH YOUR MEDICATIONS? NO . WHEN DID YOU LAST EAT? ____ . WHEN DID YOU LAST DRINK? ____ . WHAT DID YOU LAST DRINK? ____ . NAME OF PERSON DRIVING YOU HOME? ____ . DO YOU HAVE ANY OTHER QUESTIONS OR CONCERNS YES, WOULD LIKE TO DISCUSS A PROCEDURE FOR HER LOW BACK . VITAL SIGNS WT 180.0 LBS, HT 60 IN, BMI 35.15 INDEX, BP 119/59 MM HG, HR 82 /MIN, RR 18 /MIN, TEMP 98.0 F, OXYGEN SAT % 92%, SAFE IN ENV? (Y/N) YES, NA INITIALS AW 1001, REVIEWED BY: PILLO. EXAMINATION GENERAL EXAMINATION: GENERAL ALERT,NO DISTRESS . PSYCH AFFECT NORMAL . LUNGS: LUNG SOUNDS ARE CLEAR . HEART: HEART RATE REGULAR . MUSCULOSKELETAL: MST 5/5 BILAT. LOWER EXTREMITIES . LUMBAR: MARKED TENDERNESS NOTED OVER RIGHT SIJ . ASSESSMENTS SACROILIITIS - M46.1 (PRIMARY) TREATMENT SACROILIITIS START PERCOCET TABLET, 5-325 MG, 1 TABLET NEEDED, ORALLY, Q8H PRN FOR SEVERE PAIN MDD3, 30 DAYS, 30, REFILLS 0 NOTES: MEDICATION INFORMATION SHEETS PRINTED AND REVIEWED WITH PATIENT. 01/11/2020 LASIST REGISTRY REVIEWED AND DEMONSTRATES COMPLLIANCE. RISKS OF NARCOTIC/OPIOD MEDICATIONS INCLUDES BUT IS NOT LIMITED TO RISK OF DEPENDANCE/DEVELOPMENT OF ADDICTION, MOOD DISTURBANCE AND DEPRESSION, OSTEOPOROSIS, HORMONAL AND LABIDAL CHANGES, RESPIRATORY DEPRESSION AND . PATIENT IS ADVISED NOT TO DRIVE OR DRINK ALCOHOL WHILE ON THESE MEDICATIONS, . PROCEDURE CODES FA211 ESTABILISHED PATIENT [facility] CHARGE DISPOSITION & COMMUNICATION FOLLOW UP PHONE VISIT [address] Bourgeois--? URGENT VISIT RIGHT SIJ ELECTRONICALLY SIGNED BY RIK SERRATO ON 01/11/2020 AT 02:41 PM EDT DISCLAIMER : THIS IS A VISIT SUMMARY EXTRACTED FROM THE [employer] CHART. IT IS NOT A COPY OF THE [employer] PROGRESS NOTE. JIGNESH
== END ==
LOC: M PAIN 09:45
PROVIDERS: ATTEND Nurse Practitioner Family
DX: M46.1 Sacroiliitis, not elsewhere classified (principal); Z79.82 Long term (current) use of aspirin; Z79.899 Other long term (current) drug therapy; Z88.0 Allergy status to penicillin; Z88.1 Allergy status to other antibiotic agents; Z88.2 Allergy status to sulfonamides; Z88.5 Allergy status to narcotic agent; Z91.041 Radiographic dye allergy status

== ENCOUNTER → 2020-01-25 | Outpatient (CLI) | payer MEDICARE, OTHER ==
[~2020-01-25] MED LIST changes: +BUPIVACAINE HCL 0.25% 10ML VIAL As Ordered ONE; +BUPIVACAINE HCL 0.25% 30ML VIAL As Ordered ONE
--- NOTE | 2020-01-31 02:11 | ECWPNPC ---
PATIENT NAME: GER TYLER : 1945 GENDER: FEMALE VISIT DATE: 01/25/2020 DISCHARGE DATE: 01/25/20 1442 VISIT LOCKED DATE TIME: PHYSICIAN: VIVIAN CHAVES MD RESOURCE: VIVIAN CHAVES MD REASON FOR APPOINTMENT 1. [address] Christelle MCADAMS RIGHT SIJ- PAT COMPLETED HISTORY OF PRESENT ILLNESS ZZGENERALS: 74 YEAR OLD FEMALE PATIENT WITH A HISTORY OF CHRONIC LOW BACK AND RIGHT HIP PAIN. THE PATIENT DESCRIBES HER PAIN IT COMES AND GOES, THROBBING, SHOOTING WITH A PAIN SCORE OF 7-9/10 DEPENDING ON PHYSICAL ACTIVITY. THE PATIENT STATES HER LOW BACK AND RIGHT HIP PAIN STARTED AFTER HAVING A RIGHT KNEE OPERATION ON 09/23/2019. THE PATIENT SAYS HER PAIN HAS BEEN INCREASING SINCE HER KNEE SURGERY AND IS MAKING IT VERY DIFFICULT FOR HER TO WALK DUE TO THE SHOOTING PAIN SHE EXPERIENCES. THE PATIENT IS VERY UNCOMFORTABLE FROM HER PAIN. THE PATIENT DENIES UNEXPLAINED WEIGHT LOSS, FEVER, CHILLS, NEW CHANGES IN HER URINARY OR BOWEL CONTROL. HISTORY OF PRESENT ILLNESS: PAIN THE PATIENT DESCRIBES THE PAIN... FALL RISK SCREENING: SCREENING :NO FALLS REPORTED IN THE LAST YEAR CURRENT MEDICATIONS TAKING ACETAMINOPHEN 325 MG CAPSULE 1 CAP ORALLY EVERY MORNING NEEDED, NOTES: UNSURE TAKING POTASSIUM CHLORIDE ER 8 MEQ TABLET EXTENDED RELEASE 1 CAPSULE WITH FOOD ORALLY DAILY, NOTES: 01/25/20 1000 TAKING LOSARTAN POTASSIUM 50 MG TABLET 1 TABLET ORALLY ONCE A DAY, NOTES: 01/25/20 1000 TAKING CARVEDILOL 12.5 MG TABLET 1 TAB ORALLY TWICE A DAY, NOTES: 01/25/20 1000 TAKING SPIRONOLACTONE 25 MG TABLET 1/2 TABLET ORALLY DAILY, NOTES: 01/25/20 1000 TAKING LORAZEPAM 1 MG TABLET 1 TABLET NEEDED ORALLY EVERY 6 HRS, NOTES: 01/25/20 1030 TAKING VITAMIN D 2000 UNIT TABLET 1 TABLET ORALLY ONCE A DAY, NOTES: 01/25/20 1000 TAKING VITAMIN C 500 MG TABLET 1 TABLET ORALLY ONCE A DAY, NOTES: 01/25/20 1000 TAKING VITAMIN B 12 100 MCG LOZENGE ORALLY DAILY, NOTES: 01/25/20 1000 TAKING COLACE 100 MG CAPSULE 1 CAPSULE NEEDED ORALLY ONCE A DAY, NOTES: 01/25/20 1000 TAKING BACLOFEN 10 MG TABLET 1 CAP ORALLY BID, NOTES: 01/25/20 1000 TAKING ASPIRIN 325 MG TABLET 1 TABLET ORALLY ONCE A DAY, NOTES: 01/25/20 1000 TAKING REFRESH 1 DROP INTO AFFECTED EYE NEEDED OPHTHALMIC DAILY, NOTES: 01/25/20 1000 TAKING CARBAMAZEPINE 200 MG TABLET 1 CAP ORALLY BID, NOTES: 01/25/20 1000 TAKING MAGNESIUM 400 MG CAPSULE ORALLY DAILY, NOTES: 01/25/20 1000 TAKING GABAPENTIN 300 MG CAPSULE 1 CAPSULE ORALLY Q8H TID, NOTES: 01/25/20 1000 TAKING TYLENOL WITH CODEINE #3 300-30 MG TABLET 1 TABLET NEEDED ORALLY EVERY 6 HRS PRN MDD4, NOTES: 01/25/20 1000 NOT-TAKING SUCRALFATE 1 GM TABLET 1 TABLET ON AN EMPTY STOMACH ORALLY TWICE A DAY NOT-TAKING DELSYM 30 MG/5ML SUSPENSION EXTENDED RELEASE 10 ML NEEDED ORALLY EVERY 12 HRS NOT-TAKING CETIRIZINE HCL 10 MG TABLET 1 TABLET NEEDED ORALLY ONCE A DAY NOT-TAKING FLONASE 50 MCG/ACT SUSPENSION 1 SPRAY IN EACH NOSTRIL NASALLY TWICE A DAY NOT-TAKING PERCOCET 5-325 MG TABLET 1 TABLET NEEDED ORALLY Q8H PRN FOR SEVERE PAIN MDD3 NOT-TAKING LABETALOL HCL 100 MG TABLET 1 CAP ORALLY BID MEDICATION LIST REVIEWED AND RECONCILED WITH THE PATIENT PAST MEDICAL HISTORY MIGRAINE CERVICALGIA LOW BACK PAIN LEFT LEG PAIN / SCIATICA HX OF LYMPHOMA TRIGEMINAL NEURALGIA ANXIETY DEPRESSION OSTEOARTHRITIS RIGHT CORNEAL DISEASE SHINGLES URINARY INCONTINENCE ANGINA HISTORY REPORTED BY PT HYPERTENSION HISTORY REPORTED BY PT ALLERGIES SULFA (FOR ALLERGY USE ONLY) PENICILLIN (FOR ALLERGIES USE ONLY): FACIAL SWELLING - ALLERGY MORPHINE: AGITATION - SIDE EFFECTS BACTRIM: ANGIOEDEMA - ALLERGY IV DYE: AGGITATION, PANIC ATTACK, HIVES - ALLERGY SURGICAL HISTORY TOTAL HYSTERECTOMY 1979 CHOLECYSTECTOMY 1983 RHINOPLASTY 1991 LEFT EAR SURGERY 1995 LEFT KNEE SURGERY 2006 LOOP RECORDER 2016 CORNEA REPLACEMENT (DONE IN FEBRUARY AND REDONE IN MARCH) RIGHT CORNEAL REPLACEMENT RIGHT KNEE REPLACEMENT 09/23/2019 FAMILY HISTORY FATHER: 52 YRS MOTHER: 69 YRS, BREAST CANCER, RHEUMATOID ARTHRITIS, DIAGNOSED WITH OTHER MALIGNANT NEOPLASM OF UNSPECIFIED SITE SON(S): ALIVE 45 YRS, DISCOID LUPUS 1 SON(S) - HEALTHY. SOCIAL HISTORY GENERAL: TOBACCO USE ARE YOU A:NONSMOKER LATEX QUESTIONNAIRE LATEX ALLERGY : HAVE YOU EVER DEVELOPED ANY TYPE OF REACTION AFTER HANDLING LATEX PRODUCTS SUCH RUBBER GLOVES, CONDOMS, DIAPHRAGMS, BALLOONS, SOCKS, OR UNDERWEAR?NO LATEX ALLERGY : HAVE YOU EVER DEVELOPED ANY TYPE OF REACTION DURING OR AFTER DENTAL APPOINTMENT, VAGINAL/RECTAL EXAMINATION, SURGICAL PROCEDURE, OR ANY OTHER EXPOSURE?NO LATEX RISK : HAVE YOU EVER HAD ANY DIFFICULTY BREATHING OR HIVES AFTER EATING OR HANDLING ANY FRUITS, OR VEGETABLES; SUCH KIWI, BANANAS, STONE FRUITS, OR CHESTNUTSNO LATEX RISK : DO YOU HAVE A PREVIOUS PERSONAL HISTORY OF MORE THAN NINE SURGERIES, SPINA BIFIDA, OR REPEATED CATHERIZATIONS? NO LATEX RISK : ARE YOU FREQUENTLY EXPOSED TO LATEX PRODUCTS IN YOUR OCCUPATION?NO DATE ASKED : 01/24/2020 LUNG CANCER SCREENING SMOKING STATUS:NON SMOKER ALCOHOL SCREENING DID YOU HAVE A DRINK CONTAINING ALCOHOL IN THE PAST YEAR?NO POINTS0 INTERPRETATIONNEGATIVE RECREATIONAL DRUG USE DRUG USE?NO CAFFEINE CAFFEINE USE?NO YAZDANISM [id number] AMISH LANGUAGE LANGUAGES SPOKEN:CZECH EDUCATION LEVEL OF EDUCATION:PROFESSIONAL SCHOOLS/MASTERS/PHD LEARNING BARRIERS / SPECIAL NEEDS HEARING IMPAIRED?YES LEFT VISION IMPAIRED?YES COGNITIVELY IMPAIRED?NO :HEARING AIDES :CORRECTIVE LENSES READINESS TO LEARN?YES LEARNING PREFERENCES?YES :BOOKLETS, HANDOUTS LEARNING CAPABILITIES PRESENT?YES EMOTIONAL BARRIERS?NO SPECIAL DEVICES?YES :CANE OPERATIONS AND INTELLIGENCE ASSISTANT NEEDED?NO DOMESTIC VIOLENCE DO YOU FEEL SAFE IN YOUR ENVIRONMENT?YES OCCUPATION: RETIRED. DIET: REGULAR. EXERCISE: NONE. MARITAL STATUS: .. OTHERS AT HOME: CHILD. NEW PATIENT PAIN DIARY TODAY'S VISITNOTES 01/25/2020 PATIENT DESCRIBES PAIN :IT COMES AND GOES, THROBBING, SHOOTING PAIN WORSE WHEN WALKING - MAKING IT VERY DIFFICULT TO WALK. FROM 0-10, WHAT LEVEL IS YOUR PAIN TODAY?4 PRECIPITATING FACTORS WALKING ALLEVIATING FACTORS MEDICATION PAIN CLINIC PFS, CLERGY, PUBLIC HEALTH REFERRALS PFS REFERRAL NEEDED?NO CLERGY REFERRAL NEEDED?NO PUBLIC HEALTH REFERRAL NEEDED?NO WAS THE PROVIDER NOTIFIED OF ANY PERTINENT INFO?YES HAS THE PATIENT BEEN EDUCATED REGARDING HIS/HER PLAN OF CARE?YES HAS THE PATIENT BEEN EDUCATED REGARDING PAIN, THE RISK FOR PAIN, THE IMPORTANCE OF EFFECTIVE PAIN MANAGEMENT, AND THE PAIN ASSESSMENT PROCESS?YES ADVANCE DIRECTIVE ADVANCE DIRECTIVE DISCUSSED WITH PATIENT:YES HCP - [place] ([facility]) HOSPITALIZATION/MAJOR DIAGNOSTIC PROCEDURE SURGERY RELATED REVIEW OF SYSTEMS REVIEWED BY: PROVIDER: VIVIAN CHAVES MD . CONSTITUTIONAL: ANY CHANGE IN YOUR MEDICAL CONDITION? NO . CHILLS NO . FEVER NO . INFECTION: DO YOU HAVE NEW INFECTIONS? NO . DO YOU HAVE HISTORY OF MRSA? NO . MUSCULOSKELETAL: ANY NEW PATTERNS OF PAIN OR NUMBNESS? NO . GASTROENTEROLOGY: ANY NEW CHANGE IN BOWEL CONTROL? NO . GENITOURINARY: ANY NEW CHANGE IN BLADDER CONTROL? YES - URGENCY AT TIMES . IS THERE A CHANCE YOU COULD BE ? NO . HEMATOLOGY/LYMPH: DO YOU TAKE ANY BLOOD THINNERS? (FOR EXAMPLE- COUMADIN, PLAVIX, AGGRENOX, PLATEL, PRADAXA, OR XARELTO) NO . WHEN WAS YOUR LAST DOSE? DATE: TIME: . NEUROLOGY: HAVE YOU FALLEN IN THE PAST 12 MONTHS? YES . ANY NEW EXTREMITY NUMBNESS OR WEAKNESS? NO . CARDIOLOGY: DO YOU HAVE A PACEMAKER OR DEFIBRILLATOR? NO . RESPIRATORY: HAVE YOU BEEN SICK IN THE PAST WEEK? NO . FEVER NO . FLU LIKE SYMPTOMS? NO . COUGH NO . INTEGUMENTARY: DO YOU HAVE ANY RASHES OR OPEN SORES? NO, DOES HAVE ITCHING AT TIMES . ALLERGIC/IMMUNO: ARE YOU ALLERGIC TO IV DYE? NO . ANY NEW ALLERGIES? NO . PSYCHIATRIC: DO YOU HAVE THOUGHTS OF HURTING YOURSELF OR SOMEONE ELSE? NO . ARE YOU ABUSED, NEGLECTED, OR IN AN UNSAFE ENVIRONMENT? NO . ENDOCRINOLOGY: ARE YOU DIABETIC? NO . OTHER: DO YOU NEED ANY PRESCRIPTIONS? NO . IF YES, PLEASE LIST: ____ . ANY NEW PROBLEMS WITH YOUR MEDICATIONS? NO . WHEN DID YOU LAST EAT? 01/24/20 1700 . WHEN DID YOU LAST DRINK? 01/25/20 1030 . WHAT DID YOU LAST DRINK? WATER . NAME OF PERSON DRIVING YOU HOME? [place] - SON . DO YOU HAVE ANY OTHER QUESTIONS OR CONCERNS NO . VITAL SIGNS WT 183.7 LBS, HT 60 IN, BMI 35.87 INDEX, BP 118/55 MM HG, HR 67 /MIN, RR 16 /MIN, TEMP 97.7 F, OXYGEN SAT % 97%, NA INITIALS SC 12:28, REVIEWED BY: LS. EXAMINATION GENERAL EXAMINATION: PATIENT IS ALERT O X 3 AND COOPERATIVE. TENDERNESS OVER THE RIGHT LOW BACK AREA. PRESENCE OF BANDS OF TISSUE AND TRIGGER POINTS WITH RESTRICTION OF MOVEMENT OF THE RIGHT LOW BACK AREA. ANTALGIC GAIT. PATIENT IS LIMPING FROM THE RIGHT LEG. MRI OF THE LUMBAR SPINE DONE ON 07/04/2019 SHOWS FACET ARTHROPATHY CHANGES. ASSESSMENTS LUMBAGO WITH SCIATICA, UNSPECIFIED SIDE - M54.40 (PRIMARY) OTHER CHRONIC PAIN - G89.29 MYALGIA, OTHER SITE - M79.18 TREATMENT LUMBAGO WITH SCIATICA, UNSPECIFIED SIDE CLINICAL NOTES: WE DISCUSSED SEVERAL ISSUES WITH MS. TYLER'S PAIN MANAGEMENT CASE. DUE TO THE TRIGGER POINTS, BANDS OF TISSUE, AND RESTRICTION OF MOVEMENT, I WOULD LIKE TO MOVE FORWARD WITH A LUMBAR TRIGGER POINT INJECTION AT THIS TIME. WE DISCUSSED THE BENEFITS, RISKS, AND ALTERNATIVES OF THE INJECTION AND THE PATIENT WOULD LIKE TO PROCEED. I AM LOOKING FOR LONG LASTING PAIN RELIEF FROM THIS INJECTION FOR THE PATIENT. I DISCUSSED WITH THE PATIENT ABOUT NOT USING KENALOG DUE TO THE RISK OF IMMUNOSUPPRESSION FROM STEROIDS, AND THE PATIENT AGREES WITH THE PLAN. THE PATIENT WILL FOLLOW UP IN SEVERAL WEEKS AFTER HER INJECTION TO SEE HOW IT IS HELPING WITH HER PAIN. DEPENDING ON THE RESULTS OF THIS INJECTION, I MAY CONSIDER REQUESTING A MRI OF THE RIGHT HIP TO GAIN A BETTER UNDERSTANDING OF THE PATIENT'S PAIN. INSTRUCTIONS WERE GIVEN, QUESTIONS WERE ANSWERED, PATIENT REPORTS UNDERSTANDING AND AGREES WITH THE PLAN. I, SADAF EDWARD, DOCUMENTED THE ABOVE INFORMATION ACTING A SCRIBE FOR DR. CHAVES. I HAVE REVIEWED THE ABOVE DOCUMENT, WRITTEN BY SADAF EDWARD SCRIBE AND I VERIFY THAT IT IS ACCURATE. . OTHERS NOTES: PRE PROCEDURE PHONE CALL COMPLETED. PATIENT VERBALIZES UNDERSTANDING OF COVID-19 PRECAUTIONS REVIEWED. 01/24/2020 1650 NLJ . PROCEDURES PN TRIGGER POINT INJECTION NO STEROIDS DATE OF PROCEDURE : PRE PROCEDURE DIAGNOSIS 1. MYALGIA 2. PAIN AT RIGHT LOW BACK AREA. POST PROCEDURE DIAGNOSIS 1. MYALGIA 2. PAIN AT RIGHT LOW BACK AREA. PROCEDURE TRIGGER POINT INJECTION AT RIGHT LOW BACK AREA. SURGEON DR. VIVIAN CHAVES GEAR TOOTH LAPPING MACHINE OPERATOR NONE ANESTHESIA LOCAL PRE PROCEDURE NOTE 74 YEAR-OLD PATIENT WITH HISTORY OF CHRONIC PAIN AT RIGHT LOW BACK AREA. I EVALUATED THE PATIENT AND REVIEWED THE CHART. THERE IS EVIDENCE OF BANDS OF TISSUE WITH RESTRICTION OF MOVEMENT AND PRESENCE OF TRIGGER POINT AT THE AFFECTED AREA. I WENT OVER THE RISKS, ALTERNATIVES, AND BENEFITS ASSOCIATED WITH THIS PROCEDURE. THE PATIENT WOULD LIKE TO PROCEED AND GAVE CONSENT TO PERFORM THE PROCEDURE. THE PATIENT DENIES UNEXPLAINABLE WEIGHT LOSS, FEVER, CHILLS, OR NEW CHANGES IN URINARY OR BOWEL CONTROL. DESCRIPTION OF PROCEDURE THE PATIENT WAS BROUGHT TO THE PROCEDURE ROOM AND PLACED IN THE SITTING POSITION. THE AREA WAS CLEANED WITH ALCOHOL. THE PROCEDURE WAS DONE USING ASEPTIC STERILE TECHNIQUES. I CHECKED LATERALITY AND THE LEVEL WHERE THE PROCEDURE WAS GOING TO BE PERFORMED WITH THE PATIENT AND THE SUPPORTING STAFF AT THE MOMENT OF THE TIME OUT IN THE PROCEDURE ROOM. USING A 25-GAUGE NEEDLE, TRIGGER POINTS WERE INJECTED WITH A TOTAL OF 40 ML OF BUPIVACAINE 0.25%. AGREED WITH THE PATIENT THE PROCEDURE WAS DONE WITHOUT STEROIDS. THERE WAS NO EVIDENCE OF BLOOD, PARESTHESIA OR CEREBROSPINAL FLUID DURING THE PROCEDURE. THE PATIENT WAS SENT TO THE RECOVERY ROOM. THE PATIENT WAS MOVING THE EXTREMITIES AND DOING WELL. THERE WAS NO COMPLICATION DURING THE PROCEDURE. POST PROCEDURE NOTE THE PATIENT WILL BE SEEN IN A FOLLOW UP IN THE NEXT FEW WEEKS. I AM LOOKING FOR LONG LASTING PAIN RELIEF FOR THE PATIENT WITH THIS INJECTION. INSTRUCTIONS WERE GIVEN, QUESTIONS WERE ANSWERED, AND THE PATIENT EXPRESSED UNDERSTANDING AND AGREED WITH THE PLAN. I, SADAF EDWARD, DOCUMENTED THE ABOVE INFORMATION ACTING A SCRIBE FOR DR. CHAVES. I HAVE REVIEWED THE ABOVE DOCUMENT, WRITTEN BY SADAF ZIMMER AND I VERIFY THAT IT IS ACCURATE. PROCEDURE CODES 45024 INJ TRIGGER POINT 09/29 [facility] [place] FOLLOW UP 3 WEEKS ELECTRONICALLY SIGNED BY VIVIAN CHAVES MD, MD ON 01/30/2020 AT 01:01 PM EDT DISCLAIMER : THIS IS A VISIT SUMMARY EXTRACTED FROM THE [employer] CHART. IT IS NOT A COPY OF THE [employer] PROGRESS NOTE. JIGNESH
== END ==
LOC: M PAIN 12:15
PROVIDERS: ATTEND Anesthesiology
DX: M54.40 Lumbago with sciatica, unspecified side (principal); G89.29 Other chronic pain; M79.18 Myalgia, other site; G43.909 Migraine, unspecified, not intractable, without status migrainosus; Z86.59 Personal history of other mental and behavioral disorders; Z96.651 Presence of right artificial knee joint; Z88.0 Allergy status to penicillin; Z88.1 Allergy status to other antibiotic agents; Z88.2 Allergy status to sulfonamides; Z88.5 Allergy status to narcotic agent; Z91.041 Radiographic dye allergy status; Z79.82 Long term (current) use of aspirin; Z79.899 Other long term (current) drug therapy

== ENCOUNTER → 2020-02-08 | Outpatient (CLI) | payer MEDICARE, OTHER ==
[~2020-02-08] MED LIST changes: -BUPIVACAINE HCL 0.25% 10ML VIAL As Ordered ONE; -BUPIVACAINE HCL 0.25% 30ML VIAL As Ordered ONE
--- NOTE | 2020-02-10 01:02 | ECWPNPC ---
PATIENT NAME: GER TYLER : 1945 GENDER: FEMALE VISIT DATE: 02/08/2020 DISCHARGE DATE: 02/08/20 1037 VISIT LOCKED DATE TIME: PHYSICIAN: LJ AMADOR RESOURCE: LJ AMADOR REASON FOR APPOINTMENT 1. POST PROC PAT COMPLETED HISTORY OF PRESENT ILLNESS HISTORY OF PRESENT ILLNESS: PATIENT IS AGREEABLE TO TELEPHONE VISIT TODAY. SHE WAS UNABLE TO CONNECT TO [employer]. HAD TRIGGER POINT INJECTIONS WITHOUT STEROIDS TO HER LOWER BACK ON 01/25/2020. SHE STATES THEY WERE HELPFUL BUT SHE CONTINUES TO HAVE SEVERE RIGHT LOW BACK PAIN AFTER WALKING. STATES THAT HELPED HER GROIN PAIN IN AND LEG PAIN. RATING PAIN LEVEL A 7/10 VAS WITH ACTIVITY. REVIEWED MRI AND DISCUSSED TREATMENT OPTIONS. PAIN THE PATIENT DESCRIBES THE PAIN... FALL RISK SCREENING: SCREENING :NO FALLS REPORTED IN THE LAST YEAR PAST MEDICAL HISTORY MIGRAINE CERVICALGIA LOW BACK PAIN LEFT LEG PAIN / SCIATICA HX OF LYMPHOMA TRIGEMINAL NEURALGIA ANXIETY DEPRESSION OSTEOARTHRITIS RIGHT CORNEAL DISEASE SHINGLES URINARY INCONTINENCE ANGINA HISTORY REPORTED BY PT HYPERTENSION HISTORY REPORTED BY PT ALLERGIES SULFA (FOR ALLERGY USE ONLY) PENICILLIN (FOR ALLERGIES USE ONLY): FACIAL SWELLING - ALLERGY MORPHINE: AGITATION - SIDE EFFECTS BACTRIM: ANGIOEDEMA - ALLERGY IV DYE: AGGITATION, PANIC ATTACK, HIVES - ALLERGY SURGICAL HISTORY TOTAL HYSTERECTOMY 1979 CHOLECYSTECTOMY 1983 RHINOPLASTY 1991 LEFT EAR SURGERY 1995 LEFT KNEE SURGERY 2005 LOOP RECORDER 2015 CORNEA REPLACEMENT (DONE IN FEBRUARY AND REDONE IN [place]ARCH) RIGHT CORNEAL REPLACEMENT RIGHT KNEE REPLACEMENT 09/23/2019 FAMILY HISTORY FATHER: 52 YRS MOTHER: 69 YRS, BREAST CANCER, RHEUMATOID ARTHRITIS, DIAGNOSED WITH OTHER MALIGNANT NEOPLASM OF UNSPECIFIED SITE SON(S): ALIVE 45 YRS, DISCOID LUPUS 1 SON(S) - HEALTHY. SOCIAL HISTORY GENERAL: TOBACCO USE ARE YOU A:NONSMOKER LATEX QUESTIONNAIRE LATEX ALLERGY : HAVE YOU EVER DEVELOPED ANY TYPE OF REACTION AFTER HANDLING LATEX PRODUCTS SUCH RUBBER GLOVES, CONDOMS, DIAPHRAGMS, BALLOONS, SOCKS, OR UNDERWEAR?NO LATEX ALLERGY : HAVE YOU EVER DEVELOPED ANY TYPE OF REACTION DURING OR AFTER DENTAL APPOINTMENT, VAGINAL/RECTAL EXAMINATION, SURGICAL PROCEDURE, OR ANY OTHER EXPOSURE?NO DATE ASKED : 01/24/2020 LATEX RISK : HAVE YOU EVER HAD ANY DIFFICULTY BREATHING OR HIVES AFTER EATING OR HANDLING ANY FRUITS, OR VEGETABLES; SUCH KIWI, BANANAS, STONE FRUITS, OR CHESTNUTSNO LATEX RISK : DO YOU HAVE A PREVIOUS PERSONAL HISTORY OF MORE THAN NINE SURGERIES, SPINA BIFIDA, OR REPEATED CATHERIZATIONS? NO LATEX RISK : ARE YOU FREQUENTLY EXPOSED TO LATEX PRODUCTS IN YOUR OCCUPATION?NO LUNG CANCER SCREENING SMOKING STATUS:NON SMOKER ALCOHOL SCREENING DID YOU HAVE A DRINK CONTAINING ALCOHOL IN THE PAST YEAR?NO POINTS0 INTERPRETATIONNEGATIVE RECREATIONAL DRUG USE DRUG USE?NO CAFFEINE CAFFEINE USE?NO JEW [id number] JUDAISM LANGUAGE LANGUAGES SPOKEN:SAMMARINESE EDUCATION LEVEL OF EDUCATION:PROFESSIONAL SCHOOLS/MASTERS/PHD LEARNING BARRIERS / SPECIAL NEEDS HEARING IMPAIRED?YES LEFT VISION IMPAIRED?YES COGNITIVELY IMPAIRED?NO :HEARING AIDES :CORRECTIVE LENSES READINESS TO LEARN?YES LEARNING PREFERENCES?YES :BOOKLETS, HANDOUTS LEARNING CAPABILITIES PRESENT?YES EMOTIONAL BARRIERS?NO SPECIAL DEVICES?YES :CANE ANESTHESIOLOGIST NEEDED?NO DOMESTIC VIOLENCE DO YOU FEEL SAFE IN YOUR ENVIRONMENT?YES OCCUPATION: RETIRED. DIET: REGULAR. EXERCISE: NONE. MARITAL STATUS: .. OTHERS AT HOME: CHILD. NEW PATIENT PAIN DIARY TODAY'S VISIT 02/07/2020 PATIENT DESCRIBES PAIN :ACHING, IT COMES AND GOES, THROBBING FROM 0-10, WHAT LEVEL IS YOUR PAIN TODAY?2 PRECIPITATING FACTORS ACTIVITY, WORSE AT NIGHT ALLEVIATING FACTORS CHANGING POSITION HELPS A LITTLE PAIN CLINIC PFS, CLERGY, PUBLIC HEALTH REFERRALS PFS REFERRAL NEEDED?NO CLERGY REFERRAL NEEDED?NO PUBLIC HEALTH REFERRAL NEEDED?NO WAS THE PROVIDER NOTIFIED OF ANY PERTINENT INFO?YES HAS THE PATIENT BEEN EDUCATED REGARDING HIS/HER PLAN OF CARE?YES HAS THE PATIENT BEEN EDUCATED REGARDING PAIN, THE RISK FOR PAIN, THE IMPORTANCE OF EFFECTIVE PAIN MANAGEMENT, AND THE PAIN ASSESSMENT PROCESS?YES ADVANCE DIRECTIVE ADVANCE DIRECTIVE DISCUSSED WITH PATIENT:YES HCP - [place] [facility] H[facility]ITALIZATION/MAJOR DIAGNOSTIC PROCEDURE SURGERY RELATED REVIEW OF SYSTEMS REVIEWED BY: PROVIDER: LJ JOLLY . CONSTITUTIONAL: ANY CHANGE IN YOUR MEDICAL CONDITION? NO . CHILLS NO . FEVER NO . INFECTION: DO YOU HAVE NEW INFECTIONS? NO . DO YOU HAVE HISTORY OF MRSA? NO . MUSCULOSKELETAL: ANY NEW PATTERNS OF PAIN OR NUMBNESS? NO . GASTROENTEROLOGY: ANY NEW CHANGE IN BOWEL CONTROL? NO . GENITOURINARY: ANY NEW CHANGE IN BLADDER CONTROL? NO . IS THERE A CHANCE YOU COULD BE ? NO . HEMATOLOGY/LYMPH: DO YOU TAKE ANY BLOOD THINNERS? (FOR EXAMPLE- COUMADIN, PLAVIX, AGGRENOX, PLATEL, PRADAXA, OR XARELTO) NO . WHEN WAS YOUR LAST DOSE? DATE: TIME: . NEUROLOGY: HAVE YOU FALLEN IN THE PAST 12 MONTHS? YES PT REPORTS ABOUT TWO WEEKS AGO SHE FELL OUT OF BED ONTO HER KNEE, GOT BRUISED. NO ED VISIT, NO XRAYS, PT DENIES INJURY. . ANY NEW EXTREMITY NUMBNESS OR WEAKNESS? NO . CARDIOLOGY: DO YOU HAVE A PACEMAKER OR DEFIBRILLATOR? NO . RESPIRATORY: HAVE YOU BEEN SICK IN THE PAST WEEK? NO . FEVER NO . FLU LIKE SYMPTOMS? NO . COUGH YES POST NASAL DRIP, CAUSES HER TO COUGH, WENT TO PRIMARY AND GOT FLONASE AND COUGH SUPPRESSANT ORDERED . INTEGUMENTARY: DO YOU HAVE ANY RASHES OR OPEN SORES? YES PT REPORTS SHE HAD SHINGLES IN OCTOBER, AND NOW HAS A RASH AT THE SAME PLACE SHE HAD SHINGLES. SHE WONDERS IF IT IS RELATED TO HER SHINGLES, TO TALK TO PRIMARY TO ASK FOR A REFERRAL TO A WASHER OFF ABOUT IT. . ALLERGIC/IMMUNO: ARE YOU ALLERGIC TO IV DYE? YES . ANY NEW ALLERGIES? NO . PSYCHIATRIC: DO YOU HAVE THOUGHTS OF HURTING YOURSELF OR SOMEONE ELSE? NO . ARE YOU ABUSED, NEGLECTED, OR IN AN UNSAFE ENVIRONMENT? NO . ENDOCRINOLOGY: ARE YOU DIABETIC? NO . OTHER: DO YOU NEED ANY PRESCRIPTIONS? NO . IF YES, PLEASE LIST: ____ . ANY NEW PROBLEMS WITH YOUR MEDICATIONS? NO . WHEN DID YOU LAST EAT? ____ . WHEN DID YOU LAST DRINK? ____ . WHAT DID YOU LAST DRINK? ____ . NAME OF PERSON DRIVING YOU HOME? ____ . DO YOU HAVE ANY OTHER QUESTIONS OR CONCERNS NO . ASSESSMENTS LUMBAGO WITH SCIATICA, UNSPECIFIED SIDE - M54.40 (PRIMARY) SACROILIITIS - M46.1 MYALGIA, OTHER SITE - M79.18 TREATMENT LUMBAGO WITH SCIATICA, UNSPECIFIED SIDE NOTES: PATIENT WILL RETURN TO CLINIC IN 4-6 WEEKS TO DISCUSS TREATMENT OPTIONS BASED ON PHYSICAL EXAM. TOTAL TIME SPENT DURING TELEPHONE VISIT WAS APPROXIMATELY 11 MINUTES. DISPOSITION & COMMUNICATION FOLLOW UP 4-6WKS DISCUSS TREATMENT (REASON: LBP/RIGHTLEGPAIN) ELECTRONICALLY SIGNED BY RIK SERRATO ON 02/09/2020 AT 12:44 PM EDT DISCLAIMER : THIS IS A VISIT SUMMARY EXTRACTED FROM THE [employer] CHART. IT IS NOT A COPY OF THE [employer] PROGRESS NOTE. JIGNESH
== END ==
LOC: M PAIN 11:00
PROVIDERS: ATTEND Nurse Practitioner Family
DX: M54.40 Lumbago with sciatica, unspecified side (principal); M46.1 Sacroiliitis, not elsewhere classified; M79.18 Myalgia, other site; G43.909 Migraine, unspecified, not intractable, without status migrainosus; Z86.59 Personal history of other mental and behavioral disorders; Z96.651 Presence of right artificial knee joint; Z88.0 Allergy status to penicillin; Z88.1 Allergy status to other antibiotic agents; Z88.2 Allergy status to sulfonamides; Z88.5 Allergy status to narcotic agent; Z91.041 Radiographic dye allergy status

== ENCOUNTER → 2020-03-07 | Outpatient (CLI) | payer MEDICARE, OTHER ==
--- NOTE | 2020-03-13 03:30 | ECWPNPC ---
PATIENT NAME: GER TYLER : 1945 GENDER: FEMALE VISIT DATE: 03/07/2020 DISCHARGE DATE: 03/07/20 1212 VISIT LOCKED DATE TIME: PHYSICIAN: LJ AMADOR RESOURCE: LJ AMADOR REASON FOR APPOINTMENT 1. LBP/RIGHTLEGPAIN PAT DONE HISTORY OF PRESENT ILLNESS GENERAL: HERE FOR FOLLOW-UP OF CHRONIC LOW BACK PAIN. REPORTING SEVERE INCREASE IN RIGHT LOW BACK PAIN OVER THE PAST MONTH. RATING PAIN LEVEL AN 8/10 VAS. REVIEWED MRI OF THE LS SPINE AND DISCUSSED TREATMENT PLAN. -. FALL RISK SCREENING: SCREENING :TWO OR MORE FALLS WITHOUT INJURY IN THE PAST YEAR NO SIGNIFICANT INJURY, BRUISING PAIN SCREENING: PATIENT HAS A COMPLAINT OF ACUTE OR CHRONIC PAIN :YES 03/07/20 LOCATION OF PAIN:LOW BACK, LEG(S) INTENSITY OF PAIN (SCALE OF 1 TO 10):8 WHAT DOES YOUR PAIN FEEL LIKE:ACHING, BURNING, INTERMITTENT, SHARP, STABBING, TENDER, SHOOTING DURATION:ONLY WITH SPECIFIC ACTIVITIES PAIN IS INCREASED BY:ACTIVITIES WALKING PAIN IS DECREASED BY:SITTING SITTING, LAYING DOWN NURSING NOTE: -. PAIN CENTER INTAKE QUESTIONS: DO YOU HAVE A HISTORY OF MRSA? :NO DO YOU TAKE A BLOOD THINNERS? :NO DO YOU HAVE ANY BLEEDING DISORDERS? :NO ANY NEW NUMBNESS OR WEAKNESS IN YOUR LEGS OR ARMS? :YES PT STATES THAT SHE HAS NUMBNESS IN RIGHT LEG ANY PACEMAKER,DEFIBRILLATOR, OR DORSAL COLUMN STIMULATOR? :NO DO YOU HAVE ANY RASHES OR OPEN SORES? :YES PT STATES THAT SHE HAS A HX OF SHINGLES, 3 MONTHS AGO ARE YOU ALLERGIC TO IV DYE? :YES PT STATES THAT SHE HAS SENSITIVITY TO IV DYE ARE YOU DIABETIC? :NO ANY NEW PROBLEMS WITH YOUR MEDICATIONS? :NO HAVE YOU RECEIVED A VACCINE IN THE PAST 30 DAYS? :NO DO YOU PLAN TO RECEIVE A VACCINE IN THE NEXT 21 DAYS? :NO DO YOU NEED ANY PRESCRIPTION? :YES PT STATES THAT SHE NEEDS REFILL OF PAIN MEDS, TYLENOL WITH CODEINE #3 DO YOU TAKE ANY IMMUNOSUPPRESSIVE MEDICATIONS? :NO IS THERE A CHANCE YOU COULD BE ? :NO ARE YOU BREAST FEEDING? :NO CURRENT MEDICATIONS TAKING POTASSIUM CHLORIDE ER 8 MEQ TABLET EXTENDED RELEASE 1 CAPSULE WITH FOOD ORALLY DAILY TAKING LOSARTAN POTASSIUM 50 MG TABLET 1 TABLET ORALLY ONCE A DAY TAKING CARVEDILOL 12.5 MG TABLET 1 TAB ORALLY TWICE A DAY TAKING SPIRONOLACTONE 25 MG TABLET 1/2 TABLET ORALLY DAILY TAKING LORAZEPAM 1 MG TABLET 1 TABLET NEEDED ORALLY EVERY 6 HRS TAKING VITAMIN D 2000 UNIT TABLET 1 TABLET ORALLY ONCE A DAY TAKING VITAMIN C 500 MG TABLET 1 TABLET ORALLY ONCE A DAY TAKING VITAMIN B 12 100 MCG LOZENGE ORALLY DAILY TAKING COLACE 100 MG CAPSULE 1 CAPSULE NEEDED ORALLY ONCE A DAY TAKING BACLOFEN 10 MG TABLET 1 CAP ORALLY BID TAKING ASPIRIN 325 MG TABLET 1 TABLET ORALLY ONCE A DAY TAKING REFRESH 1 DROP INTO AFFECTED EYE NEEDED OPHTHALMIC DAILY TAKING CARBAMAZEPINE 200 MG TABLET 1 CAP ORALLY BID TAKING MAGNESIUM 400 MG CAPSULE ORALLY DAILY TAKING GABAPENTIN 300 MG CAPSULE 1 CAPSULE ORALLY Q8H TID TAKING DULOXETINE HCL 20 MG CAPSULE DELAYED RELEASE PARTICLES 1 CAPSULE ORALLY TWICE A DAY TAKING PREDNISOLONE ACETATE 1 % SUSPENSION 1 DROP INTO AFFECTED EYE OPHTHALMIC TWICE A DAY TAKING SUCRALFATE 1 GM TABLET 1 TABLET ON AN EMPTY STOMACH ORALLY TWICE A DAY TAKING DOXYCYCLINE HYCLATE 100 MG CAPSULE 1 CAPSULE ORALLY TWICE A DAY TAKING CETIRIZINE HCL 10 MG TABLET 1 TABLET ORALLY QHS TAKING PROAIR HFA 108 (90 BASE) MCG/ACT AEROSOL SOLUTION 2 PUFFS NEEDED INHALATION EVERY 4-6 HRS NEEDED NOT-TAKING TYLENOL WITH CODEINE #3 300-30 MG TABLET 1 TABLET NEEDED ORALLY EVERY 6 HRS PRN MDD4 NOT-TAKING ACETAMINOPHEN 325 MG CAPSULE 1 CAP ORALLY EVERY MORNING NEEDED, NOTES: UNSURE MEDICATION LIST REVIEWED AND RECONCILED WITH THE PATIENT PAST MEDICAL HISTORY MIGRAINE CERVICALGIA LOW BACK PAIN LEFT LEG PAIN / SCIATICA HX OF LYMPHOMA TRIGEMINAL NEURALGIA ANXIETY DEPRESSION OSTEOARTHRITIS RIGHT CORNEAL DISEASE SHINGLES URINARY INCONTINENCE ANGINA HISTORY REPORTED BY PT HYPERTENSION HISTORY REPORTED BY PT ASTHMA, UNSPECIFIED ASTHMA SEVERITY, UNSPECIFIED WHETHER COMPLICATED, UNSPECIFIED WHETHER PERSISTENT ALLERGIES SULFA (FOR ALLERGY USE ONLY): ANGIOEDEMA - ALLERGY PENICILLIN (FOR ALLERGIES USE ONLY): FACIAL SWELLING - ALLERGY MORPHINE SULFATE: AGITATION - ALLERGY IV DYE: HIVES - ALLERGY SURGICAL HISTORY TOTAL HYSTERECTOMY 1979 CHOLECYSTECTOMY 1983 RHINOPLASTY 1991 LEFT EAR SURGERY 1995 LEFT KNEE SURGERY 2005 LOOP RECORDER 2015 CORNEA REPLACEMENT (DONE IN FEBRUARY AND REDONE IN MARCH) RIGHT CORNEAL REPLACEMENT RIGHT KNEE REPLACEMENT 09/23/2019 FAMILY HISTORY FATHER: 52 YRS MOTHER: 69 YRS, BREAST CANCER, RHEUMATOID ARTHRITIS, DIAGNOSED WITH OTHER MALIGNANT NEOPLASM OF UNSPECIFIED SITE SON(S): ALIVE 45 YRS, DISCOID LUPUS 1 SON(S) - HEALTHY. SOCIAL HISTORY GENERAL: TOBACCO USE ARE YOU A:NONSMOKER LATEX QUESTIONNAIRE LATEX ALLERGY : HAVE YOU EVER DEVELOPED ANY TYPE OF REACTION AFTER HANDLING LATEX PRODUCTS SUCH RUBBER GLOVES, CONDOMS, DIAPHRAGMS, BALLOONS, SOCKS, OR UNDERWEAR?NO LATEX ALLERGY : HAVE YOU EVER DEVELOPED ANY TYPE OF REACTION DURING OR AFTER DENTAL APPOINTMENT, VAGINAL/RECTAL EXAMINATION, SURGICAL PROCEDURE, OR ANY OTHER EXPOSURE?NO LATEX RISK : HAVE YOU EVER HAD ANY DIFFICULTY BREATHING OR HIVES AFTER EATING OR HANDLING ANY FRUITS, OR VEGETABLES; SUCH KIWI, BANANAS, STONE FRUITS, OR CHESTNUTSNO LATEX RISK : DO YOU HAVE A PREVIOUS PERSONAL HISTORY OF MORE THAN NINE SURGERIES, SPINA BIFIDA, OR REPEATED CATHERIZATIONS? NO LATEX RISK : ARE YOU FREQUENTLY EXPOSED TO LATEX PRODUCTS IN YOUR OCCUPATION?NO DATE ASKED : 03/06/2020 LUNG CANCER SCREENING SMOKING STATUS:NON SMOKER ALCOHOL SCREENING DID YOU HAVE A DRINK CONTAINING ALCOHOL IN THE PAST YEAR?NO POINTS0 INTERPRETATIONNEGATIVE RECREATIONAL DRUG USE DRUG USE?NO CAFFEINE CAFFEINE USE?NO MANDAEN [id number] [place] LANGUAGE LANGUAGES SPOKEN:WELSH EDUCATION LEVEL OF EDUCATION:PROFESSIONAL SCHOOLS/MASTERS/PHD LEARNING BARRIERS / SPECIAL NEEDS HEARING IMPAIRED?YES LEFT VISION IMPAIRED?YES COGNITIVELY IMPAIRED?NO :HEARING AIDES :CORRECTIVE LENSES READINESS TO LEARN?YES LEARNING PREFERENCES?YES :BOOKLETS, HANDOUTS LEARNING CAPABILITIES PRESENT?YES EMOTIONAL BARRIERS?NO SPECIAL DEVICES?YES :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 DIET: REGULAR. EXERCISE: NONE. MARITAL STATUS: .. OTHERS AT HOME: CHILD. NEW PATIENT PAIN DIARY PATIENT DESCRIBES PAIN :ACHING, IT COMES AND GOES, THROBBING FROM 0-10, WHAT LEVEL IS YOUR PAIN TODAY?2 PRECIPITATING FACTORS ACTIVITY, WORSE AT NIGHT ALLEVIATING FACTORS CHANGING POSITION HELPS A LITTLE PAIN CLINIC PFS, CLERGY, PUBLIC HEALTH REFERRALS PFS REFERRAL NEEDED?NO CLERGY REFERRAL NEEDED?NO PUBLIC HEALTH REFERRAL NEEDED?NO WAS THE PROVIDER NOTIFIED OF ANY PERTINENT INFO?YES HAS THE PATIENT BEEN EDUCATED REGARDING HIS/HER PLAN OF CARE?YES HAS THE PATIENT BEEN EDUCATED REGARDING PAIN, THE RISK FOR PAIN, THE IMPORTANCE OF EFFECTIVE PAIN MANAGEMENT, AND THE PAIN ASSESSMENT PROCESS?YES ADVANCE DIRECTIVE ADVANCE DIRECTIVE DISCUSSED WITH PATIENT:YES HCP - [place] ([facility] H[facility]IZATION/MAJOR DIAGNOSTIC PROCEDURE SURGERY RELATED REVIEW OF SYSTEMS CONSTITUTIONAL: ANY RECENT FEVER OR ILLNESS NO . CHILLS NO . GASTROENTEROLOGY: BOWEL INCONTINENCE NO . ANY NEW CHANGE IN BOWEL CONTROL? NO . ABDOMINAL PAIN NO . CONSTIPATION NO . GENITOURINARY: ANY NEW CHANGE IN BLADDER CONTROL? NO . IS THERE A CHANCE YOU COULD BE ? NO . URINARY INCONTINENCE NO . CARDIOLOGY: CHEST PRESSURE NO . CHEST PAIN NO . RESPIRATORY: COUGH NO . SHORTNESS OF BREATH NO . VITAL SIGNS WT 180.4 LBS, HT 60 IN, BMI 35.23 INDEX, BP 117/55 MM HG, HR 68 /MIN, RR 18 /MIN, TEMP 96.1 F, OXYGEN SAT % 96%, SAFE IN ENV? (Y/N) Y, NA INITIALS AW 1123, REVIEWED BY: EM. EXAMINATION GENERAL EXAMINATION: GENERAL ALERT,NO DISTRESS . PSYCH AFFECT NORMAL . LUNGS: LUNG SOUNDS ARE CLEAR . HEART: HEART RATE REGULAR . MUSCULOSKELETAL: MST 5/5 BILAT. LOWER EXTREMITIES . LUMBAR: TENDERNESS RIGHT SIJ. POSITIVE RIGO TEST OVER RIGHT LEG.. DIAGNOSTIC TESTS REVIEWEDMRI L/S SPINE 07/04/2019. ASSESSMENTS SACROILIITIS - M46.1 (PRIMARY) TREATMENT SACROILIITIS START PERCOCET TABLET, 5-325 MG, 1 TABLET NEEDED, ORALLY, Q8H MDD 3 #30 TABLETS FOR 30 DAYS, 30 DAYS, 30, REFILLS 0 NOTES: RIGHT SACROILIAC JOINT STEROID INJECTION , ISTOP REGISTRY REVIEWED AND DEMONSTRATES COMPLLIANCE. ORAL SWAB TOXICOLOGY TODAY , RISKS OF NARCOTIC/OPIOD MEDICATIONS INCLUDES BUT IS NOT LIMITED TO RISK OF DEPENDANCE/DEVELOPMENT OF ADDICTION, MOOD DISTURBANCE AND DEPRESSION, OSTEOPOROSIS, HORMONAL AND LABIDAL CHANGES, RESPIRATORY DEPRESSION AND . PATIENT IS ADVISED NOT TO DRIVE OR DRINK ALCOHOL WHILE ON THESE MEDICATIONS. PROCEDURE CODES FA211 ESTABILISHED PATIENT [facility] CHARGE DISPOSITION & COMMUNICATION FOLLOW UP POST (REASON: RIGHT SACROILIAC JOINT STEROID INJECTION) ELECTRONICALLY SIGNED BY RIK SERRATO ON 03/12/2020 AT 11:39 AM EDT DISCLAIMER : THIS IS A VISIT SUMMARY EXTRACTED FROM THE [email or web address] CHART. IT IS NOT A COPY OF THE [email or web address] PROGRESS NOTE. JIGNESH
== END ==
LOC: M PAIN 11:00
PROVIDERS: ATTEND Nurse Practitioner Family
DX: M46.1 Sacroiliitis, not elsewhere classified (principal)

== ENCOUNTER → 2020-03-24 | Outpatient (CLI) | payer MEDICARE, OTHER | LOC: M LABSMTC 11:55 | PROVIDERS: ATTEND Anesthesiology | DX: Z01.818 Encounter for other preprocedural examination (principal); Z11.59 Encounter for screening for other viral diseases | CPT/HCPCS: C9803; U0003 ==

== ENCOUNTER → 2020-03-27 | Outpatient (CLI) | payer MEDICARE, OTHER ==
[~2020-03-27] MED LIST changes: +BUPIVACAINE HCL 0.25% 30ML VIAL As Ordered ONE; +ISOVUE-M 300 61% 15ML VIAL As Ordered ONE; +LIDOCAINE 1% SDV 30ML VIAL As Ordered ONE; +TRIAMCINOLONE ACETONIDE SUSP 40 MG/ML VIAL (J3301) As Ordered ONE; +diazePAM 5 MG TAB As Ordered ONE; +diphenhydrAMINE 25MG CAP As Ordered ONE; +oxyCODONE 5MG TAB As Ordered ONE
--- NOTE | 2020-03-27 10:28 | REP ---
Right SI joint: Two views. History: Injection procedure for pain. 17 seconds of fluoroscopy time is reported. Findings: A sequence of two last image hold fluoroscopically obtained spot radiographs of the right SI joint document needle position and contrast injection associated with injection procedure. Electronically Signed by Kj Wright MD 03/27/2020 10:19 A
--- NOTE | 2020-03-28 01:53 | ECWPNPC ---
PATIENT NAME: GER TYLER : 1945 GENDER: FEMALE VISIT DATE: 03/27/2020 DISCHARGE DATE: 03/27/20 1029 VISIT LOCKED DATE TIME: PHYSICIAN: VIVIAN CHAVES MD RESOURCE: VIVIAN CHAVES MD REASON FOR APPOINTMENT 1. RIGHT SACROILIAC JOINT STEROID INJECTION HISTORY OF PRESENT ILLNESS GENERAL: -. FALL RISK SCREENING: SCREENING :TWO OR MORE FALLS WITHOUT INJURY IN THE PAST YEAR PT USING CANE AND WALKER FOR AMBULATION ASSISTANCE PAIN SCREENING: PATIENT HAS A COMPLAINT OF ACUTE OR CHRONIC PAIN :YES LOCATION OF PAIN:LOW BACK, RIGHT HIP INTENSITY OF PAIN (SCALE OF 1 TO 10):7 WHAT DOES YOUR PAIN FEEL LIKE:ACHING, INTERMITTENT, SHARP, STABBING, SHOOTING NURSING NOTE: -. PAIN CENTER INTAKE QUESTIONS: DO YOU HAVE A HISTORY OF MRSA? :NO DO YOU TAKE A BLOOD THINNERS? :NO DO YOU HAVE ANY BLEEDING DISORDERS? :NO ANY NEW NUMBNESS OR WEAKNESS IN YOUR LEGS OR ARMS? :NO ANY PACEMAKER,DEFIBRILLATOR, OR DORSAL COLUMN STIMULATOR? :NO DO YOU HAVE ANY RASHES OR OPEN SORES? :YES PT STATES THAT SHE HAS RESIDUAL RASH, INTERMITTENT, PT STATES THAT SHE HAD SHINGLES APPROXIMATELY 1 YEAR AGO, NO ONGOING ISSUES WITH SHINGLES AT THIS TIME ARE YOU ALLERGIC TO IV DYE? :YES PT STATES THAT SHE HAS HX OF RASH REACTION TO DYE, MANY YEARS AGO, HAS USED IV DYE FOR PROCEDURES AT PAIN CENTER AND TAKING BENEDRYL TO COUNTERACT ANY INFLAMMATORY RESPONSE ARE YOU DIABETIC? :NO ANY NEW PROBLEMS WITH YOUR MEDICATIONS? :NO HAVE YOU RECEIVED A VACCINE IN THE PAST 30 DAYS? :NO DO YOU PLAN TO RECEIVE A VACCINE IN THE NEXT 21 DAYS? :NO DO YOU TAKE ANY IMMUNOSUPPRESSIVE MEDICATIONS? :NO ANY HISTORY OF SEIZURES? :NO ANY HISTORY OF CARDIAC ISSUES OR EVENTS? :YES PT STATES THAT SHE HAD A STOKE 5 YEARS AGO DO YOU HAVE SLEEP APNEA? :NO ANY RECENT HEAD INJURY? :NO DO YOU HAVE ANY NEW INFECTIONS? :NO IS THERE A CHANCE YOU COULD BE ? :NO ARE YOU BREAST FEEDING? :NO WHEN DID YOU LAST EAT? : -03/26 7P WHEN DID YOU LAST DRINK? : -03/26 9P WHAT DID YOU LAST DRINK? : -WATER NAME OF PERSON DRIVING YOU HOME? : -[facility] DEEP DO YOU HAVE ANY OTHER QUESTIONS OR CONCERNS? : - CURRENT MEDICATIONS TAKING PERCOCET 5-325 MG TABLET 1 TABLET NEEDED ORALLY Q8H MDD 3 #30 TABLETS FOR 30 DAYS, NOTES: 03/26 9P TAKING POTASSIUM CHLORIDE ER 8 MEQ TABLET EXTENDED RELEASE 1 CAPSULE WITH FOOD ORALLY DAILY, NOTES: 03/26 8A TAKING LOSARTAN POTASSIUM 50 MG TABLET 1 TABLET ORALLY ONCE A DAY, NOTES: 03/26 7A TAKING CARVEDILOL 12.5 MG TABLET 1 TAB ORALLY TWICE A DAY, NOTES: 03/26 9P TAKING SPIRONOLACTONE 25 MG TABLET 1/2 TABLET ORALLY DAILY, NOTES: 03/26 TAKING LORAZEPAM 1 MG TABLET 1 TABLET NEEDED ORALLY EVERY 6 HRS, NOTES: 03/27 TAKING VITAMIN D 2000 UNIT TABLET 1 TABLET ORALLY ONCE A DAY, NOTES: 03/26 TAKING VITAMIN C 500 MG TABLET 1 TABLET ORALLY ONCE A DAY, NOTES: 03/26 TAKING VITAMIN B 12 100 MCG LOZENGE ORALLY DAILY, NOTES: 03/26 TAKING COLACE 100 MG CAPSULE 1 CAPSULE NEEDED ORALLY ONCE A DAY, NOTES: 1 WEEK TAKING BACLOFEN 10 MG TABLET 1 CAP ORALLY BID, NOTES: 03/26 9P TAKING ASPIRIN 325 MG TABLET 1 TABLET ORALLY ONCE A DAY, NOTES: 03/26 TAKING REFRESH 1 DROP INTO AFFECTED EYE NEEDED OPHTHALMIC DAILY, NOTES: 03/26 7P TAKING CARBAMAZEPINE 200 MG TABLET 1 CAP ORALLY BID, NOTES: 03/26P TAKING MAGNESIUM 400 MG CAPSULE ORALLY DAILY, NOTES: 03/26 TAKING GABAPENTIN 300 MG CAPSULE 1 CAPSULE ORALLY Q8H TID, NOTES: 03/26 TAKING DULOXETINE HCL 20 MG CAPSULE DELAYED RELEASE PARTICLES 1 CAPSULE ORALLY TWICE A DAY, NOTES: 03/26 TAKING PREDNISOLONE ACETATE 1 % SUSPENSION 1 DROP INTO AFFECTED EYE OPHTHALMIC TWICE A DAY, NOTES: 03/26 TAKING SUCRALFATE 1 GM TABLET 1 TABLET ON AN EMPTY STOMACH ORALLY TWICE A DAY, NOTES: 03/26 TAKING CETIRIZINE HCL 10 MG TABLET 1 TABLET ORALLY QHS, NOTES: 03/26 TAKING PROAIR HFA 108 (90 BASE) MCG/ACT AEROSOL SOLUTION 2 PUFFS NEEDED INHALATION EVERY 4-6 HRS NEEDED, NOTES: 03/26 NOT-TAKING DOXYCYCLINE HYCLATE 100 MG CAPSULE 1 CAPSULE ORALLY TWICE A DAY NOT-TAKING TYLENOL WITH CODEINE #3 300-30 MG TABLET 1 TABLET NEEDED ORALLY EVERY 6 HRS PRN MDD4 NOT-TAKING ACETAMINOPHEN 325 MG CAPSULE 1 CAP ORALLY EVERY MORNING NEEDED, NOTES: UNSURE MEDICATION LIST REVIEWED AND RECONCILED WITH THE PATIENT PAST MEDICAL HISTORY MIGRAINE CERVICALGIA LOW BACK PAIN LEFT LEG PAIN / SCIATICA HX OF LYMPHOMA TRIGEMINAL NEURALGIA ANXIETY DEPRESSION OSTEOARTHRITIS RIGHT CORNEAL DISEASE SHINGLES URINARY INCONTINENCE ANGINA HISTORY REPORTED BY PT HYPERTENSION HISTORY REPORTED BY PT ASTHMA, UNSPECIFIED ASTHMA SEVERITY, UNSPECIFIED WHETHER COMPLICATED, UNSPECIFIED WHETHER PERSISTENT ALLERGIES SULFA (FOR ALLERGY USE ONLY): ANGIOEDEMA - ALLERGY PENICILLIN (FOR ALLERGIES USE ONLY): FACIAL SWELLING - ALLERGY MORPHINE SULFATE: AGITATION - ALLERGY IV DYE: HIVES - ALLERGY SURGICAL HISTORY TOTAL HYSTERECTOMY 1979 CHOLECYSTECTOMY 1983 RHINOPLASTY 1991 LEFT EAR SURGERY 1995 LEFT KNEE SURGERY 2005 LOOP RECORDER 2015 CORNEA REPLACEMENT (DONE IN FEBRUARY AND REDONE IN [place]ARCH) RIGHT CORNEAL REPLACEMENT RIGHT KNEE REPLACEMENT 09/23/2019 FAMILY HISTORY FATHER: 52 YRS MOTHER: 69 YRS, BREAST CANCER, RHEUMATOID ARTHRITIS, DIAGNOSED WITH OTHER MALIGNANT NEOPLASM OF UNSPECIFIED SITE SON(S): ALIVE 45 YRS, DISCOID LUPUS 1 SON(S) - HEALTHY. SOCIAL HISTORY GENERAL: TOBACCO USE ARE YOU A:NONSMOKER LATEX QUESTIONNAIRE LATEX ALLERGY : HAVE YOU EVER DEVELOPED ANY TYPE OF REACTION AFTER HANDLING LATEX PRODUCTS SUCH RUBBER GLOVES, CONDOMS, DIAPHRAGMS, BALLOONS, SOCKS, OR UNDERWEAR?NO LATEX ALLERGY : HAVE YOU EVER DEVELOPED ANY TYPE OF REACTION DURING OR AFTER DENTAL APPOINTMENT, VAGINAL/RECTAL EXAMINATION, SURGICAL PROCEDURE, OR ANY OTHER EXPOSURE?NO LATEX RISK : HAVE YOU EVER HAD ANY DIFFICULTY BREATHING OR HIVES AFTER EATING OR HANDLING ANY FRUITS, OR VEGETABLES; SUCH KIWI, BANANAS, STONE FRUITS, OR CHESTNUTSNO LATEX RISK : DO YOU HAVE A PREVIOUS PERSONAL HISTORY OF MORE THAN NINE SURGERIES, SPINA BIFIDA, OR REPEATED CATHERIZATIONS? NO LATEX RISK : ARE YOU FREQUENTLY EXPOSED TO LATEX PRODUCTS IN YOUR OCCUPATION?NO DATE ASKED : 03/27/2020 LUNG CANCER SCREENING SMOKING STATUS:NON SMOKER ALCOHOL SCREENING DID YOU HAVE A DRINK CONTAINING ALCOHOL IN THE PAST YEAR?NO POINTS0 INTERPRETATIONNEGATIVE RECREATIONAL DRUG USE DRUG USE?NO CAFFEINE CAFFEINE USE?NO SCIENTOLOGY [id number] ANGLICAN LANGUAGE LANGUAGES SPOKEN:ROMANSH EDUCATION LEVEL OF EDUCATION:PROFESSIONAL SCHOOLS/MASTERS/PHD LEARNING BARRIERS / SPECIAL NEEDS HEARING IMPAIRED?YES LEFT VISION IMPAIRED?YES COGNITIVELY IMPAIRED?NO :HEARING AIDES :CORRECTIVE LENSES READINESS TO LEARN?YES LEARNING PREFERENCES?YES :BOOKLETS, HANDOUTS LEARNING CAPABILITIES PRESENT?YES EMOTIONAL BARRIERS?NO 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 DIET: REGULAR. EXERCISE: NONE. MARITAL STATUS: .. OTHERS AT HOME: CHILD. PAIN CLINIC PFS, CLERGY, PUBLIC HEALTH REFERRALS PFS REFERRAL NEEDED?NO CLERGY REFERRAL NEEDED?NO PUBLIC HEALTH REFERRAL NEEDED?NO WAS THE PROVIDER NOTIFIED OF ANY PERTINENT INFO?YES HAS THE PATIENT BEEN EDUCATED REGARDING HIS/HER PLAN OF CARE?YES HAS THE PATIENT BEEN EDUCATED REGARDING PAIN, THE RISK FOR PAIN, THE IMPORTANCE OF EFFECTIVE PAIN MANAGEMENT, AND THE PAIN ASSESSMENT PROCESS?YES ADVANCE DIRECTIVE ADVANCE DIRECTIVE DISCUSSED WITH PATIENT:YES [place]CP - [place] [facility] [facility]/MAJOR DIAGNOSTIC PROCEDURE SURGERY RELATED VITAL SIGNS WT 179.4 LBS, HT 60 IN, BMI 35.03 INDEX, BP 114/55 MM HG, HR 70 /MIN, RR 16 /MIN, TEMP 97.3 F, OXYGEN SAT % 96%, SAFE IN ENV? (Y/N) Y, NA INITIALS W[place] 09:19, REVIEWED BY: VENTURA. EXAMINATION GENERAL EXAMINATION: THE PATIENT IS ALERT, ORIENTED TIMES THREE AND COOPERATIVE. HEART SHOWS REGULAR RHYTHM, NO MURMURS AND NO GALLOPS. LUNGS ARE CLEAR TO AUSCULTATION. 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 TREATMENT SACROILIITIS [facility] GUIDANCE (PAIN)[id number] MEDICATION: BENADRYL TAB 25MG ORALLY (DIPHENHYDRAMINE)ABRAHAM OVIEDO 03/27/2020 9:36:52 AM > VERIFIED MAVERICK ZEE RN 03/27/2020 9:51:32 AM > LOT# [id number], EXP 09/2022, ADMINISTERED MEDICATION: VALIUM TAB 5MG ORALLY (DIAZEPAM)ABRAHAM OVIEDO 03/27/2020 9:37:07 AM > VERIFIED MAVERICK ZEE RN 03/27/2020 9:52:43 AM > LOT # [id number], EXP 11/18, ADMINISTERED MEDICATION: OXYCODONE HCL TAB 5MG ORALLY ABRAHAM OVIEDO 03/27/2020 9:37:22 AM > VERIFIED MAVERICK ZEE RN 03/27/2020 9:53:32 AM > LOT# [id number], EXP 10/2021, ADMINISTERED PROCEDURES PAIN NURSING RECORD PRE-PROCEDURE IV SITE N/A PROCEDURE IN ROOM 0945 PT AMBULATED TO PROCEDURE ROOM WITH 1 ASSIST, GAIT SLIGHTLY UNSTEADY, PT POSITIONING SELF ON PROCEDURE TABLE WITH 1 ASSIST, PT TOLERATED POSITIONING AND AMBULATION WELL.DS, PHYSICIAN IN ROOM 1005, START 1008, FINISH 1010, PHYSICIAN OUT OF ROOM 1014, OUT OF ROOM 1020, STEROID KENALOG 40 MG, O2 RA , ECG NORMAL SINUS , PATIENT SHIELDED YES , SAFETY STRAP YES , PREP BETADINE , IV INFUSED N/A , DRESSING TEGADERM LOC: MAVERICK ZEE RN 03/27/2020 10:04:19 AM > , 1. ALERT, ORIENTED RESP: MAVERICK ZEE RN 03/27/2020 10:04:23 AM > , 1. REGULAR, NO DYSPNEA COLOR: MAVERICK ZEE RN 03/27/2020 10:04:27 AM > , 1. PINK SKIN: MAVERICK ZEE RN 03/27/2020 10:04:32 AM > , 1. WARM, DRY POSITION: MAVERICK ZEE RN 03/27/2020 10:04:37 AM > , 1. PRONE VITALS: MAVERICK ZEE RN 03/27/2020 10:04:43 AM > 122/71, 75, 18, 95% , MAVERICK ZEE RN 03/27/2020 10:26:11 AM > 154/67, 69, 18, 95% (DISCHARGE) DISCHARGE: POST PAIN 02/04, DRESSING SITE DRY AND INTACT , IV N/A , GAIT STEADY , TEACHING COMPLETED, PATIENT ACKNOWLEDGES UNDERSTANDING YES , PATIENT DISCHARGED AT 1026 PT AMBULATED TO WHEELCHAIR WITH MIN 1 ASSIST, GAIT SLIGHTLY UNSTEADY, PT ACCOMPANIED BY 1 RN TO PERSONAL VEHICLE VIA WHEELCHAIR, PT AMBULATED FROM WHEELCHAIR TO PERSONAL VEHICLE WITH 1 ASSIST, UPDATED SON -NJ WITH POST PROCEDURE INSTRUCTIONS AND PLAN OF CARE INSTRUCTIONS, PT AND FAMILY ACKNOWLEDGED UNDERSTANDING, DS PN SI PRE PROCEDURE DIAGNOSIS SACROILIITIS, SACROILIAC JOINT DYSFUNCTION POST PROCEDURE DIAGNOSIS SACROILIITIS, SACROILIAC JOINT DYSFUNCTION PROCEDURE RIGHT SACROILIAC JOINT BLOCK SURGEON DR. VIVIAN CHAVES CLINICAL DOCUMENTATION SPECIALIST NONE ANESTHESIA LOCAL PRE PROCEDURE NOTE THE PATIENT WITH HISTORY OF CHRONIC LOW BACK PAIN. I EVALUATED THE PATIENT AND REVIEWED THE CHART. I WENT OVER THE RISKS, ALTERNATIVES, AND BENEFITS ASSOCIATED WITH THIS PROCEDURE. I DISCUSSED THAT THE USE OF STEROIDS MAY CONTRIBUTE TO IMMUNOSUPPRESSION OF THE PATIENT'S BODY AGAINST INFECTIONS SUCH COVID-19. THE PATIENT IS AWARE OF THE POTENTIAL COMPLICATIONS ASSOCIATED WITH THIS VIRUS, INCLUDING, BUT NOT LIMITED TO, . I DISCUSSED THE USE OF DEXAMETHASONE INSTEAD OF KENALOG; HOWEVER, THE PATIENT WOULD LIKE TO MOVE FORWARD WITH KENALOG. THE PATIENT WOULD LIKE TO PROCEED AND GAVE CONSENT TO PERFORM THE PROCEDURE. THE PATIENT DENIES UNEXPLAINABLE WEIGHT LOSS, FEVER, CHILLS, OR NEW CHANGES IN URINARY OR BOWEL CONTROL. THE PATIENT IS COVID-19 NEGATIVE DESCRIPTION OF PROCEDURE THE PATIENT WAS BROUGHT TO THE PROCEDURE ROOM AND PLACED IN THE PRONE POSITION. THE LUMBOSACRAL AREA WAS CLEANED WITH CHLORAPREP SOLUTION AND DRAPED ASEPTICALLY. THE PROCEDURE WAS DONE UNDER STERILE CONDITIONS. I CHECKED LATERALITY AND THE LEVEL WHERE THE PROCEDURE WAS GOING TO BE PERFORMED WITH THE PATIENT AND THE SUPPORTING STAFF AT THE MOMENT OF THE TIME OUT IN THE PROCEDURE ROOM. UNDER FLUOROSCOPIC GUIDANCE, TARGET POINT WAS SELECTED AT THE LOWER BORDER OF THE RIGHT SACROILIAC JOINT. TARGET POINT WAS SELECTED AFTER MEDIAL ROTATION AND TILT OF THE MAGNIFIER OF THE C-ARM. LIDOCAINE WAS USED TO NUMB THE SKIN AND SUBCUTANEOUS TISSUE BELOW IT. A SPINAL NEEDLE, 22-GAUGE, WAS ADVANCED UNDER FLUOROSCOPIC GUIDANCE AND FOLLOWING PATIENT FEEDBACK UNTIL THE TARGET AREA WAS TOUCHED. THE POSITION OF THE NEEDLE WAS VERIFIED WITH AP AND LATERAL VIEWS. AFTER PROPER POSITION OF THE NEEDLE WAS ACHIEVED, ISOVUE M DYE 30%, 0.25 ML, WAS INJECTED SHOWING SPREAD OF THE DYE. THEN, A SOLUTION OF 40 MG OF KENALOG WAS INJECTED IN RIGHT JOINT WITH 3 ML OF BUPIVACAINE 0.125%. THERE WAS NO EVIDENCE OF BLOOD, PARESTHESIA OR CEREBROSPINAL FLUID DURING THE PROCEDURE. THE PATIENT WAS SENT TO THE RECOVERY ROOM. THE PATIENT WAS MOVING THE EXTREMITIES AND DOING WELL. THERE WAS NO COMPLICATION DURING THE PROCEDURE. EBL LESS THAN 5 ML FLUOROSCOPY TIME WAS 17 SECONDS POST PROCEDURE NOTE DEPENDING ON THE RESULTS OF THIS INJECTION, WE SHOULD CONSIDER DOING AN EPIDURAL STEROID INJECTION ON THE PATIENT. 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 THE PROCEDURE DONE WAS DISCUSSED WITH THE PATIENT. THE PATIENT WILL BE SEEN IN A FOLLOW UP IN THE NEXT FEW WEEKS. I AM LOOKING FOR LONG LASTING PAIN RELIEF FOR THE PATIENT WITH THIS INTERVENTION. INSTRUCTIONS WERE GIVEN, QUESTIONS WERE ANSWERED, AND THE PATIENT EXPRESSED UNDERSTANDING AND AGREES WITH THE PLAN. THE PATIENT IS AWARE TO STAY HOME FOR THE NEXT WEEK, IF POSSIBLE, DUE TO COVID-19. I, BOBBI GARY, DOCUMENTED THE ABOVE INFORMATION ACTING A SCRIBE FOR DR. CHAVES. I HAVE REVIEWED THE ABOVE DOCUMENT, WRITTEN BY BOBBI GRAY, MUCKING MACHINE OPERATOR, AND I VERIFY THAT IT IS ACCURATE PROCEDURE CODES 21623 INJECT SACROILIAC JOINT, MODIFIERS: RT DISPOSITION & COMMUNICATION FOLLOW UP F/UP WITH COMMUNITY [facility] PROGRAM COORDINATOR (REASON: POST RT SIJ) ELECTRONICALLY SIGNED BY VIVIAN CHAVES MD, MD ON 03/27/2020 AT 12:36 PM EDT DISCLAIMER : THIS IS A VISIT SUMMARY EXTRACTED FROM THE [employer] CHART. IT IS NOT A COPY OF THE [employer] PROGRESS NOTE. JIGNESH
== END ==
LOC: M PAIN 09:00
PROVIDERS: ATTEND Anesthesiology
DX: M46.1 Sacroiliitis, not elsewhere classified (principal); M53.3 Sacrococcygeal disorders, not elsewhere classified
CPT/HCPCS: G0260; J3301; Q9967

== ENCOUNTER → 2020-04-12 | Outpatient (CLI) | payer MEDICARE, OTHER ==
[~2020-04-12] MED LIST changes: +AMLO1TAB24 PO; -AMLO5TAB6 PO; -BUPIVACAINE HCL 0.25% 30ML VIAL As Ordered ONE; -ISOVUE-M 300 61% 15ML VIAL As Ordered ONE; -LIDOCAINE 1% SDV 30ML VIAL As Ordered ONE; +PANT40TA29 PO; -PANT40TA3 PO; -TRIAMCINOLONE ACETONIDE SUSP 40 MG/ML VIAL (J3301) As Ordered ONE; -VITA1TAB23 PO; +VITA250T26 PO; -diazePAM 5 MG TAB As Ordered ONE; -diphenhydrAMINE 25MG CAP As Ordered ONE; -oxyCODONE 5MG TAB As Ordered ONE
--- NOTE | 2020-04-17 02:52 | ECWPNPC ---
PATIENT NAME: GER TYLER : 1945 GENDER: FEMALE VISIT DATE: 04/12/2020 DISCHARGE DATE: 04/12/20 1445 VISIT LOCKED DATE TIME: PHYSICIAN: LJ AMADOR RESOURCE: LJ AMADOR REASON FOR APPOINTMENT 1. POST RIGHT SIJ- SON CLEARED HISTORY OF PRESENT ILLNESS GENERAL: [facility]RET IS HERE FOR POST PROCEDURE FOLLOW-UP. HAD RIGHT SIJ ON 02/21/2020. REPORTING 1 DAY OF IMPROVEMENT AND THEN PAIN RETURNED TO BASELINE. HER PAIN HAS BEEN'S SEVERE LATELY. PAIN RADIATES INTO RIGHT THIGH. REVIEWED MRI L/S SPINE DONE ON 03/14/2020. SHOWING DEGENERATIVE SPONDYLOSIS CHANGES, WHICH ARE STABLE WITH THE EXCEPTION OF A RIGHT FORAMINAL AND RIGHT LATERAL DISC BULGE/PROTRUSION AT THE L3-4 LEVEL, WHICH IS MORE PROMINENT THAN PREVIOUS. COMPLAINING OF SEVERE LEFT LUMBAR PARASPINAL PAIN OVER THE PAST 24 HOURS. STATES HAS BEEN VERY DIFFICULT FOR HER TO AMBULATE DUE TO PAIN. SHE IS USING A WALKER. HAD A LENGTHY DISCUSSION WITH BOTH SHE AND HER SON TODAY ABOUT TREATMENT OPTIONS. WE ALSO DISCUSSED SURGICAL EVALUATION. PATIENT IS RELUCTANT TO HAVE SURGERY. -. FALL RISK SCREENING: SCREENING :TWO OR MORE FALLS WITHOUT INJURY IN THE PAST YEAR PATIENT REPORTS SEVERAL FALLS THIS YEAR BECAUSE KNEE GIVING OUT AND FALLING OUT OF BED. PATIENT DECLINES INJURY AND REPORTS NOT SEEKING MEDICAL TREATMENT. PAIN SCREENING: PATIENT HAS A COMPLAINT OF ACUTE OR CHRONIC PAIN :YES LOCATION OF PAIN: LOW BACK, PATIENT REPORTS PAIN ON LEFT POSTERIOR SIDE TODAY, PATIENT STATES YESTERDAY ON RIGHT SIDE, ALWAYS ON BOTH SIDES BUT TODAY WORSE ON LEFT SIDE. INTENSITY OF PAIN (SCALE OF 1 TO 10):8 WHAT DOES YOUR PAIN FEEL LIKE:CONTINOUS, ACHING DURATION:CONSTANT, AWAKENS FROM SLEEP PAIN IS INCREASED BY:ACTIVITIES, PROLONGED STANDING PAIN IS DECREASED BY:USE OF PAIN MEDICATIONS PAIN HAS INTERFERED WITH THE FOLLOWING:BATHING/DRESSING, MOOD, WALKING ABILITY, HOUSEWORK, SLEEP, RELATIONSHIP WITH OTHERS, ENJOYMENT OF LIFE, FOOD PREPARATION, TRANSPORTATION, TOILETING PLAN/GOALS/TREATMENT/INTERVENTION/FOLLOW UP:SEE PLAN NURSING NOTE: -. PAIN CENTER INTAKE QUESTIONS: DO YOU HAVE A HISTORY OF MRSA? :NO DO YOU TAKE A BLOOD THINNERS? :NO DO YOU HAVE ANY BLEEDING DISORDERS? :NO ANY NEW NUMBNESS OR WEAKNESS IN YOUR LEGS OR ARMS? :YES CRAMPS IN BILATERAL HANDS AND LEGS ANY PACEMAKER,DEFIBRILLATOR, OR DORSAL COLUMN STIMULATOR? :NO DO YOU HAVE ANY RASHES OR OPEN SORES? :YES H/O SHINGLES RASH THAT "COMES AND GOES" ARE YOU ALLERGIC TO IV DYE? :YES ONE PREVIOUS REACTION WITH A CT SCAN ONLY, PATIENT REPORTS RASH. ARE YOU DIABETIC? :NO ANY NEW PROBLEMS WITH YOUR MEDICATIONS? :NO HAVE YOU RECEIVED A VACCINE IN THE PAST 30 DAYS? :NO DO YOU PLAN TO RECEIVE A VACCINE IN THE NEXT 21 DAYS? :YES IF SO WHAT VACCINE AND WHEN? SHINGLES, PATIENT HASN'T COMPLETED DUE TO COVID. DO YOU NEED ANY PRESCRIPTION? :YES WOULD LIKE TO DISCUSS TO [facility]. DO YOU TAKE ANY IMMUNOSUPPRESSIVE MEDICATIONS? :NO IS THERE A CHANCE YOU COULD BE ? :NO ARE YOU BREAST FEEDING? :NO CURRENT MEDICATIONS TAKING PERCOCET 5-325 MG TABLET 1 TABLET NEEDED ORALLY Q8H MDD 3 #30 TABLETS FOR 30 DAYS, NOTES: 03/26 9P TAKING POTASSIUM CHLORIDE ER 8 MEQ TABLET EXTENDED RELEASE 1 CAPSULE WITH FOOD ORALLY DAILY, NOTES: 03/26 8A TAKING LOSARTAN POTASSIUM 50 MG TABLET 1 TABLET ORALLY ONCE A DAY, NOTES: 03/26 7A TAKING CARVEDILOL 12.5 MG TABLET 1 TAB ORALLY TWICE A DAY, NOTES: 03/26 9P TAKING SPIRONOLACTONE 25 MG TABLET 1/2 TABLET ORALLY DAILY, NOTES: 03/26 7A TAKING LORAZEPAM 1 MG TABLET 1 TABLET NEEDED ORALLY EVERY 6 HRS, NOTES: 03/27 7A TAKING VITAMIN D 2000 UNIT TABLET 1 TABLET ORALLY ONCE A DAY, NOTES: 03/26 7A TAKING VITAMIN C 500 MG TABLET 1 TABLET ORALLY ONCE A DAY, NOTES: 03/26 7A TAKING VITAMIN B 12 100 MCG LOZENGE ORALLY DAILY, NOTES: 03/26 TAKING COLACE 100 MG CAPSULE 1 CAPSULE NEEDED ORALLY ONCE A DAY, NOTES: 1 WEEK TAKING BACLOFEN 10 MG TABLET 1 CAP ORALLY BID, NOTES: 03/26 9P TAKING ASPIRIN 325 MG TABLET 1 TABLET ORALLY ONCE A DAY, NOTES: 03/26 7A TAKING REFRESH 1 DROP INTO AFFECTED EYE NEEDED OPHTHALMIC DAILY, NOTES: 03/26 7P TAKING CARBAMAZEPINE 200 MG TABLET 1 CAP ORALLY BID, NOTES: 03/26 9P TAKING MAGNESIUM 400 MG CAPSULE ORALLY DAILY, NOTES: 03/26 7A TAKING GABAPENTIN 300 MG CAPSULE 1 CAPSULE ORALLY Q8H TID, NOTES: 03/26 9P TAKING DULOXETINE HCL 20 MG CAPSULE DELAYED RELEASE PARTICLES 1 CAPSULE ORALLY TWICE A DAY, NOTES: 03/26 7A TAKING PREDNISOLONE ACETATE 1 % SUSPENSION 1 DROP INTO AFFECTED EYE OPHTHALMIC TWICE A DAY, NOTES: 03/26 7A TAKING SUCRALFATE 1 GM TABLET 1 TABLET ON AN EMPTY STOMACH ORALLY TWICE A DAY, NOTES: 03/26 7A TAKING CETIRIZINE HCL 10 MG TABLET 1 TABLET ORALLY QHS, NOTES: 03/26 7A TAKING PROAIR HFA 108 (90 BASE) MCG/ACT AEROSOL SOLUTION 2 PUFFS NEEDED INHALATION EVERY 4-6 HRS NEEDED, NOTES: 03/26 7A NOT-TAKING SOMA 350 MG TABLET 1 TABLET NEEDED ORALLY AT BED TIME NEEDED, NOTES: DUE TO NO RX REFILLS REMAINING NOT-TAKING DOXYCYCLINE HYCLATE 100 MG CAPSULE 1 CAPSULE ORALLY TWICE A DAY NOT-TAKING TYLENOL WITH CODEINE #3 300-30 MG TABLET 1 TABLET NEEDED ORALLY EVERY 6 HRS PRN MDD4 NOT-TAKING ACETAMINOPHEN 325 MG CAPSULE 1 CAP ORALLY EVERY MORNING NEEDED, NOTES: UNSURE MEDICATION LIST REVIEWED AND RECONCILED WITH THE PATIENT PAST MEDICAL HISTORY MIGRAINE CERVICALGIA LOW BACK PAIN LEFT LEG PAIN / SCIATICA HX OF LYMPHOMA TRIGEMINAL NEURALGIA ANXIETY DEPRESSION OSTEOARTHRITIS RIGHT CORNEAL DISEASE SHINGLES URINARY INCONTINENCE ANGINA HISTORY REPORTED BY PT HYPERTENSION HISTORY REPORTED BY PT ASTHMA, UNSPECIFIED ASTHMA SEVERITY, UNSPECIFIED WHETHER COMPLICATED, UNSPECIFIED WHETHER PERSISTENT ALLERGIES SULFA (FOR ALLERGY USE ONLY): ANGIOEDEMA - ALLERGY PENICILLIN (FOR ALLERGIES USE ONLY): FACIAL SWELLING - ALLERGY MORPHINE SULFATE: AGITATION - ALLERGY IV DYE: HIVES - ALLERGY SURGICAL HISTORY TOTAL HYSTERECTOMY 1979 CHOLECYSTECTOMY 1983 RHINOPLASTY 1991 LEFT EAR SURGERY 1995 LEFT KNEE SURGERY 2005 LOOP RECORDER 2015 CORNEA REPLACEMENT (DONE IN FEBRUARY AND REDONE IN MARCH) RIGHT CORNEAL REPLACEMENT RIGHT KNEE REPLACEMENT 09/23/2019 RIGHT SIDED SIJ 03/27/20 FAMILY HISTORY FATHER: 52 YRS MOTHER: 69 YRS, BREAST CANCER, RHEUMATOID ARTHRITIS, DIAGNOSED WITH OTHER MALIGNANT NEOPLASM OF UNSPECIFIED SITE SON(S): ALIVE 45 YRS, DISCOID LUPUS 1 SON(S) - HEALTHY. SOCIAL HISTORY GENERAL: TOBACCO USE ARE YOU A:NONSMOKER LATEX QUESTIONNAIRE LATEX ALLERGY : HAVE YOU EVER DEVELOPED ANY TYPE OF REACTION AFTER HANDLING LATEX PRODUCTS SUCH RUBBER GLOVES, CONDOMS, DIAPHRAGMS, BALLOONS, SOCKS, OR UNDERWEAR?NO LATEX ALLERGY : HAVE YOU EVER DEVELOPED ANY TYPE OF REACTION DURING OR AFTER DENTAL APPOINTMENT, VAGINAL/RECTAL EXAMINATION, SURGICAL PROCEDURE, OR ANY OTHER EXPOSURE?NO LATEX RISK : HAVE YOU EVER HAD ANY DIFFICULTY BREATHING OR HIVES AFTER EATING OR HANDLING ANY FRUITS, OR VEGETABLES; SUCH KIWI, BANANAS, STONE FRUITS, OR CHESTNUTSNO LATEX RISK : DO YOU HAVE A PREVIOUS PERSONAL HISTORY OF MORE THAN NINE SURGERIES, SPINA BIFIDA, OR REPEATED CATHERIZATIONS? NO LATEX RISK : ARE YOU FREQUENTLY EXPOSED TO LATEX PRODUCTS IN YOUR OCCUPATION?NO DATE ASKED : 04/12/2020 LUNG CANCER SCREENING SMOKING STATUS:NON SMOKER ALCOHOL SCREENING DID YOU HAVE A DRINK CONTAINING ALCOHOL IN THE PAST YEAR?NO POINTS0 INTERPRETATIONNEGATIVE RECREATIONAL DRUG USE DRUG USE?NO CAFFEINE CAFFEINE USE?NO RASTAFARIAN [id number] AMISH LANGUAGE LANGUAGES SPOKEN:ZAMBIAN EDUCATION LEVEL OF EDUCATION:PROFESSIONAL SCHOOLS/MASTERS/PHD LEARNING BARRIERS / SPECIAL NEEDS CHANGE FROM LAST VISIT?NO BARRIERS TO LEARNING?NO HEARING IMPAIRED?YES LEFT :HEARING AIDES VISION IMPAIRED?YES :CORRECTIVE LENSES COGNITIVELY IMPAIRED?NO READINESS TO LEARN?YES LEARNING PREFERENCES?YES :BOOKLETS, HANDOUTS LEARNING CAPABILITIES PRESENT?YES EMOTIONAL BARRIERS?NO SPECIAL DEVICES?YES :CANE HOT TAR ROOFER NEEDED?NO DOMESTIC VIOLENCE DO YOU FEEL SAFE IN YOUR ENVIRONMENT?YES OCCUPATION: RETIRED. DIET: REGULAR. EXERCISE: NONE. MARITAL STATUS: .. OTHERS AT HOME: CHILD. PAIN CLINIC PFS, CLERGY, PUBLIC HEALTH REFERRALS PFS REFERRAL NEEDED?NO CLERGY REFERRAL NEEDED?NO PUBLIC HEALTH REFERRAL NEEDED?NO HAS THE PATIENT BEEN EDUCATED REGARDING HIS/HER PLAN OF CARE?YES HAS THE PATIENT BEEN EDUCATED REGARDING PAIN, THE RISK FOR PAIN, THE IMPORTANCE OF EFFECTIVE PAIN MANAGEMENT, AND THE PAIN ASSESSMENT PROCESS?YES ADVANCE DIRECTIVE ADVANCE DIRECTIVE DISCUSSED WITH PATIENT:YES HCP - [place] ([facility]) HOSPITALIZATION/MAJOR DIAGNOSTIC PROCEDURE SURGERY RELATED REVIEW OF SYSTEMS CONSTITUTIONAL: ANY RECENT FEVER NO . CHILLS NO . WEIGHT CHANGE OF UNKNOWN REASONS NO . GASTROENTEROLOGY: NEW UNEXPLAINABLE CHANGES IN BOWEL CONTROL NO . CONSTIPATION NO . GENITOURINARY: ANY NEW CHANGE IN BLADDER CONTROL? NO . NEUROLOGY: NEW ONSET DIZZINESS OR NEUROLOGICAL CHANGES NOT MENTIONED NO . NEW NUMBNESS OR PAIN PATTERNS NOT MENTIONED AND PERTINENT TO TODAY'S VISIT NO . CARDIOLOGY: NEW CHEST PRESSURE NO . NEW CHEST PAIN NO . RESPIRATORY: UNEXPLAINABLE COUGH NO . NEW SHORTNESS OF BREATH NO . VITAL SIGNS WT 174.0 LBS, HT 60 IN, BMI 33.98 INDEX, BP 118/59 MM HG, HR 64 /MIN, RR 18 /MIN, TEMP 97.2 F, OXYGEN SAT % 94%, SAFE IN ENV? (Y/N) YES, NA INITIALS AW 1331, REVIEWED BY: MT. EXAMINATION GENERAL EXAMINATION: GENERAL AWAKE,ALERT ,PLEASANT . PSYCH AFFECT NORMAL . LUNGS: LUNG MILLER ARE CLEAR TO AUSCULTATION BILATERALLY. GOOD MOVEMENT OF AIR . HEART: S1, S2 IN A REGULAR RATE AND RHYTHM. NO SIGNIFICANT MURMURS, RUBS OR GALLOPS NOTED . LUMBAR: PALPATION: + FOR PAIN OVER L/S SPINE. + FOR PAIN OVER L/S PARASPINALS MODIFIED SLE: POSITIVE OVER BILATERAL LOWER EXTREMITIES AT 45 DEGREES. 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 MDD 2, 30 DAYS, 60, REFILLS 1, NOTES: DUE TO NO RX REFILLS REMAINING NOTES: . L3/4 LESI , ISTOP REGISTRY REVIEWED AND DEMONSTRATES COMPLLIANCE RECENT ORAL SWAB TOXICOLOGY REVIEWED. NO UNAUTHORIZED MEDICATIONS. NO ILLICIT SUBSTANCES AND PRESCRIBED MEDICATIONS WERE PRESENT. , RISKS OF NARCOTIC/OPIOD MEDICATIONS INCLUDES BUT IS NOT LIMITED TO RISK OF DEPENDANCE/DEVELOPMENT OF ADDICTION, MOOD DISTURBANCE AND DEPRESSION, OSTEOPOROSIS, HORMONAL AND LABIDAL CHANGES, RESPIRATORY DEPRESSION AND . PATIENT IS ADVISED NOT TO DRIVE OR DRINK ALCOHOL WHILE ON THESE MEDICATIONS ADVISED PATIENT TO STOP BACLOFEN AND START SOMA 350 ONE TABLET TWICE A DAY. ADVISED TO START THIS SLOWLY BY TAKING ONE TABLET AT NIGHTTIME X 5 DAYS, THEN INCREASE TO ONE TWICE A DAY TOLERATED. PREVENTIVE MEDICINE PAIN CLINIC TEACHING: THE PATIENT HAS BEEN EDUCATED REGARDING HIS/HER PLAN OF CARE : PATIENT AND SON EDUCATED AND PROVIDED HANDOUT ABOUT LUMBAR EPIDURAL STEROID INJECTION, REVIEWED AND SIGNED PRE-PROCEDURE INSTRUCTIONS WITH PATIENT, PATIENT AND SON VERBALIZES UNDERSTANDING. PROCEDURE CODES FA211 ESTABILISHED PATIENT [facility] CHARGE DISPOSITION & COMMUNICATION FOLLOW UP 2 WEEKS POST PROCEDURE (REASON: . L3/4 LESI) ELECTRONICALLY SIGNED BY RIK SERRATO ON 04/16/2020 AT 03:39 PM EDT DISCLAIMER : THIS IS A VISIT SUMMARY EXTRACTED FROM THE [employer] CHART. IT IS NOT A COPY OF THE [employer] PROGRESS NOTE. JIGNESH
== END ==
LOC: M PAIN 13:00
PROVIDERS: ATTEND Nurse Practitioner Family
DX: M47.816 Spondylosis without myelopathy or radiculopathy, lumbar region (principal); M51.27 Other intervertebral disc displacement, lumbosacral region; M54.16 Radiculopathy, lumbar region

== ENCOUNTER → 2020-05-02 | Outpatient (POV) | payer MEDICARE, OTHER ==
[~2020-05-02] MED LIST changes: +LIDOCAINE 1% SDV 30ML VIAL ONE; +diphenhydrAMINE 25MG CAP ONE; +methylPREDNISolone SUSP 40MG/ML 1ML VIAL (DEPO MEDROL) ONE; +oxyCODONE 5MG TAB ONE
--- NOTE | 2020-07-03 09:12 | REP ---
PARTIAL LUMBAR SPINE: 2-VIEWS HISTORY: Lumbar epidural injection for pain. 29 seconds of fluoroscopy is recorded. FINDINGS: A sequence of 2 last image hold fluoroscopically obtained spot radiographs of the lumbar spine document needle position and contrast injection associated with lumbar epidural injection procedure. MTDD
== END ==
LOC: M PAIN 11:15
PROVIDERS: ATTEND Anesthesiology
DX: M47.816 Spondylosis without myelopathy or radiculopathy, lumbar region (principal)

== ENCOUNTER → 2020-12-31 | Outpatient (CLI) | payer MEDICARE, OTHER ==
[~2020-12-31] MED LIST changes: +GABA-282 PO; -GABA-843 PO; +LABE100T4 PO; -LABE10TAB PO; -LIDOCAINE 1% SDV 30ML VIAL ONE; -diphenhydrAMINE 25MG CAP ONE; -methylPREDNISolone SUSP 40MG/ML 1ML VIAL (DEPO MEDROL) ONE; -oxyCODONE 5MG TAB ONE
--- NOTE | 2020-12-31 10:32 | REP ---
INDICATION: HTN, FATIGUE, HYPOTHYROID LAB 1ST EKG 2ND XR 3RD. COMPARISON: PA and lateral chest dated 11/20/2019. TECHNIQUE: Upright PA and lateral chest. FINDINGS: The lung paz are clear. Cardiac size is normal. The rj, mediastinum and skeletal structures are unremarkable. Chronic elevation of the right hemidiaphragm, unchanged. Surgical clips in the abdominal right upper quadrant, unchanged IMPRESSION: Essentially negative PA and lateral chest There is no significant interval change. <Electronically signed by Kemar Cohn > 12/31/20 1025
--- NOTE | 2020-12-31 10:52 | ECGEPIP ---
[facility] Test Date: 2020-12-31 Pat Name: GER TYLER Department: Room: - Gender: Female Telephone Exchange Operator: LEONARD : 1945 Requested By: Bonita Arriola Order Number: [id number] Reading MD: Prem Mccray Measurements Intervals [facility] Rate: 72 P: 50 IN: 152 QRS: -33 QRSD: 108 T: 70 QT: 382 QTc: 418 Interpretive Statements Normal sinus rhythm with isolated PVC LA conduction disturbance, left axis deviation, incomplete LEFT BUNDLE BRANCH BLOCK and prominent voltage aVL with associated repolarization abnormalities; f findings in keeping with left ventricular hypertrophy. No significant change from 09/06/19. Electronically Signed on 12-31-2020 10:52:52 EDT by Prem Mccray
[2020-12-31 11:29] LABS: HEMATOCRIT 41.5 % (36.0-47.0); HEMOGLOBIN 13.1 g/dl (12.0-15.5); MEAN CORPUSCULAR HEMOGLOBIN 30.1 pg (27.0-33.0); MEAN CORPUSCULAR HGB CONC 31.6 g/dl (32.0-36.5); MEAN CORPUSCULAR VOLUME 95.4 fl (80.0-96.0); PLATELET COUNT, AUTOMATED 291 10^3/uL (150-450); RED BLOOD COUNT 4.35 10^6/uL (4.00-5.40); WHITE BLOOD COUNT 8.7 10^3/uL (4.0-10.0)
[2020-12-31 11:43] LABS: INR 1.06
[2020-12-31 12:27] LABS: ALBUMIN 3.4 GM/DL (3.2-5.2); ALT/SGPT 16 U/L (12-78); BILIRUBIN,TOTAL 0.4 MG/DL (0.2-1.0); BLOOD UREA NITROGEN 10 MG/DL (7-18); CALCIUM LEVEL 9.3 MG/DL (8.8-10.2); CARBON DIOXIDE LEVEL 30 MEQ/L (21-32); CHLORIDE LEVEL 100 MEQ/L (98-107); CHOLESTEROL LEVEL 198 MG/DL (<200); CHOLESTEROL RISK RATIO 3.735 (<5); CREATININE FOR GFR 0.91 MG/DL (0.55-1.30); GLOMERULAR FILTRATION RATE > 60.0 (>39); GLUCOSE, FASTING 104 MG/DL (70-100); HDL CHOLESTEROL 53 MG/DL (>40); LDL CHOLESTEROL 128 MG/DL (<100); NON-HDL-C 145 MG/DL; POTASSIUM SERUM 3.4 MEQ/L (3.5-5.1); SODIUM LEVEL 141 MEQ/L (136-145); TOTAL PROTEIN 7.4 GM/DL (6.4-8.2); TRIGLYCERIDES LEVEL 85 MG/DL (<150)
== END ==
LOC: M LAB 10:01
PROVIDERS: ATTEND Family Medicine
DX: E03.9 Hypothyroidism, unspecified (principal); R53.83 Other fatigue; I10 Essential (primary) hypertension; Z79.899 Other long term (current) drug therapy

== ENCOUNTER → 2021-01-11 | Outpatient (CLI) | payer MEDICARE, OTHER | LOC: M LABSMTC 13:33 | PROVIDERS: ATTEND Ophthalmology | DX: Z11.59 Encounter for screening for other viral diseases (principal) ==

== ENCOUNTER → 2021-02-27 | Outpatient (CLI) | payer MEDICARE, OTHER ==
--- NOTE | 2021-02-27 23:48 | ECWPNPC ---
PATIENT NAME: GER TYLER : 1945 GENDER: FEMALE VISIT DATE: 02/27/2021 DISCHARGE DATE: 02/27/21 1238 VISIT LOCKED DATE TIME: PHYSICIAN: LJ AMADOR RESOURCE: LJ AMADOR REASON FOR APPOINTMENT 1. WANTS RF HISTORY OF PRESENT ILLNESS GENERAL: PATIENT RETURNS FOR FOLLOW-UP OF LOW BACK PAIN WITH RIGHT LEG PAIN. WAS SEEN BY SURGEON IN [place] WHO RECOMMENDED PAIN MANAGEMENT IN [place]. SHE HAD TWO LUMBAR EPIDURAL STEROID INJECTIONS IN JULY 2020 AND SEPTEMBER 2020. STATES THEY DID NOT HELP HER. STATES THAT THEY WERE SUGGESTING RADIOFREQUENCY AND POSSIBLY DORSAL COLUMN STIMULATOR. SHE IS IN SEVERE PAIN TODAY. REVIEWED MRI OF THE LS-SPINE DONE IN 2019 AND DISCUSSED TREATMENT PLAN TO INCLUDE DIAGNOSTIC LUMBAR FACET BLOCK AND RADIOFREQUENCY PROCEDURE. ALSO SPOKE WITH SON OVER THE PHONE IN REGARDS TO HER SITUATION.DENIES SUICIDAL OR HOMICIDAL IDEATIONS.DENIES BOWEL OR BLADDER INCONTINENCE. -. FALL RISK SCREENING: SCREENING 3 FALLS THIS YEAR INIS[place] OF HER HOUSE NO MAJOR INJURIES. PAIN SCREENING: PATIENT HAS A COMPLAINT OF ACUTE OR CHRONIC PAIN :YES LOCATION OF PAIN:LOW BACK INTENSITY OF PAIN (SCALE OF 1 TO 10):8 WHAT DOES YOUR PAIN FEEL LIKE:SHARP, THROBBING DURATION:ONLY WITH SPECIFIC ACTIVITIES PAIN IS INCREASED BY:ACTIVITIES, PROLONGED STANDING PAIN IS DECREASED BY:SITTING NURSING NOTE: -. PAIN CENTER INTAKE QUESTIONS: DO YOU HAVE A HISTORY OF MRSA? :NO DO YOU TAKE A BLOOD THINNERS? :NO DO YOU HAVE ANY BLEEDING DISORDERS? :NO ANY NEW NUMBNESS OR WEAKNESS IN YOUR LEGS OR ARMS? :YES CRAMPS IN BILATERAL HANDS AND LEGS ANY PACEMAKER,DEFIBRILLATOR, OR DORSAL COLUMN STIMULATOR? :NO DO YOU HAVE ANY RASHES OR OPEN SORES? :YES H/O SHINGLES RASH THAT "COMES AND GOES" ARE YOU ALLERGIC TO IV DYE? :YES ONE PREVIOUS REACTION WITH A CT SCAN ONLY, PATIENT REPORTS RASH. ARE YOU DIABETIC? :NO ANY NEW PROBLEMS WITH YOUR MEDICATIONS? :NO HAVE YOU RECEIVED A VACCINE IN THE PAST 30 DAYS? :NO DO YOU PLAN TO RECEIVE A VACCINE IN THE NEXT 21 DAYS? :YES IF SO WHAT VACCINE AND WHEN? SHINGLES, PATIENT HASN'T COMPLETED DUE TO COVID. DO YOU NEED ANY PRESCRIPTION? :YES WOULD LIKE TO DISCUSS TO SOMA. DO YOU TAKE ANY IMMUNOSUPPRESSIVE MEDICATIONS? :NO IS THERE A CHANCE YOU COULD BE ? :NO ARE YOU BREAST FEEDING? :NO CURRENT MEDICATIONS TAKING POTASSIUM CHLORIDE ER 8 MEQ TABLET EXTENDED RELEASE 1 CAPSULE WITH FOOD ORALLY DAILY TAKING CARVEDILOL 12.5 MG TABLET 1 TAB ORALLY TWICE A DAY TAKING SPIRONOLACTONE 25 MG TABLET 1/2 TABLET ORALLY DAILY TAKING LORAZEPAM 1 MG TABLET 1 TABLET NEEDED ORALLY EVERY 6 HRS TAKING VITAMIN D 2000 UNIT TABLET 1 TABLET ORALLY ONCE A DAY TAKING VITAMIN C 500 MG TABLET 1 TABLET ORALLY ONCE A DAY TAKING VITAMIN B 12 100 MCG LOZENGE ORALLY DAILY TAKING COLACE 100 MG CAPSULE 1 CAPSULE NEEDED ORALLY ONCE A DAY, NOTES: 1 WEEK TAKING ASPIRIN 325 MG TABLET 1 TABLET ORALLY ONCE A DAY TAKING REFRESH 1 DROP INTO AFFECTED EYE NEEDED OPHTHALMIC DAILY TAKING CARBAMAZEPINE 200 MG TABLET 1 CAP ORALLY BID TAKING MAGNESIUM 400 MG CAPSULE ORALLY DAILY TAKING GABAPENTIN 600 MG TABLET 1 CAPSULE ORALLY Q8H TID TAKING DULOXETINE HCL 20 MG CAPSULE DELAYED RELEASE PARTICLES 1 CAPSULE ORALLY TWICE A DAY TAKING PREDNISOLONE ACETATE 1 % SUSPENSION 1 DROP INTO AFFECTED EYE OPHTHALMIC TWICE A DAY TAKING SUCRALFATE 1 GM TABLET 1 TABLET ON AN EMPTY STOMACH ORALLY TWICE A DAY TAKING CETIRIZINE HCL 10 MG TABLET 1 TABLET ORALLY QHS TAKING PROAIR HFA 108 (90 BASE) MCG/ACT AEROSOL SOLUTION 2 PUFFS NEEDED INHALATION EVERY 4-6 HRS NEEDED TAKING BACLOFEN 10 MG TABLET 1 TABLET NEEDED ORALLY TWICE A DAY, NOTES: NOT SURE DOSE NOT-TAKING LOSARTAN POTASSIUM 50 MG TABLET 1 TABLET ORALLY ONCE A DAY NOT-TAKING PERCOCET 5-325 MG TABLET 1 TABLET NEEDED ORALLY Q8H MDD 3 #30 TABLETS FOR 30 DAYS NOT-TAKING SOMA 350 MG TABLET 1 TABLET NEEDED ORALLY TWICE A DAY WHEN NECESSARY FOR SEVERE PAIN. MDD 2, NOTES: DUE TO NO RX REFILLS REMAINING NOT-TAKING DOXYCYCLINE HYCLATE 100 MG CAPSULE 1 CAPSULE ORALLY TWICE A DAY NOT-TAKING TYLENOL WITH CODEINE #3 300-30 MG TABLET 1 TABLET NEEDED ORALLY EVERY 6 HRS PRN MDD4 NOT-TAKING ACETAMINOPHEN 325 MG CAPSULE 1 CAP ORALLY EVERY MORNING NEEDED, NOTES: UNSURE MEDICATION LIST REVIEWED AND RECONCILED WITH THE PATIENT PAST MEDICAL HISTORY MIGRAINE CERVICALGIA LOW BACK PAIN LEFT LEG PAIN / SCIATICA HX OF LYMPHOMA TRIGEMINAL NEURALGIA ANXIETY DEPRESSION OSTEOARTHRITIS RIGHT CORNEAL DISEASE SHINGLES URINARY INCONTINENCE ANGINA HISTORY REPORTED BY PT HYPERTENSION HISTORY REPORTED BY PT ASTHMA, UNSPECIFIED ASTHMA SEVERITY, UNSPECIFIED WHETHER COMPLICATED, UNSPECIFIED WHETHER PERSISTENT 3 FALLS THIS YEAR INISDE OF HER HOUSE NO MAJOR INJURIES ALLERGIES SULFA (FOR ALLERGY USE ONLY): ANGIOEDEMA - ALLERGY PENICILLIN (FOR ALLERGIES USE ONLY): FACIAL SWELLING - ALLERGY MORPHINE SULFATE: AGITATION - ALLERGY IV DYE: HIVES - ALLERGY SOCIAL HISTORY GENERAL: TOBACCO USE ARE YOU A:NONSMOKER LATEX QUESTIONNAIRE LATEX ALLERGY : HAVE YOU EVER DEVELOPED ANY TYPE OF REACTION AFTER HANDLING LATEX PRODUCTS SUCH RUBBER GLOVES, CONDOMS, DIAPHRAGMS, BALLOONS, SOCKS, OR UNDERWEAR?NO LATEX ALLERGY : HAVE YOU EVER DEVELOPED ANY TYPE OF REACTION DURING OR AFTER DENTAL APPOINTMENT, VAGINAL/RECTAL EXAMINATION, SURGICAL PROCEDURE, OR ANY OTHER EXPOSURE?NO LATEX RISK : HAVE YOU EVER HAD ANY DIFFICULTY BREATHING OR HIVES AFTER EATING OR HANDLING ANY FRUITS, OR VEGETABLES; SUCH KIWI, BANANAS, STONE FRUITS, OR CHESTNUTSNO LATEX RISK : DO YOU HAVE A PREVIOUS PERSONAL HISTORY OF MORE THAN NINE SURGERIES, SPINA BIFIDA, OR REPEATED CATHERIZATIONS? NO LATEX RISK : ARE YOU FREQUENTLY EXPOSED TO LATEX PRODUCTS IN YOUR OCCUPATION?NO DATE ASKED : 02/27/2021 ALCOHOL USE: NO. LUNG CANCER SCREENING SMOKING STATUS:NON SMOKER ALCOHOL SCREENING DID YOU HAVE A DRINK CONTAINING ALCOHOL IN THE PAST YEAR?NO POINTS0 INTERPRETATIONNEGATIVE RECREATIONAL DRUG USE DRUG USE?NO CAFFEINE CAFFEINE USE?NO ROMAN CATHOLIC [employer] LANGUAGE LANGUAGES SPOKEN:CAPE VERDEAN EDUCATION LEVEL OF EDUCATION:PROFESSIONAL SCHOOLS/MASTERS/PHD LEARNING BARRIERS / SPECIAL NEEDS CHANGE FROM LAST VISIT?NO BARRIERS TO LEARNING?NO HEARING IMPAIRED?YES LEFT :HEARING AIDES VISION IMPAIRED?YES :CORRECTIVE LENSES COGNITIVELY IMPAIRED?NO READINESS TO LEARN?YES LEARNING PREFERENCES?YES :BOOKLETS, HANDOUTS LEARNING CAPABILITIES PRESENT?YES EMOTIONAL BARRIERS?NO SPECIAL DEVICES?YES :CANE, WALKER, WHEELCHAIR WINDOW INSTALLATION SUBCONTRACTOR NEEDED?NO DOMESTIC VIOLENCE DO YOU FEEL SAFE IN YOUR ENVIRONMENT?YES OCCUPATION: RETIRED. DIET: REGULAR. EXERCISE: NONE. MARITAL STATUS: .. OTHERS AT HOME: CHILD. - PFS REFERRAL NEEDED?NO CLERGY REFERRAL NEEDED?NO PUBLIC HEALTH REFERRAL NEEDED?NO HAS THE PATIENT BEEN EDUCATED REGARDING HIS/HER PLAN OF CARE?YES HAS THE PATIENT BEEN EDUCATED REGARDING PAIN, THE RISK FOR PAIN, THE IMPORTANCE OF EFFECTIVE PAIN MANAGEMENT, AND THE PAIN ASSESSMENT PROCESS?YES ADVANCE DIRECTIVE ADVANCE DIRECTIVE DISCUSSED WITH PATIENT:YES HCP - [place] ([facility] REVIEW OF SYSTEMS CONSTITUTIONAL: ANY RECENT FEVER NO . CHILLS NO . WEIGHT CHANGE OF UNKNOWN REASONS NO. REPORTS WEIGHT GAIN DUE TO INACTIVITY DUE TO PAIN . GASTROENTEROLOGY: NEW UNEXPLAINABLE CHANGES IN BOWEL CONTROL NO . CONSTIPATION NO . GENITOURINARY: ANY NEW CHANGE IN BLADDER CONTROL? NO . NEUROLOGY: NEW ONSET DIZZINESS OR NEUROLOGICAL CHANGES NOT MENTIONED NO . NEW NUMBNESS OR PAIN PATTERNS NOT MENTIONED AND PERTINENT TO TODAY'S VISIT NO . CARDIOLOGY: NEW CHEST PRESSURE NO . PATIENT DENIES NO . RESPIRATORY: UNEXPLAINABLE COUGH NO . NEW SHORTNESS OF BREATH NO . VITAL SIGNS WT 180 LBS, HT 60 IN, BMI 35.15 INDEX, BP 131/61 MM HG, HR 76 /MIN, RR 18 /MIN, TEMP 97.9 F, OXYGEN SAT % 95%, SAFE IN ENV? (Y/N) YES, NA INITIALS SC 11:17T.BLANCA CARTER. EXAMINATION GENERAL EXAMINATION: GENERALAPPEARS UNCOMFORTABLE, DEPRESSED. PSYCHAFFECT FLAT. LUNGS: LUNG MILLER ARE CLEAR TO AUSCULTATION BILATERALLY. GOOD MOVEMENT OF AIR . HEART: S1, S2 IN A REGULAR RATE AND RHYTHM. NO SIGNIFICANT MURMURS, RUBS OR GALLOPS NOTED . LUMBAR:PALPATION:TENDER OVER BILAT. L4/5-L5/S1 LUMBAR FACETS WITH FACET LOADING.. DIAGNOSTIC TESTS REVIEWED MRI L/S SPINE 2019. 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 MDD 2, 30 DAYS, 60, REFILLS 1, NOTES: DUE TO NO RX REFILLS REMAINING NOTES: ISTOP REGISTRY REVIEWED AND DEMONSTRATES COMPLLIANCE. , BILATERAL DIAGNOSTIC LUMBAR FACET BLOCK L4-5,L5-S1 REVIEWED PRE PROCEDURE INFORMATION,PATIENT AND HER SON BOTH VERBALIZED UNDERSTANDING DONNY CARTER. REFERRAL TO:PHYSICAL THERAPIST REASON:2XWK X 6 WKS,MOBILIZATION,BACK REHABILITATION PROCEDURE CODES FA211 ESTABILISHED PATIENT [facility] FACILITY CHARGE DISPOSITION & COMMUNICATION FOLLOW UP POST (REASON: , BILATERAL DIAGNOSTIC LUMBAR FACET BLOCK L4-5,L5-S1) ELECTRONICALLY SIGNED BY RIK SERRATO ON 02/27/2021 AT 10:25 PM EDT DISCLAIMER : THIS IS A VISIT SUMMARY EXTRACTED FROM THE [employer] CHART. IT IS NOT A COPY OF THE [employer] PROGRESS NOTE. JIGNESH
== END ==
LOC: M PAIN 11:15
PROVIDERS: ATTEND Nurse Practitioner Family
DX: M47.816 Spondylosis without myelopathy or radiculopathy, lumbar region (principal); G43.909 Migraine, unspecified, not intractable, without status migrainosus; J45.909 Unspecified asthma, uncomplicated; Z86.59 Personal history of other mental and behavioral disorders; Z88.0 Allergy status to penicillin; Z88.2 Allergy status to sulfonamides; Z88.5 Allergy status to narcotic agent; Z91.041 Radiographic dye allergy status; Z79.82 Long term (current) use of aspirin; Z79.899 Other long term (current) drug therapy

== ENCOUNTER → 2021-03-06 | Outpatient (CLI) | payer MEDICARE, OTHER ==
[2021-03-06 15:28] LABS: ALBUMIN 3.4 GM/DL (3.2-5.2); ALT/SGPT 17 U/L (12-78); BILIRUBIN,TOTAL 0.5 MG/DL (0.2-1.0); BLOOD UREA NITROGEN 16 MG/DL (7-18); CALCIUM LEVEL 9.6 MG/DL (8.8-10.2); CARBON DIOXIDE LEVEL 35 MEQ/L (21-32); CHLORIDE LEVEL 99 MEQ/L (98-107); CREATININE FOR GFR 0.96 MG/DL (0.55-1.30); GLOMERULAR FILTRATION RATE > 60.0 (>39); GLUCOSE, FASTING 87 MG/DL (70-100); MAGNESIUM LEVEL 1.8 MG/DL (1.8-2.4); POTASSIUM SERUM 3.4 MEQ/L (3.5-5.1); SODIUM LEVEL 139 MEQ/L (136-145); TOTAL PROTEIN 7.5 GM/DL (6.4-8.2)
== END ==
LOC: M LAB 13:51
PROVIDERS: ATTEND Physician Assistant Medical
DX: I10 Essential (primary) hypertension (principal)

== ENCOUNTER → 2021-03-22 | Outpatient (CLI) | payer MEDICARE, OTHER | LOC: M LABSMTC 13:41 | PROVIDERS: ATTEND Anesthesiology | DX: Z20.822 Contact with and (suspected) exposure to COVID-19 (principal) ==

== ENCOUNTER → 2021-03-27 | Outpatient (CLI) | payer MEDICARE, OTHER ==
[~2021-03-27] MED LIST changes: +BUPIVACAINE HCL 0.25% 30ML VIAL As Ordered ONE; +ISOVUE-M 300 61% 15ML VIAL As Ordered ONE; +LIDOCAINE 1% SDV 30ML VIAL As Ordered ONE; -PREV15CA18 PO; +PREV15CA24 PO
--- NOTE | 2021-03-27 11:52 | REP ---
INDICATION: BILATERAL DIAGNSOTIC #1 LUMBAR FACET. COMPARISON: None. TECHNIQUE: Five views. 27.6 seconds of fluoroscopy time is reported. FINDINGS: A sequence of 5 last image hold fluoroscopically obtained spot radiograph(s) of the lumbar spine document(s) needle position(s) and contrast injection associated with injection procedure. IMPRESSION: Procedural imaging. <Electronically signed by Marcelo Wright > 03/27/21 [id number]
--- NOTE | 2021-03-28 02:20 | ECWPNPC ---
PATIENT NAME: GER TYLER : 1945 GENDER: FEMALE VISIT DATE: 03/27/2021 DISCHARGE DATE: 03/27/21 1148 VISIT LOCKED DATE TIME: PHYSICIAN: VIVIAN CHAVES MD RESOURCE: VIVIAN CHAVES MD REASON FOR APPOINTMENT 1. BILATERAL DIAGNOSTIC LUMBAR FACET BLOCK L4-5,L5-S1 HISTORY OF PRESENT ILLNESS GENERAL: -. FALL RISK SCREENING: SCREENING : NO FALLS REPORTED IN THE LAST YEAR. PAIN SCREENING: PATIENT HAS A COMPLAINT OF ACUTE OR CHRONIC PAIN :YES LOCATION OF PAIN:LOW BACK, LEG(S) INTENSITY OF PAIN (SCALE OF 1 TO 10):3 WHAT DOES YOUR PAIN FEEL LIKE:ACHING, BURNING, SHARP, STABBING, THROBBING, SHOOTING DURATION:CONTINOUS, CONSTANT PAIN IS INCREASED BY:ACTIVITIES PAIN IS DECREASED BY:USE OF PAIN MEDICATIONS NURSING NOTE: -. PAIN CENTER INTAKE QUESTIONS: DO YOU HAVE A HISTORY OF MRSA? :NO DO YOU TAKE A BLOOD THINNERS? :NO DO YOU HAVE ANY BLEEDING DISORDERS? :NO ANY NEW NUMBNESS OR WEAKNESS IN YOUR LEGS OR ARMS? :YES R LEG ANY PACEMAKER,DEFIBRILLATOR, OR DORSAL COLUMN STIMULATOR? :NO DO YOU HAVE ANY RASHES OR OPEN SORES? :NO ARE YOU ALLERGIC TO IV DYE? :YES ARE YOU DIABETIC? :NO ANY NEW PROBLEMS WITH YOUR MEDICATIONS? :NO HAVE YOU RECEIVED A VACCINE IN THE PAST 30 DAYS? :NO DO YOU PLAN TO RECEIVE A VACCINE IN THE NEXT 21 DAYS? :NO DO YOU TAKE ANY IMMUNOSUPPRESSIVE MEDICATIONS? :NO ANY HISTORY OF SEIZURES? :NO ANY HISTORY OF CARDIAC ISSUES OR EVENTS? :YES ANGINA DO YOU HAVE ANY KIDNEY OR LIVER DISEASE? :NO DO YOU HAVE SLEEP APNEA? :YES DO YOU WEAR A CPAP?NO MACHINE BROKE ANY RECENT HEAD INJURY? :NO DO YOU HAVE ANY NEW INFECTIONS? :NO IS THERE A CHANCE YOU COULD BE ? :NO ARE YOU BREAST FEEDING? :NO WHEN DID YOU LAST EAT? : -LAST NIGHT 6 PM WHEN DID YOU LAST DRINK? : 1000 TODAY THIS MORNING WHAT DID YOU LAST DRINK? : -WATER NAME OF PERSON DRIVING YOU HOME? : SON [place] DO YOU HAVE ANY OTHER QUESTIONS OR CONCERNS? : - CURRENT MEDICATIONS TAKING POTASSIUM CHLORIDE ER 8 MEQ TABLET EXTENDED RELEASE 1 CAPSULE WITH FOOD ORALLY DAILY TAKING CARVEDILOL 12.5 MG TABLET 1 TAB ORALLY TWICE A DAY TAKING SPIRONOLACTONE 25 MG TABLET 1/2 TABLET ORALLY DAILY TAKING LORAZEPAM 1 MG TABLET 1 TABLET NEEDED ORALLY EVERY 6 HRS TAKING VITAMIN D 2000 UNIT TABLET 1 TABLET ORALLY ONCE A DAY TAKING VITAMIN C 500 MG TABLET 1 TABLET ORALLY ONCE A DAY TAKING VITAMIN B 12 100 MCG LOZENGE ORALLY DAILY TAKING COLACE 100 MG CAPSULE 1 CAPSULE NEEDED ORALLY ONCE A DAY, NOTES: 1 WEEK TAKING ASPIRIN 325 MG TABLET 1 TABLET ORALLY ONCE A DAY TAKING REFRESH 1 DROP INTO AFFECTED EYE NEEDED OPHTHALMIC DAILY TAKING CARBAMAZEPINE 200 MG TABLET 1 CAP ORALLY BID TAKING MAGNESIUM 400 MG CAPSULE ORALLY DAILY TAKING GABAPENTIN 600 MG TABLET 1 CAPSULE ORALLY Q8H TID TAKING DULOXETINE HCL 20 MG CAPSULE DELAYED RELEASE PARTICLES 1 CAPSULE ORALLY TWICE A DAY TAKING PREDNISOLONE ACETATE 1 % SUSPENSION 1 DROP INTO AFFECTED EYE OPHTHALMIC TWICE A DAY TAKING SUCRALFATE 1 GM TABLET 1 TABLET ON AN EMPTY STOMACH ORALLY TWICE A DAY TAKING CETIRIZINE HCL 10 MG TABLET 1 TABLET ORALLY QHS TAKING PROAIR HFA 108 (90 BASE) MCG/ACT AEROSOL SOLUTION 2 PUFFS NEEDED INHALATION EVERY 4-6 HRS NEEDED TAKING BACLOFEN 10 MG TABLET 1 TABLET NEEDED ORALLY TWICE A DAY, NOTES: NOT SURE DOSE TAKING PERCOCET 5-325 MG TABLET 1 TABLET NEEDED ORALLY Q8H MDD 3 #30 TABLETS FOR 30 DAYS NOT-TAKING SOMA 350 MG TABLET 1 TABLET NEEDED ORALLY TWICE A DAY WHEN NECESSARY FOR SEVERE PAIN. MDD 2, NOTES: DUE TO NO RX REFILLS REMAINING NOT-TAKING LOSARTAN POTASSIUM 50 MG TABLET 1 TABLET ORALLY ONCE A DAY NOT-TAKING DOXYCYCLINE HYCLATE 100 MG CAPSULE 1 CAPSULE ORALLY TWICE A DAY NOT-TAKING TYLENOL WITH CODEINE #3 300-30 MG TABLET 1 TABLET NEEDED ORALLY EVERY 6 HRS PRN MDD4 NOT-TAKING ACETAMINOPHEN 325 MG CAPSULE 1 CAP ORALLY EVERY MORNING NEEDED, NOTES: UNSURE MEDICATION LIST REVIEWED AND RECONCILED WITH THE PATIENT PAST MEDICAL HISTORY MIGRAINE CERVICALGIA LOW BACK PAIN LEFT LEG PAIN / SCIATICA HX OF LYMPHOMA TRIGEMINAL NEURALGIA ANXIETY DEPRESSION OSTEOARTHRITIS RIGHT CORNEAL DISEASE SHINGLES URINARY INCONTINENCE ANGINA HISTORY REPORTED BY PT HYPERTENSION HISTORY REPORTED BY PT ASTHMA, UNSPECIFIED ASTHMA SEVERITY, UNSPECIFIED WHETHER COMPLICATED, UNSPECIFIED WHETHER PERSISTENT 3 FALLS THIS YEAR INISDE OF HER HOUSE NO MAJOR INJURIES ALLERGIES SULFA (FOR ALLERGY USE ONLY): ANGIOEDEMA - ALLERGY PENICILLIN (FOR ALLERGIES USE ONLY): FACIAL SWELLING - ALLERGY MORPHINE SULFATE: AGITATION - ALLERGY IV DYE: HIVES - ALLERGY SURGICAL HISTORY TOTAL HYSTERECTOMY 1979 CHOLECYSTECTOMY 1983 RHINOPLASTY 1991 LEFT EAR SURGERY 1995 LEFT KNEE SURGERY 2005 LOOP RECORDER 2015 CORNEA REPLACEMENT (DONE IN FEBRUARY AND REDONE IN MARCH) RIGHT CORNEAL REPLACEMENT RIGHT KNEE REPLACEMENT 09/23/2019 RIGHT SIDED SIJ 03/27/20 SOCIAL HISTORY GENERAL: TOBACCO USE ARE YOU A:NONSMOKER LATEX QUESTIONNAIRE LATEX ALLERGY : HAVE YOU EVER DEVELOPED ANY TYPE OF REACTION AFTER HANDLING LATEX PRODUCTS SUCH RUBBER GLOVES, CONDOMS, DIAPHRAGMS, BALLOONS, SOCKS, OR UNDERWEAR?NO LATEX ALLERGY : HAVE YOU EVER DEVELOPED ANY TYPE OF REACTION DURING OR AFTER DENTAL APPOINTMENT, VAGINAL/RECTAL EXAMINATION, SURGICAL PROCEDURE, OR ANY OTHER EXPOSURE?NO DATE ASKED : 02/27/2021 LATEX RISK : HAVE YOU EVER HAD ANY DIFFICULTY BREATHING OR HIVES AFTER EATING OR HANDLING ANY FRUITS, OR VEGETABLES; SUCH KIWI, BANANAS, STONE FRUITS, OR CHESTNUTSNO LATEX RISK : DO YOU HAVE A PREVIOUS PERSONAL HISTORY OF MORE THAN NINE SURGERIES, SPINA BIFIDA, OR REPEATED CATHERIZATIONS? NO LATEX RISK : ARE YOU FREQUENTLY EXPOSED TO LATEX PRODUCTS IN YOUR OCCUPATION?NO ALCOHOL USE: NO. LUNG CANCER SCREENING SMOKING STATUS:NON SMOKER ALCOHOL SCREENING DID YOU HAVE A DRINK CONTAINING ALCOHOL IN THE PAST YEAR?NO POINTS0 INTERPRETATIONNEGATIVE RECREATIONAL DRUG USE DRUG USE?NO CAFFEINE CAFFEINE USE?NO RELIGIOUS [id number] [employer] LANG[employer]AGE LANGUAGES SPOKEN:TURKISH EDUCATION LEVEL OF EDUCATION:PROFESSIONAL SCHOOLS/MASTERS/PHD LEARNING BARRIERS / SPECIAL NEEDS CHANGE FROM LAST VISIT?NO BARRIERS TO LEARNING?NO HEARING IMPAIRED?YES LEFT VISION IMPAIRED?YES COGNITIVELY IMPAIRED?NO :HEARING AIDES :CORRECTIVE LENSES READINESS TO LEARN?YES LEARNING PREFERENCES?YES :BOOKLETS, HANDOUTS LEARNING CAPABILITIES PRESENT?YES EMOTIONAL BARRIERS?NO SPECIAL DEVICES?YES :CANE, WALKER, WHEELCHAIR PARTS SALES ASSOCIATE NEEDED?NO DOMESTIC VIOLENCE DO YOU FEEL SAFE IN YOUR ENVIRONMENT?YES OCCUPATION: RETIRED. DIET: REGULAR. EXERCISE: NONE. MARITAL STATUS: .. OTHERS AT HOME: CHILD. - PFS REFERRAL NEEDED?NO CLERGY REFERRAL NEEDED?NO PUBLIC HEALTH REFERRAL NEEDED?NO HAS THE PATIENT BEEN EDUCATED REGARDING HIS/HER PLAN OF CARE?YES HAS THE PATIENT BEEN EDUCATED REGARDING PAIN, THE RISK FOR PAIN, THE IMPORTANCE OF EFFECTIVE PAIN MANAGEMENT, AND THE PAIN ASSESSMENT PROCESS?YES ADVANCE DIRECTIVE ADVANCE DIRECTIVE DISCUSSED WITH PATIENT:YES HCP - [place] ([facility]) HOSPITALIZATION/MAJOR DIAGNOSTIC PROCEDURE SURGERY RELATED VITAL SIGNS WT 177 LBS, HT 60 IN, BMI 34.56 INDEX, BP 128/65 MM HG, HR 70 /MIN, RR 18 /MIN, TEMP 99.3 F, OXYGEN SAT % 92%, SAFE IN ENV? (Y/N) YES, NA INITIALS JH, LMP: KG. EXAMINATION GENERAL: A HISTORY AND PHYSICAL EXAM ON THE PATIENT WAS DONE ON 02/27/2021 (DATE OF ORIGINAL ASSESSMENT) IN PREPARATION OF SURGERY/PROCEDURE. I HAVE NOW REASSESSED THIS PATIENT'S HEALTH STATUS AND PERFORMED AN UPDATED EXAM TODAY. ALL CHANGES IN THE PATIENT'S HISTORY, PHYSICAL EXAM, PRE-EXISTING CONDITONS, AND INDICATIONS/CONTRAINDICATIONS TO THE PLANNED PROCEDURE AND ANESTHESIA ARE DOCUMENTED AND EVALUATED BELOW. I ATTEST TO THE ADEQUACY AND APPROPRIATENESS OF MY ASSESSMENT, AND CONFIRM THE NECESSITY FOR THE PLANNED PROCEDURE. THE PATIENT IS ALERT, ORIENTED TIMES THREE AND COOPERATIVE. LUNGS ARE CLEAR TO AUSCULTATION. HEART SHOWS REGULAR RHYTHM, NO MURMURS AND NO GALLOPS. ASSESSMENTS SPONDYLOSIS WITHOUT MYELOPATHY OR RADICULOPATHY, LUMBAR REGION - M47.816 (PRIMARY) SPONDYLOSIS WITHOUT MYELOPATHY OR RADICULOPATHY, LUMBOSACRAL REGION - M47.817 TREATMENT SPONDYLOSIS WITHOUT MYELOPATHY OR RADICULOPATHY, LUMBAR REGION COMPLETION OF PROCEDURAL VISIT WHEN MEETS CRITERIAMARIAN CASTAÑEDA 03/27/2021 12:03:18 PM > CRITERIA MET OTHERS NOTES: PAT DONE 03/22/21. EM. PROCEDURES PAIN NURSING RECORD PROCEDURE IN ROOM 1105, PHYSICIAN IN ROOM 1108, START 1113, FINISH 1120, PHYSICIAN OUT OF ROOM 1121, OUT OF ROOM 1130 HAD PT WALK INTO PROCEDURE ROOM AND OUT OF PROCEDURE ROOM, ECG NORMAL SINUS, PATIENT SHIELDED YES, SAFETY STRAP YES, PREP CHLOROPREP, DRESSING TEGADERM LOC: 1. ALERT, ORIENTED MARIAN CASTAÑEDA 03/27/2021 11:09:20 AM > RESP: 1. REGULAR, NO DYSPNEA MARIAN CASTAÑEDA 03/27/2021 11:16:03 AM > COLOR: 1. PINK MARIAN CASTAÑEDA 03/27/2021 11:16:08 AM > SKIN: 1. WARM, DRY MARIAN CASTAÑEDA 03/27/2021 11:16:13 AM > POSITION: 1. PRONE MARIAN CASTAÑEDA 03/27/2021 11:16:19 AM > VITALS: IN ROOM 1105 142/76 66 97 % ON RA 18 RESP 1120 144/74 67 96% ON RA 18 RESP POST PROCEDURE 137/64-66-95% ON RA, 18 RR, TEMP 98.8 AMBERLY STEWART 03/27/2021 11:37:20 AM > NOTES Alex CASTAÑEDA RN COMPLETION OF PROCEDURE APPOINTMENT: POST PAIN 2, DRESSING SITE DRY AND INTACT, IV N/A, GAIT STEADY PT WALKED OFF THE UNIT SHE CAME BY WHEEL CHAIR, TEACHING COMPLETED, PATIENT ACKNOWLEDGES UNDERSTANDING YES, PROCEDURE APPOINTMENT COMPLETED AT 1147 PN LUMBAR FACET BLOCK DIAGNOSTIC PRE PROCEDURE DIAGNOSIS LUMBAR SPONDYLOSIS, LUMBOSACRAL SPONDYLOSIS POST PROCEDURE DIAGNOSIS LUMBAR SPONDYLOSIS, LUMBOSACRAL SPONDYLOSIS PROCEDURE BILATERAL L4-L5 AND BILATERAL L5-S1 FACET BLOCK DIAGNOSTIC NUMBER [address] VIVIAN CHAVES BIODIESEL PLANT MANAGER NONE ANESTHESIA LOCAL PRE PROCEDURE NOTE THE PATIENT WITH HISTORY OF CHRONIC LOW BACK PAIN. I EVALUATED THE PATIENT AND REVIEWED THE CHART. I WENT OVER THE RISKS, ALTERNATIVES, AND BENEFITS ASSOCIATED WITH THIS PROCEDURE. THE PATIENT WOULD LIKE TO PROCEED AND GAVE CONSENT TO PERFORM THE PROCEDURE. AGREED WITH THE PATIENT, WE ARE DOING THIS PROCEDURE TO DETERMINE IF THE PATIENT IS A CANDIDATE FOR A RADIOFREQUENCY ABLATION OF THE FACETS JOINTS. THE PATIENT DENIES UNEXPLAINABLE WEIGHT LOSS, FEVER, CHILLS, OR NEW CHANGES IN URINARY OR BOWEL CONTROL. THE PATIENT IS COVID-19 NEGATIVE DESCRIPTION OF PROCEDURE THE PATIENT WAS BROUGHT TO THE PROCEDURE ROOM AND PLACED IN THE PRONE POSITION. THE LUMBOSACRAL AREA WAS CLEANED WITH CHLORAPREP SOLUTION AND DRAPED ASEPTICALLY. THE PROCEDURE WAS DONE UNDER STERILE CONDITIONS. A TIMEOUT WAS PERFORMED WHERE THE CONSENTED SITE WAS VERIFIED WITH EVERYONE IN THE ROOM. UNDER FLUOROSCOPIC GUIDANCE, TARGETS WERE SELECTED AT THE INTERSECTION OF THE RIGHT AND LEFT TRANSVERSE PROCESS OF L4, L5 AND ALA OF S1 WITH ITS RESPECTIVE SUPERIOR ARTICULAR PROCESS WITH A TARGET OF THE MEDIAN BRANCHES OF L3, L4 AND THE DORSAL RAMI OF L5. I CONFIRMED AGAIN THE SITE OF TARGET. LIDOCAINE WAS USED TO NUMB THE SKIN AND THE SUBCUTANEOUS TISSUE BELOW IT. SPINAL NEEDLE, 22-GAUGE, WAS ADVANCED UNDER FLUOROSCOPIC GUIDANCE AND FOLLOWING PATIENT FEEDBACK UNTIL THE TARGETS WERE REACHED. POSITION OF THE NEEDLES WAS VERIFIED WITH AP AND LATERAL VIEWS. AFTER PROPER POSITION OF THE NEEDLES WAS ACHIEVED, ISOVUE-M DYE 30%, 0.1 ML, WAS INJECTED AT EACH SITE SHOWING ADEQUATE SPREAD OF THE DYE. THEN, A SOLUTION OF 0.4 ML OF BUPIVACAINE 0.25% WAS INJECTED AT EACH SITE. THE MEDICATIONS WERE VERIFIED WITH THE NURSE. THERE WAS NO EVIDENCE OF BLOOD, PARESTHESIA OR CEREBROSPINAL FLUID DURING THE PROCEDURE. THE PATIENT WAS SENT TO THE RECOVERY ROOM. THE PATIENT WAS MOVING THE EXTREMITIES AND DOING WELL. THERE WERE NO COMPLICATIONS DURING THE PROCEDURE. ESTIMATED BLOOD LOSS WAS LESS THAN 5 ML. FLUOROSCOPY TIME WAS 27 SECONDS POST PROCEDURE NOTE THE PATIENT WILL DOCUMENT THE PAIN LEVEL AND RESPONSE TO THIS PROCEDURE PER PAIN DIARY. THE PATIENT WILL BE SEEN IN A FOLLOW UP IN THE NEXT FEW WEEKS. FURTHER DETERMINATION FOR THE PATIENT'S CASE WILL BE DONE AT THE NEXT VISIT. INSTRUCTIONS WERE GIVEN, QUESTIONS WERE ANSWERED, AND THE PATIENT EXPRESSED UNDERSTANDING AND AGREED WITH THE PLAN. I, BOBBI GRAY, DOCUMENTED THE ABOVE INFORMATION ACTING A SCRIBE FOR DR. CHAVES. I HAVE REVIEWED THE ABOVE DOCUMENT, WRITTEN BY BOBBI GRAY, LEAF STAMPER, AND I VERIFY THAT IT IS ACCURATE [id number]. DIAGNOSTIC IM[facility] FACET BLOCK (PAIN)[id number] PROCEDURE CODES 61827 INJ PARAVERT F JNT L/S 1 LEV, MODIFIERS: 50 [id number] INJ PARAVERT F JNT L/S 2 LEV, MODIFIERS: 50 DISPOSITION & COMMUNICATION FOLLOW UP FOLLOW UP WITH PROCESS SAFETY ENGINEERING TECHNOLOGIST (REASON: POST BILATERAL DIAGNOSTIC LUMBAR FACET BLOCK L4-L5, L5-S1) ELECTRONICALLY SIGNED BY VIVIAN CHAVES MD, MD ON 03/27/2021 AT 02:25 PM EDT DISCLAIMER : THIS IS A VISIT SUMMARY EXTRACTED FROM THE [employer] CHART. IT IS NOT A COPY OF THE [employer] PROGRESS NOTE. JIGNESH
== END ==
LOC: M PAIN 10:20
PROVIDERS: ATTEND Anesthesiology
DX: M47.816 Spondylosis without myelopathy or radiculopathy, lumbar region (principal); M47.817 Spondylosis without myelopathy or radiculopathy, lumbosacral region; G47.30 Sleep apnea, unspecified; G43.909 Migraine, unspecified, not intractable, without status migrainosus; J45.909 Unspecified asthma, uncomplicated; Z86.59 Personal history of other mental and behavioral disorders; Z96.651 Presence of right artificial knee joint; Z88.0 Allergy status to penicillin; Z88.2 Allergy status to sulfonamides; Z88.5 Allergy status to narcotic agent; Z91.041 Radiographic dye allergy status; Z79.82 Long term (current) use of aspirin; Z79.899 Other long term (current) drug therapy
CPT/HCPCS: 64493; 64494; Q9967

== ENCOUNTER → 2021-04-03 | Outpatient (CLI) | payer MEDICARE, OTHER ==
[~2021-04-03] MED LIST changes: -BUPIVACAINE HCL 0.25% 30ML VIAL As Ordered ONE; -ISOVUE-M 300 61% 15ML VIAL As Ordered ONE; -LIDOCAINE 1% SDV 30ML VIAL As Ordered ONE
--- NOTE | 2021-04-05 03:12 | ECWPNPC ---
PATIENT NAME: GER TYLER : 1945 GENDER: FEMALE VISIT DATE: 04/03/2021 DISCHARGE DATE: 04/03/21 1217 VISIT LOCKED DATE TIME: PHYSICIAN: LJ AMADOR RESOURCE: LJ AMADOR REASON FOR APPOINTMENT 1. POST BILATERAL DIAGNOSTIC LUMBAR FACET BLOCK L4-5,L5-S1 HISTORY OF PRESENT ILLNESS GENERAL: HERE FOR POST PROCEDURE FOLLOW-UP. HAD BILATERAL DIAGNOSTIC LUMBAR FACET BLOCK #1 L4-5, L5-S1 ON 03/27/2021. HOURLY DIARY IS REVIEWED. REPORTS GREATER THAN 80% REDUCTION IN PAIN FOR APPROXIMATELY 4 HOURS POST PROCEDURE THEN PAIN GRADUALLY RETURNED TO BASELINE. ACCOMPANIED IN THE EXAM ROOM WITH HER SON. EXPLAINED DIAGNOSTIC TESTING #2 AND PROCESS OF RADIOFREQUENCY. PATIENT SEEMS RECEPTIVE. CONTINUES WITH SIGNIFICANT DISCOMFORT AND DISABILITY RELATED TO LOW BACK PAIN RIGHT GREATER THAN LEFT. -. FALL RISK SCREENING: SCREENING : NO FALLS REPORTED IN THE LAST YEAR. PAIN SCREENING: PATIENT HAS A COMPLAINT OF ACUTE OR CHRONIC PAIN :YES LOCATION OF PAIN:LOW BACK INTENSITY OF PAIN (SCALE OF 1 TO 10):4 WHAT DOES YOUR PAIN FEEL LIKE:ACHING, INTERMITTENT, STABBING, THROBBING DURATION:ONLY WITH SPECIFIC ACTIVITIES, INTERMITTENT WHEN WALKING PAIN GET WORST PAIN IS INCREASED BY:ACTIVITIES PAIN IS DECREASED BY:USE OF PAIN MEDICATIONS NURSING NOTE: -. PAIN CENTER INTAKE QUESTIONS: DO YOU HAVE A HISTORY OF MRSA? :NO DO YOU TAKE A BLOOD THINNERS? :NO ASPIRIN 325 MG DO YOU HAVE ANY BLEEDING DISORDERS? :NO ANY NEW NUMBNESS OR WEAKNESS IN YOUR LEGS OR ARMS? :NO CRAMPS IN BILATERAL HANDS AND LEGS COMS AND GOES ANY PACEMAKER,DEFIBRILLATOR, OR DORSAL COLUMN STIMULATOR? :NO DO YOU HAVE ANY RASHES OR OPEN SORES? :YES H/O SHINGLES RASH THAT "COMES AND GOES" ARE YOU ALLERGIC TO IV DYE? :YES ONE PREVIOUS REACTION WITH A CT SCAN ONLY, PATIENT REPORTS RASH. ARE YOU DIABETIC? :NO ANY NEW PROBLEMS WITH YOUR MEDICATIONS? :NO HAVE YOU RECEIVED A VACCINE IN THE PAST 30 DAYS? :NO DO YOU PLAN TO RECEIVE A VACCINE IN THE NEXT 21 DAYS? :YES IF SO WHAT VACCINE AND WHEN? SHINGLES, PATIENT HASN'T COMPLETED DUE TO COVID. DO YOU NEED ANY PRESCRIPTION? :YES WOULD LIKE TO DISCUSS TO SOMA. DO YOU TAKE ANY IMMUNOSUPPRESSIVE MEDICATIONS? :NO IS THERE A CHANCE YOU COULD BE ? :NO ARE YOU BREAST FEEDING? :NO CURRENT MEDICATIONS TAKING POTASSIUM CHLORIDE ER 8 MEQ TABLET EXTENDED RELEASE 1 CAPSULE WITH FOOD ORALLY DAILY TAKING CARVEDILOL 12.5 MG TABLET 1 TAB ORALLY TWICE A DAY TAKING SPIRONOLACTONE 25 MG TABLET 1/2 TABLET ORALLY DAILY TAKING LORAZEPAM 1 MG TABLET 1 TABLET NEEDED ORALLY EVERY 6 HRS TAKING VITAMIN D 2000 UNIT TABLET 1 TABLET ORALLY ONCE A DAY TAKING VITAMIN C 500 MG TABLET 1 TABLET ORALLY ONCE A DAY TAKING VITAMIN B 12 100 MCG LOZENGE ORALLY DAILY TAKING COLACE 100 MG CAPSULE 1 CAPSULE NEEDED ORALLY ONCE A DAY, NOTES: 1 WEEK TAKING ASPIRIN 325 MG TABLET 1 TABLET ORALLY ONCE A DAY TAKING REFRESH 1 DROP INTO AFFECTED EYE NEEDED OPHTHALMIC DAILY TAKING CARBAMAZEPINE 200 MG TABLET 1 CAP ORALLY BID TAKING MAGNESIUM 400 MG CAPSULE ORALLY DAILY TAKING GABAPENTIN 600 MG TABLET 1 CAPSULE ORALLY Q8H TID TAKING DULOXETINE HCL 30 MG CAPSULE DELAYED RELEASE PARTICLES 1 CAPSULE ORALLY ONCE A DAY TAKING PREDNISOLONE ACETATE 1 % SUSPENSION 1 DROP INTO AFFECTED EYE OPHTHALMIC TWICE A DAY TAKING SUCRALFATE 1 GM TABLET 1 TABLET ON AN EMPTY STOMACH ORALLY TWICE A DAY TAKING CETIRIZINE HCL 10 MG TABLET 1 TABLET ORALLY QHS TAKING PROAIR HFA 108 (90 BASE) MCG/ACT AEROSOL SOLUTION 2 PUFFS NEEDED INHALATION EVERY 4-6 HRS NEEDED TAKING BACLOFEN 10 MG TABLET 1 TABLET NEEDED ORALLY TWICE A DAY, NOTES: NOT SURE DOSE TAKING PERCOCET 5-325 MG TABLET 1 TABLET NEEDED ORALLY Q8H MDD 3 #30 TABLETS FOR 30 DAYS NOT-TAKING SOMA 350 MG TABLET 1 TABLET NEEDED ORALLY TWICE A DAY WHEN NECESSARY FOR SEVERE PAIN. MDD 2, NOTES: DUE TO NO RX REFILLS REMAINING NOT-TAKING LOSARTAN POTASSIUM 50 MG TABLET 1 TABLET ORALLY ONCE A DAY NOT-TAKING DOXYCYCLINE HYCLATE 100 MG CAPSULE 1 CAPSULE ORALLY TWICE A DAY NOT-TAKING TYLENOL WITH CODEINE #3 300-30 MG TABLET 1 TABLET NEEDED ORALLY EVERY 6 HRS PRN MDD4 NOT-TAKING ACETAMINOPHEN 325 MG CAPSULE 1 CAP ORALLY EVERY MORNING NEEDED, NOTES: UNSURE MEDICATION LIST REVIEWED AND RECONCILED WITH THE PATIENT PAST MEDICAL HISTORY MIGRAINE CERVICALGIA LOW BACK PAIN LEFT LEG PAIN / SCIATICA HX OF LYMPHOMA TRIGEMINAL NEURALGIA ANXIETY DEPRESSION OSTEOARTHRITIS RIGHT CORNEAL DISEASE SHINGLES URINARY INCONTINENCE ANGINA HISTORY REPORTED BY PT HYPERTENSION HISTORY REPORTED BY PT ASTHMA, UNSPECIFIED ASTHMA SEVERITY, UNSPECIFIED WHETHER COMPLICATED, UNSPECIFIED WHETHER PERSISTENT 3 FALLS THIS YEAR INISDE OF HER HOUSE NO MAJOR INJURIES ALLERGIES SULFA (FOR ALLERGY USE ONLY): ANGIOEDEMA - ALLERGY PENICILLIN (FOR ALLERGIES USE ONLY): FACIAL SWELLING - ALLERGY MORPHINE SULFATE: AGITATION - ALLERGY IV DYE: HIVES - ALLERGY SOCIAL HISTORY GENERAL: TOBACCO USE ARE YOU A:NONSMOKER LATEX QUESTIONNAIRE LATEX ALLERGY : HAVE YOU EVER DEVELOPED ANY TYPE OF REACTION AFTER HANDLING LATEX PRODUCTS SUCH RUBBER GLOVES, CONDOMS, DIAPHRAGMS, BALLOONS, SOCKS, OR UNDERWEAR?NO LATEX ALLERGY : HAVE YOU EVER DEVELOPED ANY TYPE OF REACTION DURING OR AFTER DENTAL APPOINTMENT, VAGINAL/RECTAL EXAMINATION, SURGICAL PROCEDURE, OR ANY OTHER EXPOSURE?NO LATEX RISK : HAVE YOU EVER HAD ANY DIFFICULTY BREATHING OR HIVES AFTER EATING OR HANDLING ANY FRUITS, OR VEGETABLES; SUCH KIWI, BANANAS, STONE FRUITS, OR CHESTNUTSNO LATEX RISK : DO YOU HAVE A PREVIOUS PERSONAL HISTORY OF MORE THAN NINE SURGERIES, SPINA BIFIDA, OR REPEATED CATHERIZATIONS? NO LATEX RISK : ARE YOU FREQUENTLY EXPOSED TO LATEX PRODUCTS IN YOUR OCCUPATION?NO DATE ASKED : 04/03/2021 ALCOHOL USE: NO. LUNG CANCER SCREENING SMOKING STATUS:NON SMOKER ALCOHOL SCREENING DID YOU HAVE A DRINK CONTAINING ALCOHOL IN THE PAST YEAR?NO POINTS0 INTERPRETATIONNEGATIVE RECREATIONAL DRUG USE DRUG USE?NO CAFFEINE CAFFEINE USE?NO FAITH SSEMAPVU18 JAIN LANGUAGE LANGUAGES SPOKEN:BANGLADESHI EDUCATION LEVEL OF EDUCATION:PROFESSIONAL SCHOOLS/MASTERS/PHD LEARNING BARRIERS / SPECIAL NEEDS CHANGE FROM LAST VISIT?NO BARRIERS TO LEARNING?NO HARD TIME REMEMBERING THINGS HEARING IMPAIRED?YES LEFT :HEARING AIDES VISION IMPAIRED?YES :CORRECTIVE LENSES COGNITIVELY IMPAIRED?NO READINESS TO LEARN?YES LEARNING PREFERENCES?YES :BOOKLETS, HANDOUTS LEARNING CAPABILITIES PRESENT?YES EMOTIONAL BARRIERS?NO SPECIAL DEVICES?YES :CANE, WALKER, WHEELCHAIR 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 DIET: REGULAR. EXERCISE: NONE. MARITAL STATUS: .. OTHERS AT HOME: CHILD. - PFS REFERRAL NEEDED?NO CLERGY REFERRAL NEEDED?NO PUBLIC HEALTH REFERRAL NEEDED?NO HAS THE PATIENT BEEN EDUCATED REGARDING HIS/HER PLAN OF CARE?YES HAS THE PATIENT BEEN EDUCATED REGARDING PAIN, THE RISK FOR PAIN, THE IMPORTANCE OF EFFECTIVE PAIN MANAGEMENT, AND THE PAIN ASSESSMENT PROCESS?YES ADVANCE DIRECTIVE ADVANCE DIRECTIVE DISCUSSED WITH PATIENT:YES [place]CP - [place] ([facility] REVIEW OF SYSTEMS CONSTITUTIONAL: ANY RECENT FEVER NO . CHILLS NO . WEIGHT CHANGE OF UNKNOWN REASONS NO. REPORTS WEIGHT GAIN DUE TO INACTIVITY DUE TO PAIN . GASTROENTEROLOGY: NEW UNEXPLAINABLE CHANGES IN BOWEL CONTROL NO . CONSTIPATION NO . GENITOURINARY: ANY NEW CHANGE IN BLADDER CONTROL? NO . NEUROLOGY: NEW ONSET DIZZINESS OR NEUROLOGICAL CHANGES NOT MENTIONED NO . NEW NUMBNESS OR PAIN PATTERNS NOT MENTIONED AND PERTINENT TO TODAY'S VISIT NO . CARDIOLOGY: NEW CHEST PRESSURE NO . PATIENT DENIES NO . RESPIRATORY: UNEXPLAINABLE COUGH NO . NEW SHORTNESS OF BREATH NO . VITAL SIGNS WT 177 LBS, HT 60 IN, BMI 34.56 INDEX, BP 126/61 MM HG, HR 69 /MIN, RR 18 /MIN, TEMP 99.3 F, OXYGEN SAT % 99%, SAFE IN ENV? (Y/N) YES, NA INITIALS AW 1156T.BLANCA CARTER. EXAMINATION GENERAL EXAMINATION: GENERALAPPEARS UNCOMFORTABLE, DEPRESSED. PSYCHAFFECT FLAT. LUNGS: LUNG MILLER ARE CLEAR TO AUSCULTATION BILATERALLY. GOOD MOVEMENT OF AIR . HEART: S1, S2 IN A REGULAR RATE AND RHYTHM. NO SIGNIFICANT MURMURS, RUBS OR GALLOPS NOTED . LUMBAR:PALPATION:TENDER OVER BILAT. L4/5-L5/S1 LUMBAR FACETS WITH FACET LOADING.. DIAGNOSTIC TESTS REVIEWED MRI L/S SPINE 2019. ASSESSMENTS LUMBAR SPONDYLOSIS - M47.816 (PRIMARY) TREATMENT LUMBAR SPONDYLOSIS NOTES: BILATERAL DIAGNOSTIC LUMBAR FACET BLOCK L4-5,L5-S1#2 REVIEWED PRE PROCEDURE INFORMATION, PATIENT AND PATIENT SON BOTH VERBALIZED UNDERSTANDING DONNY CARTER. PROCEDURE CODES FA211 ESTABILISHED PATIENT [facility] FACILITY CHARGE DISPOSITION & COMMUNICATION FOLLOW UP POST (REASON: BILATERAL DIAGNOSTIC LUMBAR FACET BLOCK L4-5,L5-S1 #2) ELECTRONICALLY SIGNED BY RIK SERRATO ON 04/04/2021 AT 03:18 PM EDT DISCLAIMER : THIS IS A VISIT SUMMARY EXTRACTED FROM THE [employer] CHART. IT IS NOT A COPY OF THE [employer] PROGRESS NOTE. JIGNESH
== END ==
LOC: M PAIN 11:30
PROVIDERS: ATTEND Nurse Practitioner Family
DX: M47.816 Spondylosis without myelopathy or radiculopathy, lumbar region (principal); G43.909 Migraine, unspecified, not intractable, without status migrainosus; J45.909 Unspecified asthma, uncomplicated; Z86.59 Personal history of other mental and behavioral disorders; Z88.0 Allergy status to penicillin; Z88.2 Allergy status to sulfonamides; Z88.5 Allergy status to narcotic agent; Z91.041 Radiographic dye allergy status; Z79.82 Long term (current) use of aspirin; Z79.899 Other long term (current) drug therapy

== ENCOUNTER → 2021-04-05 | Outpatient (CLI) | payer MEDICARE, OTHER | LOC: M LABSMTC 13:48 | PROVIDERS: ATTEND Anesthesiology | DX: Z01.812 Encounter for preprocedural laboratory examination (principal); Z11.52 Encounter for screening for COVID-19 ==

== ENCOUNTER → 2021-04-10 | Outpatient (CLI) | payer MEDICARE, OTHER ==
[~2021-04-10] MED LIST changes: +BUPIVACAINE HCL 0.25% 30ML VIAL As Ordered ONE; +ISOVUE-M 300 61% 15ML VIAL As Ordered ONE; +LIDOCAINE 1% SDV 30ML VIAL As Ordered ONE
--- NOTE | 2021-04-10 11:51 | REP ---
INDICATION: BILATERAL DIAGNOSTIC LUMBAR FACET BLOCK. COMPARISON: None. TECHNIQUE: Four views. 30.3 seconds of fluoroscopy time is reported. FINDINGS: A sequence of 4 last image hold fluoroscopically obtained spot radiograph(s) of the lumbar spine document(s) needle position(s) and contrast injection associated with injection procedure. IMPRESSION: Procedural imaging. <Electronically signed by Marcelo Wright > 04/10/21 2267
--- NOTE | 2021-04-13 00:23 | ECWPNPC ---
PATIENT NAME: GER TYLER : 1945 GENDER: FEMALE VISIT DATE: 04/10/2021 DISCHARGE DATE: 04/10/21 1201 VISIT LOCKED DATE TIME: PHYSICIAN: VIVIAN CHAVES MD RESOURCE: VIVIAN CHAVES MD REASON FOR APPOINTMENT 1. BILATERAL DIAGNOSTIC LUMBAR FACET BLOCK L4-5,L5-S1 #2 HISTORY OF PRESENT ILLNESS GENERAL: -. FALL RISK SCREENING: SCREENING : NO FALLS REPORTED IN THE LAST YEAR. PAIN SCREENING: PATIENT HAS A COMPLAINT OF ACUTE OR CHRONIC PAIN :YES LOCATION OF PAIN:LOW BACK RADIATES DOWN RIGHT LEG INTENSITY OF PAIN (SCALE OF 1 TO 10):8 WHEN WALKING WHAT DOES YOUR PAIN FEEL LIKE:ACHING DURATION:CONTINOUS, CONSTANT, STEADY, ALL DAY PAIN IS INCREASED BY:PROLONGED STANDING WALKING PAIN IS DECREASED BY:OTHERS HEAT NURSING NOTE: -. PAIN CENTER INTAKE QUESTIONS: DO YOU HAVE A HISTORY OF MRSA? :NO DO YOU TAKE A BLOOD THINNERS? :NO DO YOU HAVE ANY BLEEDING DISORDERS? :NO ANY NEW NUMBNESS OR WEAKNESS IN YOUR LEGS OR ARMS? :NO ANY PACEMAKER,DEFIBRILLATOR, OR DORSAL COLUMN STIMULATOR? :NO DO YOU HAVE ANY RASHES OR OPEN SORES? :NO ARE YOU ALLERGIC TO IV DYE? :YES RASH ON TORSO ARE YOU DIABETIC? :NO ANY NEW PROBLEMS WITH YOUR MEDICATIONS? :NO HAVE YOU RECEIVED A VACCINE IN THE PAST 30 DAYS? :NO DO YOU PLAN TO RECEIVE A VACCINE IN THE NEXT 21 DAYS? :NO DO YOU TAKE ANY IMMUNOSUPPRESSIVE MEDICATIONS? :NO ANY HISTORY OF SEIZURES? :NO ANY HISTORY OF CARDIAC ISSUES OR EVENTS? :YES AFIB & ANGINA DO YOU HAVE ANY KIDNEY OR LIVER DISEASE? :NO DO YOU HAVE SLEEP APNEA? :YES ANY RECENT HEAD INJURY? :NO DO YOU HAVE ANY NEW INFECTIONS? :NO IS THERE A CHANCE YOU COULD BE ? :NO ARE YOU BREAST FEEDING? :NO WHEN DID YOU LAST EAT? : 04/09/21 1830 WHEN DID YOU LAST DRINK? : 0800 FEW SIPS FOR PILLS WHAT DID YOU LAST DRINK? : [place]ATER NAME OF PERSON DRIVING YOU HOME? : [place] DO YOU HAVE ANY OTHER QUESTIONS OR CONCERNS? : NO CURRENT MEDICATIONS TAKING POTASSIUM CHLORIDE ER 8 MEQ TABLET EXTENDED RELEASE 1 CAPSULE WITH FOOD ORALLY DAILY TAKING CARVEDILOL 12.5 MG TABLET 1 TAB ORALLY TWICE A DAY, NOTES: 0800 TAKING SPIRONOLACTONE 25 MG TABLET 1/2 TABLET ORALLY DAILY, NOTES: 0800 TAKING LORAZEPAM 1 MG TABLET 1 TABLET NEEDED ORALLY EVERY 6 HRS, NOTES: NONE RECENTLY TAKING VITAMIN D 2000 UNIT TABLET 1 TABLET ORALLY ONCE A DAY, NOTES: 0800 TAKING VITAMIN C 500 MG TABLET 1 TABLET ORALLY ONCE A DAY, NOTES: 0800 TAKING VITAMIN B 12 100 MCG LOZENGE ORALLY DAILY, NOTES: 0800 TAKING COLACE 100 MG CAPSULE 1 CAPSULE NEEDED ORALLY ONCE A DAY, NOTES: 1 WEEK TAKING ASPIRIN 325 MG TABLET 1 TABLET ORALLY ONCE A DAY, NOTES: 0800 TAKING REFRESH 1 DROP INTO AFFECTED EYE NEEDED OPHTHALMIC DAILY TAKING CARBAMAZEPINE 200 MG TABLET 1 CAP ORALLY BID, NOTES: 0800 TAKING MAGNESIUM 400 MG CAPSULE ORALLY DAILY, NOTES: 04/09/21 2100 TAKING GABAPENTIN 600 MG TABLET 1 CAPSULE ORALLY Q8H TID, NOTES: 0800 TAKING DULOXETINE HCL 30 MG CAPSULE DELAYED RELEASE PARTICLES 1 CAPSULE ORALLY ONCE A DAY, NOTES: 04/09/21 1800 TAKING PREDNISOLONE ACETATE 1 % SUSPENSION 1 DROP INTO AFFECTED EYE OPHTHALMIC TWICE A DAY TAKING SUCRALFATE 1 GM TABLET 1 TABLET ON AN EMPTY STOMACH ORALLY TWICE A DAY, NOTES: 0800 TAKING PROAIR HFA 108 (90 BASE) MCG/ACT AEROSOL SOLUTION 2 PUFFS NEEDED INHALATION EVERY 4-6 HRS NEEDED TAKING BACLOFEN 10 MG TABLET 1 TABLET NEEDED ORALLY TWICE A DAY, NOTES: 04/09/212099 NOT-TAKING CETIRIZINE HCL 10 MG TABLET 1 TABLET ORALLY QHS NOT-TAKING PERCOCET 5-325 MG TABLET 1 TABLET NEEDED ORALLY Q8H MDD 3 #30 TABLETS FOR 30 DAYS NOT-TAKING SOMA 350 MG TABLET 1 TABLET NEEDED ORALLY TWICE A DAY WHEN NECESSARY FOR SEVERE PAIN. MDD 2, NOTES: DUE TO NO RX REFILLS REMAINING NOT-TAKING LOSARTAN POTASSIUM 50 MG TABLET 1 TABLET ORALLY ONCE A DAY NOT-TAKING DOXYCYCLINE HYCLATE 100 MG CAPSULE 1 CAPSULE ORALLY TWICE A DAY NOT-TAKING TYLENOL WITH CODEINE #3 300-30 MG TABLET 1 TABLET NEEDED ORALLY EVERY 6 HRS PRN MDD4 NOT-TAKING ACETAMINOPHEN 325 MG CAPSULE 1 CAP ORALLY EVERY MORNING NEEDED, NOTES: UNSURE MEDICATION LIST REVIEWED AND RECONCILED WITH THE PATIENT PAST MEDICAL HISTORY MIGRAINE CERVICALGIA LOW BACK PAIN LEFT LEG PAIN / SCIATICA HX OF LYMPHOMA TRIGEMINAL NEURALGIA ANXIETY DEPRESSION OSTEOARTHRITIS RIGHT CORNEAL DISEASE SHINGLES URINARY INCONTINENCE ANGINA HISTORY REPORTED BY PT HYPERTENSION HISTORY REPORTED BY PT ASTHMA, UNSPECIFIED ASTHMA SEVERITY, UNSPECIFIED WHETHER COMPLICATED, UNSPECIFIED WHETHER PERSISTENT 3 FALLS THIS YEAR INISDE OF HER HOUSE NO MAJOR INJURIES ALLERGIES SULFA (FOR ALLERGY USE ONLY): ANGIOEDEMA - ALLERGY PENICILLIN (FOR ALLERGIES USE ONLY): FACIAL SWELLING - ALLERGY MORPHINE SULFATE: AGITATION - ALLERGY IV DYE: HIVES - ALLERGY BACTRIM: HIVES - ALLERGY SURGICAL HISTORY TOTAL HYSTERECTOMY 1979 CHOLECYSTECTOMY 1983 RHINOPLASTY 1991 LEFT EAR SURGERY 1995 LEFT KNEE SURGERY 2005 LOOP RECORDER 2015 CORNEA REPLACEMENT (DONE IN FEBRUARY AND REDONE IN MARCH) RIGHT CORNEAL REPLACEMENT RIGHT KNEE REPLACEMENT 09/23/2019 RIGHT SIDED SIJ 03/27/20 SOCIAL HISTORY GENERAL: TOBACCO USE ARE YOU A:NONSMOKER LATEX QUESTIONNAIRE LATEX ALLERGY : HAVE YOU EVER DEVELOPED ANY TYPE OF REACTION AFTER HANDLING LATEX PRODUCTS SUCH RUBBER GLOVES, CONDOMS, DIAPHRAGMS, BALLOONS, SOCKS, OR UNDERWEAR?NO LATEX ALLERGY : HAVE YOU EVER DEVELOPED ANY TYPE OF REACTION DURING OR AFTER DENTAL APPOINTMENT, VAGINAL/RECTAL EXAMINATION, SURGICAL PROCEDURE, OR ANY OTHER EXPOSURE?NO LATEX RISK : HAVE YOU EVER HAD ANY DIFFICULTY BREATHING OR HIVES AFTER EATING OR HANDLING ANY FRUITS, OR VEGETABLES; SUCH KIWI, BANANAS, STONE FRUITS, OR CHESTNUTSNO LATEX RISK : DO YOU HAVE A PREVIOUS PERSONAL HISTORY OF MORE THAN NINE SURGERIES, SPINA BIFIDA, OR REPEATED CATHERIZATIONS? NO LATEX RISK : ARE YOU FREQUENTLY EXPOSED TO LATEX PRODUCTS IN YOUR OCCUPATION?NO DATE ASKED : 04/03/2021 ALCOHOL USE: NO. LUNG CANCER SCREENING SMOKING STATUS:NON SMOKER ALCOHOL SCREENING DID YOU HAVE A DRINK CONTAINING ALCOHOL IN THE PAST YEAR?NO POINTS0 INTERPRETATIONNEGATIVE RECREATIONAL DRUG USE DRUG USE?NO CAFFEINE CAFFEINE USE?NO ROMAN CATHOLIC [id number] JUDAISM LANGUAGE LANGUAGES SPOKEN:[place]IZ[place] EDUCATION LEVEL OF EDUCATION:PROFESSIONAL SCHOOLS/MASTERS/PHD LEARNING BARRIERS / SPECIAL NEEDS CHANGE FROM LAST VISIT?NO BARRIERS TO LEARNING?NO HARD TIME REMEMBERING THINGS HEARING IMPAIRED?YES LEFT :HEARING AIDES VISION IMPAIRED?YES :CORRECTIVE LENSES COGNITIVELY IMPAIRED?NO READINESS TO LEARN?YES LEARNING PREFERENCES?YES :BOOKLETS, HANDOUTS LEARNING CAPABILITIES PRESENT?YES EMOTIONAL BARRIERS?NO SPECIAL DEVICES?YES :CANE, WALKER, WHEELCHAIR MEDICAL INSURANCE VERIFIER NEEDED?NO DOMESTIC VIOLENCE DO YOU FEEL SAFE IN YOUR ENVIRONMENT?YES OCCUPATION: RETIRED. DIET: REGULAR. EXERCISE: NONE. MARITAL STATUS: .. OTHERS AT HOME: CHILD. - PFS REFERRAL NEEDED?NO CLERGY REFERRAL NEEDED?NO PUBLIC HEALTH REFERRAL NEEDED?NO HAS THE PATIENT BEEN EDUCATED REGARDING HIS/HER PLAN OF CARE?YES HAS THE PATIENT BEEN EDUCATED REGARDING PAIN, THE RISK FOR PAIN, THE IMPORTANCE OF EFFECTIVE PAIN MANAGEMENT, AND THE PAIN ASSESSMENT PROCESS?YES ADVANCE DIRECTIVE ADVANCE DIRECTIVE DISCUSSED WITH PATIENT:YES HCP - [place] ([facility] HOSPITALIZATION/MAJOR DIAGNOSTIC PROCEDURE SURGERY RELATED VITAL SIGNS WT 178.4 LBS, HT 60 IN, BMI 34.84 INDEX, BP 133/64 MM HG, HR 65 /MIN, RR 18 /MIN, TEMP 98.2 F, OXYGEN SAT % 95%, SAFE IN ENV? (Y/N) YES, NA INITIALS SC 10:10, REVIEWED BY: APA. ZORAIDA RN. EXAMINATION GENERAL: THE PATIENT IS ALERT, ORIENTED TIMES THREE AND COOPERATIVE. LUNGS ARE CLEAR TO AUSCULTATION. HEART SHOWS REGULAR RHYTHM, NO MURMURS AND NO GALLOPS. ASSESSMENTS LUMBAR DISC DISPLACEMENT WITHOUT MYELOPATHY - M51.26 (PRIMARY) TREATMENT LUMBAR DISC DISPLACEMENT WITHOUT MYELOPATHY [facility] FACET BLOCK (PAIN)[id number] COMPLETION OF PROCEDURAL VISIT WHEN MEETS CRITERIAPEISABELLEDANDRE R 04/10/2021 12:00:48 PM > CRITERIA MET PROCEDURES PAIN NURSING RECORD PROCEDURE IN ROOM 1115, PHYSICIAN IN ROOM 1127, START 1131, FINISH 1141, PHYSICIAN OUT OF ROOM 1142, OUT OF ROOM 1148, ECG NORMAL SINUS, PATIENT SHIELDED YES, SAFETY STRAP YES, PREP CHLOROPREP, DRESSING TEGADERM LOC: ELLEN CONWAYGAIL R 04/10/2021 11:31:43 AM > , 1. ALERT, ORIENTED RESP: ZORAIDADANDRE R 04/10/2021 11:31:49 AM > , 1. REGULAR, NO DYSPNEA COLOR: ZORAIDADANDRE R 04/10/2021 11:31:53 AM > , 1. PINK SKIN: ZORAIDADANDRE R 04/10/2021 11:31:57 AM > , 1. WARM, DRY POSITION: ZORAIDADANDRE R 04/10/2021 11:32:00 AM > , 1. PRONE VITALS: ZORAIDADANDRE R 04/10/2021 11:19:35 AM >144/91, 63, 16, 96% PETRASDANDRE R 04/10/2021 11:26:17 AM >143/67, 62, 18, 98% PETRAS,DANDRE R 04/10/2021 11:42:00 AM > 147/69, 62, 18, 96% PETRAS,DANDRE R 04/10/2021 11:45:56 AM > 151/71, 63, 96% PETRAS,DANDRE R 04/10/2021 11:52:21 PM > 127/62, 68, 18, 97% COMPLETION OF PROCEDURE APPOINTMENT: POST PAIN 0 WHEN WALKING, DRESSING SITE DRY AND INTACT, IV N/A, GAIT STEADY, TEACHING COMPLETED, PATIENT ACKNOWLEDGES UNDERSTANDING YES, PROCEDURE APPOINTMENT COMPLETED AT 1200 PN LUMBAR FACET BLOCK DIAGNOSTIC PRE PROCEDURE DIAGNOSIS LUMBAR SPONDYLOSIS, LUMBOSACRAL SPONDYLOSIS POST PROCEDURE DIAGNOSIS LUMBAR SPONDYLOSIS, LUMBOSACRAL SPONDYLOSIS PROCEDURE BILATERAL L4-L5 AND BILATERAL L5-S1 FACET BLOCK DIAGNOSTIC NUMBER [address] VIVIAN CHAVES CRUISE CONSULTANT NONE ANESTHESIA LOCAL PRE PROCEDURE NOTE THE PATIENT WITH HISTORY OF CHRONIC LOW BACK PAIN. I EVALUATED THE PATIENT AND REVIEWED THE CHART. I WENT OVER THE RISKS, ALTERNATIVES, AND BENEFITS ASSOCIATED WITH THIS PROCEDURE. THE PATIENT WOULD LIKE TO PROCEED AND GAVE CONSENT TO PERFORM THE PROCEDURE. AGREED WITH THE PATIENT, WE ARE DOING THIS PROCEDURE TO DETERMINE IF THE PATIENT IS A CANDIDATE FOR A RADIOFREQUENCY ABLATION OF THE FACETS JOINTS. THE PATIENT DENIES UNEXPLAINABLE WEIGHT LOSS, FEVER, CHILLS, OR NEW CHANGES IN URINARY OR BOWEL CONTROL. THE PATIENT IS COVID-19 NEGATIVE DESCRIPTION OF PROCEDURE THE PATIENT WAS BROUGHT TO THE PROCEDURE ROOM AND PLACED IN THE PRONE POSITION. THE LUMBOSACRAL AREA WAS CLEANED WITH CHLORAPREP SOLUTION AND DRAPED ASEPTICALLY. THE PROCEDURE WAS DONE UNDER STERILE CONDITIONS. A TIMEOUT WAS PERFORMED WHERE THE CONSENTED SITE WAS VERIFIED WITH EVERYONE IN THE ROOM. UNDER FLUOROSCOPIC GUIDANCE, TARGETS WERE SELECTED AT THE INTERSECTION OF THE RIGHT AND LEFT TRANSVERSE PROCESS OF L4, L5 AND ALA OF S1 WITH ITS RESPECTIVE SUPERIOR ARTICULAR PROCESS WITH A TARGET OF THE MEDIAN BRANCHES OF L3, L4 AND THE DORSAL RAMI OF L5. I CONFIRMED AGAIN THE SITE OF TARGET. LIDOCAINE WAS USED TO NUMB THE SKIN AND THE SUBCUTANEOUS TISSUE BELOW IT. SPINAL NEEDLE, 22-GAUGE, WAS ADVANCED UNDER FLUOROSCOPIC GUIDANCE AND FOLLOWING PATIENT FEEDBACK UNTIL THE TARGETS WERE REACHED. POSITION OF THE NEEDLES WAS VERIFIED WITH AP AND LATERAL VIEWS. AFTER PROPER POSITION OF THE NEEDLES WAS ACHIEVED, ISOVUE-M DYE 30%, 0.1 ML, WAS INJECTED AT EACH SITE SHOWING ADEQUATE SPREAD OF THE DYE. THEN, A SOLUTION OF 0.4 ML OF BUPIVACAINE 0.25% WAS INJECTED AT EACH SITE. THE MEDICATIONS WERE VERIFIED WITH THE NURSE. THERE WAS NO EVIDENCE OF BLOOD, PARESTHESIA OR CEREBROSPINAL FLUID DURING THE PROCEDURE. THE PATIENT WAS SENT TO THE RECOVERY ROOM. THE PATIENT WAS MOVING THE EXTREMITIES AND DOING WELL. THERE WERE NO COMPLICATIONS DURING THE PROCEDURE. ESTIMATED BLOOD LOSS WAS LESS THAN 5 ML. FLUOROSCOPY TIME WAS 30 SECONDS POST PROCEDURE NOTE THE PATIENT WILL DOCUMENT THE PAIN LEVEL AND RESPONSE TO THIS PROCEDURE PER PAIN DIARY. THE PATIENT WILL BE SEEN IN A FOLLOW UP IN THE NEXT FEW WEEKS. FURTHER DETERMINATION FOR THE PATIENT'S CASE WILL BE DONE AT THE NEXT VISIT. INSTRUCTIONS WERE GIVEN, QUESTIONS WERE ANSWERED, AND THE PATIENT EXPRESSED UNDERSTANDING AND AGREED WITH THE PLAN. I, BOBBI GRAY, DOCUMENTED THE ABOVE INFORMATION ACTING A SCRIBE FOR DR. CHAVES. I HAVE REVIEWED THE ABOVE DOCUMENT, WRITTEN BY BOBBI GRAY, HISTORIOGRAPHY PROFESSOR, AND I VERIFY THAT IT IS ACCURATE PROCEDURE CODES 15386 INJ PARAVERT F JNT L/S 1 LEV, MODIFIERS: 50 [id number] INJ PARAVERT F JNT L/S 2 LEV, MODIFIERS: 50 DISPOSITION & COMMUNICATION FOLLOW UP FOLLOW UP WITH TREE CLIMBER (REASON: POST BILATERAL DIAGNSOTIC LUMBAR FACET BLOCK #2 L4-L5, L5-S1) ELECTRONICALLY SIGNED BY VIVIAN CHAVES MD, ON 04/12/2021 AT 09:55 AM EDT DISCLAIMER : THIS IS A VISIT SUMMARY EXTRACTED FROM THE [employer] CHART. IT IS NOT A COPY OF THE [employer] PROGRESS NOTE. JIGNESH
== END ==
LOC: M PAIN 10:00
PROVIDERS: ATTEND Anesthesiology
DX: M47.816 Spondylosis without myelopathy or radiculopathy, lumbar region (principal); M47.817 Spondylosis without myelopathy or radiculopathy, lumbosacral region; M51.26 Other intervertebral disc displacement, lumbar region; G47.30 Sleep apnea, unspecified; G43.909 Migraine, unspecified, not intractable, without status migrainosus; J45.909 Unspecified asthma, uncomplicated; Z86.59 Personal history of other mental and behavioral disorders; Z96.651 Presence of right artificial knee joint; Z88.0 Allergy status to penicillin; Z88.1 Allergy status to other antibiotic agents; Z88.2 Allergy status to sulfonamides; Z88.5 Allergy status to narcotic agent; Z91.041 Radiographic dye allergy status; Z79.82 Long term (current) use of aspirin; Z79.899 Other long term (current) drug therapy
CPT/HCPCS: 64493; 64494; Q9967

== ENCOUNTER → 2021-04-12 | Outpatient (CLI) | payer MEDICARE, OTHER ==
[~2021-04-12] MED LIST changes: -BUPIVACAINE HCL 0.25% 30ML VIAL As Ordered ONE; -ISOVUE-M 300 61% 15ML VIAL As Ordered ONE; -LIDOCAINE 1% SDV 30ML VIAL As Ordered ONE
--- NOTE | 2021-04-17 00:53 | ECWPNPC ---
PATIENT NAME: GER TYLER : 1945 GENDER: FEMALE VISIT DATE: 04/12/2021 DISCHARGE DATE: 04/12/21 1440 VISIT LOCKED DATE TIME: PHYSICIAN: LJ AMADOR RESOURCE: LJ AMADOR REASON FOR APPOINTMENT 1. POST BILATERAL DIAGNOSTIC LUMBAR FACET BLOCK L4-5,L5-S1 #2 HISTORY OF PRESENT ILLNESS DEPRESSION SCREENING: PHQ-9 LITTLE INTEREST OR PLEASURE IN DOING THINGSSEVERAL DAYS FEELING DOWN, DEPRESSED, OR HOPELESSSEVERAL DAYS TROUBLE FALLING OR STAYING ASLEEP, OR SLEEPING TOO MUCHSEVERAL DAYS FEELING TIRED OR HAVING LITTLE ENERGYSEVERAL DAYS POOR APPETITE OR OVEREATING SEVERAL DAYS FEELING BAD ABOUT YOURSELF-OR THAT YOU ARE A FAILURE OR HAVE LET YOURSELF OR YOUR FAMILY DOWN SEVERAL DAYS TROUBLE CONCENTRATING ON THINGS, SUCH READING THE NEWSPAPER OR WATCHING TELEVISION NOT AT ALL MOVING OR SPEAKING SO SLOWLY THAT OTHER PEOPLE COULD HAVE NOTICED. OR THE OPPOSITE- BEING SO FIDGETY OR RESTLESS THAT YOU HAVE BEEN MOVING AROUND A LOT MORE THAN USUALNOT AT ALL THOUGHTS THAT YOU WOULD BE BETTER OFF , OR OF HURTING YOURSELF IN SOME WAY?NOT AT ALL TOTAL SCORE:6 INTERPRETATIONMILD DEPRESSION PHQ-2 (2015 EDITION) LITTLE INTEREST OR PLEASURE IN DOING THINGS?SEVERAL DAYS FEELING DOWN, DEPRESSED, OR HOPELESS?SEVERAL DAYS TOTAL SCORE2 GENERAL: HERE FOR POST PROCEDURE F/U. HAS BILATERAL L4-5, L5-S1 DIAGNOSTIC LUMBAR FACET BLOCK #2 ON 04/10/2021. HOURLY PAIN DIARY IS REVIEWED. PATIENT HAD NO IMPROVEMENT FOR EVEN A SHORT TIME POST PROCEDURE. PATIENT IS ACCOMPANIED IN THE EXAM ROOM WITH HER SON. PATIENT IS IN A WHEELCHAIR. PATIENT APPEARS VERY DEPRESSED. DISCUSSED TREATMENT OPTIONS TO INCLUDE DORSAL COLUMN STIMULATOR TRIAL, MILD PROCEDURE AND VERTIFLEX. WE WILL SCHEDULE A FOLLOW-UP APPOINTMENT WITH DR. CHAVES SO SHE CAN DISCUSS TREATMENT OPTIONS. HAS OXYCODONE AND SOMA AT HOME. REPORTS THAT SOMA SHE TRIED 1 TABLET AND IT WAS INEFFECTIVE. SHE USES OXYCODONE PERIODICALLY FOR SEVERE PAIN EPISODES APPROXIMATLEY EVERY 2 TO 3 DAYS. HER CHIEF COMPLAINT IS HER INABILITY TO WALK WITHOUT HAVING TO SIT DOWN DUE TO PAIN AND WEAKNESS IN HER LEGS AND LOW BACK. SHE IS ATTENDING PHYSICAL THERAPY AND IS FINDING THAT SOMEWHAT HELPFUL. DISCUSSED HOME WALKING PROGRAM. SON REPORTS THAT HIS MOTHER'S DEPRESSION HAS BEEN WORSE LATELY. THEY WILL BE CONTACTING HER PSYCHIATRIST. DENIES SUICIDAL OR HOMICIDAL IDEATIONS. -. FALL RISK SCREENING: SCREENING : NO FALLS REPORTED IN THE LAST YEAR. PAIN SCREENING: PATIENT HAS A COMPLAINT OF ACUTE OR CHRONIC PAIN :YES LOCATION OF PAIN:LOW BACK INTENSITY OF PAIN (SCALE OF 1 TO 10):3 SITTING WHAT DOES YOUR PAIN FEEL LIKE:ACHING, CONTINOUS DURATION:CONTINOUS, CONSTANT, ALL DAY PAIN IS INCREASED BY:ACTIVITIES, PROLONGED STANDING PAIN IS DECREASED BY:USE OF PAIN MEDICATIONS NURSING NOTE: -. PAIN CENTER INTAKE QUESTIONS: DO YOU HAVE A HISTORY OF MRSA? :NO DO YOU TAKE A BLOOD THINNERS? :NO ASPIRIN 325 MG DO YOU HAVE ANY BLEEDING DISORDERS? :NO ANY NEW NUMBNESS OR WEAKNESS IN YOUR LEGS OR ARMS? :NO CRAMPS IN BILATERAL HANDS AND LEGS COMS AND GOES ANY PACEMAKER,DEFIBRILLATOR, OR DORSAL COLUMN STIMULATOR? :NO DO YOU HAVE ANY RASHES OR OPEN SORES? :YES H/O SHINGLES RASH THAT "COMES AND GOES" ARE YOU ALLERGIC TO IV DYE? :YES ONE PREVIOUS REACTION WITH A CT SCAN ONLY, PATIENT REPORTS RASH. ARE YOU DIABETIC? :NO ANY NEW PROBLEMS WITH YOUR MEDICATIONS? :NO HAVE YOU RECEIVED A VACCINE IN THE PAST 30 DAYS? :NO DO YOU PLAN TO RECEIVE A VACCINE IN THE NEXT 21 DAYS? :YES IF SO WHAT VACCINE AND WHEN? SHINGLES, PATIENT HASN'T COMPLETED DUE TO COVID. DO YOU NEED ANY PRESCRIPTION? :YES WOULD LIKE TO DISCUSS TO SOMA. DO YOU TAKE ANY IMMUNOSUPPRESSIVE MEDICATIONS? :NO IS THERE A CHANCE YOU COULD BE ? :NO ARE YOU BREAST FEEDING? :NO CURRENT MEDICATIONS TAKING POTASSIUM CHLORIDE ER 8 MEQ TABLET EXTENDED RELEASE 1 CAPSULE WITH FOOD ORALLY DAILY TAKING CARVEDILOL 12.5 MG TABLET 1 TAB ORALLY TWICE A DAY TAKING SPIRONOLACTONE 25 MG TABLET 1/2 TABLET ORALLY DAILY TAKING LORAZEPAM 1 MG TABLET 1 TABLET NEEDED ORALLY EVERY 6 HRS, NOTES: NONE RECENTLY TAKING VITAMIN D 2000 UNIT TABLET 1 TABLET ORALLY ONCE A DAY TAKING VITAMIN C 500 MG TABLET 1 TABLET ORALLY ONCE A DAY TAKING VITAMIN B 12 100 MCG LOZENGE ORALLY DAILY TAKING COLACE 100 MG CAPSULE 1 CAPSULE NEEDED ORALLY ONCE A DAY, NOTES: 1 WEEK TAKING ASPIRIN 325 MG TABLET 1 TABLET ORALLY ONCE A DAY TAKING REFRESH 1 DROP INTO AFFECTED EYE NEEDED OPHTHALMIC DAILY TAKING CARBAMAZEPINE 200 MG TABLET 1 CAP ORALLY BID TAKING MAGNESIUM 400 MG CAPSULE ORALLY DAILY, NOTES: 04/09/212099 TAKING GABAPENTIN 600 MG TABLET 1 CAPSULE ORALLY Q8H TID TAKING DULOXETINE HCL 30 MG CAPSULE DELAYED RELEASE PARTICLES 1 CAPSULE ORALLY ONCE A DAY TAKING PREDNISOLONE ACETATE 1 % SUSPENSION 1 DROP INTO AFFECTED EYE OPHTHALMIC TWICE A DAY TAKING SUCRALFATE 1 GM TABLET 1 TABLET ON AN EMPTY STOMACH ORALLY TWICE A DAY TAKING PROAIR HFA 108 (90 BASE) MCG/ACT AEROSOL SOLUTION 2 PUFFS NEEDED INHALATION EVERY 4-6 HRS NEEDED TAKING BACLOFEN 10 MG TABLET 1 TABLET NEEDED ORALLY TWICE A DAY, NOTES: 04/09/212099 NOT-TAKING CETIRIZINE HCL 10 MG TABLET 1 TABLET ORALLY QHS NOT-TAKING PERCOCET 5-325 MG TABLET 1 TABLET NEEDED ORALLY Q8H MDD 3 #30 TABLETS FOR 30 DAYS NOT-TAKING SOMA 350 MG TABLET 1 TABLET NEEDED ORALLY TWICE A DAY WHEN NECESSARY FOR SEVERE PAIN. MDD 2, NOTES: DUE TO NO RX REFILLS REMAINING NOT-TAKING LOSARTAN POTASSIUM 50 MG TABLET 1 TABLET ORALLY ONCE A DAY NOT-TAKING DOXYCYCLINE HYCLATE 100 MG CAPSULE 1 CAPSULE ORALLY TWICE A DAY NOT-TAKING TYLENOL WITH CODEINE #3 300-30 MG TABLET 1 TABLET NEEDED ORALLY EVERY 6 HRS PRN MDD4 NOT-TAKING ACETAMINOPHEN 325 MG CAPSULE 1 CAP ORALLY EVERY MORNING NEEDED, NOTES: UNSURE MEDICATION LIST REVIEWED AND RECONCILED WITH THE PATIENT PAST MEDICAL HISTORY MIGRAINE CERVICALGIA LOW BACK PAIN LEFT LEG PAIN / SCIATICA HX OF LYMPHOMA TRIGEMINAL NEURALGIA ANXIETY DEPRESSION OSTEOARTHRITIS RIGHT CORNEAL DISEASE SHINGLES URINARY INCONTINENCE ANGINA HISTORY REPORTED BY PT HYPERTENSION HISTORY REPORTED BY PT ASTHMA, UNSPECIFIED ASTHMA SEVERITY, UNSPECIFIED WHETHER COMPLICATED, UNSPECIFIED WHETHER PERSISTENT 3 FALLS THIS YEAR INISDE OF HER HOUSE NO MAJOR INJURIES ALLERGIES SULFA (FOR ALLERGY USE ONLY): ANGIOEDEMA - ALLERGY PENICILLIN (FOR ALLERGIES USE ONLY): FACIAL SWELLING - ALLERGY MORPHINE SULFATE: AGITATION - ALLERGY IV DYE: HIVES - ALLERGY BACTRIM: HIVES - ALLERGY SOCIAL HISTORY GENERAL: TOBACCO USE ARE YOU A:NONSMOKER LATEX QUESTIONNAIRE LATEX ALLERGY : HAVE YOU EVER DEVELOPED ANY TYPE OF REACTION AFTER HANDLING LATEX PRODUCTS SUCH RUBBER GLOVES, CONDOMS, DIAPHRAGMS, BALLOONS, SOCKS, OR UNDERWEAR?NO LATEX ALLERGY : HAVE YOU EVER DEVELOPED ANY TYPE OF REACTION DURING OR AFTER DENTAL APPOINTMENT, VAGINAL/RECTAL EXAMINATION, SURGICAL PROCEDURE, OR ANY OTHER EXPOSURE?NO LATEX RISK : HAVE YOU EVER HAD ANY DIFFICULTY BREATHING OR HIVES AFTER EATING OR HANDLING ANY FRUITS, OR VEGETABLES; SUCH KIWI, BANANAS, STONE FRUITS, OR CHESTNUTSNO LATEX RISK : DO YOU HAVE A PREVIOUS PERSONAL HISTORY OF MORE THAN NINE SURGERIES, SPINA BIFIDA, OR REPEATED CATHERIZATIONS? NO LATEX RISK : ARE YOU FREQUENTLY EXPOSED TO LATEX PRODUCTS IN YOUR OCCUPATION?NO DATE ASKED : 04/12/2021 ALCOHOL USE: NO. LUNG CANCER SCREENING SMOKING STATUS:NON SMOKER ALCOHOL SCREENING DID YOU HAVE A DRINK CONTAINING ALCOHOL IN THE PAST YEAR?NO POINTS0 INTERPRETATIONNEGATIVE RECREATIONAL DRUG USE DRUG USE?NO CAFFEINE CAFFEINE USE?NO UATSDIN [id number] YAZIDI LANGUAGE LANGUAGES SPOKEN:[place] EDUCATION LEVEL OF EDUCATION:PROFESSIONAL SCHOOLS/MASTERS/PHD LEARNING BARRIERS / SPECIAL NEEDS CHANGE FROM LAST VISIT?NO BARRIERS TO LEARNING?YES HARD TIME REMEMBERING THINGS HEARING IMPAIRED?YES LEFT :HEARING AIDES VISION IMPAIRED?YES :CORRECTIVE LENSES COGNITIVELY IMPAIRED?NO READINESS TO LEARN?YES LEARNING PREFERENCES?YES :BOOKLETS, HANDOUTS LEARNING CAPABILITIES PRESENT?YES EMOTIONAL BARRIERS?NO SPECIAL DEVICES?YES :CANE, WALKER, WHEELCHAIR STRAP BUCKLER MACHINE NEEDED?NO DOMESTIC VIOLENCE DO YOU FEEL SAFE IN YOUR ENVIRONMENT?YES OCCUPATION: RETIRED. DIET: REGULAR. EXERCISE: NONE. MARITAL STATUS: .. OTHERS AT HOME: CHILD. - PFS REFERRAL NEEDED?NO CLERGY REFERRAL NEEDED?NO PUBLIC HEALTH REFERRAL NEEDED?NO HAS THE PATIENT BEEN EDUCATED REGARDING HIS/HER PLAN OF CARE?YES HAS THE PATIENT BEEN EDUCATED REGARDING PAIN, THE RISK FOR PAIN, THE IMPORTANCE OF EFFECTIVE PAIN MANAGEMENT, AND THE PAIN ASSESSMENT PROCESS?YES ADVANCE DIRECTIVE ADVANCE DIRECTIVE DISCUSSED WITH PATIENT:YES [place]CP - [place] ([facility] REVIEW OF SYSTEMS CONSTITUTIONAL: ANY RECENT FEVER NO . CHILLS NO . WEIGHT CHANGE OF UNKNOWN REASONS NO. REPORTS WEIGHT GAIN DUE TO INACTIVITY DUE TO PAIN . GASTROENTEROLOGY: NEW UNEXPLAINABLE CHANGES IN BOWEL CONTROL NO . CONSTIPATION NO . GENITOURINARY: ANY NEW CHANGE IN BLADDER CONTROL? NO . NEUROLOGY: NEW ONSET DIZZINESS OR NEUROLOGICAL CHANGES NOT MENTIONED NO . NEW NUMBNESS OR PAIN PATTERNS NOT MENTIONED AND PERTINENT TO TODAY'S VISIT NO . CARDIOLOGY: NEW CHEST PRESSURE NO . PATIENT DENIES NO . RESPIRATORY: UNEXPLAINABLE COUGH NO . NEW SHORTNESS OF BREATH NO . VITAL SIGNS WT 178.4 LBS, HT 60 IN, BMI 34.84 INDEX, BP 118/64 MM HG, HR 80 /MIN, RR 18 /MIN, TEMP 98.2 F, OXYGEN SAT % 94%, SAFE IN ENV? (Y/N) YES, NA INITIALS AW 1352T.BLANCA CARTER. EXAMINATION GENERAL EXAMINATION: GENERALAWAKE,ALERT ,PLEASANT . PSYCHAFFECT NORMAL . LUNGS:LUNG MILLER ARE CLEAR TO AUSCULTATION BILATERALLY. GOOD MOVEMENT OF AIR . HEART:S1, S2 IN A REGULAR RATE AND RHYTHM. NO SIGNIFICANT MURMURS, RUBS OR GALLOPS NOTED . 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 CHAVES TO DISCUSS TREATMENT OPTIONS TO INCLUDE DORSAL COLUMN STIMULATOR, VERTIFLEX AND MILD PROCEDURE. PROCEDURE CODES FA211 ESTABILISHED PATIENT [facility] CHARGE DISPOSITION & COMMUNICATION FOLLOW UP 4 WEEKS-[address] CHAVES (REASON: DISCUSS DORSAL COLUMN STIMULATOR, VERTIFLEX, MILD PROCEDURE) ELECTRONICALLY SIGNED BY RIK SERRATO ON 04/16/2021 AT 10:23 AM EDT DISCLAIMER : THIS IS A VISIT SUMMARY EXTRACTED FROM THE [employer] CHART. IT IS NOT A COPY OF THE [employer] PROGRESS NOTE. JIGNESH
== END ==
LOC: M PAIN 13:45
PROVIDERS: ATTEND Nurse Practitioner Family
DX: M47.816 Spondylosis without myelopathy or radiculopathy, lumbar region (principal); M48.062 Spinal stenosis, lumbar region with neurogenic claudication; G43.909 Migraine, unspecified, not intractable, without status migrainosus; J45.909 Unspecified asthma, uncomplicated; Z86.59 Personal history of other mental and behavioral disorders; Z88.0 Allergy status to penicillin; Z88.1 Allergy status to other antibiotic agents; Z88.2 Allergy status to sulfonamides; Z88.5 Allergy status to narcotic agent; Z91.041 Radiographic dye allergy status; Z79.82 Long term (current) use of aspirin; Z79.899 Other long term (current) drug therapy

== ENCOUNTER → 2021-05-09 | Outpatient (CLI) | payer MEDICARE, OTHER | LOC: M PAIN 14:15 | PROVIDERS: ATTEND Anesthesiology | DX: M51.16 Intervertebral disc disorders with radiculopathy, lumbar region (principal); M48.062 Spinal stenosis, lumbar region with neurogenic claudication; G89.29 Other chronic pain; G43.909 Migraine, unspecified, not intractable, without status migrainosus; J45.909 Unspecified asthma, uncomplicated; Z86.59 Personal history of other mental and behavioral disorders; Z88.0 Allergy status to penicillin; Z88.1 Allergy status to other antibiotic agents; Z88.2 Allergy status to sulfonamides; Z88.5 Allergy status to narcotic agent; Z91.041 Radiographic dye allergy status; Z79.82 Long term (current) use of aspirin; Z79.899 Other long term (current) drug therapy ==

== ENCOUNTER → 2021-05-22 | Outpatient (CLI) | payer MEDICARE, OTHER ==
--- NOTE | 2021-05-22 16:23 | REP ---
INDICATION: INTERVERTEBRAL DISC DISORDERS W RADICULOPATHY, LUMBAR REGION COMPARISON: 01/10/2019 TECHNIQUE: AP, lateral, flexion/extension, bilateral oblique, and coned-down views. FINDINGS: Straightening of normal lordosis is nonspecific. Alignment is maintained. Advanced multilevel degenerative changes appear progressive when compared to prior examination and include endplate sclerosis/heterogeneity, disc space narrowing, osteophytosis and facet hypertrophy. No obvious spondylolysis or spondylolisthesis. No acute fracture/compression injury or subluxation. IMPRESSION: Advanced multilevel degenerative changes. <Electronically signed by Jose Germain > 05/22/21 [id number]
== END ==
LOC: M RAD 15:49
PROVIDERS: ATTEND Anesthesiology
DX: M51.16 Intervertebral disc disorders with radiculopathy, lumbar region (principal)

== ENCOUNTER → 2021-06-06 | Outpatient (CLI) | payer MEDICARE, OTHER | LOC: M LABSMTC 11:36 | PROVIDERS: ATTEND Anesthesiology | DX: Z01.812 Encounter for preprocedural laboratory examination (principal) ==

== ENCOUNTER → 2021-06-11 | Outpatient (CLI) | payer MEDICARE, OTHER ==
[~2021-06-11] MED LIST changes: +BUPIVACAINE HCL 0.25% 30ML VIAL As Ordered ONE; -DICY20TA11; +DICY20TA20; +DOXY-443 PO; +ISOVUE-M 300 61% 15ML VIAL As Ordered ONE; -LEVO500T3; +LEVO500T4; +LIDOCAINE 1% SDV 30ML VIAL As Ordered ONE; +LOSA50TA28 PO; -LOSA50TA88 PO; +dexameTHASONE 10MG/1ML VIAL PRES.FREE (J1100 PER 1MG) As Ordered ONE; +diazePAM 5MG TABLET As Ordered ONE; +diphenhydrAMINE 25MG CAP As Ordered ONE; +oxyCODONE 5MG TAB As Ordered ONE
== END ==
LOC: M PAIN 13:45
PROVIDERS: ATTEND Anesthesiology
DX: M51.16 Intervertebral disc disorders with radiculopathy, lumbar region (principal); G47.30 Sleep apnea, unspecified; G43.909 Migraine, unspecified, not intractable, without status migrainosus; J45.909 Unspecified asthma, uncomplicated; Z86.59 Personal history of other mental and behavioral disorders; Z88.0 Allergy status to penicillin; Z88.1 Allergy status to other antibiotic agents; Z88.2 Allergy status to sulfonamides; Z88.5 Allergy status to narcotic agent; Z91.041 Radiographic dye allergy status; Z79.82 Long term (current) use of aspirin; Z79.899 Other long term (current) drug therapy
CPT/HCPCS: 64483; 64484; J1100; Q9967

== ENCOUNTER → 2021-06-27 | Outpatient (CLI) | payer MEDICARE, OTHER ==
[~2021-06-27] MED LIST changes: -BUPIVACAINE HCL 0.25% 30ML VIAL As Ordered ONE; +DICY20TA11; -DICY20TA20; -DOXY-443 PO; -ISOVUE-M 300 61% 15ML VIAL As Ordered ONE; +LEVO500T3; -LEVO500T4; -LIDOCAINE 1% SDV 30ML VIAL As Ordered ONE; -LOSA50TA28 PO; +LOSA50TA88 PO; -dexameTHASONE 10MG/1ML VIAL PRES.FREE (J1100 PER 1MG) As Ordered ONE; -diazePAM 5MG TABLET As Ordered ONE; -diphenhydrAMINE 25MG CAP As Ordered ONE; -oxyCODONE 5MG TAB As Ordered ONE
--- NOTE | 2021-07-01 14:01 | SLEEPCENT ---
DATE: 06/27/2021 ORDERED BY: Alice Gibson NP Nocturnal polysomnography was performed for evaluation of sleep physiology in this patient with a history of obstructive sleep apnea syndrome. Seven hours and 36 minutes of data were reviewed. There were 378.5 minutes of sleep identified. Sleep latency was delayed at 63.5 minutes. REM latency was further delayed at 351.5 minutes. Sleep architecture showed poor progression and fragmentation. Overall sleep efficiency was 84.7%. The electrocardiogram showed a sinus rhythm with an average heart rate of 64 beats per minute. EEG showed normal waveforms for wake and sleep. There were 359 respiratory events identified of 10 seconds in duration or greater for an apnea-hypopnea index of 56.9. The events were obstructive, not exclusive to sleep stage nor position. Arousals from respiratory events occurred 6.2 times per hour, and oxygen desaturations were seen into the 80s. IMPRESSIONS: Severe obstructive sleep apnea syndrome (G47.33). Apnea-hypopnea index 56.9. RECOMMENDATION: The patient should be encouraged to return to [facility]. In the interim, alcohol and sedative avoidance should be practiced and caution exercised during the operation of motor vehicles. cc: Zeinab Blanca MD
== END ==
LOC: M SLEEP 20:00
PROVIDERS: ATTEND Nurse Practitioner Adult Health
DX: G47.30 Sleep apnea, unspecified (principal)

== ENCOUNTER → 2021-07-17 | Outpatient (CLI) | payer MEDICARE, OTHER ==
[2021-07-17 17:31] LABS: BASO % 0.4 % (0.0-1.0); EOS # 0.5 10^3/uL (0.0-0.5); EOS % 7.1 % (0.0-3.0); HEMATOCRIT 39.8 % (36.0-47.0); HEMOGLOBIN 12.8 g/dl (12.0-15.5); LYMPH # 1.7 10^3/uL (1.5-5.0); LYMPH % 23.1 % (24.0-44.0); MEAN CORPUSCULAR HEMOGLOBIN 29.8 pg (27.0-33.0); MEAN CORPUSCULAR HGB CONC 32.2 g/dl (32.0-36.5); MEAN CORPUSCULAR VOLUME 92.6 fl (80.0-96.0); MONO # 1.1 10^3/uL (0.0-0.8); MONO % 15.3 % (2.0-8.0); NEUTROPHILS # 3.9 10^3/uL (1.5-8.5); NEUTROPHILS % 53.7 % (36.0-66.0); PLATELET COUNT, AUTOMATED 279 10^3/uL (150-450); WHITE BLOOD COUNT 7.2 10^3/uL (4.0-10.0)
[2021-07-17 17:58] LABS: C REACTIVE PROTEIN QUANTITATIV 4.34 MG/DL (0.00-0.30); ERYTHROCYTE SEDIMENTATION RATE 56 mm/hr (0-30); RHEUMATOID FACTOR QUANT 50.1 IU/ML (<15.0); TOTAL PROTEIN 7.3 GM/DL (6.4-8.2)
[2021-07-18 11:17] LABS: ALBUMIN 3.76 GM/DL (3.29-5.55); ALBUMIN % 51.5 % (55.8-66.1); ALPHA-1-GLOBULIN % 5.6 % (2.9-4.9); ALPHA-1-GLOBULINS 0.41 GM/DL (0.17-0.41); ALPHA-2-GLOBULINS 0.78 GM/DL (0.42-0.99); ALPHA-2-GLOBULINS % 10.7 % (7.1-11.8); BETA-1-GLOBULINS 0.49 GM/DL (0.28-0.60); BETA-1-GLOBULINS % 6.7 % (4.7-7.2); BETA-2-GLOBULINS 0.51 GM/DL (0.19-0.55); GAMMA GLOBULIN % 18.5 % (11.1-18.8); GAMMA GLOBULINS 1.35 GM/DL (0.65-1.58)
[2021-07-26 02:07] LABS: ANTINUCLEAR ANTIBODIES DIRECT Negative (Negative); HLA-B27 Negative (.)
== END ==
LOC: M LAB 15:33
PROVIDERS: ATTEND Orthopaedic Surgery
DX: M47.896 Other spondylosis, lumbar region (principal); M62.838 Other muscle spasm

== ENCOUNTER → 2021-07-17 | Outpatient (CLI) | payer MEDICARE, OTHER ==
[2021-07-17 17:55] LABS: ALBUMIN 3.2 GM/DL (3.2-5.2); ALT/SGPT 19 U/L (12-78); BILIRUBIN,TOTAL 0.3 MG/DL (0.2-1.0); BLOOD UREA NITROGEN 15 MG/DL (7-18); CALCIUM LEVEL 9.8 MG/DL (8.8-10.2); CARBON DIOXIDE LEVEL 30 MEQ/L (21-32); CHLORIDE LEVEL 102 MEQ/L (98-107); CREATININE FOR GFR 0.95 MG/DL (0.55-1.30); GLOMERULAR FILTRATION RATE > 60.0 (>39); GLUCOSE, FASTING 58 MG/DL (70-100); MAGNESIUM LEVEL 1.6 MG/DL (1.8-2.4); POTASSIUM SERUM 3.3 MEQ/L (3.5-5.1); SODIUM LEVEL 139 MEQ/L (136-145); TOTAL PROTEIN 7.3 GM/DL (6.4-8.2)
== END ==
LOC: M LAB 15:37
PROVIDERS: ATTEND Physician Assistant Medical
DX: M62.838 Other muscle spasm (principal)

== ENCOUNTER → 2021-07-24 | Outpatient (CLI) | payer MEDICARE, OTHER ==
--- NOTE | 2021-07-24 14:39 | REPVR ---
PROCEDURE INFORMATION: Exam: MR Lumbar Spine Without Contrast Exam date and time: 07/24/2021 10:34 AM Age: 75 years old Clinical indication: Low back pain; Additional info: Spondylosis lumbar region TECHNIQUE: Imaging protocol: Multiplanar magnetic resonance images of the lumbar spine without intravenous contrast. COMPARISON: MRI-Spine, L.S. without con 07/04/2019 8:21 AM FINDINGS: Vertebrae: A chronic Schmorl's node is noted along the superior endplate of T12. A chronic superior endplate compression fracture is present at L4. Mild L4 vertebral body height loss is present. There is minimal retropulsion of the posterior/superior corner of L4 into the spinal canal. No acute compression fracture is seen. The mild degenerative marrow edema is noted along the L3-L4 endplates. Mild levoconvex curvature of the lumbar spine is present. Spinal cord: The conus medullaris terminates at the T12-L1 level. There is no evidence of arachnoiditis or cauda equina compression. L1-L2: No significant disc disease. No significant spinal stenosis or neural foraminal narrowing. L2-L3: There is mild diffuse circumferential disc bulging, thickening of the ligamentum flavum, and facet arthropathy. This is causing minimal spinal canal stenosis, mild right neural foraminal narrowing, and minimal left neural foraminal narrowing. L3-L4: There is marked diffuse circumferential disc bulging, moderate facet arthropathy, thickening of the ligamentum flavum, and prominent posterior epidural fat. A superimposed disc osteophyte complex is present in the right neural foramina and extraforaminal region. This is causing severe spinal canal stenosis, severe narrowing of the subarticular recesses, severe right neural foraminal narrowing, and moderate left neural foraminal narrowing. The findings have significantly progressed since the prior MRI. L4-L5: There is moderate diffuse circumferential disc bulging with a superimposed shallow central disc protrusion. A small amount of central disc material is migrating cranially roughly 5 mm from the level of the disc. Severe facet arthropathy and thickening of the ligamentum flavum is also present. This is causing mild spinal canal stenosis, moderate narrowing of right subarticular recess, mild narrowing of the left subarticular recess, moderate right neural foraminal narrowing, and mild left neural foraminal narrowing. L5-S1: There is moderate diffuse circumferential disc bulging and severe facet arthropathy. This is causing moderate left and mild right neural foraminal narrowing. There is no significant spinal canal stenosis. Soft tissues: Unremarkable. IMPRESSION: 1. Chronic L4 compression fracture 2. Degenerative changes of the lumbar spine as discussed above. Severe spinal canal stenosis and severe right neural foraminal narrowing is present at L3-L4. Electronically signed by: Geraldo Lewis On 07/24/2021 14:39:19 PM
== END ==
LOC: M RAD 09:25
PROVIDERS: ATTEND Orthopaedic Surgery
DX: M47.896 Other spondylosis, lumbar region (principal)

== ENCOUNTER → 2021-07-26 | Outpatient (CLI) | payer MEDICARE, OTHER ==
--- NOTE | 2021-07-26 18:26 | REPVR ---
PROCEDURE INFORMATION: Exam: MR Cervical Spine Without Contrast Exam date and time: 07/26/2021 3:43 PM Age: 75 years old Clinical indication: Neck pain; Additional info: Cervicalgia, pain/numbness, t-spine pain TECHNIQUE: Imaging protocol: Multiplanar magnetic resonance images of the cervical spine without contrast. COMPARISON: MRI-C SPINE W/O FOLL BY WITH 08/06/2015 11:06 AM FINDINGS: Cervical vertebral body heights are intact. Straightening of the cervical lordosis. The dens is intact. No abnormal marrow signal. No cord compression, expansion, or abnormal cord signal. Visualized structures of the posterior fossa are unremarkable. Soft tissues are unremarkable. C2-C3: No significant canal or foraminal narrowing. C3-C4: Facet hypertrophy causes mild bilateral foraminal narrowing. No significant canal narrowing. C4-C5: Facet hypertrophy causes mild left foraminal narrowing. No significant canal narrowing. C5-C6: Posterior disc protrusion and uncovertebral spurring cause mild canal narrowing and [id number] bilateral foraminal narrowing. C6-C7: Posterior disc osteophyte complex and uncovertebral spurring cause mild canal narrowing and mild bilateral foraminal narrowing. C7-T1: No significant canal or foraminal narrowing. IMPRESSION: Multilevel spondylotic changes of the cervical spine, as detailed above. Electronically signed by: Eddy Murguia On 07/26/2021 18:26:00 PM
--- NOTE | 2021-07-26 18:27 | REPVR ---
PROCEDURE INFORMATION: Exam: MR Thoracic Spine Without Contrast Exam date and time: 07/26/2021 3:49 PM Age: 75 years old Clinical indication: Pain in thoracic spine; Additional info: Cervicalgia, pain/numbness, t-spine pain TECHNIQUE: Imaging protocol: Multiplanar magnetic resonance images of the thoracic spine without contrast. COMPARISON: XA FLUORO GUIDE SPINE INJECTION 06/11/2021 3:30 PM FINDINGS: Chronic mild compression deformity versus prominent Schmorl's node along the superior endplate of L1. Thoracic vertebral body heights are intact. No abnormal marrow signal. No cord compression. No abnormal cord signal. Thoracic kyphosis is preserved. Thoracic disc space heights are unremarkable. Soft tissues are unremarkable. IMPRESSION: No acute findings in the thoracic spine. Electronically signed by: Eddy Murguia On 07/26/2021 18:27:14 PM
== END ==
LOC: M PLAIMG 14:12
PROVIDERS: ATTEND Physician Assistant Medical
DX: M50.21 Other cervical disc displacement, high cervical region (principal); M48.02 Spinal stenosis, cervical region; M25.78 Osteophyte, vertebrae; M79.602 Pain in left arm; R20.2 Paresthesia of skin; M54.6 Pain in thoracic spine

== ENCOUNTER → 2021-08-12 | Outpatient (CLI) | payer MEDICARE, OTHER | LOC: M PAIN 13:30 | PROVIDERS: ATTEND Nurse Practitioner Family | DX: M51.16 Intervertebral disc disorders with radiculopathy, lumbar region (principal); G47.30 Sleep apnea, unspecified; G43.909 Migraine, unspecified, not intractable, without status migrainosus; J45.909 Unspecified asthma, uncomplicated; Z86.59 Personal history of other mental and behavioral disorders; Z88.0 Allergy status to penicillin; Z88.1 Allergy status to other antibiotic agents; Z88.2 Allergy status to sulfonamides; Z88.5 Allergy status to narcotic agent; Z91.041 Radiographic dye allergy status; Z79.82 Long term (current) use of aspirin; Z79.899 Other long term (current) drug therapy ==

== ENCOUNTER → 2021-08-15 | Outpatient (REF) | payer MEDICARE, OTHER | LOC: M LAB REF 18:13 | PROVIDERS: ATTEND Dermatology | DX: D23.39 Other benign neoplasm of skin of other parts of face (principal) | CPT/HCPCS: 11102; 17110; 88305; G0463 ==

== ENCOUNTER → 2021-08-31 | Outpatient (CLI) | payer MEDICARE, OTHER ==
--- NOTE | 2021-09-02 15:23 | SLEEPCENT ---
DATE: 08/31/2021 ORDERED BY: Alice Gibson NP Nocturnal polysomnography was performed for the titration of pressure therapy in this patient with obstructive sleep apnea syndrome, apnea-hypopnea index of 56.9. For testing a ResMed F20 full face mask of small size was used, 4 cm of water pressure were applied to the circuit, and the lights were extinguished. Seven hours and 59 minutes of data were reviewed. There were 405.5 minutes of sleep identified. Sleep latency was normal at 38.5 minutes. REM latency was normal at 172.5 minutes. Sleep architecture was reasonably good with two REM cycles. Overall sleep efficiency was 86.6%. The electrocardiogram showed a sinus rhythm with an average heart rate of 60 beats per minute. EEG showed normal waveforms for wake and sleep. Respiratory events were fully palliated with CPAP at a pressure of 12 and remaining measures of sleep physiology were normal. IMPRESSION: Obstructive sleep apnea syndrome (G47.33). RECOMMENDATION: Nightly use of pressure therapy 12 cm of water. cc: Bonita Blanca M.D.
== END ==
LOC: M SLEEP 20:00
PROVIDERS: ATTEND Nurse Practitioner Adult Health
DX: G47.33 Obstructive sleep apnea (adult) (pediatric) (principal)

== ENCOUNTER 2021-10-08 15:25 | Emergency (ER) | payer MEDICARE, OTHER ==
[~2021-10-08] VITALS: Ht 152.4 cm; Wt 79.5 kg
[~2021-10-08 15:25] MED LIST changes: -DICY20TA11; +DICY20TA20; -LEVO500T3; +LEVO500T4; +LOSA50TA28 PO; -LOSA50TA88 PO
[2021-10-08] MEDS ORDERED: ASPI-1 PO (17:26)
[2021-10-08] MEDS ORDERED: NORCO, ANEXSIA 5/325MG TABLET (HYDROcodone/ACETAMINOPHEN) PO ONE (18:10)
[2021-10-08 18:28] LABS: BASO # 0.1 10^3/uL (0.0-0.2); BASO % 0.5 % (0.0-1.0); EOS # 0.2 10^3/uL (0.0-0.5); HEMATOCRIT 44.2 % (36.0-47.0); HEMOGLOBIN 13.9 g/dl (12.0-15.5); LYMPH # 2.6 10^3/uL (1.5-5.0); LYMPH % 22.7 % (24.0-44.0); MEAN CORPUSCULAR HEMOGLOBIN 29.6 pg (27.0-33.0); MEAN CORPUSCULAR HGB CONC 31.4 g/dl (32.0-36.5); MEAN CORPUSCULAR VOLUME 94.2 fl (80.0-96.0); MONO # 1.4 10^3/uL (0.0-0.8); MONO % 12.6 % (2.0-8.0); NEUTROPHILS % 61.8 % (36.0-66.0); RED BLOOD COUNT 4.69 10^6/uL (4.00-5.40); WHITE BLOOD COUNT 11.3 10^3/uL (4.0-10.0)
[2021-10-08 19:25] LABS: BLOOD UREA NITROGEN 15 MG/DL (7-18); C REACTIVE PROTEIN QUANTITATIV 9.52 MG/DL (0.00-0.30); CALCIUM LEVEL 9.6 MG/DL (8.8-10.2); CARBON DIOXIDE LEVEL 29 MEQ/L (21-32); CHLORIDE LEVEL 101 MEQ/L (98-107); CREATININE FOR GFR 0.89 MG/DL (0.55-1.30); GLOMERULAR FILTRATION RATE > 60.0 (>39); GLUCOSE, FASTING 95 MG/DL (70-100); POTASSIUM SERUM 4.4 MEQ/L (3.5-5.1); SODIUM LEVEL 137 MEQ/L (136-145)
[2021-10-08] MEDS ORDERED: DOXY-443 PO (19:44)
[2021-10-08] MEDS ORDERED: DOXYCYCLINE HYCLATE 100MG TABLET PO ONE (19:45)
[2021-10-08 20:27] VITALS: BP 112/71
== END 2021-10-08 20:29 | disposition home or self-care (01) ==
LOC: M ED 15:25
DX: L03.116 Cellulitis of left lower limb (principal); M77.32 Calcaneal spur, left foot; I48.91 Unspecified atrial fibrillation; I10 Essential (primary) hypertension; E78.5 Hyperlipidemia, unspecified; J45.909 Unspecified asthma, uncomplicated; G47.33 Obstructive sleep apnea (adult) (pediatric); K21.9 Gastro-esophageal reflux disease without esophagitis; Z88.0 Allergy status to penicillin; Z88.2 Allergy status to sulfonamides; Z79.899 Other long term (current) drug therapy

== ENCOUNTER → 2021-10-22 | Outpatient (CLI) | payer MEDICARE, OTHER ==
[~2021-10-22] MED LIST changes: +DOXY-443 PO
== END ==
LOC: M PAIN 10:30
PROVIDERS: ATTEND Nurse Practitioner Family
DX: M51.16 Intervertebral disc disorders with radiculopathy, lumbar region (principal); G89.29 Other chronic pain; G47.30 Sleep apnea, unspecified; G43.909 Migraine, unspecified, not intractable, without status migrainosus; J45.909 Unspecified asthma, uncomplicated; Z86.59 Personal history of other mental and behavioral disorders; Z96.651 Presence of right artificial knee joint; Z88.0 Allergy status to penicillin; Z88.1 Allergy status to other antibiotic agents; Z88.2 Allergy status to sulfonamides; Z88.5 Allergy status to narcotic agent; Z91.041 Radiographic dye allergy status; Z79.82 Long term (current) use of aspirin; Z79.899 Other long term (current) drug therapy

== ENCOUNTER → 2022-01-03 | Outpatient (CLI) | payer MEDICARE, OTHER | LOC: M PAIN 11:45 | PROVIDERS: ATTEND Nurse Practitioner Family | DX: M51.16 Intervertebral disc disorders with radiculopathy, lumbar region (principal); G89.29 Other chronic pain; G47.30 Sleep apnea, unspecified; G43.909 Migraine, unspecified, not intractable, without status migrainosus; Z86.59 Personal history of other mental and behavioral disorders; J45.990 Exercise induced bronchospasm; Z96.651 Presence of right artificial knee joint; Z88.0 Allergy status to penicillin; Z88.1 Allergy status to other antibiotic agents; Z88.2 Allergy status to sulfonamides; Z88.5 Allergy status to narcotic agent; Z91.041 Radiographic dye allergy status; Z79.82 Long term (current) use of aspirin; Z79.899 Other long term (current) drug therapy ==

== ENCOUNTER → 2022-03-12 | Outpatient (CLI) | payer MEDICARE, OTHER | LOC: M PAIN 13:30 | PROVIDERS: ATTEND Anesthesiology | DX: M51.16 Intervertebral disc disorders with radiculopathy, lumbar region (principal); G89.29 Other chronic pain; G43.909 Migraine, unspecified, not intractable, without status migrainosus; J45.909 Unspecified asthma, uncomplicated; G47.30 Sleep apnea, unspecified; Z86.59 Personal history of other mental and behavioral disorders; Z88.0 Allergy status to penicillin; Z88.1 Allergy status to other antibiotic agents; Z88.2 Allergy status to sulfonamides; Z88.5 Allergy status to narcotic agent; Z91.041 Radiographic dye allergy status; Z79.82 Long term (current) use of aspirin; Z79.899 Other long term (current) drug therapy ==

== ENCOUNTER → 2022-04-08 | Outpatient (CLI) | payer MEDICARE, OTHER | LOC: M PLAIMG 13:52 | PROVIDERS: ATTEND Anesthesiology | DX: M48.061 Spinal stenosis, lumbar region without neurogenic claudication (principal); M51.16 Intervertebral disc disorders with radiculopathy, lumbar region ==

== ENCOUNTER → 2022-05-29 | Outpatient (CLI) | payer MEDICARE, OTHER ==
[~2022-05-29] MED LIST changes: -LABE100T4 PO; +LABE100T6 PO; +LEVO1TAB39; -LEVO500T4
== END ==
LOC: M PAIN 14:30
PROVIDERS: ATTEND Anesthesiology
DX: M48.061 Spinal stenosis, lumbar region without neurogenic claudication (principal); M51.16 Intervertebral disc disorders with radiculopathy, lumbar region; G89.29 Other chronic pain; G43.909 Migraine, unspecified, not intractable, without status migrainosus; J45.909 Unspecified asthma, uncomplicated; M06.9 Rheumatoid arthritis, unspecified; G47.30 Sleep apnea, unspecified; Z86.59 Personal history of other mental and behavioral disorders; Z88.0 Allergy status to penicillin; Z88.1 Allergy status to other antibiotic agents; Z88.2 Allergy status to sulfonamides; Z88.5 Allergy status to narcotic agent; Z88.8 Allergy status to other drugs, medicaments and biological substances; Z91.041 Radiographic dye allergy status; Z79.82 Long term (current) use of aspirin; Z79.899 Other long term (current) drug therapy

== ENCOUNTER → 2022-06-10 | Outpatient (CLI) | payer MEDICARE, OTHER ==
[~2022-06-10] MED LIST changes: +ACET650T61 PO; +MIRT1TAB15 PO; +OXYC1TAB23 PO; +VITA100093 PO
[2022-06-10 15:56] LABS: HEMATOCRIT 40.2 % (36.0-47.0); HEMOGLOBIN 12.6 g/dl (12.0-15.5); MEAN CORPUSCULAR HEMOGLOBIN 29.6 pg (27.0-33.0); MEAN CORPUSCULAR HGB CONC 31.3 g/dl (32.0-36.5); MEAN CORPUSCULAR VOLUME 94.6 fl (80.0-96.0); PLATELET COUNT, AUTOMATED 280 10^3/uL (150-450); RED BLOOD COUNT 4.25 10^6/uL (4.00-5.40); WHITE BLOOD COUNT 11.4 10^3/uL (4.0-10.0)
[2022-06-10 16:08] LABS: INR 1.13; PROTHROMBIN TIME 14.9 SECONDS (12.7-14.5)
[2022-06-10 16:55] LABS: HEMOGLOBIN A1c 6.5 %
[2022-06-10 17:05] LABS: ALBUMIN 3.2 GM/DL (3.2-5.2); BILIRUBIN,TOTAL 0.4 MG/DL (0.2-1.0); CALCIUM LEVEL 9.8 MG/DL (8.8-10.2); CHOLESTEROL RISK RATIO 3.327 (<5); CREATININE FOR GFR 1.01 MG/DL (0.55-1.30); POTASSIUM SERUM 3.6 MEQ/L (3.5-5.1); THYROID STIMULATING HORMONE 1.52 uIU/ML (0.358-3.740); TOTAL PROTEIN 7.3 GM/DL (6.4-8.2); URIC ACID 13.7 MG/DL (2.6-6.0)
== END ==
LOC: M RAD 14:22
PROVIDERS: ATTEND Family Medicine
DX: Z01.818 Encounter for other preprocedural examination (principal); I10 Essential (primary) hypertension; E11.9 Type 2 diabetes mellitus without complications

== ENCOUNTER → 2022-06-18 | Outpatient (CLI) | payer MEDICARE, OTHER | LOC: M LABSMTC 11:13 | PROVIDERS: ATTEND Anesthesiology | DX: Z01.812 Encounter for preprocedural laboratory examination (principal); Z11.52 Encounter for screening for COVID-19 ==

== ENCOUNTER 2022-06-23 10:36 | Day surgery (SDC) | payer MEDICARE, OTHER ==
[~2022-06-23] VITALS: Ht 152.4 cm; Wt 82.1 kg
[2022-06-23] VITALS (7 sets, daily range): BP systolic 110–124; BP diastolic 54–59
[~2022-06-23 10:36] MED LIST changes: +CLINDAMYCIN 900 MG in IV 1 EA IV ONE
[2022-06-23] MEDS ORDERED: MIDAZOLAM INJ 2MG/2ML VIAL (J2250 PER 1MG) As Ordered ONE (10:59)
[2022-06-23] MEDS ORDERED: fentaNYL 100 MCG/2 ML INJECTION As Ordered ONE (11:00)
[2022-06-23] MEDS ORDERED: propofoL 200 MG/20 ML VIAL As Ordered ONE (11:01)
[2022-06-23] MEDS ORDERED: LR 1,000 ML IV SCH ×2 (11:05→14:15)
[2022-06-23] MEDS ORDERED: LIDOCAINE W/EPINEPHRINE 1% 20ML VIAL As Ordered ONE (11:08)
[2022-06-23] MEDS ORDERED: ISOVUE-300 61% 50ML VIAL As Ordered ONE (11:08)
[2022-06-23] MEDS ORDERED: BUPIVACAINE HCL 0.25% 30ML VIAL As Ordered ONE (11:08)
[2022-06-23] MEDS ORDERED: DULO1CAP4 PO (11:27)
[2022-06-23] MEDS ORDERED: ONDANSETRON 4MG 2ML VIAL IV PRN (14:15)
[2022-06-23] MEDS ORDERED: PERCOCET 5MG/325MG TAB PO PRN (14:15)
[2022-06-23] MEDS ORDERED: LORazepam 0.5 MG TAB PO PRN (17:25)
[2022-06-23] MEDS ORDERED: predniSONE 5 MG TAB PO ONE (18:00)
[2022-06-23] MEDS: CLINDAMYCIN 900 MG in IV 1 EA IV SCH (18:14)
[2022-06-23] MEDS: oxyCODONE 5MG TAB PO PRN (18:51)
[2022-06-23] MEDS ORDERED: ALLO100T PO (18:52)
[2022-06-23] MEDS ORDERED: BACLOFEN 10 MG TAB PO SCH (21:00)
[2022-06-23] MEDS ORDERED: MIRTAZAPINE 15 MG TAB PO SCH (21:00)
[2022-06-23] MEDS: POLYVINYL ALCOHOL OPHTH SOLN 15 ML(LIQUITEARS) OU SCH (21:00)
[2022-06-23] MEDS: prednisoLONE ACET 1% OPHTH SUSP 5ML OD SCH (22:14)
[2022-06-23] MEDS: GABAPENTIN 300 MG CAP PO SCH (22:14)
[2022-06-23] MEDS: DULoxetine 20 MG CAP (CYMBALTA) PO SCH (22:14)
[2022-06-23] MEDS: CARVedilol 12.5 MG TAB PO SCH (22:15)
[2022-06-24 02:00] VITALS: BP 112/56
[2022-06-24] MEDS: CLINDAMYCIN 900 MG in IV 1 EA IV SCH (03:39)
[2022-06-24 06:00] VITALS: BP 110/55
[2022-06-24] MEDS: oxyCODONE 5MG TAB PO PRN (07:33)
[2022-06-24] MEDS: GABAPENTIN 300 MG CAP PO SCH (08:43)
[2022-06-24] MEDS: DULoxetine 20 MG CAP (CYMBALTA) PO SCH (08:43)
[2022-06-24 08:45] VITALS: BP 126/57
[2022-06-24] MEDS: CARVedilol 12.5 MG TAB PO SCH (08:45)
[2022-06-24] MEDS: POLYVINYL ALCOHOL OPHTH SOLN 15 ML(LIQUITEARS) OU SCH (08:45)
[2022-06-24] MEDS: prednisoLONE ACET 1% OPHTH SUSP 5ML OD SCH (08:46)
[2022-06-24] MEDS ORDERED: ASCORBIC ACID 250 MG TAB PO SCH (09:00)
[2022-06-24] MEDS ORDERED: SPIRONOLACTONE 25 MG TAB PO SCH (09:00)
[2022-06-24] MEDS ORDERED: PANTOPRAZOLE 40MG TAB (PROTONIX) PO SCH (09:00)
[2022-06-24] MEDS ORDERED: predniSONE 5 MG TAB PO SCH (09:00)
[2022-06-24] MEDS ORDERED: CYANOCOBALAMIN 500 MCG TAB PO SCH (09:00)
[2022-06-24] MEDS ORDERED: SPIRONOLACTONE 12.5MG PER 1/2 TABLET PO SCH (09:00)
[2022-06-24] MEDS ORDERED: CHLORTHALIDONE 12.5MG PER 1/2 TABLET PO SCH (09:00)
== END 2022-06-24 13:30 | disposition home or self-care (01) ==
LOC: M SDC 10:36 → M MS5PR 15:45 → M SDC 06-24 13:30
PROVIDERS: ATTEND Anesthesiology
DX: M54.16 Radiculopathy, lumbar region (principal); I48.91 Unspecified atrial fibrillation; I10 Essential (primary) hypertension; K21.9 Gastro-esophageal reflux disease without esophagitis; G47.33 Obstructive sleep apnea (adult) (pediatric); Z86.73 Personal history of transient ischemic attack (TIA), and cerebral infarction without residual deficits; Z79.52 Long term (current) use of systemic steroids; F41.9 Anxiety disorder, unspecified; F32.A Depression, unspecified; R00.2 Palpitations; Z88.0 Allergy status to penicillin; Z88.2 Allergy status to sulfonamides; Z88.5 Allergy status to narcotic agent
CPT/HCPCS: 63650; 76000; 96365; 96366; C1778; J2250; J3010; J7512

== ENCOUNTER → 2022-06-27 | Outpatient (CLI) | payer MEDICARE, OTHER ==
[~2022-06-27] MED LIST changes: +ALLO100T PO; -CLINDAMYCIN 900 MG in IV 1 EA IV ONE
== END ==
LOC: M PAIN 13:15
PROVIDERS: ATTEND Anesthesiology
DX: M51.16 Intervertebral disc disorders with radiculopathy, lumbar region (principal); G89.29 Other chronic pain; G43.909 Migraine, unspecified, not intractable, without status migrainosus; J45.909 Unspecified asthma, uncomplicated; M06.9 Rheumatoid arthritis, unspecified; G47.30 Sleep apnea, unspecified; Z96.89 Presence of other specified functional implants; Z86.59 Personal history of other mental and behavioral disorders; Z96.651 Presence of right artificial knee joint; Z88.0 Allergy status to penicillin; Z88.1 Allergy status to other antibiotic agents; Z88.2 Allergy status to sulfonamides; Z88.5 Allergy status to narcotic agent; Z88.8 Allergy status to other drugs, medicaments and biological substances; Z91.041 Radiographic dye allergy status; Z79.82 Long term (current) use of aspirin; Z79.899 Other long term (current) drug therapy
CPT/HCPCS: 76000; G0463

== ENCOUNTER → 2022-07-28 | Outpatient (CLI) | payer MEDICARE, OTHER | LOC: M PAIN 14:00 → M TMPAIN 14:00 | PROVIDERS: ATTEND Anesthesiology | DX: M51.16 Intervertebral disc disorders with radiculopathy, lumbar region (principal); G89.29 Other chronic pain; G43.909 Migraine, unspecified, not intractable, without status migrainosus; I10 Essential (primary) hypertension; J45.909 Unspecified asthma, uncomplicated; M06.9 Rheumatoid arthritis, unspecified; G47.30 Sleep apnea, unspecified; Z86.59 Personal history of other mental and behavioral disorders; Z96.651 Presence of right artificial knee joint; Z88.0 Allergy status to penicillin; Z88.1 Allergy status to other antibiotic agents; Z88.2 Allergy status to sulfonamides; Z88.5 Allergy status to narcotic agent; Z88.8 Allergy status to other drugs, medicaments and biological substances; Z91.041 Radiographic dye allergy status; Z79.82 Long term (current) use of aspirin; Z79.899 Other long term (current) drug therapy ==

== ENCOUNTER → 2022-08-14 | Outpatient (CLI) | payer MEDICARE, OTHER | LOC: M PAIN 13:00 | PROVIDERS: ATTEND Anesthesiology | DX: M51.16 Intervertebral disc disorders with radiculopathy, lumbar region (principal); G89.29 Other chronic pain; G43.909 Migraine, unspecified, not intractable, without status migrainosus; J45.909 Unspecified asthma, uncomplicated; M06.9 Rheumatoid arthritis, unspecified; G47.30 Sleep apnea, unspecified; Z86.59 Personal history of other mental and behavioral disorders; Z88.0 Allergy status to penicillin; Z88.1 Allergy status to other antibiotic agents; Z88.2 Allergy status to sulfonamides; Z88.5 Allergy status to narcotic agent; Z88.8 Allergy status to other drugs, medicaments and biological substances; Z91.041 Radiographic dye allergy status; Z79.82 Long term (current) use of aspirin; Z79.899 Other long term (current) drug therapy ==

== ENCOUNTER → 2022-09-02 | Outpatient (CLI) | payer MEDICARE, OTHER ==
[~2022-09-02] MED LIST changes: +BACL10TA2 PO; +D3 S1CAP3 PO; +FLUTISP; +MAGN400C PO; +MIRT-10 PO; +PROA1AER2 IN; +SALI0.6530
[2022-09-02 12:11] LABS: HEMATOCRIT 39.7 % (36.0-47.0); HEMOGLOBIN 12.4 g/dl (12.0-15.5); MEAN CORPUSCULAR HEMOGLOBIN 29.4 pg (27.0-33.0); MEAN CORPUSCULAR HGB CONC 31.2 g/dl (32.0-36.5); MEAN CORPUSCULAR VOLUME 94.1 fl (80.0-96.0); PLATELET COUNT, AUTOMATED 318 10^3/uL (150-450); RED BLOOD COUNT 4.22 10^6/uL (4.00-5.40); WHITE BLOOD COUNT 10.7 10^3/uL (4.0-10.0)
[2022-09-02 12:41] LABS: ALBUMIN 3.3 G/DL (3.2-5.2); ALKALINE PHOSPHATASE 104 U/L (46-116); ALT/SGPT 17 U/L (7.0-40); AST/SGOT 22 U/L (<34); BILIRUBIN,TOTAL 0.3 MG/DL (0.3-1.2); BLOOD UREA NITROGEN 14 MG/DL (9-23); CALCIUM LEVEL 9.8 MG/DL (8.3-10.6); CARBON DIOXIDE LEVEL 32 MMOL/L (20-31); CHLORIDE LEVEL 100 MMOL/L (98-107); CHOLESTEROL LEVEL 160 MG/DL (<200); CHOLESTEROL RISK RATIO 3.32 (<5); CREATININE FOR GFR 0.91 MG/DL (0.55-1.30); GLOMERULAR FILTRATION RATE > 60.0 (>39); GLUCOSE, FASTING 110 MG/DL (74-106); HDL CHOLESTEROL 48.1 MG/DL (>40); LDL CHOLESTEROL 96.3 MG/DL (<100); NON-HDL-C 112 MG/DL; POTASSIUM SERUM 3.4 MMOL/L (3.5-5.1); SODIUM LEVEL 142 MMOL/L (136-145); THYROID STIMULATING HORMONE 2.064 uIU/ML (0.55-4.78); TRIGLYCERIDES LEVEL 78 MG/DL (<150)
[2022-09-02 12:46] LABS: INR 1.09; PROTHROMBIN TIME 14.3 SECONDS (12.5-14.5)
[2022-09-02 13:33] LABS: HEMOGLOBIN A1c 5.9 % (4.0-6.0)
== END ==
LOC: M RAD 10:08
PROVIDERS: ATTEND Family Medicine
DX: Z01.818 Encounter for other preprocedural examination (principal); J44.9 Chronic obstructive pulmonary disease, unspecified; I10 Essential (primary) hypertension; Z79.899 Other long term (current) drug therapy

== ENCOUNTER → 2022-09-03 | Outpatient (CLI) | payer MEDICARE, OTHER | LOC: M PAIN 12:30 | PROVIDERS: ATTEND Anesthesiology | DX: M51.16 Intervertebral disc disorders with radiculopathy, lumbar region (principal); G89.29 Other chronic pain; G43.909 Migraine, unspecified, not intractable, without status migrainosus; J45.909 Unspecified asthma, uncomplicated; M06.9 Rheumatoid arthritis, unspecified; G47.30 Sleep apnea, unspecified; Z86.59 Personal history of other mental and behavioral disorders; Z96.651 Presence of right artificial knee joint; Z88.0 Allergy status to penicillin; Z88.1 Allergy status to other antibiotic agents; Z88.2 Allergy status to sulfonamides; Z88.5 Allergy status to narcotic agent; Z88.8 Allergy status to other drugs, medicaments and biological substances; Z91.041 Radiographic dye allergy status; Z79.82 Long term (current) use of aspirin; Z79.899 Other long term (current) drug therapy ==

== ENCOUNTER → 2022-09-14 | Outpatient (CLI) | payer MEDICARE, OTHER | LOC: M LABSMTC 09:56 | PROVIDERS: ATTEND Anesthesiology | DX: Z01.818 Encounter for other preprocedural examination (principal); Z11.52 Encounter for screening for COVID-19 ==

== ENCOUNTER → 2022-09-15 | Outpatient (CLI) | payer MEDICARE, OTHER ==
[~2022-09-15] MED LIST changes: +LORA2CON5 PO
== END ==
LOC: M WHC 14:09
PROVIDERS: ATTEND Family Medicine
DX: Z12.31 Encounter for screening mammogram for malignant neoplasm of breast (principal)

== ENCOUNTER → 2022-09-16 | Outpatient (CLI) | payer MEDICARE, OTHER | LOC: M PAIN 13:15 | PROVIDERS: ATTEND Anesthesiology | DX: M51.16 Intervertebral disc disorders with radiculopathy, lumbar region (principal); G43.909 Migraine, unspecified, not intractable, without status migrainosus; M54.2 Cervicalgia; G50.0 Trigeminal neuralgia; F41.9 Anxiety disorder, unspecified; F32.A Depression, unspecified; M19.90 Unspecified osteoarthritis, unspecified site; R32 Unspecified urinary incontinence; J45.909 Unspecified asthma, uncomplicated; M06.9 Rheumatoid arthritis, unspecified; G47.30 Sleep apnea, unspecified; Z79.82 Long term (current) use of aspirin; Z79.891 Long term (current) use of opiate analgesic; Z79.899 Other long term (current) drug therapy; Z88.2 Allergy status to sulfonamides; Z88.0 Allergy status to penicillin; Z88.5 Allergy status to narcotic agent; Z88.8 Allergy status to other drugs, medicaments and biological substances; Z91.041 Radiographic dye allergy status ==

== ENCOUNTER 2022-09-17 07:46 | Inpatient (IN) | payer MEDICARE, OTHER ==
[~2022-09-17] VITALS: Ht 152.4 cm; Wt 86.6 kg
[~2022-09-17 07:46] MED LIST changes: -LORA2CON5 PO
[2022-09-17] MEDS ORDERED: CLINDAMYCIN 900 MG in IV 1 EA IV ONE ×2 (08:15→17:00)
[2022-09-17] MEDS ORDERED: LORA2CON5 PO (09:04)
[2022-09-17] MEDS ORDERED: LIDOCAINE W/EPINEPHRINE 1% 20ML VIAL As Ordered ONE ×2 (09:45→11:09)
[2022-09-17] MEDS ORDERED: GENTAMICIN SULF 80MG/2ML VIAL As Ordered ONE (09:48)
[2022-09-17] MEDS ORDERED: MIDAZOLAM INJ 2MG/2ML VIAL (J2250 PER 1MG) As Ordered ONE (10:22)
[2022-09-17] MEDS ORDERED: propofoL 200 MG/20 ML VIAL As Ordered ONE ×3 (10:22→14:34)
[2022-09-17] MEDS ORDERED: fentaNYL 100 MCG/2 ML INJECTION As Ordered ONE (10:22)
[2022-09-17] MEDS ORDERED: BUPIVACAINE HCL 0.25% 30ML VIAL As Ordered ONE (10:53)
[2022-09-17] MEDS ORDERED: THROMBIN 20,000 UNITS KIT As Ordered ONE ×2 (11:22→13:28)
[2022-09-17] MEDS ORDERED: GLYCOPYRROLATE INJ 0.2 MG/ML 2 ML VIAL As Ordered ONE (12:06)
[2022-09-17] MEDS ORDERED: ePHEDrine SULFATE 25 MG/5 ML(5MG/ML) SYRINGE As Ordered ONE (12:07)
[2022-09-17] MEDS ORDERED: fentaNYL 100 MCG/2 ML INJECTION IV PRN (15:40)
[2022-09-17] MEDS ORDERED: LR 1,000 ML IV SCH (15:40)
[2022-09-17] MEDS ORDERED: ONDANSETRON 4MG 2ML VIAL IV PRN (15:40)
[2022-09-17] MEDS ORDERED: oxyCODONE 5MG TAB PO PRN (15:40)
[2022-09-17] MEDS ORDERED: flumazeniL 0.5MG/5ML VIAL IV STA (16:22)
[2022-09-17] MEDS ORDERED: ACETAMINOPHEN TAB 650MG DOSE (2X325MG) PO PRN (17:00)
[2022-09-17] MEDS ORDERED: FLUTICASONE PROP 0.05% NASAL SPRAY 16 GM (FLONASE) PRN (17:00)
[2022-09-17] MEDS ORDERED: IPRATROPIUM 0.5MG/ALBUTEROL 2.5MG INH SOL UD 3ML (DUONEB) NEB PRN (17:15)
[2022-09-17 17:58] LABS: HEMATOCRIT 38.6 % (36.0-47.0); HEMOGLOBIN 11.8 g/dl (12.0-15.5); MEAN CORPUSCULAR HEMOGLOBIN 29.9 pg (27.0-33.0); MEAN CORPUSCULAR HGB CONC 30.6 g/dl (32.0-36.5); PLATELET COUNT, AUTOMATED 271 10^3/uL (150-450); RED BLOOD COUNT 3.94 10^6/uL (4.00-5.40); WHITE BLOOD COUNT 15.8 10^3/uL (4.0-10.0)
[2022-09-17 18:17] LABS: ALBUMIN 3.3 G/DL (3.2-5.2); BILIRUBIN,TOTAL 0.3 MG/DL (0.3-1.2); CALCIUM LEVEL 8.8 MG/DL (8.3-10.6); CREATININE FOR GFR 1.06 MG/DL (0.55-1.30); GLOMERULAR FILTRATION RATE 53.9 (>39); POTASSIUM SERUM 3.9 MMOL/L (3.5-5.1); TOTAL PROTEIN 6.9 G/DL (5.7-8.2)
[2022-09-17] MEDS: oxyCODONE 5MG TAB PO PRN (19:49)
[2022-09-17 20:27] VITALS: BP 131/61
[2022-09-17] MEDS: CARVedilol 12.5 MG TAB PO SCH (21:51)
[2022-09-17] MEDS: DULoxetine 20MG CAP (CYMBALTA) PO SCH (21:52)
[2022-09-17 21:53] VITALS: BP 127/58
[2022-09-17 23:13] VITALS: BP 116/53
[2022-09-18 04:30] VITALS: BP 102/47
[2022-09-18 06:04] LABS: HEMATOCRIT 33.2 % (36.0-47.0); HEMOGLOBIN 10.7 g/dl (12.0-15.5); MEAN CORPUSCULAR HEMOGLOBIN 30.2 pg (27.0-33.0); MEAN CORPUSCULAR HGB CONC 32.2 g/dl (32.0-36.5); MEAN CORPUSCULAR VOLUME 93.8 fl (80.0-96.0); PLATELET COUNT, AUTOMATED 240 10^3/uL (150-450); RED BLOOD COUNT 3.54 10^6/uL (4.00-5.40)
[2022-09-18 06:27] LABS: MAGNESIUM LEVEL 1.1 MG/DL (1.8-2.4)
[2022-09-18 06:31] LABS: ALBUMIN 2.8 G/DL (3.2-5.2); BILIRUBIN,TOTAL 0.6 MG/DL (0.3-1.2); CALCIUM LEVEL 8.7 MG/DL (8.3-10.6); GLOMERULAR FILTRATION RATE 57.7 (>39); POTASSIUM SERUM 3.3 MMOL/L (3.5-5.1); TOTAL PROTEIN 5.8 G/DL (5.7-8.2)
[2022-09-18] MEDS ORDERED: MAGNESIUM OXIDE 400MG TAB (MAG-OX) PO ONE (07:20)
[2022-09-18] MEDS ORDERED: POTASSIUM CHLORIDE 10MEQ SR TABLET PO ONE (07:20)
[2022-09-18 09:00] VITALS: BP 100/56
[2022-09-18] MEDS ORDERED: SPIRONOLACTONE 12.5MG PER 1/2 TABLET PO SCH (09:00)
[2022-09-18] MEDS ORDERED: VITAMIN D 1,000 INTERNATIONAL UNITS TABLET PO SCH (09:00)
[2022-09-18] MEDS ORDERED: CHLORTHALIDONE 12.5MG PER 1/2 TABLET PO SCH (09:00)
[2022-09-18] MEDS ORDERED: CYANOCOBALAMIN 500 MCG TAB PO SCH (09:00)
[2022-09-18] MEDS ORDERED: ASCORBIC ACID 250 MG TAB PO SCH (09:00)
[2022-09-18] MEDS ORDERED: GABAPENTIN 300 MG CAP PO SCH (09:00)
[2022-09-18] MEDS: CARVedilol 12.5 MG TAB PO SCH (09:00)
[2022-09-18] MEDS ORDERED: PANTOPRAZOLE 40MG TAB (PROTONIX) PO SCH (09:00)
[2022-09-18] MEDS ORDERED: MAGNESIUM OXIDE 400MG TAB (MAG-OX) PO SCH (09:00)
[2022-09-18] MEDS ORDERED: MIRTAZAPINE 15 MG TAB PO SCH ×2 (09:00→21:00)
[2022-09-18] MEDS: DULoxetine 20MG CAP (CYMBALTA) PO SCH (09:03)
[2022-09-18] MEDS: oxyCODONE 5MG TAB PO PRN (10:02)
== END 2022-09-18 12:05 | disposition home or self-care (01) | DRG 30 ==
LOC: M SDC 07:46 → M PCU 17:14
PROVIDERS: ADMIT Family Medicine; ATTEND Anesthesiology
PROC: 00HU0MZ Insertion of Neurostimulator Lead into Spinal Canal, Open Approach (ICD-10-PCS; principal; 2022-09-17 09:00)
DX: M54.10 Radiculopathy, site unspecified (principal); I25.10 Atherosclerotic heart disease of native coronary artery without angina pectoris; J45.909 Unspecified asthma, uncomplicated; I10 Essential (primary) hypertension; G47.33 Obstructive sleep apnea (adult) (pediatric); Z79.82 Long term (current) use of aspirin; Z79.899 Other long term (current) drug therapy; Z88.0 Allergy status to penicillin; Z88.2 Allergy status to sulfonamides; Z88.5 Allergy status to narcotic agent

== ENCOUNTER → 2022-09-24 | Outpatient (CLI) | payer MEDICARE, OTHER ==
[~2022-09-24] MED LIST changes: +LORA2CON5 PO
== END ==
LOC: M PAIN 11:45
PROVIDERS: ATTEND Anesthesiology
DX: G89.29 Other chronic pain (principal); M51.16 Intervertebral disc disorders with radiculopathy, lumbar region; G43.909 Migraine, unspecified, not intractable, without status migrainosus; M06.9 Rheumatoid arthritis, unspecified; G47.30 Sleep apnea, unspecified; Z96.89 Presence of other specified functional implants; Z86.59 Personal history of other mental and behavioral disorders; Z96.651 Presence of right artificial knee joint; Z88.0 Allergy status to penicillin; Z88.1 Allergy status to other antibiotic agents; Z88.2 Allergy status to sulfonamides; Z88.5 Allergy status to narcotic agent; Z88.8 Allergy status to other drugs, medicaments and biological substances; Z91.041 Radiographic dye allergy status; Z79.82 Long term (current) use of aspirin; Z79.899 Other long term (current) drug therapy

== ENCOUNTER → 2022-09-25 | Outpatient (CLI) | payer MEDICARE, OTHER | LOC: M PAIN 11:00 | PROVIDERS: ATTEND Anesthesiology | DX: M51.16 Intervertebral disc disorders with radiculopathy, lumbar region (principal); G89.29 Other chronic pain; G43.909 Migraine, unspecified, not intractable, without status migrainosus; J45.909 Unspecified asthma, uncomplicated; M06.9 Rheumatoid arthritis, unspecified; G47.30 Sleep apnea, unspecified; Z86.59 Personal history of other mental and behavioral disorders; Z96.651 Presence of right artificial knee joint; Z88.0 Allergy status to penicillin; Z88.1 Allergy status to other antibiotic agents; Z88.2 Allergy status to sulfonamides; Z88.5 Allergy status to narcotic agent; Z88.8 Allergy status to other drugs, medicaments and biological substances; Z91.041 Radiographic dye allergy status; Z79.82 Long term (current) use of aspirin; Z79.899 Other long term (current) drug therapy ==

== ENCOUNTER → 2022-09-30 | Outpatient (CLI) | payer MEDICARE, OTHER | LOC: M PAIN 13:15 | PROVIDERS: ATTEND Anesthesiology | DX: M51.16 Intervertebral disc disorders with radiculopathy, lumbar region (principal); G89.29 Other chronic pain; G43.909 Migraine, unspecified, not intractable, without status migrainosus; M06.9 Rheumatoid arthritis, unspecified; G47.30 Sleep apnea, unspecified; Z96.89 Presence of other specified functional implants; Z86.59 Personal history of other mental and behavioral disorders; Z96.651 Presence of right artificial knee joint; Z88.0 Allergy status to penicillin; Z88.1 Allergy status to other antibiotic agents; Z88.2 Allergy status to sulfonamides; Z88.5 Allergy status to narcotic agent; Z88.8 Allergy status to other drugs, medicaments and biological substances; Z91.041 Radiographic dye allergy status; Z79.82 Long term (current) use of aspirin; Z79.899 Other long term (current) drug therapy ==

== ENCOUNTER → 2022-10-06 | Outpatient (CLI) | payer MEDICARE, OTHER | LOC: M PAIN 13:00 | PROVIDERS: ATTEND Anesthesiology | DX: M51.16 Intervertebral disc disorders with radiculopathy, lumbar region (principal); G89.29 Other chronic pain; G43.909 Migraine, unspecified, not intractable, without status migrainosus; J45.909 Unspecified asthma, uncomplicated; M06.9 Rheumatoid arthritis, unspecified; G47.30 Sleep apnea, unspecified; Z96.89 Presence of other specified functional implants; Z86.59 Personal history of other mental and behavioral disorders; Z96.651 Presence of right artificial knee joint; Z88.0 Allergy status to penicillin; Z88.1 Allergy status to other antibiotic agents; Z88.2 Allergy status to sulfonamides; Z88.5 Allergy status to narcotic agent; Z88.8 Allergy status to other drugs, medicaments and biological substances; Z91.041 Radiographic dye allergy status; Z79.82 Long term (current) use of aspirin; Z79.899 Other long term (current) drug therapy ==

== ENCOUNTER → 2022-10-13 | Outpatient (CLI) | payer MEDICARE, OTHER | LOC: M PAIN 16:30 | PROVIDERS: ATTEND Anesthesiology | DX: M54.16 Radiculopathy, lumbar region (principal); G89.29 Other chronic pain; G43.909 Migraine, unspecified, not intractable, without status migrainosus; J45.909 Unspecified asthma, uncomplicated; M06.9 Rheumatoid arthritis, unspecified; G47.30 Sleep apnea, unspecified; Z96.89 Presence of other specified functional implants; Z86.59 Personal history of other mental and behavioral disorders; Z96.651 Presence of right artificial knee joint; Z88.0 Allergy status to penicillin; Z88.1 Allergy status to other antibiotic agents; Z88.2 Allergy status to sulfonamides; Z88.5 Allergy status to narcotic agent; Z88.8 Allergy status to other drugs, medicaments and biological substances; Z91.041 Radiographic dye allergy status; Z79.82 Long term (current) use of aspirin; Z79.899 Other long term (current) drug therapy ==

== ENCOUNTER → 2022-10-31 | Outpatient (CLI) | payer MEDICARE, OTHER | LOC: M PAIN 14:00 | PROVIDERS: ATTEND Anesthesiology | DX: M51.16 Intervertebral disc disorders with radiculopathy, lumbar region (principal); G89.29 Other chronic pain; G43.909 Migraine, unspecified, not intractable, without status migrainosus; J45.909 Unspecified asthma, uncomplicated; M06.9 Rheumatoid arthritis, unspecified; G47.30 Sleep apnea, unspecified; Z96.89 Presence of other specified functional implants; Z86.59 Personal history of other mental and behavioral disorders; Z96.651 Presence of right artificial knee joint; Z88.0 Allergy status to penicillin; Z88.1 Allergy status to other antibiotic agents; Z88.2 Allergy status to sulfonamides; Z88.5 Allergy status to narcotic agent; Z88.8 Allergy status to other drugs, medicaments and biological substances; Z91.041 Radiographic dye allergy status; Z79.82 Long term (current) use of aspirin; Z79.899 Other long term (current) drug therapy ==

== ENCOUNTER → 2022-11-06 | Outpatient (CLI) | payer MEDICARE, OTHER | LOC: M PAIN 13:00 | PROVIDERS: ATTEND Anesthesiology | DX: M51.16 Intervertebral disc disorders with radiculopathy, lumbar region (principal); G89.29 Other chronic pain; G43.909 Migraine, unspecified, not intractable, without status migrainosus; J45.909 Unspecified asthma, uncomplicated; M06.9 Rheumatoid arthritis, unspecified; G47.30 Sleep apnea, unspecified; Z86.59 Personal history of other mental and behavioral disorders; Z96.89 Presence of other specified functional implants; Z88.0 Allergy status to penicillin; Z88.1 Allergy status to other antibiotic agents; Z88.2 Allergy status to sulfonamides; Z88.5 Allergy status to narcotic agent; Z88.8 Allergy status to other drugs, medicaments and biological substances; Z91.041 Radiographic dye allergy status; Z79.82 Long term (current) use of aspirin; Z79.899 Other long term (current) drug therapy | CPT/HCPCS: 76000; G0463 ==

== ENCOUNTER → 2023-01-23 | Outpatient (CLI) | payer MEDICARE, OTHER ==
[~2023-01-23] MED LIST changes: -COZA50TA PO; +FLUT50SP17; -FLUTISP; +LOSA-528 PO
== END ==
LOC: M PAIN 14:30
PROVIDERS: ATTEND Anesthesiology
DX: M51.16 Intervertebral disc disorders with radiculopathy, lumbar region (principal); G89.29 Other chronic pain; G43.909 Migraine, unspecified, not intractable, without status migrainosus; J45.909 Unspecified asthma, uncomplicated; M06.9 Rheumatoid arthritis, unspecified; Z96.89 Presence of other specified functional implants; Z86.59 Personal history of other mental and behavioral disorders; Z88.0 Allergy status to penicillin; Z88.1 Allergy status to other antibiotic agents; Z88.2 Allergy status to sulfonamides; Z88.5 Allergy status to narcotic agent; Z88.8 Allergy status to other drugs, medicaments and biological substances; Z91.041 Radiographic dye allergy status; Z79.82 Long term (current) use of aspirin; Z79.899 Other long term (current) drug therapy

== ENCOUNTER → 2023-03-09 | Outpatient (CLI) | payer MEDICARE, OTHER ==
[2023-03-09 16:28] LABS: HEMATOCRIT 38.4 % (36.0-47.0); HEMOGLOBIN 12.3 g/dl (12.0-15.5); MEAN CORPUSCULAR HEMOGLOBIN 30.3 pg (27.0-33.0); MEAN CORPUSCULAR VOLUME 94.6 fl (80.0-96.0); PLATELET COUNT, AUTOMATED 287 10^3/uL (150-450); RED BLOOD COUNT 4.06 10^6/uL (4.00-5.40); WHITE BLOOD COUNT 9.1 10^3/uL (4.0-10.0)
[2023-03-09 17:03] LABS: ALBUMIN 3.6 G/DL (3.2-5.2); ALKALINE PHOSPHATASE 117 U/L (46-116); ALT/SGPT 15 U/L (7.0-40); AST/SGOT 19 U/L (<34); BILIRUBIN,TOTAL 0.3 MG/DL (0.3-1.2); BLOOD UREA NITROGEN 14 MG/DL (9-23); CALCIUM LEVEL 9.3 MG/DL (8.3-10.6); CARBON DIOXIDE LEVEL 31 MMOL/L (20-31); CHLORIDE LEVEL 104 MMOL/L (98-107); CHOLESTEROL LEVEL 174 MG/DL (<200); CHOLESTEROL RISK RATIO 3.84 (<5); CREATININE FOR GFR 0.84 MG/DL (0.55-1.30); GLOMERULAR FILTRATION RATE > 60.0 (>39); GLUCOSE, FASTING 61 MG/DL (74-106); HDL CHOLESTEROL 45.2 MG/DL (>40); NON-HDL-C 128.8 MG/DL; POTASSIUM SERUM 3.8 MMOL/L (3.5-5.1); SODIUM LEVEL 140 MMOL/L (136-145); TRIGLYCERIDES LEVEL 89 MG/DL (<150)
[2023-03-09 17:05] LABS: THYROID STIMULATING HORMONE 0.922 uIU/ML (0.55-4.78)
[2023-03-09 17:06] LABS: TOTAL 25(OH) VITAMIN D 51.6 NG/ML (20.0-100.0)
[2023-03-09 18:07] LABS: HEMOGLOBIN A1c 6.2 % (4.0-6.0)
== END ==
LOC: M RAD 15:25
PROVIDERS: ATTEND Family Medicine
DX: I10 Essential (primary) hypertension (principal); J44.9 Chronic obstructive pulmonary disease, unspecified; R53.83 Other fatigue; Z79.899 Other long term (current) drug therapy

== ENCOUNTER → 2023-04-08 | Outpatient (CLI) | payer MEDICARE, OTHER ==
[~2023-04-08] MED LIST changes: +MIRT-84 PO; -REME15TA2 PO
== END ==
LOC: M PAIN 11:15
PROVIDERS: ATTEND Anesthesiology
DX: M51.16 Intervertebral disc disorders with radiculopathy, lumbar region (principal); M48.062 Spinal stenosis, lumbar region with neurogenic claudication; G89.29 Other chronic pain; G43.909 Migraine, unspecified, not intractable, without status migrainosus; J45.909 Unspecified asthma, uncomplicated; M06.9 Rheumatoid arthritis, unspecified; G47.30 Sleep apnea, unspecified; Z96.89 Presence of other specified functional implants; Z86.59 Personal history of other mental and behavioral disorders; Z96.651 Presence of right artificial knee joint; Z88.0 Allergy status to penicillin; Z88.1 Allergy status to other antibiotic agents; Z88.2 Allergy status to sulfonamides; Z88.5 Allergy status to narcotic agent; Z88.8 Allergy status to other drugs, medicaments and biological substances; Z91.041 Radiographic dye allergy status

== ENCOUNTER → 2023-05-13 | Outpatient (CLI) | payer MEDICARE, OTHER | LOC: M PAIN 16:30 | PROVIDERS: ATTEND Anesthesiology | DX: M48.062 Spinal stenosis, lumbar region with neurogenic claudication (principal); G89.29 Other chronic pain; G43.909 Migraine, unspecified, not intractable, without status migrainosus; J45.909 Unspecified asthma, uncomplicated; M06.9 Rheumatoid arthritis, unspecified; Z96.89 Presence of other specified functional implants; Z86.59 Personal history of other mental and behavioral disorders; Z96.641 Presence of right artificial hip joint; Z88.0 Allergy status to penicillin; Z88.1 Allergy status to other antibiotic agents; Z88.2 Allergy status to sulfonamides; Z88.5 Allergy status to narcotic agent; Z88.8 Allergy status to other drugs, medicaments and biological substances; Z91.041 Radiographic dye allergy status; Z79.82 Long term (current) use of aspirin; Z79.899 Other long term (current) drug therapy ==

== ENCOUNTER → 2023-06-02 | Outpatient (CLI) | payer MEDICARE, OTHER ==
[~2023-06-02] MED LIST changes: +E-Z-GAS II EFFERVESCENT PACKET (SODIUM BICARB./CITRIC ACID/SIMETHICONE) As Ordered ONE; +E-Z-HD 98% w/w 340GM SUSP BTL As Ordered ONE; +E-Z-PAQUE 96% w/w SUSP 176GM BTL As Ordered ONE
== END ==
LOC: M RAD 08:44
PROVIDERS: ATTEND Physician Assistant Medical
DX: R13.10 Dysphagia, unspecified (principal)

== ENCOUNTER → 2023-06-03 | Outpatient (CLI) | payer MEDICARE, OTHER ==
[~2023-06-03] MED LIST changes: -E-Z-GAS II EFFERVESCENT PACKET (SODIUM BICARB./CITRIC ACID/SIMETHICONE) As Ordered ONE; -E-Z-HD 98% w/w 340GM SUSP BTL As Ordered ONE; -E-Z-PAQUE 96% w/w SUSP 176GM BTL As Ordered ONE
== END ==
LOC: M PAIN 13:15
PROVIDERS: ATTEND Anesthesiology
DX: M48.062 Spinal stenosis, lumbar region with neurogenic claudication (principal); M51.16 Intervertebral disc disorders with radiculopathy, lumbar region; G89.29 Other chronic pain; G47.30 Sleep apnea, unspecified; G43.909 Migraine, unspecified, not intractable, without status migrainosus; J45.909 Unspecified asthma, uncomplicated; M06.9 Rheumatoid arthritis, unspecified; Z96.89 Presence of other specified functional implants; Z86.59 Personal history of other mental and behavioral disorders; Z88.0 Allergy status to penicillin; Z88.1 Allergy status to other antibiotic agents; Z88.2 Allergy status to sulfonamides; Z88.5 Allergy status to narcotic agent; Z88.8 Allergy status to other drugs, medicaments and biological substances; Z91.041 Radiographic dye allergy status; Z79.82 Long term (current) use of aspirin; Z79.899 Other long term (current) drug therapy

== ENCOUNTER → 2023-09-15 | Outpatient (CLI) | payer MEDICARE, OTHER ==
[~2023-09-15] MED LIST changes: +BARIUM SULFATE 700 MG TABLET (E-Z-DISK) As Ordered ONE; +E-Z-PAQUE 96% w/w SUSP 176GM BTL As Ordered ONE; -FLUT50SP17; +FLUTISP; +VARIBAR NECTAR 40% w/v 240ML SUSP BTL As Ordered ONE; +VARIBAR PUDDING 40% w/v 230ML TUBE As Ordered ONE
== END ==
LOC: M RAD 12:56
PROVIDERS: ATTEND Nurse Practitioner Family
DX: R13.10 Dysphagia, unspecified (principal)

== ENCOUNTER → 2023-10-09 | Outpatient (CLI) | payer MEDICARE, OTHER ==
[~2023-10-09] MED LIST changes: -BARIUM SULFATE 700 MG TABLET (E-Z-DISK) As Ordered ONE; -E-Z-PAQUE 96% w/w SUSP 176GM BTL As Ordered ONE; -VARIBAR NECTAR 40% w/v 240ML SUSP BTL As Ordered ONE; -VARIBAR PUDDING 40% w/v 230ML TUBE As Ordered ONE
== END ==
LOC: M WHC 10:07
PROVIDERS: ATTEND Family Medicine
DX: Z12.31 Encounter for screening mammogram for malignant neoplasm of breast (principal)

== ENCOUNTER → 2023-10-21 | Outpatient (CLI) | payer MEDICARE, OTHER ==
[2023-10-21 09:35] LABS: HEMATOCRIT 37.9 % (36.0-47.0); HEMOGLOBIN 12.5 g/dl (12.0-15.5); MEAN CORPUSCULAR VOLUME 96.9 fl (80.0-96.0); PLATELET COUNT, AUTOMATED 270 10^3/uL (150-450); RED BLOOD COUNT 3.91 10^6/uL (4.00-5.40); WHITE BLOOD COUNT 21.5 10^3/uL (4.0-10.0)
[2023-10-21 09:43] LABS: HEMOGLOBIN A1c 6.4 % (4.0-6.0)
[2023-10-21 10:03] LABS: ALBUMIN 3.1 G/DL (3.2-5.2); BILIRUBIN,TOTAL 0.2 MG/DL (0.3-1.2); CALCIUM LEVEL 10.1 MG/DL (8.3-10.6); CHOLESTEROL RISK RATIO 3.84 (<5); CREATININE FOR GFR 1.03 MG/DL (0.55-1.30); GLOMERULAR FILTRATION RATE 55.5 (>39); HDL CHOLESTEROL 49.7 MG/DL (>40); LDL CHOLESTEROL 124.3 MG/DL (<100); NON-HDL-C 141.3 MG/DL; POTASSIUM SERUM 4.1 MMOL/L (3.5-5.1); TOTAL PROTEIN 6.9 G/DL (5.7-8.2)
[2023-10-21 10:05] LABS: THYROID STIMULATING HORMONE 0.299 uIU/ML (0.55-4.78); TOTAL 25(OH) VITAMIN D 46.3 NG/ML (20.0-100.0)
== END ==
LOC: M RAD 08:39
PROVIDERS: ATTEND Family Medicine
DX: R53.83 Other fatigue (principal); E03.9 Hypothyroidism, unspecified; J18.9 Pneumonia, unspecified organism; Z79.899 Other long term (current) drug therapy

== ENCOUNTER → 2023-12-25 | Outpatient (CLI) | payer MEDICARE, OTHER ==
[~2023-12-25] MED LIST changes: +LORA2TAB14 PO; +PANT20TA6 PO; -SALI0.6530; +SODI88SP
== END ==
LOC: M PAIN 16:30
PROVIDERS: ATTEND Nurse Practitioner Family
DX: M51.16 Intervertebral disc disorders with radiculopathy, lumbar region (principal); Z79.891 Long term (current) use of opiate analgesic; M47.816 Spondylosis without myelopathy or radiculopathy, lumbar region; G89.29 Other chronic pain; M54.2 Cervicalgia; F41.9 Anxiety disorder, unspecified; F32.A Depression, unspecified; M06.9 Rheumatoid arthritis, unspecified; G43.909 Migraine, unspecified, not intractable, without status migrainosus; J45.909 Unspecified asthma, uncomplicated; M19.90 Unspecified osteoarthritis, unspecified site; Z79.899 Other long term (current) drug therapy; Z88.0 Allergy status to penicillin; Z88.2 Allergy status to sulfonamides; Z88.5 Allergy status to narcotic agent; Z88.8 Allergy status to other drugs, medicaments and biological substances; Z91.041 Radiographic dye allergy status

== ENCOUNTER → 2024-01-25 | Outpatient (CLI) | payer MEDICARE, OTHER | LOC: M PLAIMG 14:18 | PROVIDERS: ATTEND Otolaryngology | DX: H92.12 Otorrhea, left ear (principal) ==

== ENCOUNTER → 2024-02-03 | Outpatient (REF) | payer MEDICARE, OTHER ==
[~2024-02-03] MED LIST changes: +DOXY-323 PO; -DOXY-443 PO
== END ==
LOC: M LAB REF 17:18
PROVIDERS: ATTEND Physician Assistant Medical
DX: H66.42 Suppurative otitis media, unspecified, left ear (principal)

== ENCOUNTER → 2024-03-09 | Outpatient (CLI) | payer MEDICARE, OTHER | LOC: M PAIN 16:30 | PROVIDERS: ATTEND Anesthesiology | DX: M48.061 Spinal stenosis, lumbar region without neurogenic claudication (principal); M47.816 Spondylosis without myelopathy or radiculopathy, lumbar region; G47.30 Sleep apnea, unspecified; Z99.89 Dependence on other enabling machines and devices; Z79.82 Long term (current) use of aspirin; Z79.891 Long term (current) use of opiate analgesic; Z79.899 Other long term (current) drug therapy; Z88.0 Allergy status to penicillin; Z88.1 Allergy status to other antibiotic agents; Z88.2 Allergy status to sulfonamides; Z88.5 Allergy status to narcotic agent; Z91.041 Radiographic dye allergy status; Z96.82 Presence of neurostimulator ==

== ENCOUNTER → 2024-03-24 | Outpatient (CLI) | payer MEDICARE, OTHER | LOC: M RAD 15:44 | PROVIDERS: ATTEND Anesthesiology | DX: M51.16 Intervertebral disc disorders with radiculopathy, lumbar region (principal); M47.812 Spondylosis without myelopathy or radiculopathy, cervical region ==

== ENCOUNTER → 2024-03-24 | Outpatient (CLI) | payer MEDICARE, OTHER ==
[2024-03-24 16:37] LABS: HEMATOCRIT 40.1 % (36.0-47.0); HEMOGLOBIN 12.6 g/dl (12.0-15.5); MEAN CORPUSCULAR HGB CONC 31.4 g/dl (32.0-36.5); MEAN CORPUSCULAR VOLUME 98.8 fl (80.0-96.0); PLATELET COUNT, AUTOMATED 280 10^3/uL (150-450); RED BLOOD COUNT 4.06 10^6/uL (4.00-5.40); WHITE BLOOD COUNT 13.1 10^3/uL (4.0-10.0)
[2024-03-24 17:06] LABS: ALBUMIN 3.4 G/DL (3.2-5.2); BILIRUBIN,TOTAL 0.8 MG/DL (0.3-1.2); CALCIUM LEVEL 10.6 MG/DL (8.3-10.6); CHOLESTEROL RISK RATIO 4.15 (<5); CREATININE FOR GFR 1.05 MG/DL (0.55-1.30); GLOMERULAR FILTRATION RATE 54.2 (>39); HDL CHOLESTEROL 42.6 MG/DL (>40); LDL CHOLESTEROL 111.6 MG/DL (<100); NON-HDL-C 134.4 MG/DL; POTASSIUM SERUM 3.9 MMOL/L (3.5-5.1); TOTAL PROTEIN 7.1 G/DL (5.7-8.2)
[2024-03-24 17:07] LABS: TOTAL 25(OH) VITAMIN D 54.6 NG/ML (20.0-100.0)
[2024-03-24 17:08] LABS: THYROID STIMULATING HORMONE 1.105 uIU/ML (0.55-4.78)
== END ==
LOC: M LAB 16:10
PROVIDERS: ATTEND Family Medicine
DX: I10 Essential (primary) hypertension (principal); R53.83 Other fatigue; E03.9 Hypothyroidism, unspecified; Z79.899 Other long term (current) drug therapy; M51.16 Intervertebral disc disorders with radiculopathy, lumbar region; M47.812 Spondylosis without myelopathy or radiculopathy, cervical region

== ENCOUNTER 2024-05-04 13:00 | Inpatient (IN) | payer MEDICARE, OTHER ==
[~2024-05-04] VITALS: Ht 152.4 cm; Wt 78.8 kg
[~2024-05-04 13:00] MED LIST changes: +REST0.05 OD; -REST0.05 OU
[2024-05-04 14:25] LABS: INR 1.27; PARTIAL THROMBOPLASTIN TIME 25.5 SECONDS (24.8-34.2); PROTHROMBIN TIME 15.6 SECONDS (12.5-14.5)
[2024-05-04 14:26] LABS: BASO % 0.2 % (0.0-1.0); EOS # 0.3 10^3/uL (0.0-0.5); EOS % 1.5 % (0.0-3.0); HEMATOCRIT 38.9 % (36.0-47.0); LYMPH % 10.6 % (24.0-44.0); MEAN CORPUSCULAR HEMOGLOBIN 31.5 pg (27.0-33.0); MEAN CORPUSCULAR HGB CONC 33.4 g/dl (32.0-36.5); MEAN CORPUSCULAR VOLUME 94.2 fl (80.0-96.0); MONO # 1.5 10^3/uL (0.0-0.8); NEUTROPHILS # 14.4 10^3/uL (1.5-8.5); NEUTROPHILS % 78.6 % (36.0-66.0); PLATELET COUNT, AUTOMATED 282 10^3/uL (150-450); RED BLOOD COUNT 4.13 10^6/uL (4.00-5.40); WHITE BLOOD COUNT 18.3 10^3/uL (4.0-10.0)
[2024-05-04] MEDS: methylPREDNISolone 125MG 2ML VIAL IV ONE (14:30)
[2024-05-04] MEDS: NS 2,390 ML in IV 1 EA IV ONE (14:40)
[2024-05-04 14:53] LABS: ALBUMIN 2.3 G/DL (3.2-5.2); ALKALINE PHOSPHATASE 140 U/L (46-116); ALT/SGPT 31 U/L (7.0-40); AST/SGOT 70 U/L (<34); BILIRUBIN,DIRECT 0.6 MG/DL (<0.4); BILIRUBIN,TOTAL 1.1 MG/DL (0.3-1.2); BLOOD UREA NITROGEN 23 MG/DL (9-23); CARBON DIOXIDE LEVEL 31 MMOL/L (20-31); CHLORIDE LEVEL 98 MMOL/L (98-107); CK-MB VALUE MASS < 1.0 NG/ML (<3.6); CPK CREATINE PHOSPHOKINASE 40 U/L (34-145); CREATININE FOR GFR 0.92 MG/DL (0.55-1.30); GLOMERULAR FILTRATION RATE > 60.0 (>39); GLUCOSE, FASTING 103 MG/DL (74-106); LIPASE 20 U/L (12-53); POTASSIUM SERUM 5.3 MMOL/L (3.5-5.1); SODIUM LEVEL 133 MMOL/L (136-145); TOTAL PROTEIN 6.6 G/DL (5.7-8.2)
[2024-05-04] MEDS: IPRATROPIUM 0.5MG/ALBUTEROL 2.5MG INH SOL UD 3ML (DUONEB) NEB PRN (15:15)
[2024-05-04] MEDS ORDERED: ISOVUE-370 76% 100ML VIAL As Ordered ONE (15:18)
[2024-05-04 15:44] LABS: ABG BASE EXCESS 3.8 (-2.0-2.0); ABG HCO3 28.9 MMOL/L (22.0-26.0); ABG O2 SATURATION 96.6 % (95.0-99.0); ABG PARTIAL PRESSURE CO2 45.7 mmHg (35.0-45.0); ABG PARTIAL PRESSURE O2 91.6 mmHg (75.0-100.0); ABG STANDARD HCO3 27.8 MMOL/L. (22.0-26.0); ABG TOTAL CO2 30.3 MMOL/L (23.0-31.0); ABG pH (ARTERIAL) 7.419 UNITS (7.350-7.450)
[2024-05-04 16:35] LABS: CK-MB VALUE MASS < 1.0 NG/ML (<3.6)
[2024-05-04 16:46] LABS: CPK CREATINE PHOSPHOKINASE < 15 U/L (34-145)
[2024-05-04] MEDS: cefTRIAXone SOD 2 GM in D5W MINI-BAG PLUS 50 ML IV ONE (16:48)
[2024-05-04] MEDS ORDERED: PIPERACILLIN/TAZOBACTAM SOD 3.375 GM in D5W MINI-BAG PLUS 50 ML IV SCH (19:05)
[2024-05-04] MEDS ORDERED: PERCOCET 5MG/325MG TAB PO PRN (19:35)
[2024-05-04] MEDS ORDERED: BACLOFEN 10 MG TAB PO SCH (21:00)
[2024-05-04] MEDS ORDERED: FLUTICASONE PROP 0.05% NASAL SPRAY 16 GM (FLONASE) NARES PRN (21:00)
[2024-05-04 21:07] LABS: D-DIMER QUANT 1.37 ug/mL (<0.5); INR 1.32; PARTIAL THROMBOPLASTIN TIME 26.3 SECONDS (24.8-34.2); PROTHROMBIN TIME 15.9 SECONDS (12.5-14.5)
[2024-05-04 21:09] LABS: C REACTIVE PROTEIN QUANTITATIV 29.4 MG/DL (<1.0); MAGNESIUM LEVEL 1.5 MG/DL (1.8-2.4)
[2024-05-04 21:14] LABS: FERRITIN 569.7 NG/ML (7.3-270.7)
[2024-05-04 21:18] LABS: PROCALCITONIN 0.57 ng/ml
[2024-05-04] MEDS: GABAPENTIN 300 MG CAP PO SCH (21:47)
[2024-05-04] MEDS: CARVedilol 12.5 MG TAB PO SCH (21:48)
[2024-05-04] MEDS: DOXYCYCLINE HYCLATE 100 MG in D5W MINI-BAG PLUS 100 ML IV SCH (21:49)
[2024-05-05] VITALS (36 sets, daily range): BP systolic 105–140; BP diastolic 53–89; TEMP 96.5–97.2; O2SAT 76–99
[2024-05-05] MEDS: CEFEPIME HCL 2 GM in D5W MINI-BAG PLUS 50 ML IV SCH (01:10)
[2024-05-05] MEDS: REMDESIVIR 200 MG in NS 250 ML IV ONE (02:25)
[2024-05-05] MEDS ORDERED: ALLO100T PO (06:33)
[2024-05-05] MEDS ORDERED: DULO30CA47 PO (06:33)
[2024-05-05] MEDS ORDERED: POTA-298 PO (06:33)
[2024-05-05] MEDS ORDERED: TREL1AER INH (06:33)
[2024-05-05] MEDS ORDERED: ASCO500T PO (06:33)
[2024-05-05] MEDS ORDERED: HOME MED LIST COMPLETE! XX SCH (06:35)
[2024-05-05 06:39] LABS: BLOOD UREA NITROGEN 23 MG/DL (9-23); CALCIUM LEVEL 8.2 MG/DL (8.3-10.6); CARBON DIOXIDE LEVEL 30 MMOL/L (20-31); CHLORIDE LEVEL 102 MMOL/L (98-107); CREATININE FOR GFR 0.76 MG/DL (0.55-1.30); GLOMERULAR FILTRATION RATE > 60.0 (>39); GLUCOSE, FASTING 145 MG/DL (74-106); MAGNESIUM LEVEL 1.5 MG/DL (1.8-2.4); POTASSIUM SERUM 4.6 MMOL/L (3.5-5.1); SODIUM LEVEL 137 MMOL/L (136-145)
[2024-05-05 06:43] LABS: BILIRUBIN,DIRECT 0.3 MG/DL (<0.4); BILIRUBIN,TOTAL 0.5 MG/DL (0.3-1.2)
[2024-05-05] MEDS: LORazepam 2 MG TAB PO PRN (07:54)
[2024-05-05 08:44] LABS: BASO % 0.1 % (0.0-1.0); HEMOGLOBIN 11.2 g/dl (12.0-15.5); LYMPH % 6.4 % (24.0-44.0); MEAN CORPUSCULAR HEMOGLOBIN 31.7 pg (27.0-33.0); MEAN CORPUSCULAR HGB CONC 32.9 g/dl (32.0-36.5); MEAN CORPUSCULAR VOLUME 96.3 fl (80.0-96.0); MONO # 0.3 10^3/uL (0.0-0.8); MONO % 2.1 % (2.0-8.0); NEUTROPHILS # 13.4 10^3/uL (1.5-8.5); NEUTROPHILS % 90.7 % (36.0-66.0); PLATELET COUNT, AUTOMATED 267 10^3/uL (150-450); RED BLOOD COUNT 3.53 10^6/uL (4.00-5.40); WHITE BLOOD COUNT 14.8 10^3/uL (4.0-10.0)
[2024-05-05] MEDS: ENOXAPARIN 40MG/0.4ML SYRINGE (J1650 PER 10MG) SC SCH (08:56)
[2024-05-05] MEDS: allopurinoL 100 MG TAB PO SCH (08:57)
[2024-05-05] MEDS: MIRTAZAPINE 15 MG TAB PO SCH (08:57)
[2024-05-05] MEDS: PANTOPRAZOLE 40MG TAB (PROTONIX) PO SCH (08:57)
[2024-05-05] MEDS: ASCORBIC ACID 500 MG TAB PO SCH (08:57)
[2024-05-05] MEDS: BARICITINIB 2MG TABLET (OLUMIANT) FOR EUA PO SCH (08:57)
[2024-05-05] MEDS: DULoxetine 30MG CAPSULE (CYMBALTA) PO SCH ×2 (08:58)
[2024-05-05] MEDS: MAG SULF 1GM/100ML (MAG RUN) 1 GM in IV 1 EA IV SCH (10:39)
[2024-05-05] MEDS: ASPIRIN ENTERIC 325MG TAB PO SCH (10:40)
[2024-05-05] MEDS: MAG SULF 1GM/100ML (MAG RUN) 1 GM in IV 1 EA IV ONE (13:44)
[2024-05-05] MEDS: FUROSEMIDE 100MG/10ML VIAL IV ONE (15:31)
[2024-05-05] MEDS: SYMBICORT 80/4.5MCG INHALER 6GM INH SCH (19:51)
[2024-05-05] MEDS: DOXYCYCLINE HYCLATE 100MG TABLET PO SCH (20:29)
[2024-05-05] MEDS: MIRTAZAPINE 15 MG TAB PO ONE (20:29)
[2024-05-05 21:46] LABS: BLOOD UREA NITROGEN 29 MG/DL (9-23); CALCIUM LEVEL 8.5 MG/DL (8.3-10.6); CARBON DIOXIDE LEVEL 30 MMOL/L (20-31); CHLORIDE LEVEL 101 MMOL/L (98-107); CREATININE FOR GFR 0.85 MG/DL (0.55-1.30); GLOMERULAR FILTRATION RATE > 60.0 (>39); GLUCOSE, FASTING 169 MG/DL (74-106); MAGNESIUM LEVEL 1.9 MG/DL (1.8-2.4); POTASSIUM SERUM 3.8 MMOL/L (3.5-5.1); SODIUM LEVEL 138 MMOL/L (136-145)
[2024-05-06] VITALS (22 sets, daily range): BP systolic 119–158; BP diastolic 57–71; TEMP 96.6–97.8; O2SAT 88–97
[2024-05-06] MEDS: REMDESIVIR 100 MG in NS 250 ML IV SCH (03:11)
[2024-05-06 08:18] LABS: BASO % 0.1 % (0.0-1.0); HEMATOCRIT 32.9 % (36.0-47.0); LYMPH # 1.1 10^3/uL (1.5-5.0); MEAN CORPUSCULAR HEMOGLOBIN 31.5 pg (27.0-33.0); MEAN CORPUSCULAR HGB CONC 33.4 g/dl (32.0-36.5); MEAN CORPUSCULAR VOLUME 94.3 fl (80.0-96.0); MONO # 0.8 10^3/uL (0.0-0.8); NEUTROPHILS % 86.8 % (36.0-66.0); PLATELET COUNT, AUTOMATED 288 10^3/uL (150-450); RED BLOOD COUNT 3.49 10^6/uL (4.00-5.40); WHITE BLOOD COUNT 16.1 10^3/uL (4.0-10.0)
[2024-05-06 08:48] LABS: BLOOD UREA NITROGEN 33 MG/DL (9-23); CALCIUM LEVEL 8.8 MG/DL (8.3-10.6); CARBON DIOXIDE LEVEL 33 MMOL/L (20-31); CHLORIDE LEVEL 101 MMOL/L (98-107); CREATININE FOR GFR 0.87 MG/DL (0.55-1.30); GLOMERULAR FILTRATION RATE > 60.0 (>39); GLUCOSE, FASTING 128 MG/DL (74-106); MAGNESIUM LEVEL 1.9 MG/DL (1.8-2.4); POTASSIUM SERUM 4.3 MMOL/L (3.5-5.1); SODIUM LEVEL 138 MMOL/L (136-145)
[2024-05-06] MEDS: PANTOPRAZOLE 20 MG TAB PO SCH (09:51)
[2024-05-06] MEDS: POTASSIUM PHOSPHATE INJ 18 MMOL in D5W 250 ML IV ONE (12:24)
[2024-05-06] MEDS: MIRTAZAPINE 15 MG TAB PO SCH (21:01)
[2024-05-07] VITALS (17 sets, daily range): BP systolic 119–149; BP diastolic 57–93; TEMP 96.9–97.8; O2SAT 94–99
[2024-05-07] MEDS: NYSTATIN 500,000U/5ML SUSP UDC SS SCH (02:07)
[2024-05-07] MEDS: MAALOX 30 ML SUSP *UDC PO ONE (02:07)
[2024-05-07 04:23] LABS: BASO % 0.1 % (0.0-1.0); HEMATOCRIT 30.5 % (36.0-47.0); HEMOGLOBIN 10.1 g/dl (12.0-15.5); LYMPH % 9.1 % (24.0-44.0); MEAN CORPUSCULAR HEMOGLOBIN 31.5 pg (27.0-33.0); MEAN CORPUSCULAR HGB CONC 33.1 g/dl (32.0-36.5); MONO # 0.7 10^3/uL (0.0-0.8); MONO % 6.3 % (2.0-8.0); NEUTROPHILS # 9.4 10^3/uL (1.5-8.5); NEUTROPHILS % 83.6 % (36.0-66.0); PLATELET COUNT, AUTOMATED 271 10^3/uL (150-450); RED BLOOD COUNT 3.21 10^6/uL (4.00-5.40); WHITE BLOOD COUNT 11.2 10^3/uL (4.0-10.0)
[2024-05-07 04:46] LABS: BLOOD UREA NITROGEN 32 MG/DL (9-23); CALCIUM LEVEL 8.1 MG/DL (8.3-10.6); CARBON DIOXIDE LEVEL 30 MMOL/L (20-31); CHLORIDE LEVEL 104 MMOL/L (98-107); CREATININE FOR GFR 0.82 MG/DL (0.55-1.30); GLOMERULAR FILTRATION RATE > 60.0 (>39); GLUCOSE, FASTING 103 MG/DL (74-106); MAGNESIUM LEVEL 1.6 MG/DL (1.8-2.4); POTASSIUM SERUM 4.2 MMOL/L (3.5-5.1); SODIUM LEVEL 137 MMOL/L (136-145)
[2024-05-07] MEDS: MAG SULF 1GM/100ML (MAG RUN) 1 GM in IV 1 EA IV SCH (09:42)
[2024-05-07] MEDS: FUROSEMIDE 40MG/4ML VIAL IV ONE (18:02)
[2024-05-07 20:14] LABS: MAGNESIUM LEVEL 2.1 MG/DL (1.8-2.4)
[2024-05-08] VITALS (19 sets, daily range): BP systolic 113–144; BP diastolic 58–69; TEMP 96.5–98; O2SAT 89–96
[2024-05-08 05:48] LABS: BASO % 0.1 % (0.0-1.0); EOS % 0.1 % (0.0-3.0); HEMATOCRIT 30.9 % (36.0-47.0); HEMOGLOBIN 10.1 g/dl (12.0-15.5); LYMPH # 1.1 10^3/uL (1.5-5.0); MEAN CORPUSCULAR HGB CONC 32.7 g/dl (32.0-36.5); MEAN CORPUSCULAR VOLUME 94.8 fl (80.0-96.0); MONO # 0.6 10^3/uL (0.0-0.8); MONO % 5.9 % (2.0-8.0); NEUTROPHILS % 81.8 % (36.0-66.0); PLATELET COUNT, AUTOMATED 278 10^3/uL (150-450); RED BLOOD COUNT 3.26 10^6/uL (4.00-5.40); WHITE BLOOD COUNT 9.8 10^3/uL (4.0-10.0)
[2024-05-08 06:16] LABS: CALCIUM LEVEL 8.3 MG/DL (8.3-10.6); GLOMERULAR FILTRATION RATE 57.4 (>39); MAGNESIUM LEVEL 1.9 MG/DL (1.8-2.4); POTASSIUM SERUM 4.4 MMOL/L (3.5-5.1)
[2024-05-08] MEDS: guaiFENesin ER TABLET 600 MG TAB PO SCH (09:28)
[2024-05-08] MEDS: BENZONATATE 100MG CAPSULE PO SCH (09:29)
[2024-05-09] VITALS (19 sets, daily range): BP systolic 112–158; BP diastolic 55–84; TEMP 97–97.4; O2SAT 89–100
[2024-05-09] MEDS: ALBUTEROL 90 MCG/ACT 8GM HFA INHALER INH PRN (03:44)
[2024-05-09 08:35] LABS: BLOOD UREA NITROGEN 40 MG/DL (9-23); CALCIUM LEVEL 9.1 MG/DL (8.3-10.6); CARBON DIOXIDE LEVEL 31 MMOL/L (20-31); CHLORIDE LEVEL 102 MMOL/L (98-107); CREATININE FOR GFR 0.85 MG/DL (0.55-1.30); GLOMERULAR FILTRATION RATE > 60.0 (>39); GLUCOSE, FASTING 82 MG/DL (74-106); MAGNESIUM LEVEL 1.6 MG/DL (1.8-2.4); POTASSIUM SERUM 4.1 MMOL/L (3.5-5.1); SODIUM LEVEL 137 MMOL/L (136-145)
[2024-05-09] MEDS ORDERED: BISACODYL 10MG SUPP PR PRN (08:50)
[2024-05-09] MEDS: SENOKOT S TAB PO SCH (10:07)
[2024-05-09] MEDS: MAGNESIUM OXIDE 400MG TAB (MAG-OX) PO SCH (10:10)
[2024-05-10] VITALS (25 sets, daily range): BP systolic 115–157; BP diastolic 60–73; TEMP 97–97.6; O2SAT 91–100
[2024-05-10 05:09] LABS: HEMATOCRIT 34.9 % (36.0-47.0); HEMOGLOBIN 11.6 g/dl (12.0-15.5); MEAN CORPUSCULAR HEMOGLOBIN 31.7 pg (27.0-33.0); MEAN CORPUSCULAR HGB CONC 33.2 g/dl (32.0-36.5); MEAN CORPUSCULAR VOLUME 95.4 fl (80.0-96.0); PLATELET COUNT, AUTOMATED 298 10^3/uL (150-450); RED BLOOD COUNT 3.66 10^6/uL (4.00-5.40); WHITE BLOOD COUNT 10.2 10^3/uL (4.0-10.0)
[2024-05-10 05:28] LABS: BLOOD UREA NITROGEN 39 MG/DL (9-23); CALCIUM LEVEL 8.9 MG/DL (8.3-10.6); CARBON DIOXIDE LEVEL 34 MMOL/L (20-31); CHLORIDE LEVEL 101 MMOL/L (98-107); CREATININE FOR GFR 0.88 MG/DL (0.55-1.30); GLOMERULAR FILTRATION RATE > 60.0 (>39); GLUCOSE, FASTING 108 MG/DL (74-106); MAGNESIUM LEVEL 1.7 MG/DL (1.8-2.4); POTASSIUM SERUM 4.6 MMOL/L (3.5-5.1); SODIUM LEVEL 135 MMOL/L (136-145)
[2024-05-10] MEDS: BISACODYL 10MG SUPP PR SCH (08:47)
[2024-05-11] VITALS (20 sets, daily range): BP systolic 121–143; BP diastolic 51–90; TEMP 96–97.9; O2SAT 85–97
[2024-05-11 06:51] LABS: BLOOD UREA NITROGEN 37 MG/DL (9-23); CALCIUM LEVEL 9.3 MG/DL (8.3-10.6); CARBON DIOXIDE LEVEL 31 MMOL/L (20-31); CHLORIDE LEVEL 102 MMOL/L (98-107); CREATININE FOR GFR 0.83 MG/DL (0.55-1.30); GLOMERULAR FILTRATION RATE > 60.0 (>39); GLUCOSE, FASTING 96 MG/DL (74-106); MAGNESIUM LEVEL 1.6 MG/DL (1.8-2.4); POTASSIUM SERUM 4.3 MMOL/L (3.5-5.1); SODIUM LEVEL 137 MMOL/L (136-145)
[2024-05-11] MEDS: MAGNESIUM OXIDE 400MG TAB (MAG-OX) PO ONE (18:27)
[2024-05-12 04:00] VITALS: BP 108/67; TEMP 97.7; O2SAT 90
[2024-05-12 06:56] LABS: BLOOD UREA NITROGEN 35 MG/DL (9-23); CALCIUM LEVEL 9.5 MG/DL (8.3-10.6); CARBON DIOXIDE LEVEL 34 MMOL/L (20-31); CHLORIDE LEVEL 100 MMOL/L (98-107); CREATININE FOR GFR 0.79 MG/DL (0.55-1.30); GLOMERULAR FILTRATION RATE > 60.0 (>39); GLUCOSE, FASTING 71 MG/DL (74-106); MAGNESIUM LEVEL 1.5 MG/DL (1.8-2.4); POTASSIUM SERUM 4.1 MMOL/L (3.5-5.1); SODIUM LEVEL 137 MMOL/L (136-145)
[2024-05-12] MEDS: MAG SULF 1GM/100ML (MAG RUN) 1 GM in IV 1 EA IV SCH (08:15)
[2024-05-12 12:22] VITALS: BP 116/64; TEMP 98.1; O2SAT 95
[2024-05-12 12:49] VITALS: O2SAT 94
[2024-05-12 20:00] VITALS: BP 106/65; TEMP 97.3; O2SAT 95
[2024-05-12 21:00] VITALS: O2SAT 95
[2024-05-12 23:00] VITALS: O2SAT 94
[2024-05-13 04:30] VITALS: BP 123/59; TEMP 97.5; O2SAT 94
[2024-05-13 05:57] LABS: HEMATOCRIT 33.1 % (36.0-47.0); HEMOGLOBIN 11.2 g/dl (12.0-15.5); MEAN CORPUSCULAR HEMOGLOBIN 31.8 pg (27.0-33.0); MEAN CORPUSCULAR HGB CONC 33.8 g/dl (32.0-36.5); PLATELET COUNT, AUTOMATED 311 10^3/uL (150-450); RED BLOOD COUNT 3.52 10^6/uL (4.00-5.40)
[2024-05-13 06:18] LABS: BLOOD UREA NITROGEN 34 MG/DL (9-23); CALCIUM LEVEL 9.2 MG/DL (8.3-10.6); CARBON DIOXIDE LEVEL 31 MMOL/L (20-31); CHLORIDE LEVEL 102 MMOL/L (98-107); CREATININE FOR GFR 0.76 MG/DL (0.55-1.30); GLOMERULAR FILTRATION RATE > 60.0 (>39); GLUCOSE, FASTING 84 MG/DL (74-106); MAGNESIUM LEVEL 1.8 MG/DL (1.8-2.4); POTASSIUM SERUM 3.6 MMOL/L (3.5-5.1); SODIUM LEVEL 138 MMOL/L (136-145)
[2024-05-13 11:09] VITALS: BP 124/58; TEMP 97.9; O2SAT 89
[2024-05-13 21:02] VITALS: BP 142/60; TEMP 98.4; O2SAT 92
[2024-05-14 00:40] VITALS: O2SAT 91
[2024-05-14 04:40] VITALS: BP 112/55; TEMP 97.7; O2SAT 93
[2024-05-14 07:02] LABS: BASO % 0.2 % (0.0-1.0); EOS # 0.5 10^3/uL (0.0-0.5); EOS % 3.5 % (0.0-3.0); HEMATOCRIT 30.8 % (36.0-47.0); HEMOGLOBIN 10.1 g/dl (12.0-15.5); LYMPH # 2.3 10^3/uL (1.5-5.0); LYMPH % 17.2 % (24.0-44.0); MEAN CORPUSCULAR HEMOGLOBIN 31.4 pg (27.0-33.0); MEAN CORPUSCULAR HGB CONC 32.8 g/dl (32.0-36.5); MEAN CORPUSCULAR VOLUME 95.7 fl (80.0-96.0); MONO # 1.3 10^3/uL (0.0-0.8); MONO % 9.5 % (2.0-8.0); NEUTROPHILS # 9.1 10^3/uL (1.5-8.5); NEUTROPHILS % 68.5 % (36.0-66.0); PLATELET COUNT, AUTOMATED 283 10^3/uL (150-450); RED BLOOD COUNT 3.22 10^6/uL (4.00-5.40); WHITE BLOOD COUNT 13.3 10^3/uL (4.0-10.0)
[2024-05-14 07:17] LABS: BLOOD UREA NITROGEN 27 MG/DL (9-23); CALCIUM LEVEL 8.7 MG/DL (8.3-10.6); CARBON DIOXIDE LEVEL 34 MMOL/L (20-31); CHLORIDE LEVEL 102 MMOL/L (98-107); CREATININE FOR GFR 0.79 MG/DL (0.55-1.30); GLOMERULAR FILTRATION RATE > 60.0 (>39); GLUCOSE, FASTING 67 MG/DL (74-106); MAGNESIUM LEVEL 1.6 MG/DL (1.8-2.4); POTASSIUM SERUM 3.8 MMOL/L (3.5-5.1); SODIUM LEVEL 138 MMOL/L (136-145)
[2024-05-14] MEDS: MAG SULF 1GM/100ML (MAG RUN) 1 GM in IV 1 EA IV ONE (08:35)
[2024-05-14 12:00] VITALS: BP 91/46; TEMP 97.6; O2SAT 95
[2024-05-14 17:54] VITALS: BP 102/58; O2SAT 96
[2024-05-14 19:50] VITALS: BP 125/63; TEMP 97.8; O2SAT 96
[2024-05-14] MEDS: FLUCONAZOLE 100 MG TAB PO ONE (20:04)
[2024-05-14 20:05] VITALS: TEMP 97.9
[2024-05-15] VITALS (10 sets, daily range): BP systolic 108–127; BP diastolic 45–82; TEMP 98.1–98.2; O2SAT 83–96
[2024-05-15 07:31] LABS: BLOOD UREA NITROGEN 22 MG/DL (9-23); CARBON DIOXIDE LEVEL 35 MMOL/L (20-31); CHLORIDE LEVEL 104 MMOL/L (98-107); CREATININE FOR GFR 0.73 MG/DL (0.55-1.30); GLOMERULAR FILTRATION RATE > 60.0 (>39); GLUCOSE, FASTING 94 MG/DL (74-106); MAGNESIUM LEVEL 1.6 MG/DL (1.8-2.4); POTASSIUM SERUM 3.4 MMOL/L (3.5-5.1); SODIUM LEVEL 141 MMOL/L (136-145)
[2024-05-15 07:58] LABS: HIV 1&2 SCREEN NEGATIVE (NEGATIVE)
[2024-05-15] MEDS: POTASSIUM CHLORIDE 10MEQ SR TABLET PO SCH (08:35)
[2024-05-15] MEDS: FLUCONAZOLE 100 MG TAB PO SCH (08:37)
[2024-05-15] MEDS: MAG SULF 1GM/100ML (MAG RUN) 1 GM in IV 1 EA IV SCH ×2 (08:38→16:30)
[2024-05-15 16:35] LABS: BASO % 0.1 % (0.0-1.0); EOS # 0.4 10^3/uL (0.0-0.5); EOS % 3.7 % (0.0-3.0); HEMATOCRIT 31.4 % (36.0-47.0); HEMOGLOBIN 10.3 g/dl (12.0-15.5); LYMPH # 1.7 10^3/uL (1.5-5.0); LYMPH % 14.9 % (24.0-44.0); MEAN CORPUSCULAR HEMOGLOBIN 31.7 pg (27.0-33.0); MEAN CORPUSCULAR HGB CONC 32.8 g/dl (32.0-36.5); MEAN CORPUSCULAR VOLUME 96.6 fl (80.0-96.0); MONO % 8.8 % (2.0-8.0); NEUTROPHILS % 71.9 % (36.0-66.0); PLATELET COUNT, AUTOMATED 304 10^3/uL (150-450); RED BLOOD COUNT 3.25 10^6/uL (4.00-5.40); WHITE BLOOD COUNT 11.1 10^3/uL (4.0-10.0)
[2024-05-15 16:50] LABS: BLOOD UREA NITROGEN 20 MG/DL (9-23); CALCIUM LEVEL 8.8 MG/DL (8.3-10.6); CARBON DIOXIDE LEVEL 32 MMOL/L (20-31); CHLORIDE LEVEL 106 MMOL/L (98-107); GLOMERULAR FILTRATION RATE > 60.0 (>39); GLUCOSE, FASTING 113 MG/DL (74-106); POTASSIUM SERUM 3.9 MMOL/L (3.5-5.1); SODIUM LEVEL 141 MMOL/L (136-145)
[2024-05-16 03:00] VITALS: BP 137/59; TEMP 98.1; O2SAT 96
[2024-05-16 06:06] LABS: HEMATOCRIT 29.6 % (36.0-47.0); HEMOGLOBIN 9.7 g/dl (12.0-15.5); MEAN CORPUSCULAR HEMOGLOBIN 31.7 pg (27.0-33.0); MEAN CORPUSCULAR HGB CONC 32.8 g/dl (32.0-36.5); MEAN CORPUSCULAR VOLUME 96.7 fl (80.0-96.0); PLATELET COUNT, AUTOMATED 291 10^3/uL (150-450); RED BLOOD COUNT 3.06 10^6/uL (4.00-5.40); WHITE BLOOD COUNT 10.7 10^3/uL (4.0-10.0)
[2024-05-16 06:33] LABS: BLOOD UREA NITROGEN 17 MG/DL (9-23); CALCIUM LEVEL 8.7 MG/DL (8.3-10.6); CARBON DIOXIDE LEVEL 33 MMOL/L (20-31); CHLORIDE LEVEL 105 MMOL/L (98-107); CREATININE FOR GFR 0.81 MG/DL (0.55-1.30); GLOMERULAR FILTRATION RATE > 60.0 (>39); GLUCOSE, FASTING 96 MG/DL (74-106); POTASSIUM SERUM 3.8 MMOL/L (3.5-5.1); SODIUM LEVEL 141 MMOL/L (136-145)
[2024-05-16 12:26] VITALS: BP 122/59; TEMP 98.6; O2SAT 92
[2024-05-16 18:43] VITALS: O2SAT 93
[2024-05-16 20:00] VITALS: BP 114/61; TEMP 98.2; O2SAT 90
[2024-05-17] VITALS (9 sets, daily range): BP systolic 125–132; BP diastolic 66–71; TEMP 97.7–98.2; O2SAT 87–95
[2024-05-17] MEDS: prednisoLONE ACET 1% OPHTH SUSP 5ML OD SCH (20:20)
[2024-05-18] VITALS (12 sets, daily range): BP systolic 139–147; BP diastolic 67–78; TEMP 97.7–97.9; O2SAT 79–96
[2024-05-18 06:27] LABS: BASO % 0.2 % (0.0-1.0); EOS # 0.4 10^3/uL (0.0-0.5); EOS % 3.8 % (0.0-3.0); HEMATOCRIT 29.6 % (36.0-47.0); HEMOGLOBIN 9.5 g/dl (12.0-15.5); LYMPH # 2.4 10^3/uL (1.5-5.0); LYMPH % 23.3 % (24.0-44.0); MEAN CORPUSCULAR HEMOGLOBIN 31.7 pg (27.0-33.0); MEAN CORPUSCULAR HGB CONC 32.1 g/dl (32.0-36.5); MEAN CORPUSCULAR VOLUME 98.7 fl (80.0-96.0); MONO # 1.2 10^3/uL (0.0-0.8); MONO % 11.7 % (2.0-8.0); NEUTROPHILS # 6.1 10^3/uL (1.5-8.5); NEUTROPHILS % 60.5 % (36.0-66.0); PLATELET COUNT, AUTOMATED 300 10^3/uL (150-450); WHITE BLOOD COUNT 10.1 10^3/uL (4.0-10.0)
[2024-05-18 06:48] LABS: BLOOD UREA NITROGEN 11 MG/DL (9-23); CALCIUM LEVEL 9.4 MG/DL (8.3-10.6); CARBON DIOXIDE LEVEL 29 MMOL/L (20-31); CHLORIDE LEVEL 108 MMOL/L (98-107); CREATININE FOR GFR 0.75 MG/DL (0.55-1.30); GLOMERULAR FILTRATION RATE > 60.0 (>39); GLUCOSE, FASTING 91 MG/DL (74-106); MAGNESIUM LEVEL 1.6 MG/DL (1.8-2.4); POTASSIUM SERUM 4.1 MMOL/L (3.5-5.1); SODIUM LEVEL 142 MMOL/L (136-145)
[2024-05-18] MEDS: MAG SULF 1GM/100ML (MAG RUN) 1 GM in IV 1 EA IV SCH (09:45)
[2024-05-18] MEDS ORDERED: MAGN400T2 PO (13:36)
== END 2024-05-18 19:42 | disposition home or self-care (01) | DRG 871 ==
LOC: M ED 13:00 → M ED INP 19:02 → M PCU 05-05 00:55 → M MSPAV 05-11 13:22
PROVIDERS: ADMIT Hospitalist; ATTEND Hospitalist
DX: A41.9 Sepsis, unspecified organism (principal); U07.1 COVID-19; J18.9 Pneumonia, unspecified organism; J96.01 Acute respiratory failure with hypoxia; I31.9 Disease of pericardium, unspecified; I10 Essential (primary) hypertension; F32.A Depression, unspecified; J45.909 Unspecified asthma, uncomplicated; I25.10 Atherosclerotic heart disease of native coronary artery without angina pectoris; F41.9 Anxiety disorder, unspecified; E87.5 Hyperkalemia; E78.5 Hyperlipidemia, unspecified; M48.00 Spinal stenosis, site unspecified; Z68.38 Body mass index [BMI] 38.0-38.9, adult; K21.9 Gastro-esophageal reflux disease without esophagitis; G47.33 Obstructive sleep apnea (adult) (pediatric); E83.42 Hypomagnesemia; E66.9 Obesity, unspecified; M10.9 Gout, unspecified; Z88.2 Allergy status to sulfonamides; Z88.0 Allergy status to penicillin; Z88.5 Allergy status to narcotic agent; Z79.899 Other long term (current) drug therapy; G62.9 Polyneuropathy, unspecified

== ENCOUNTER → 2024-06-22 | Outpatient (CLI) | payer MEDICARE, OTHER ==
[~2024-06-22] MED LIST changes: +ASCO500T PO; -BYST10TA2 PO; +BYST1TAB3 PO; +DULO30CA47 PO; +GABA-1490 PO; -GABA600T4 PO; +MAGN400T2 PO; +POTA-298 PO; +TREL1AER INH
== END ==
LOC: M PLAIMG 15:54
PROVIDERS: ATTEND Nurse Practitioner Adult Health
DX: R91.8 Other nonspecific abnormal finding of lung field (principal)

== ENCOUNTER → 2024-08-17 | Outpatient (CLI) | payer MEDICARE, OTHER ==
[~2024-08-17] MED LIST changes: -DOXY-323 PO; +DOXY-441 PO; +GABA-1172 PO; -GABA-282 PO
== END ==
LOC: M RAD 13:02
PROVIDERS: ATTEND Nurse Practitioner Adult Health
DX: R91.8 Other nonspecific abnormal finding of lung field (principal)

== ENCOUNTER → 2024-10-06 | Outpatient (CLI) | payer MEDICARE, OTHER | LOC: M PAIN 16:45 | PROVIDERS: ATTEND Anesthesiology | DX: M51.16 Intervertebral disc disorders with radiculopathy, lumbar region (principal); G89.29 Other chronic pain; Z79.51 Long term (current) use of inhaled steroids; Z79.82 Long term (current) use of aspirin; Z79.899 Other long term (current) drug therapy; Z80.3 Family history of malignant neoplasm of breast; Z80.8 Family history of malignant neoplasm of other organs or systems; Z88.0 Allergy status to penicillin; Z88.1 Allergy status to other antibiotic agents; Z88.2 Allergy status to sulfonamides; Z88.5 Allergy status to narcotic agent; Z88.8 Allergy status to other drugs, medicaments and biological substances; Z91.041 Radiographic dye allergy status ==

== ENCOUNTER → 2024-11-02 | Outpatient (CLI) | payer MEDICARE, OTHER | LOC: M PAIN 13:30 | PROVIDERS: ATTEND Anesthesiology | DX: M51.16 Intervertebral disc disorders with radiculopathy, lumbar region (principal); G89.29 Other chronic pain; M54.2 Cervicalgia; G43.909 Migraine, unspecified, not intractable, without status migrainosus; M06.9 Rheumatoid arthritis, unspecified; Z79.82 Long term (current) use of aspirin; Z79.891 Long term (current) use of opiate analgesic; Z79.899 Other long term (current) drug therapy; Z88.0 Allergy status to penicillin; Z88.2 Allergy status to sulfonamides; Z88.5 Allergy status to narcotic agent; Z88.8 Allergy status to other drugs, medicaments and biological substances; Z91.041 Radiographic dye allergy status ==

== ENCOUNTER 2025-01-10 12:11 | Emergency (ER) | payer MEDICARE, OTHER ==
[~2025-01-10] VITALS: Ht 152.4 cm; Wt 81.7 kg
[2025-01-10] MEDS: predniSONE 20 MG TAB PO ONE (13:04)
[2025-01-10] MEDS: PERCOCET 5MG/325MG TAB PO ONE (13:04)
[2025-01-10 14:01] VITALS: BP 111/55
[2025-01-10 14:05] VITALS: O2SAT 96
[2025-01-10] MEDS ORDERED: PERC5TAB12 PO (14:16)
[2025-01-10] MEDS ORDERED: PRED10TA2 PO (14:16)
[2025-01-10 14:32] VITALS: TEMP 98.1
== END 2025-01-10 14:42 | disposition home or self-care (01) ==
LOC: EDBD 12:11 → M ED 12:11
DX: M54.31 Sciatica, right side (principal); E78.5 Hyperlipidemia, unspecified; I10 Essential (primary) hypertension; J45.909 Unspecified asthma, uncomplicated; G47.30 Sleep apnea, unspecified; K21.9 Gastro-esophageal reflux disease without esophagitis; F32.9 Major depressive disorder, single episode, unspecified; Z79.52 Long term (current) use of systemic steroids; Z79.82 Long term (current) use of aspirin; Z79.899 Other long term (current) drug therapy; Z88.0 Allergy status to penicillin; Z88.2 Allergy status to sulfonamides; Z88.5 Allergy status to narcotic agent; Z86.79 Personal history of other diseases of the circulatory system
CPT/HCPCS: 99284; J7512

== ENCOUNTER 2025-01-31 21:19 | Emergency (ER) | payer MEDICARE, OTHER ==
[~2025-01-31] VITALS: Ht 152.4 cm; Wt 72.9 kg
[~2025-01-31 21:19] MED LIST changes: +PRED10TA2 PO
[2025-01-31] MEDS ORDERED: ISOVUE-370 76% 100ML VIAL As Ordered ONE (21:52)
[2025-01-31 21:56] LABS: BASO % 0.3 % (0.0-1.0); EOS # 0.2 10^3/uL (0.0-0.5); EOS % 1.3 % (0.0-3.0); HEMATOCRIT 38.5 % (36.0-47.0); HEMOGLOBIN 12.8 g/dl (12.0-15.5); LYMPH # 2.3 10^3/uL (1.5-5.0); LYMPH % 18.3 % (24.0-44.0); MEAN CORPUSCULAR HEMOGLOBIN 31.8 pg (27.0-33.0); MEAN CORPUSCULAR HGB CONC 33.2 g/dl (32.0-36.5); MEAN CORPUSCULAR VOLUME 95.5 fl (80.0-96.0); MONO # 1.1 10^3/uL (0.0-0.8); MONO % 8.9 % (2.0-8.0); NEUTROPHILS # 8.9 10^3/uL (1.5-8.5); PLATELET COUNT, AUTOMATED 236 10^3/uL (150-450); RED BLOOD COUNT 4.03 10^6/uL (4.00-5.40); WHITE BLOOD COUNT 12.6 10^3/uL (4.0-10.0)
[2025-01-31 22:27] LABS: CK-MB VALUE MASS 1.7 NG/ML (<3.6)
[2025-01-31 22:28] LABS: CALCIUM LEVEL 9.8 MG/DL (8.3-10.6); CREATININE FOR GFR 0.79 MG/DL (0.55-1.30); POTASSIUM SERUM 3.5 MMOL/L (3.5-5.1)
[2025-01-31 22:32] LABS: MB/CK RELATIVE INDEX 0.91 (< OR =4)
[2025-01-31] MEDS: methylPREDNISolone 125MG 2ML VIAL IV ONE (22:51)
[2025-01-31] MEDS: diazePAM 10MG/2ML SYRINGE IV ONE (22:51)
[2025-02-01 00:13] LABS: MAGNESIUM LEVEL 1.2 MG/DL (1.8-2.4)
[2025-02-01 00:18] LABS: THYROID STIMULATING HORMONE 1.779 uIU/ML (0.55-4.78)
[2025-02-01 01:08] LABS: KETONE, URINE AUTO RFX NEGATIVE (NEGATIVE); LEUKOCYTE ESTERASE UR AUTO RFX NEGATIVE (NEGATIVE); MUCUS, URINE RFX SMALL (NEGATIVE); NITRITE, URINE AUTO RFX NEGATIVE (NEGATIVE); RBC, URINE AUTO RFX 0 /HPF (0-3); SQUAM EPITHELIAL CELL UR AURFX 0 /HPF (0-6); WBC, URINE AUTO RFX 0 /HPF (0-3)
[2025-02-01] MEDS: carisoprodoL 350 MG TAB PO ONE (01:09)
[2025-02-01] MEDS: HYDROMORPHONE HCL 0.5 MG/ 0.5 ML SYRINGE IV PRN (01:28)
[2025-02-01] MEDS: MAG SULF 1GM/100ML (MAG RUN) 1 GM in IV 1 EA IV ONE (02:05)
[2025-02-01] MEDS ORDERED: HEPARIN SOD (PORCINE) 5000UNITS/ML 1ML VIAL/SYRINGE IV PRN (02:35)
[2025-02-01 02:53] VITALS: BP 145/70
[2025-02-01] MEDS: NITROGLYCERIN 2% OINT 1 GM *U/D* PKT TOP ONE (02:53)
[2025-02-01] MEDS: ASPIRIN 325 MG TAB PO ONE (02:54)
[2025-02-01] MEDS: HEPARIN DRIP 25,000 UNITS in IV 1 EA IV SCH (03:04)
[2025-02-01 06:31] VITALS: BP 133/73; TEMP 98.4; O2SAT 99
[2025-02-01] MEDS: diazePAM 10MG/2ML SYRINGE IV ONE (06:38)
== END 2025-02-01 07:07 | disposition short-term general hospital (02) ==
LOC: M ED 21:19
DX: I21.4 Non-ST elevation (NSTEMI) myocardial infarction (principal); M54.31 Sciatica, right side; S20.20XA Contusion of thorax, unspecified, initial encounter; W01.198A Fall on same level from slipping, tripping and stumbling with subsequent striking against other object, initial encounter; I10 Essential (primary) hypertension; J45.909 Unspecified asthma, uncomplicated; K21.9 Gastro-esophageal reflux disease without esophagitis; E55.9 Vitamin D deficiency, unspecified; Z86.79 Personal history of other diseases of the circulatory system
CPT/HCPCS: 51701; 71275; 72110; 72131; 72192; 80047; 80048; 81001; 82550; 82553; 83735; 83880; 84443; 84484; 85025; 85730; 93005; 96365; 96366; 96367; 96375; 96376; 99291; J1171; J2919; J3360; J3475; Q9967

== ENCOUNTER → 2025-04-21 | Outpatient (CLI) | payer MEDICARE, OTHER ==
[~2025-04-21] MED LIST changes: +CEFP200T PO; +DICL1PAT6 TOP; +MAGN400T33 PO; +REXU1TAB2 PO; +TRAM50TA2 PO
[2025-04-21 18:30] LABS: C REACTIVE PROTEIN QUANTITATIV 2.88 MG/DL (<1.0)
[2025-04-21 18:32] LABS: RHEUMATOID FACTOR QUANT 19.2 IU/ML (<14)
[2025-04-21 18:47] LABS: ALT/SGPT 17.0 U/L (7.0-40); AST/SGOT 23.0 U/L (<34); CALCIUM LEVEL 10.7 MG/DL (8.3-10.6); CARBON DIOXIDE LEVEL 33.0 MMOL/L (20-31); CHLORIDE LEVEL 97.0 MMOL/L (98-107); CREATININE FOR GFR 1.02 MG/DL (0.55-1.30); GLOMERULAR FILTRATION RATE 56.7 (>39); POTASSIUM SERUM 3.8 MMOL/L (3.5-5.1); SODIUM LEVEL 143.0 MMOL/L (136-145)
[2025-04-24 16:48] LABS: ANA TITER 2 1:40 titer (NEGATIVE)
[2025-04-27 14:17] LABS: HLA-B27 Negative (Negative)
== END ==
LOC: M LAB 16:34
PROVIDERS: ATTEND Physical Medicine & Rehabilitation
DX: M47.26 Other spondylosis with radiculopathy, lumbar region (principal); M48.061 Spinal stenosis, lumbar region without neurogenic claudication; M51.26 Other intervertebral disc displacement, lumbar region

== ENCOUNTER → 2025-06-08 | Outpatient (CLI) | payer MEDICARE, OTHER ==
[~2025-06-08] MED LIST changes: +CARB-19 PO; -CARB1TAB20 PO
== END ==
LOC: M WHC 14:17
PROVIDERS: ATTEND Student in an Organized Health Care Education/Training Program
DX: Z12.31 Encounter for screening mammogram for malignant neoplasm of breast (principal)

== ENCOUNTER → 2025-07-12 | Outpatient (CLI) | payer MEDICARE, OTHER | LOC: M PLAIMG 11:15 | PROVIDERS: ATTEND Physician Assistant | DX: M54.50 Low back pain, unspecified (principal) ==

== ENCOUNTER → 2025-08-02 | Outpatient (CLI) | payer MEDICARE, OTHER ==
[~2025-08-02] MED LIST changes: +NITR100C2 PO
[2025-08-02 15:50] LABS: BASO # 0.1 10^3/uL (0.0-0.2); BASO % 0.5 % (0.0-1.0); EOS # 0.3 10^3/uL (0.0-0.5); EOS % 2.9 % (0.0-3.0); LYMPH # 2.2 10^3/uL (1.5-5.0); LYMPH % 21.6 % (24.0-44.0); MONO # 0.7 10^3/uL (0.0-0.8); MONO % 7.2 % (2.0-8.0); NEUTROPHILS # 6.9 10^3/uL (1.5-8.5); NEUTROPHILS % 67.5 % (36.0-66.0); PLATELET COUNT, AUTOMATED 282 10^3/uL (150-450)
[2025-08-02 15:52] LABS: APPEARANCE, URINE HAZY (CLEAR); BACTERIA, URINE AUTO NEGATIVE (NEGATIVE); BILIRUBIN, URINE AUTO NEGATIVE (NEGATIVE); BLOOD, URINE BLOOD NEGATIVE (NEGATIVE); GLUCOSE, URINE (UA) AUTO NEGATIVE (NEGATIVE); KETONE, URINE AUTO NEGATIVE (NEGATIVE); LEUKOCYTE ESTERASE, URINE AUTO 3+ (NEGATIVE); MUCUS, URINE SMALL (NEGATIVE); NITRITE, URINE AUTO NEGATIVE (NEGATIVE); PROTEIN, URINE AUTO NEGATIVE (NEGATIVE); RBC, URINE AUTO 3 /HPF (0-3); SPECIFIC GRAVITY URINE AUTO 1.014 (1.002-1.035); SQUAMOUS EPITHELIAL CELL UR AU 5 /HPF (0-6); TRANSITIONAL EPITHELIAL AUTO 5 /HPF; UROBILINOGEN, URINE AUTO 0.2 mg/dL (0.0-2.0); WBC, URINE AUTO 23 /HPF (0-3)
[2025-08-02 16:12] LABS: INR 1.05
[2025-08-02 16:14] LABS: CALCIUM LEVEL 10.3 MG/DL (8.3-10.6); CARBON DIOXIDE LEVEL 32.0 MMOL/L (20-31); CHLORIDE LEVEL 98.0 MMOL/L (98-107); CREATININE FOR GFR 0.82 MG/DL (0.55-1.30); GLOMERULAR FILTRATION RATE 73.6 (>39); POTASSIUM SERUM 3.6 MMOL/L (3.5-5.1); SODIUM LEVEL 142.0 MMOL/L (136-145)
== END ==
LOC: M LAB 15:08
PROVIDERS: ATTEND Student in an Organized Health Care Education/Training Program
DX: Z01.818 Encounter for other preprocedural examination (principal)

== ENCOUNTER → 2025-08-17 | Outpatient (CLI) | payer MEDICARE, OTHER ==
[2025-08-17 16:15] LABS: BASO # 0.1 10^3/uL (0.0-0.2); BASO % 0.5 % (0.0-1.0); EOS # 0.4 10^3/uL (0.0-0.5); EOS % 3.7 % (0.0-3.0); LYMPH # 2.4 10^3/uL (1.5-5.0); LYMPH % 22.2 % (24.0-44.0); MONO # 0.8 10^3/uL (0.0-0.8); MONO % 7.6 % (2.0-8.0); NEUTROPHILS # 7.0 10^3/uL (1.5-8.5); NEUTROPHILS % 65.6 % (36.0-66.0); PLATELET COUNT, AUTOMATED 281 10^3/uL (150-450)
[2025-08-17 16:55] LABS: APPEARANCE, URINE CLOUDY (CLEAR); BACTERIA, URINE AUTO NEGATIVE (NEGATIVE); BILIRUBIN, URINE AUTO NEGATIVE (NEGATIVE); BLOOD, URINE BLOOD NEGATIVE (NEGATIVE); GLUCOSE, URINE (UA) AUTO NEGATIVE (NEGATIVE); KETONE, URINE AUTO NEGATIVE (NEGATIVE); LEUKOCYTE ESTERASE, URINE AUTO 2+ (NEGATIVE); MUCUS, URINE SMALL (NEGATIVE); NITRITE, URINE AUTO NEGATIVE (NEGATIVE); PROTEIN, URINE AUTO NEGATIVE (NEGATIVE); RBC, URINE AUTO 1 /HPF (0-3); SPECIFIC GRAVITY URINE AUTO 1.018 (1.002-1.035); SQUAMOUS EPITHELIAL CELL UR AU 2 /HPF (0-6); UROBILINOGEN, URINE AUTO 0.2 mg/dL (0.0-2.0); WBC, URINE AUTO 16 /HPF (0-3)
== END ==
LOC: M LAB 15:16
PROVIDERS: ATTEND Neurological Surgery
DX: N39.0 Urinary tract infection, site not specified (principal)

== ENCOUNTER → 2025-08-19 | Outpatient (CLI) | payer MEDICARE, OTHER | LOC: M PLAIMG 15:42 → M RAD 15:42 | PROVIDERS: ATTEND Student in an Organized Health Care Education/Training Program | DX: Z01.818 Encounter for other preprocedural examination (principal) ==

== ENCOUNTER 2025-08-22 06:24 | Observation (INO) | payer MEDICARE, OTHER ==
[2025-08-22] VITALS (16 sets, daily range): BP systolic 123–141; BP diastolic 58–68; TEMP 97.1–98.5; O2SAT 95–100
[~2025-08-22] VITALS: Ht 152.4 cm; Wt 66.8 kg
[~2025-08-22 06:24] MED LIST changes: -LABE100T6 PO; +LABE100T91 PO; -SODI88SP; +SODI88SP7
[2025-08-22] MEDS ORDERED: SUCCINYLCHOLINE 100MG/5ML SYRINGE As Ordered ONE (06:51)
[2025-08-22] MEDS ORDERED: dexAMETHasone 4 MG/ML 1 ML VIAL As Ordered ONE (06:53)
[2025-08-22] MEDS ORDERED: ACETAMINOPHEN 1000MG/100ML IV BAG As Ordered ONE (06:53)
[2025-08-22] MEDS ORDERED: ONDANSETRON 4MG/2ML VIAL As Ordered ONE (06:53)
[2025-08-22] MEDS ORDERED: REMIFENTANIL 1MG VIAL As Ordered ONE (06:54)
[2025-08-22] MEDS ORDERED: MIDAZOLAM INJ 2 MG/2 ML VIAL As Ordered ONE (06:54)
[2025-08-22] MEDS ORDERED: LIDOCAINE 2% 100 MG/5 ML SDV (FOR ANES.) As Ordered ONE (07:02)
[2025-08-22] MEDS ORDERED: ROCURONIUM BROMIDE 50MG/5ML VIAL As Ordered ONE (07:10)
[2025-08-22] MEDS: LR 1,000 ML IV SCH (07:20)
[2025-08-22 08:08] LABS: PLATELET COUNT, AUTOMATED 264 10^3/uL (150-450)
[2025-08-22] MEDS ORDERED: MAGN1TAB26 PO (08:23)
[2025-08-22] MEDS ORDERED: THERTAB52 PO (08:23)
[2025-08-22] MEDS ORDERED: VITATAB73 PO (08:23)
[2025-08-22] MEDS ORDERED: HOME MED LIST COMPLETE! XX SCH (08:25)
[2025-08-22 08:29] LABS: APPEARANCE, URINE CLEAR (CLEAR); BACTERIA, URINE AUTO NEGATIVE (NEGATIVE); BILIRUBIN, URINE AUTO NEGATIVE (NEGATIVE); BLOOD, URINE BLOOD NEGATIVE (NEGATIVE); GLUCOSE, URINE (UA) AUTO NEGATIVE (NEGATIVE); KETONE, URINE AUTO NEGATIVE (NEGATIVE); LEUKOCYTE ESTERASE, URINE AUTO NEGATIVE (NEGATIVE); MUCUS, URINE SMALL (NEGATIVE); NITRITE, URINE AUTO NEGATIVE (NEGATIVE); PROTEIN, URINE AUTO NEGATIVE (NEGATIVE); RBC, URINE AUTO 0 /HPF (0-3); SPECIFIC GRAVITY URINE AUTO 1.018 (1.002-1.035); SQUAMOUS EPITHELIAL CELL UR AU 0 /HPF (0-6); UROBILINOGEN, URINE AUTO 2.0 mg/dL (0.0-2.0); WBC, URINE AUTO 1 /HPF (0-3)
[2025-08-22] MEDS ORDERED: PHENYLephrine 500MCG 5ML (100MCG/ML) SYRINGE As Ordered ONE (08:56)
[2025-08-22] MEDS: ceFAZolin SODIUM 2 GM in DEXTROSE 5% (D5W) ADV/MINI-BAG 50 ML IV ONE (09:00)
[2025-08-22] MEDS ORDERED: PHENYLEPHRINE 10MG/ML 1ML VIAL As Ordered ONE (09:05)
[2025-08-22] MEDS: LIDOCAINE W/EPINEPHrine 1% 20 ML VIAL As Ordered ONE (09:06)
[2025-08-22] MEDS ORDERED: HYDROmorphone HCL 2 MG/ML 1 ML VIAL As Ordered ONE (09:32)
[2025-08-22] MEDS ORDERED: HYDROMORPHONE HCL 0.5 MG/0.5 ML SYRINGE IV PRN (10:45)
[2025-08-22] MEDS ORDERED: CYCLOBENZAPRINE 5 MG TABLET PO PRN (10:50)
[2025-08-22] MEDS ORDERED: ONDANSETRON 4MG/2ML VIAL IV PRN (10:50)
[2025-08-22] MEDS ORDERED: FLUMAZENIL 0.5 MG/5 ML VIAL As Ordered ONE (11:54)
[2025-08-22] MEDS ORDERED: ACETAMINOPHEN 325 MG TAB PO SCH (12:00)
[2025-08-22] MEDS: NS (Normal Saline) 0.9% 1,000 ML IV ONE (14:15)
[2025-08-22 14:34] LABS: ABG BASE EXCESS -1.1 (-2.0-2.0); ABG HCO3 26.4 MMOL/L (22.0-26.0); ABG O2 SATURATION 98.2 % (95.0-99.0); ABG PARTIAL PRESSURE CO2 56.6 mmHg (35.0-45.0); ABG PARTIAL PRESSURE O2 120.0 mmHg (75.0-100.0); ABG STANDARD HCO3 23.6 MMOL/L. (22.0-26.0); ABG TOTAL CO2 28.2 MMOL/L (23.0-31.0); ABG pH (ARTERIAL) 7.287 UNITS (7.350-7.450)
[2025-08-22] MEDS: ceFAZolin SODIUM 2 GM in DEXTROSE 5% (D5W) ADV/MINI-BAG 50 ML IV SCH (17:24)
[2025-08-22] MEDS: ACETAMINOPHEN 325 MG TAB PO SCH (17:25)
[2025-08-22] MEDS: SENNA 8.6 MG TAB PO SCH (20:47)
[2025-08-22] MEDS: DOCUSATE SODIUM 100 MG CAPSULE PO SCH (21:16)
[2025-08-23] VITALS (9 sets, daily range): BP systolic 115–163; BP diastolic 58–74; TEMP 97–98.4; O2SAT 93–100
[2025-08-23 05:23] LABS: PLATELET COUNT, AUTOMATED 248 10^3/uL (150-450)
[2025-08-23 05:58] LABS: ALT/SGPT 14 U/L (7.0-40); AST/SGOT 25 U/L (<34); CALCIUM LEVEL 8.8 MG/DL (8.3-10.6); CARBON DIOXIDE LEVEL 30 MMOL/L (20-31); CHLORIDE LEVEL 102 MMOL/L (98-107); CREATININE FOR GFR 0.82 MG/DL (0.55-1.30); GLOMERULAR FILTRATION RATE 73.6 (>39); MAGNESIUM LEVEL 1.0 MG/DL (1.8-2.4); PHOSPHORUS LEVEL 2.6 MG/DL (2.4-5.1); POTASSIUM SERUM 4.0 MMOL/L (3.5-5.1); SODIUM LEVEL 141 MMOL/L (136-145)
[2025-08-23 06:09] LABS: ABG BASE EXCESS 0.7 (-2.0-2.0); ABG HCO3 26.0 MMOL/L (22.0-26.0); ABG O2 SATURATION 93.0 % (95.0-99.0); ABG PARTIAL PRESSURE CO2 44.4 mmHg (35.0-45.0); ABG PARTIAL PRESSURE O2 64.2 mmHg (75.0-100.0); ABG STANDARD HCO3 25.0 MMOL/L. (22.0-26.0); ABG TOTAL CO2 27.4 MMOL/L (23.0-31.0); ABG pH (ARTERIAL) 7.386 UNITS (7.350-7.450)
[2025-08-23] MEDS: MAG SULF 1GM/100ML (MAG RUN) 1 GM in IV 1 EA IV SCH (06:12)
[2025-08-23] MEDS ORDERED: SENO8.6T10 PO (09:09)
[2025-08-23] MEDS ORDERED: PERC5TAB12 PO (09:09)
[2025-08-23] MEDS ORDERED: CYCL-707 PO (09:09)
[2025-08-23] MEDS ORDERED: MILKSUS3 PO (09:09)
[2025-08-23] MEDS: ALPRAZolam 0.5 MG TAB PO ONE (14:33)
[2025-08-23] MEDS ORDERED: HEPARIN SOD 5000 UNITS/ML 1 ML VIAL/SYRINGE SC SCH (21:00)
== END 2025-08-23 14:54 | disposition home or self-care (01) ==
LOC: M SDC 06:24 → M RR INP 06:25 → M ICU 13:40
PROVIDERS: ADMIT General Practice; ATTEND General Practice
DX: T85.112A Breakdown (mechanical) of implanted electronic neurostimulator of spinal cord electrode (lead), initial encounter (principal); G89.29 Other chronic pain; I48.91 Unspecified atrial fibrillation; I10 Essential (primary) hypertension; Z92.21 Personal history of antineoplastic chemotherapy; Z85.72 Personal history of non-Hodgkin lymphomas; Z86.73 Personal history of transient ischemic attack (TIA), and cerebral infarction without residual deficits; M10.9 Gout, unspecified; F41.9 Anxiety disorder, unspecified; F32.A Depression, unspecified; J45.909 Unspecified asthma, uncomplicated; Z79.82 Long term (current) use of aspirin; Z79.899 Other long term (current) drug therapy; Z88.0 Allergy status to penicillin; Z88.2 Allergy status to sulfonamides; Z88.5 Allergy status to narcotic agent
CPT/HCPCS: 36415; 63661; 71045; 80048; 80076; 81001; 82803; 83735; 84100; 85027; 86850; 86870; 86900; 86901; 94002; 94660; 96361; 96365; 96366; 97161; A6024; G0378; J0131; J0330; J0665; J0666; J0688; J1100; J1171; J2250; J2371; J2405; J3010; J3475